=== PATIENT | female | born 1975 | race Caucasian/White ===

== ENCOUNTER 2023-01-16 08:52 | Outpatient (AMB) | payer BC, SELFPAY ==
--- NOTE | 2023-01-15 13:38 | ...WebTmpl.AM.PHNO ---
PHQ-9 Over the last 2 weeks, how often have you been bothered by any of the following problems? 1. Little interest or pleasure in doing things: not at all 2. Feeling down, depressed, or hopeless: not at all 3. Trouble falling or staying asleep, or sleeping too much: more than half the days 4. Feeling tired or having little energy: nearly every day 5. Poor appetite or overeating: not at all 6. Feeling bad about yourself - or that you are a failure or have let yourself or your family down: not at all 7. Trouble concentrating on things, such as reading the newspaper or watching television: not at all 8. Moving or speaking so slowly that other people could have noticed. Or the opposite - being so fidgety or restless that you have been moving around a lot more than usual: not at all 9. Thoughts that you would be better off or of hurting yourself in some way: not at all Total score: 5 Source: Developed by Drs. Givoany Orellana, Duke Brewer and colleagues, with an educational nakia from [employer]. WING-7 AMB Questionnaire WING-7 Date WING - 7 assessed: 01/15/23 Feeling nervous, anxious, or on edge: 0 = Not at all Not being able to stop or control worryin = Not at all Worrying too much about different things: 0 = Not at all Trouble relaxin = Not at all Being so restless that it is hard to sit still: 0 = Not at all Becoming easily annoyed or irritable: 0 = Not at all Feeling afraid as if something awful might happen: 0 = Not at all Total WING-7 score (0-4 normal; 5-9 mild; 10-14 moderate; 15-21 severe): 0 Source: Developed by Drs. Giovany Orellana, Duke Brewer and colleagues, with an educational nakia from [employer]. AUDIT C Alcohol Use Questionnaire (AUDIT-C) 1. How often do you have a drink containing alcohol?: 2-4 times a month 2. How many drinks containing alcohol do you have on a typical day when you are drinking?: 1 or 2 3. How often do you have six or more drinks on one occasion?: Never Total Score: 2
[2023-01-16 09:09] VITALS: BP 124/82; PULSE 90; RESP 12; TEMP 36.5; O2SAT 98; BMI 30.6
--- NOTE | 2023-01-16 09:09 | A.OFFPC_ITS ---
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 Patient states that she was already seeing a ENT doctor in [place] who was unable to resolve her cough. Patient states she needs refills on Spirnolactone, Doxycycline, Tizanidine, and Zolpidem as well as Hydroxychloroquine. Patient is curious on how medicinal thomjuana cards work and what are the steps to her obtaining one. Chicken Vaccinator Required: No Accompanied by: Self / Same As Patient Allergies ammonia Allergy (Severe, Verified 01/16/23 09:45) Anaphylaxis strawberry Allergy (Mild, Verified 01/16/23 09:45) Hives Medication List - Last Reconciled 01/16/23 by Fan Hanna CNP acetaminophen-codeine 325-15 mg 2 tabs PO DAILY cyanocobalamin (vitamin B-12) 1,000 mcg subcut Q4W doxycycline hyclate 20 mg PO BID duloxetine 60 mg PO DAILY hydroxychloroquine (Plaquenil) 400 mg PO DAILY primidone 400 mg PO BEDTIME spironolactone 50 mg PO BID sumatriptan succinate take 1 tab at onset of headache; if no relief, may repeat 1 tab after at least 2 hrs; max = 2 tabs/24 hrs PO tizanidine 2 mg PO TID zolpidem 10 mg PO BEDTIME Tobacco use date assessed: 01/16/23 Dental Screening Dental Screen Date: 01/16/23 Did you have a dental visit in the last 12 months?: No Did you have a dental problem in the last 6 months where you did not have access to dental care?: No Was dental information given to patient?: Yes HPI HPI Comments History of Present Illness Details 47-year-old female presents to establish care She relocated from [facility] to [facility] in 10/2022. She notes she was followed by rheumatology, neurology, neurololgy, and ENT. She notes she was never followed by a PCP. She was last evaluated by her Cannery Tender Engineer and had blood work done 4-5 months ago. She reports PMH significant for fibromyalgia, RA, benign central tremors, iron deficiency anemia, and pernicious anemia. She is on cyanocobalamin. She notes ferrous sulfate has not been effective for iron deficiency anemia; therefore, she will receive iron infusion when her H&H her significantly low. She reports intermittent nonproductive cough for the past 3 months especially when eating or talking. She notes she was followed by ENT in [place], however, her cough has been on resolved. She requests a referral to Dr. Hennessy, [facility]. She note she is on Doxycycline and spironolactone for cystic facial acne; was managed by dermatology; requests a new interceptor operator. She takes primidone for benign central tremors; was managed by neurology; requests a new neurologist. She is on acetaminophen-codeine duloxetine, hydroxychloroquine, and tizanidine for fribromyalgia; was managed by rheumatology; requests a new feed project engineer. She inquires about medical marijuana. She notes her former feed project engineer was going to transition her from acetaminophen-codeine to marijuana. No acute symptoms today. [facility] Medical History (Updated 01/16/23 @ 14:54 by Fan Hanna CNP) Benign essential tremor Fibromyalgia Rheumatoid arthritis Surgical History (Updated 01/15/23 @ 13:54 by Ana María Cox MA) H/O removal of cyst H/O: knee surgery History of adenoidectomy History of appendectomy History of surgery on left wrist History of surgical removal of ganglion cyst History of tonsillectomy History of uvulopalatopharyngoplasty Family History (Updated 01/15/23 @ 13:59 by Ana María Cox MA) Mother COPD (chronic obstructive pulmonary disease) Type 2 diabetes mellitus Congestive heart failure Rheumatoid arthritis Fibromyalgia Sjogrens syndrome Father Congenital heart defect Colon cancer Paternal Grandmother Breast cancer Bone cancer Social History Housing: House Patient Tobacco Use Status: Never used Tobacco e-Cigarette/Vaping Use: Never Used service: No Current occupational status: employed 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 1. Little interest or pleasure in doing things: not at all 2. Feeling down, depressed, or hopeless: not at all 3. Trouble falling or staying asleep, or sleeping too much: more than half the days 4. Feeling tired or having little energy: nearly every day 5. Poor appetite or overeating: not at all 6. Feeling bad about yourself - or that you are a failure or have let yourself or your family down: not at all 7. Trouble concentrating on things, such as reading the newspaper or watching television: not at all 8. Moving or speaking so slowly that other people could have noticed. Or the opposite - being so fidgety or restless that you have been moving around a lot more than usual: not at all 9. Thoughts that you would be better off or of hurting yourself in some way: not at all Total score: 5 Depression Screening Interpretation: Positive Source: Developed by Drs. Giovany Orellana, Cathryn Hunter, Duke Cervantes and colleagues, with an educational nakia from [employer]. AUDIT C Alcohol Use Questionnaire (AUDIT-C) 1. How often do you have a drink containing alcohol?: 2-4 times a month 2. How many drinks containing alcohol do you have on a typical day when you are drinking?: 1 or 2 3. How often do you have six or more drinks on one occasion?: Never Total Score: 2 WING-7 AMB Questionnaire WING-7 Date WING - 7 assessed: 01/15/23 Feeling nervous, anxious, or on edge: 0 = Not at all Not being able to stop or control worryin = Not at all Worrying too much about different things: 0 = Not at all Trouble relaxin = Not at all Being so restless that it is hard to sit still: 0 = Not at all Becoming easily annoyed or irritable: 0 = Not at all Feeling afraid as if something awful might happen: 0 = Not at all Total WING-7 score (0-4 normal; 5-9 mild; 10-14 moderate; 15-21 severe): 0 Source: Developed by Drs. Giovany Orellana, Cathryn Hunter, Duke Cervantes and colleagues, with an educational nakia from [employer]. Review of Systems Const Details: Const Denies chills, Denies fatigue, Denies fever(s), Denies headache(s) and Denies weakness ENT Denies dizziness and Denies headache(s) Card Denies chest pain, Denies lightheadedness, Denies dyspnea and Denies other (Palpitations) Resp Denies cough, Denies dyspnea, Denies wheezing and Denies other ( shortness of breath) GI Denies abdominal pain, Denies melena, Denies hematochezia, Denies change in bowel habits, Denies dyspepsia and Denies nausea Denies hematuria and Denies dysuria Musc Denies abnormal gait, Denies myalgias, Denies arthralgias, Denies numbness and Denies tingling Skin/Breast Reports cystic acne, Denies unusual bruising and Denies wounds Neuro Denies abnormal gait, Denies dizziness, Denies headache(s), Denies memory loss, Denies numbness, Denies Sensory deficit (Neuro), Denies tingling and Denies weakness Psych Denies anxiety, Denies depression, Denies memory loss Endo Denies cold intolerance, Denies fatigue, Denies heat intolerance, Denies polydipsia and Denies polyuria Aller/Immun Denies wheezing Physical exam (Primary Care) Vital Signs: Last Vital Signs Temp 97.7 F 01/16/23 09:09 Pulse 90 01/16/23 09:09 Resp 12 01/16/23 09:09 BP 124/82 01/16/23 09:09 Pulse Ox 98 01/16/23 09:09 Oxygen Delivery Method Room Air 01/16/23 09:09 BMI result Body Mass Index 30.6 Tobacco/Smoking Status: Tobacco use Status Tobacco use date assessed 01/16/23 01/16/23 09:23 Patient Tobacco Use Status Never used Tobacco 01/16/23 09:23 e-Cigarette/Vaping Use Never Used 01/16/23 09:23 PHQ-9: PHQ-9 Score PHQ-9: Total score 5 01/16/23 09:47 Depression Screening Interpretation: Positive Const Other: General: no acute distress and well developed Nutritional Appearance: well nourished Orientation/consciousness: patient oriented x3 HENMT Head: Yes normocephalic and Yes atraumatic Eyes General: appearance normal, both eyes and all related structures Pupils: Equal, round and reactive pupils present EOM: EOMs intact bilaterally Resp Effort & Inspection: normal respiratory effort Auscultation: clear to auscultation bilaterally Cardio Rate: regular rate Rhythm: regular rhythm Heart sounds: S1 normal heart sound present, S2 normal heart sound present, no gallops, no murmurs and no rubs GI Palpation (GI): No Abdominal aortic bruit present, Soft to palpation, nontender, No hepatosplenomegaly present and No Rebound tenderness present Auscultation: normal bowel sounds General: Yes no CVA tenderness Back/Spine/Pelvis Back: no CVA tenderness Cervical Spine: cervical ROM normal and No Cervical spine tenderness Thoracic/Lumbar Spine: thoraco-lumbar ROM normal, No pain with thoraco-lumbar ROM, No thoracic spinal tenderness and No lumbar spinal tenderness Extrem General: Yes normal to inspection, No edema and No calf tenderness Skin General: warm and dry. Normal skin color. Normal skin turgor Lesions: no lesions Rashes: papular rash noted to the face and scalp of both temporal region; consistent with acne Trauma: no lacerations or abrasions Wounds: no wounds Nails: normal Neuro General: patient oriented x3, gait normal and no focal neuro deficit Cranial nerves: Yes Equal, round and reactive pupils present Cognition (Neuro): normal cognition Gait exam (Neuro): Normal gait present Sensory Exam: No Sensory deficit (Neuro) Psych Appearance: grossly normal Affect: normal affect Attitude: cooperative Thought process: Normal thought process present Assessment and Plan Assessment & Plan (1) Fibromyalgia: Code(s): M79.7 - Fibromyalgia Plan: She is on acetaminophen-codeine, duloxetine, hydroxychloroquine, and tizanidine for fribromyalgia; was managed by rheumatology; requests a new feed project engineer. No acute symptoms today Continue with current treatment regimen Advised that medical marijuana currently offered for pain management at [facility]. She will discuss this with her new feed project engineer Rheumatology referral made Follow-up with new or worsening symptoms Verbalized understanding and agreed with treatment plan. (2) Rheumatoid arthritis: Code(s): M06.9 - Rheumatoid arthritis, unspecified Plan: As above (3) Benign essential tremor: Code(s): G25.0 - Essential tremor Plan: She takes primidone for benign central tremors; was managed by neurology; requests a new neurologist. No current symptoms Continue with current treatment regimen Neurologist referral made Follow-up with new or worsening symptoms Verbalized understanding and agreed with treatment plan. (4) Cystic acne: Code(s): L70.0 - Acne vulgaris Plan: She note she is on Doxycycline and spironolactone for cystic facial acne; was ma naged by dermatology; requests a new interceptor operator. Papular rash noted to the face and scalp of both temporal region; consistent with acne Continue with current treatment regimen Referred to dermatology Return with worsening or new signs and symptoms Verbalized understanding and agreed with treatment plan. (5) Chronic cough: Code(s): R05.3 - Chronic cough Plan: She reports intermittent nonproductive cough for the past 3 months especially when eating or talking. She notes she was followed by ENT in [place], however, her cough has been on resolved. She requests a referral to Dr. Hennessy, [facility]. Chest x-ray ordered Referred to Dr Hennessy Follow-up with worsening or new symptoms Verbalized understanding and agreed with treatment plan. (6) Iron deficiency anemia: Code(s): D50.9 - Iron deficiency anemia, unspecified Plan: She is on cyanocobalamin. She notes ferrous sulfate has not been effective for iron deficiency anemia; therefore, she will receive iron infusion when her H&H her significantly low. Will check labs Follow-up with symptoms or concerns Verbalized understanding and agreed with treatment plan. (7) Pernicious anemia: Code(s): D51.0 - Vitamin B12 deficiency anemia due to intrinsic factor deficiency Plan: As above (8) Laboratory tests ordered as part of a complete physical exam (CPE): Code(s): Z00.00 - Encounter for general adult medical examination without abnormal findings Plan: Fasting labs ordered as part of a complete physical exam. Advised to fast for at least 10 hours before getting labs drawn. May drink water Verbalized understanding and agreed with treatment plan. Orders: Orders Vitamin B12 and Folate Today Z00.00 - Encounter for general adult medical examination without abnormal findings Comprehensive [place]. Panel Fast Today Z00.00 - Encounter for general adult medical examination without abnormal findings Lipid Panel Today Z00.00 - Encounter for general adult medical examination without abnormal findings TSH reflex Free T4 Today Z00.00 - Encounter for general adult medical examination without abnormal findings Complete Blood Count Auto Diff Today Z00.00 - Encounter for general adult medical examination without abnormal findings UA CC w/rflx Micro + Cult Today Z00.00 - Encounter for general adult medical examination without abnormal findings XR chest 2V Today R05.3 - Chronic cough Referrals Dermatology Referral L70.0 - Acne vulgaris Ear/Nose/Throat Referral R05.3 - Chronic cough Neurology Referral G25.0 - Essential tremor Rheumatology Referral M79.7 - Fibromyalgia Medications: New zolpidem 10 mg PO BEDTIME 30 days 30 tabs 0RF doxycycline hyclate 20 mg PO BID 30 days 60 tabs 3RF hydroxychloroquine (Plaquenil) 400 mg (2 x 200 mg) PO DAILY 30 days 60 tabs 3RF spironolactone 50 mg PO BID 30 days 60 tabs 1RF tizanidine 2 mg PO TID 90 tabs 1RF Coding Level of Care Code New Pt Level 4 (26033) Diagnoses Fibromyalgia M79.7 Rheumatoid arthritis M06.9 Benign essential tremor G25.0 Cystic acne L70.0 Chronic cough R05.3 Iron deficiency anemia D50.9 Pernicious anemia D51.0 Laboratory tests ordered as part of a complete physical exam (CPE) Z00.00
== END 2023-01-16 10:19 | disposition home or self-care (01) ==
PROVIDERS: PCP Nurse Practitioner Family; Visit Provider Nurse Practitioner Family
DX: M79.7 Fibromyalgia (principal); M06.9 Rheumatoid arthritis, unspecified; G25.0 Essential tremor; L70.0 Acne vulgaris; R05.3 Chronic cough; D50.9 Iron deficiency anemia, unspecified; D51.0 Vitamin B12 deficiency anemia due to intrinsic factor deficiency; Z00.00 Encounter for general adult medical examination without abnormal findings
CPT/HCPCS: 99204

== ENCOUNTER 2023-02-13 08:29 | Outpatient (AMB) | payer BC, SELFPAY ==
--- NOTE | 2023-02-13 08:47 | MHC.PC.OV ---
Vital Signs 02/13/23 08:52 Height 5 ft 3 in Weight 171 lb 6 oz BMI 30.4 BP 118/76 Blood Pressure Location Lt brachial Position Sitting Respiration 15 Pulse 81 Pulse Source Pulse Oximeter Temp 99.6 F Temp Source Skin Pulse Oximetry (%) 97 Oxygen Delivery Method Room Air Intake Visit Reasons: 1 mos labs review, CPE Intake Note: Patient is here today for her physical and reports she has not had recent labs prior to todays appointment. Patient reports she feels as though shes in the middle of a head cold. Patient reports symptoms starts 4 days ago with congestion, cough and low grade fever (100.2). Patient reports facial pain; teeth and nasal passage x2 days. Patient reports she has tried theraflu day and night time medication with mild symptom relief. Night Manager Required: No Accompanied by: Self / Same As Patient Allergies ammonia Allergy (Severe, Verified 02/13/23 10:08) Anaphylaxis strawberry Allergy (Mild, Verified 02/13/23 10:08) Hives Medication List - Last Reviewed 02/13/23 by Nellie Schwartz acetaminophen-codeine 325-15 mg 2 tabs PO DAILY azithromycin (Zithromax Z-Darvin) For 250 mg dose pack: take 500 mg today (day 1), then 250 mg for 4 days (days 2-5) PO cyanocobalamin (vitamin B-12) 1,000 mcg subcut Q4W dextromethorphan HBr 20 mg (15 mL) PO TID PRN 5 days doxycycline hyclate 20 mg PO BID 30 days duloxetine 60 mg PO DAILY fluticasone propionate 50 mcg/actuation (Flonase Allergy Relief) 1 spray intranasal Q12H hydroxychloroquine (Plaquenil) 400 mg (2 x 200 mg) PO DAILY 30 days primidone 400 mg PO BEDTIME spironolactone 50 mg PO BID 30 days sumatriptan succinate take 1 tab at onset of headache; if no relief, may repeat 1 tab after at least 2 hrs; max = 2 tabs/24 hrs PO tizanidine 2 mg PO TID zolpidem 10 mg PO BEDTIME 30 days Tobacco use date assessed: 01/16/23 HPI HPI Comments History of Present Illness Details 47-year-old female presents for a complete physical exam and review of recent lab results. She has past medical history significant for fibromyalgia, RA, benign central tremors, iron deficiency anemia, and pernicious anemia She established care on 01/17/2020. Routine labs were ordered, however, she has not had blood work and urinalysis done. Chest x-ray was also ordered for reported intermittent productive cough that has been ongoing for the past 3 months. She has not had chest x-ray done. She was referred to Neurology, ENT, Rheumatology, and Dermatology. She reports headache, nasal congestion, productive cough with green phlegm, mild sore throat, and exhaustion for the past 5 days. She notes associated low grade fever which started this morning, generalized body aches, chills, maxillary and upper molars pain. She states her symptoms are improving. She has been taking theraflu with minimal cough and congestion relief. She notes she was with individuals who tested positive for covid. She notes she had one negative covid test. COUNT INCLUDES THE [facility] Medical History (Updated 02/13/23 @ 11:10 by Fan Hanna CNP) Benign essential tremor Fibromyalgia Rheumatoid arthritis Surgical History (Updated 01/15/23 @ 13:54 by Ana María Cox MA) History of surgery on left wrist History of uvulopalatopharyngoplasty History of surgical removal of ganglion cyst History of tonsillectomy H/O: knee surgery H/O removal of cyst History of appendectomy History of adenoidectomy Family History (Updated 01/15/23 @ 13:59 by Ana María Cox MA) Mother COPD (chronic obstructive pulmonary disease) Type 2 diabetes mellitus Congestive heart failure Rheumatoid arthritis Fibromyalgia Sjogrens syndrome Father Congenital heart defect Colon cancer Paternal Grandmother Breast cancer Bone cancer Social History Housing: House Patient Tobacco Use Status: Never used Tobacco e-Cigarette/Vaping Use: Never Used service: No Current occupational status: employed 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 Giovany Orellana, Cathryn Huntre, Duke Cervantes and colleagues, with an educational nakia from [employer]. Review of Systems Const Details: Const Denies chills, Reports fatigue, Reports fever(s), Reports headache(s) and Denies weakness ENT Reports as per HPI Card Denies chest pain, Denies lightheadedness, Denies dyspnea and Denies other (Palpitations) Resp Reports cough, Denies dyspnea, Denies wheezing and Denies other ( shortness of breath) GI Denies abdominal pain, Denies melena, Denies hematochezia, Denies change in bowel habits, Denies dyspepsia and Denies nausea Denies hematuria and Denies dysuria Musc Reports generalized body aches, Denies abnormal gait, Denies numbness and Denies tingling Skin/Breast Denies rash, Denies unusual bruising and Denies wounds Neuro Denies abnormal gait, Denies dizziness, Denies headache(s), Denies memory loss, Denies numbness, Denies Sensory deficit (Neuro), Denies tingling and Denies weakness Psych Denies anxiety, Denies depression, Denies memory loss Endo Denies cold intolerance, Reports fatigue, Denies heat intolerance, Denies polydipsia and Denies polyuria Aller/Immun Denies wheezing Physical exam (Primary Care) Vital Signs: Last Vital Signs Temp 99.6 F 02/13/23 08:52 Pulse 81 02/13/23 08:52 Resp 15 02/13/23 08:52 BP 118/76 02/13/23 08:52 Pulse Ox 97 02/13/23 08:52 Oxygen Delivery Method Room Air 02/13/23 08:52 BMI result Body Mass Index 30.4 Tobacco/Smoking Status: Tobacco use Status Tobacco use date assessed 01/16/23 02/13/23 08:57 Patient Tobacco Use Status Never used Tobacco 02/13/23 08:57 e-Cigarette/Vaping Use Never Used 02/13/23 08:57 Const Other: General: no acute distress and well developed Nutritional Appearance: well nourished Orientation/consciousness: patient oriented x3 HENMT Head is normocephalic Bilateral ear canal and TM are normal Nasal turbinates and oropharynx with moderate erythema, no edema, patches, or exudate Maxillary sinus tenderness to palpation No auricular or cervical lymphadenopathy Eyes General: appearance normal, both eyes and all related structures Pupils: Equal, round and reactive pupils present EOM: EOMs intact bilaterally Resp Effort & Inspection: normal respiratory effort Auscultation: clear to auscultation bilaterally Cardio Rate: regular rate Rhythm: regular rhythm Heart sounds: S1 normal heart sound present, S2 normal heart sound present, no gallops, no murmurs and no rubs GI Palpation (GI): No Abdominal aortic bruit present, Soft to palpation, nontender, No hepatosplenomegaly present and No Rebound tenderness present Auscultation: normal bowel sounds General: Yes no CVA tenderness Back/Spine/Pelvis Back: no CVA tenderness Cervical Spine: cervical ROM normal and No Cervical spine tenderness Thoracic/Lumbar Spine: thoraco-lumbar ROM normal, No pain with thoraco-lumbar ROM, No thoracic spinal tenderness and No lumbar spinal tenderness Extrem General: Yes normal to inspection, No edema and No calf tenderness Skin General: warm and dry. Normal skin color. Normal skin turgor Neuro General: patient oriented x3, gait normal and no focal neuro deficit Cranial nerves: Yes Equal, round and reactive pupils present Cognition (Neuro): normal cognition Gait exam (Neuro): Normal gait present Sensory Exam: No Sensory deficit (Neuro) Psych Appearance: grossly normal Affect: normal affect Attitude: cooperative Thought process: Normal thought process present Results AMB Rapid Strep AMB Rapid Strep Negative Last Edit by Nellie Schwartz on 02/13/23 09:56 Results Reviewed Results Reviewed: Laboratory Last Values Strep Scn [facility] Negative 02/13/23 09:17 Assessment and Plan Assessment & Plan (1) Sinus infection: Code(s): J32.9 - Chronic sinusitis, unspecified Qualifiers: Chronicity: acute Sinusitis location: maxillary Plan: She reports headache, nasal congestion, productive cough with green phlegm, mild sore throat, exhaustion, low-grade fever, and generalized body aches, maxillary and upper molar as pain for the past 5 days. Nasal turbinates and oropharynx with moderate erythema, no edema, patches, or exudate Maxillary sinus tenderness to palpation No lymphadenopathy Bacterial or viral sinus infection is likely Rapid strep test is negative for pharyngitis Z-Darvin, dextromethorphan, and Flonase ordered. Take as prescribed May take ibuprofen for pain, fever, or discomfort May gargle with salt water Encouraged to hold doxycycline until completion of Z-Darvin to prevent candidiasis Also encouraged to hold hydroxychloroquine until completion of Z-Darvin due to QT prolongation interaction Cannot rule out COVID-19/RSV/Flu infection Nasal swab acquired and will be sent to the lab Will defer physical exam due to acute symptoms. Advised to get chest x-ray, urinalysis, and routine fasting blood work done and rescheduled a complete physical exam Follow-up with worsening or new symptoms Verbalized understanding and agreed with treatment plan. Orders: Orders SARS-CoV2/FLU/RSV Today J06.9 - Acute upper respiratory infection, unspecified AMB Rapid Strep Screen Today Z13.9 - Encounter for screening, unspecified Medications: New azithromycin (Zithromax Z-Darvin) For 250 mg dose pack: take 500 mg today (day 1), then 250 mg for 4 days (days 2-5) PO 6 tabs 0RF dextromethorphan HBr 20 mg (15 mL) PO TID 5 days PRN 118 mL 1RF coug fluticasone propionate 50 mcg/actuation (Flonase Allergy Relief) administer into each nostril 1 spray intranasal Q12H 16 grams 1RF Coding Level of Care Code Est Pt Level 3 (89654) Diagnoses Sinus infection J32.9 Chronicity: acute Sinusitis location: maxillary
--- NOTE | 2023-02-13 08:51 | A.OFFPC_ITS ---
Vital Signs 02/13/23 08:52 Height 5 ft 3 in Weight 171 lb 6 oz BMI 30.4 BP 118/76 Blood Pressure Location Lt brachial Position Sitting Respiration 15 Pulse 81 Pulse Source Pulse Oximeter Temp 99.6 F Temp Source Skin Pulse Oximetry (%) 97 Oxygen Delivery Method Room Air Intake Visit Reasons: 1 mos labs review, CPE Intake Note: Patient reports she is here for her physical, she has not had labs done prior to the physical. Patient reports she has what seems like a head cold. Patient reports cough, congestion, low grade fever x4 days. Painful teeth and nasal passage. Patient reports trying theraflu day and night with mild symptom relief. 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 Accompanied by: Self / Same As Patient Allergies ammonia Allergy (Severe, Verified 02/13/23 10:08) Anaphylaxis strawberry Allergy (Mild, Verified 02/13/23 10:08) Hives Medication List - Last Reviewed 02/13/23 by Nellie Schwartz acetaminophen-codeine 325-15 mg 2 tabs PO DAILY azithromycin (Zithromax Z-Darvin) For 250 mg dose pack: take 500 mg today (day 1), then 250 mg for 4 days (days 2-5) PO cyanocobalamin (vitamin B-12) 1,000 mcg subcut Q4W dextromethorphan HBr 20 mg (15 mL) PO TID PRN 5 days doxycycline hyclate 20 mg PO BID 30 days duloxetine 60 mg PO DAILY fluticasone propionate 50 mcg/actuation (Flonase Allergy Relief) 1 spray intranasal Q12H hydroxychloroquine (Plaquenil) 400 mg (2 x 200 mg) PO DAILY 30 days primidone 400 mg PO BEDTIME spironolactone 50 mg PO BID 30 days sumatriptan succinate take 1 tab at onset of headache; if no relief, may repeat 1 tab after at least 2 hrs; max = 2 tabs/24 hrs PO tizanidine 2 mg PO TID zolpidem 10 mg PO BEDTIME 30 days Tobacco use date assessed: 01/16/23 [facility] Medical History (Updated 02/13/23 @ 11:10 by Fan Hanna CNP) Benign essential tremor Fibromyalgia Rheumatoid arthritis Surgical History (Updated 01/15/23 @ 13:54 by Ana María Cox MA) History of surgery on left wrist History of uvulopalatopharyngoplasty History of surgical removal of ganglion cyst History of tonsillectomy H/O: knee surgery H/O removal of cyst History of appendectomy History of adenoidectomy Family History (Updated 01/15/23 @ 13:59 by Ana María Cox MA) Mother COPD (chronic obstructive pulmonary disease) Type 2 diabetes mellitus Congestive heart failure Rheumatoid arthritis Fibromyalgia Sjogrens syndrome Father Congenital heart defect Colon cancer Paternal Grandmother Breast cancer Bone cancer Social History Housing: House Patient Tobacco Use Status: Never used Tobacco e-Cigarette/Vaping Use: Never Used service: No Current occupational status: employed 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 Giovany Orellana, Cathryn Huntre, Duke Cervantes and colleagues, with an educational nakia from [employer]. Physical exam (Primary Care) Vital Signs: Last Vital Signs Temp 99.6 F 02/13/23 08:52 Pulse 81 02/13/23 08:52 Resp 15 02/13/23 08:52 BP 118/76 02/13/23 08:52 Pulse Ox 97 02/13/23 08:52 Oxygen Delivery Method Room Air 02/13/23 08:52 BMI result Body Mass Index 30.4 Tobacco/Smoking Status: Tobacco use Status Tobacco use date assessed 01/16/23 02/13/23 08:57 Patient Tobacco Use Status Never used Tobacco 02/13/23 08:57 e-Cigarette/Vaping Use Never Used 02/13/23 08:57 Results AMB Rapid Strep AMB Rapid Strep Negative Last Edit by Nellie Schwartz on 02/13/23 09: 56 Results Reviewed Results Reviewed: Laboratory Last Values Strep Scn [facility] Negative 02/13/23 09:17 Assessment and Plan Assessment & Plan Orders: Orders SARS-CoV2/FLU/RSV Today J06.9 - Acute upper respiratory infection, unspecified AMB Rapid Strep Screen Today Z13.9 - Encounter for screening, unspecified Medications: New azithromycin (Zithromax Z-Darvin) For 250 mg dose pack: take 500 mg today (day 1), then 250 mg for 4 days (days 2-5) PO 6 tabs 0RF dextromethorphan HBr 20 mg (15 mL) PO TID 5 days PRN 118 mL 1RF coug fluticasone propionate 50 mcg/actuation (Flonase Allergy Relief) administer into each nostril 1 spray intranasal Q12H 16 grams 1RF Coding
[2023-02-13 08:52] VITALS: BP 118/76; PULSE 81; RESP 15; TEMP 37.6; O2SAT 97; BMI 30.4
== END 2023-02-13 09:43 | disposition home or self-care (01) ==
PROVIDERS: PCP Nurse Practitioner Family; Visit Provider Nurse Practitioner Family
DX: J32.9 Chronic sinusitis, unspecified (principal); J02.9 Acute pharyngitis, unspecified
CPT/HCPCS: 87880; 99213

== ENCOUNTER 2023-02-13 09:18 | Outpatient (REF) | payer BC, SELFPAY ==
--- NOTE | ~2023-02-13 | XR_ITS ---
EXAMINATION: XR CHEST CLINICAL INFORMATION: Chronic cough. COMPARISON: None available. TECHNIQUE: 2 views of the chest were obtained. FINDINGS: The lungs are clear. The cardiomediastinal silhouette is normal in size. There is no pleural effusion or pneumothorax. No acute osseous abnormality. XR/XR chest 2V IMPRESSION: No acute cardiopulmonary findings.
[2023-02-13 11:58] LABS: MANUAL DIFF FLAG NO
[2023-02-13 12:01] LABS: Appearance Urine Clear; Color Urine Yellow; Glucose Urine UA Negative (Negative); Leukocyte Esterase Urine Trace (Negative); Nitrite Urine Negative (Negative); Specific Gravity - Urine 1.015 (1.005-1.025); UMIC TRIGGER UACC YES; Urine Blood Negative (Negative); Urine Ketones Negative (Negative); Urine Protein Negative (Neg-Trace)
[2023-02-13 12:03] LABS: Basophils Percent Auto 0.6 % (0-2); Eosinophils Absolute Auto 0.2 X10*3/uL (0.0-0.4); Eosinophils Percent Auto 3.6 % (0-4); Hematocrit 36.8 % (37.0-47.0); Hemoglobin 12.1 g/dl (12.0-16.0); Imm Gran Abs Auto 0.02 X10*3/uL (0.00-0.03); Imm Gran Pct Auto 0.3 % (0.0-0.4); Lymphocytes Absolute Auto 1.5 X10*3/uL (1.2-4.9); Lymphocytes Percent Auto 22.2 % (20-40); Mean Corpuscular HGB Conc 32.9 g/dl (31.0-35.0); Mean Corpuscular Hemoglobin 30.4 pg (27.0-33.0); Mean Corpuscular Volume 92.5 fL (80.0-98.0); Mean Platelet Volume 10.6 fL (9.4-12.3); Monocytes Absolute Auto 0.6 X10*3/uL (0.1-1.2); Monocytes Percent Auto 8.4 % (2-11); Neutrophils Absolute Auto 4.4 x10*3/uL (2.0-8.3); Neutrophils Percent Auto 64.9 % (45-73); Platelet Count 253 X10*3/uL (160-400); Red Blood Count 3.98 X10*6/uL (4.20-5.50); Red Cell Distribution Width 12.8 % (11.0-16.0); White Blood Count 6.8 X10*3/uL (4.8-10.8)
[2023-02-13 12:06] LABS: Bacteria Urine None Seen (None Seen); Hyaline Casts Urine 0-2 /LPF (0-2); RBC Urine 0-2 /HPF (0-2); WBC Urine 0-5 /HPF (0-5)
[2023-02-13 13:11] LABS: Alanine Aminotransferase 24 U/L (0-31); Albumin Level 3.8 g/dL (3.5-5.0); Alkaline Phosphatase 164 U/L (39-117); Anion Gap 12 (12-20); Aspartate Amino Transferase 26 U/L (5-31); Bilirubin Total 0.4 mg/dL (0.0-1.0); Blood Urea Nitrogen 9 mg/dL (9-16); Calcium 8.9 mg/dL (8.4-10.2); Carbon Dioxide 26 mmol/L (22-29); Chloride 103 mmol/L (96-108); Cholesterol 181 mg/dL (<200); Estimated Glomerular Filt Rate > 60; Glucose Fasting 70 mg/dL (60-99); HDL Cholesterol 50 mg/dL (>40); LDL Cholesterol Calculated 111 mg/dL (<100); Potassium 3.7 mmol/L (3.3-5.1); Sodium 137 mmol/L (135-145); Triglycerides 104 mg/dL (<150)
[2023-02-13 13:31] LABS: TSH reflex Free T4 2.42 uIU/mL (0.32-4.0)
[2023-02-13 13:35] LABS: Folate 2.8 ng/mL (> or = 4.0); Vitamin B12 788 pg/mL (200-900)
[2023-02-13 14:26] LABS: Influenza A PCR NEGATIVE (Negative); Influenza B PCR NEGATIVE (Negative); Resp Syncy Virus RNA Qual PCR NEGATIVE (Negative); SARS COV2 PCR INHOUSE NEGATIVE (Negative)
== END 2023-02-13 09:19 | disposition home or self-care (01) ==
LOC: HO.XRAY 09:18
PROVIDERS: PCP Nurse Practitioner Family; Visit Provider Nurse Practitioner Family
DX: Z00.00 Encounter for general adult medical examination without abnormal findings (principal); R05.3 Chronic cough; J06.9 Acute upper respiratory infection, unspecified; Z20.822 Contact with and (suspected) exposure to COVID-19
CPT/HCPCS: 0241U; 36415; 71046; 80053; 80061; 81001; 81003; 82607; 82746; 84443; 85025

== ENCOUNTER 2023-02-19 11:52 | Outpatient (REF) | payer BC, SELFPAY ==
--- NOTE | ~2023-02-19 | XR_ITS ---
EXAMINATION: XR SINUSES CLINICAL INFORMATION: Sinusitis COMPARISON: None available. TECHNIQUE: 4 views of the sinuses FINDINGS: Large air-fluid level is noted in the right maxillary sinus compatible with history of sinusitis. The remainder of the visualized paranasal sinuses appear clear. Advanced multilevel degenerative disc disease in the partially imaged cervical spine. No displaced fracture appreciated within limitations. XR/XR sinus min 3V IMPRESSION: 1. Large air-fluid level is noted in the right maxillary sinus compatible with history of sinusitis. The remainder of the visualized paranasal sinuses appear clear. 2. Advanced multilevel degenerative disc disease in the partially imaged cervical spine.
== END 2023-02-19 11:53 | disposition home or self-care (01) ==
LOC: HO.XRAY 11:52
PROVIDERS: PCP Nurse Practitioner Family; Visit Provider Otolaryngology
DX: J32.9 Chronic sinusitis, unspecified (principal)
CPT/HCPCS: 70220

== ENCOUNTER 2023-03-20 08:26 | Outpatient (AMB) | payer BC, SELFPAY ==
[2023-03-20 08:31] VITALS: BP 124/80; PULSE 81; RESP 13; TEMP 36.5; O2SAT 99
--- NOTE | 2023-03-20 08:31 | A.OFFPC_ITS ---
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 Accompanied by: Self / Same As Patient Allergies ammonia Allergy (Severe, Verified 03/20/23 08:55) Anaphylaxis strawberry Allergy (Mild, Verified 03/20/23 08:55) Hives Medication List - Last Reconciled 03/20/23 by Fan Hanna CNP acetaminophen-codeine 325-15 mg 2 tabs PO DAILY azithromycin (Zithromax Z-Darvin) For 250 mg dose pack: take 500 mg today (day 1), then 250 mg for 4 days (days 2-5) PO cyanocobalamin (vitamin B-12) 1,000 mcg subcut Q4W dextromethorphan HBr 20 mg (15 mL) PO TID PRN 5 days doxycycline hyclate 20 mg PO BID 30 days duloxetine 60 mg PO DAILY fluticasone propionate 50 mcg/actuation (Flonase Allergy Relief) 1 spray intranasal Q12H 90 days folic acid 0.4 mg PO DAILY 30 days hydroxychloroquine (Plaquenil) 400 mg (2 x 200 mg) PO DAILY 30 days primidone 400 mg PO BEDTIME spironolactone 50 mg PO BID 30 days sumatriptan succinate take 1 tab at onset of headache; if no relief, may repeat 1 tab after at least 2 hrs; max = 2 tabs/24 hrs PO tizanidine 2 mg PO TID tretinoin 0.025% 1 appl topical BEDTIME zolpidem 10 mg PO BEDTIME 30 days Tobacco use date assessed: 01/16/23 Dental Screening Dental Screen Date: 03/20/23 Did you have a dental visit in the last 12 months?: No Did you have a dental problem in the last 6 months where you did not have access to dental care?: No Was dental information given to patient?: Yes HPI HPI Comments History of Present Illness Details 47-year-old female presents for a comple te physical exam. She established care in December. She has PMH significant for fibromyalgia, RA, benign central tremors, iron deficiency anemia, and pernicious anemia. She was referred to dermatology for acne, Neurology for benign central tremors, rheumatology for fibromyalgia, and ENT for chronic cough. She had blood work done last month. Her folate level was low, 2.8, LDL was slightly above normal, 111, alkaline phosphate was elevated, 164 She notes that she is currently being followed by dermatology and ENT. She has an appointment with rheumatology next month and neurology in May 2023. She states that her former neurologist in [place] is still writing scripts for her primidone and sumatriptan. She offers no complaints and denies acute symptoms. She notes that her last mammogram was 5 years ago: normal She states that her last pap smear test was 3 years ago: normal Her last colonoscopy was within the past 10 years: normal She notes she received the shingles vaccines last week. [facility] Medical History Benign essential tremor Fibromyalgia Rheumatoid arthritis Surgical History History of surgery on left wrist History of uvulopalatopharyngoplasty History of surgical removal of ganglion cyst History of tonsillectomy H/O: knee surgery H/O removal of cyst History of appendectomy History of adenoidectomy Family History Mother COPD (chronic obstructive pulmonary disease) Type 2 diabetes mellitus Congestive heart failure Rheumatoid arthritis Fibromyalgia Sjogrens syndrome Father Congenital heart defect Colon cancer Paternal Grandmother Breast cancer Bone cancer Social History Housing: House Patient Tobacco Use Status: Never used Tobacco e-Cigarette/Vaping Use: Never Used service: No Current occupational status: employed 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 1. Little interest or pleasure in doing things: not at all 2. Feeling down, depressed, or hopeless: not at all 3. Trouble falling or staying asleep, or sleeping too much: more than half the days 4. Feeling tired or having little energy: more than half the days 5. Poor appetite or overeating: not at all 6. Feeling bad about yourself - or that you are a failure or have let yourself or your family down: not at all 7. Trouble concentrating on things, such as reading the newspaper or watching television: not at all 8. Moving or speaking so slowly that other people could have noticed. Or the opposite - being so fidgety or restless that you have been moving around a lot more than usual: not at all 9. Thoughts that you would be better off or of hurting yourself in some way: not at all Total score: 4 Depression Screening Interpretation: Negative Depression Screening Done: Yes Source: Developed by Drs. Giovany Orellana, Cathryn Hunter, Duke Cervantes and colleagues, with an educational nakia from [employer]. WING-7 AMB Questionnaire WING-7 Date WING - 7 assessed: 03/20/23 Feeling nervous, anxious, or on edge: 0 = Not at all Not being able to stop or control worryin = Not at all Worrying too much about different things: 0 = Not at all Trouble relaxin = Not at all Being so restless that it is hard to sit still: 0 = Not at all Becoming easily annoyed or irritable: 0 = Not at all Feeling afraid as if something awful might happen: 0 = Not at all Total WING-7 score (0-4 normal; 5-9 mild; 10-14 moderate; 15-21 severe): 0 Source: Developed by Drs. Giovany Orellana, Cathryn Hunter, Duke Cervantes and colleagues, with an educational nakia from [employer]. Review of Systems Const Details: Denies chills, Denies fatigue, Denies fever(s), Denies headache(s) and Denies weakness HEENT Denies change in vision, Denies dizziness, Denies headache(s), Denies hearing loss, Denies nasal congestion, Denies sinus pain, Denies sinus pressure and Denies sore throat Card Denies chest pain, Denies lightheadedness, Denies dyspnea and Denies other (palpitations) Resp Denies cough, Denies dyspnea and Denies wheezing GI Denies abdominal pain, Denies melena, Denies hematochezia, Denies change in bowel habits, Denies dyspepsia and Denies nausea Denies hematuria and Denies dysuria Musc Denies abnormal gait, Denies myalgias, Denies arthralgias, Denies numbness and Denies tingling Skin/Breast Denies rash, Denies unusual bruising and Denies wounds Neuro Denies abnormal gait, Denies dizziness, Denies headache(s), Denies memory loss, Denies numbness, Denies Sensory deficit (Neuro), Denies tingling and Denies weakness Psych Denies anxiety, Denies depression and Denies memory loss Endo Denies cold intolerance, Denies fatigue, Denies heat intolerance, Denies polydipsia and Denies polyuria Anthony/Lymph Denies easy bleeding and Denies easy bruising Aller/Immun Denies wheezing Physical exam (Primary Care) Vital Signs: Last Vital Signs Temp 97.7 F 03/20/23 08:31 Pulse 81 03/20/23 08:31 Resp 13 03/20/23 08:31 BP 124/80 03/20/23 08:31 Pulse Ox 99 03/20/23 08:31 Oxygen Delivery Method Room Air 03/20/23 08:31 BMI result Body Mass Index 30.0 Tobacco/Smoking Status: Tobacco use Status Tobacco use date assessed 01/16/23 03/20/23 08:37 Patient Tobacco Use Status Never used Tobacco 03/20/23 08:37 e-Cigarette/Vaping Use Never Used 03/20/23 08:37 Depression Screening Interpretation: Negative Const Other: General: no acute distress, well developed, alert and awake Nutritional Appearance: well nourished Orientation/consciousness: patient oriented x3 HENMT Head: Yes normocephalic and Yes atraumatic Ears: hearing grossly normal bilaterally and TM's normal bilaterally General nose exam: Normal external nose present and Normal nares present Mouth: Normal oral and palatal mucosa present and moist mucous membranes Teeth and gingiva: dentition normal Throat: Yes oropharynx normal Eyes Pupils: Equal, round and reactive pupils present and Pupil accommodation reflex normal EOM: EOMs intact bilaterally Neck Neck: Yes normal visual inspection, Yes no lymphadenopathy and Yes trachea midli ne Thyroid: Thyroid normal Carotids: no bruits Lymphatic: no lymphadenopathy noted Chest Chest palpation & inspection: normal inspection of the chest Resp Effort & Inspection: normal respiratory effort Auscultation: clear to auscultation bilaterally Cardio Rate: regular rate Rhythm: regular rhythm Heart sounds: S1 normal heart sound present, S2 normal heart sound present, no gallops, no murmurs and no rubs Bruits: no abdominal aortic bruits and no carotid bruits GI Palpation (GI): No Abdominal aortic bruit present, Soft to palpation, nontender, No hepatosplenomegaly present and No Rebound tenderness present Auscultation: normal bowel sounds General: Yes no CVA tenderness Back/Spine/Pelvis Back: no CVA tenderness Cervical Spine: cervical ROM normal and No Cervical spine tenderness Thoracic/Lumbar Spine: thoraco-lumbar ROM normal, No pain with thoraco-lumbar ROM, No thoracic spinal tenderness and No lumbar spinal tenderness Skin General: warm and dry. Normal skin color. Normal skin turgor Lesions: no lesions Rashes: no rashes Trauma: no lacerations or abrasions Wounds: no wounds Nails: normal Neuro General: patient oriented x3, gait normal and CN's II-XI intact bilaterally Cranial nerves: Yes Equal, round and reactive pupils present Cognition (Neuro): normal cognition Gait exam (Neuro): Normal gait present Motor exam (neuro): 5/5 motor strength present throughout Sensory Exam: No Sensory deficit (Neuro) Deep tendon reflexes (DTR's): Right patellar reflex intensity grade: 2+ and Left patellar reflex intensity grade: 2+ Extrem General: Yes normal to inspection, No edema and No calf tenderness Psych Appearance: grossly normal Affect: normal affect Attitude: cooperative Thought process: Normal thought process present Assessment and Plan Assessment & Plan (1) Normal physical examination, routine: Code(s): Z00.00 - Encounter for general adult medical examination without abnormal findings Plan: No significant physical restrictions or limitations noted Follow-up with Neurology, Dermatology, ENT, and Rheumatology as planned Advised to follow-up in 6 months for health maintenance Return sooner with symptoms or concerns Verbalized understanding and agreed with treatment plan. (2) Folate deficiency: Code(s): E53.8 - Deficiency of other specified B group vitamins Plan: Recent lab results reviewed with the patient. Folate level was low, 2.8. She has been taking folic acid for the past 1 month. Advised to continue to take as prescribed Will repeat folate level and make changes to her care plan as needed Verbalized understanding and agreed with treatment plan. (3) Elevated alkaline phosphatase level: Code(s): R74.8 - Abnormal levels of other serum enzymes Plan: Recent alkaline phosphate level was elevated, 164 Will recheck alkaline phosphate level. Will also check PTH level Will make changes to her care plan if warranted Verbalized understanding and agreed with treatment plan. (4) Elevated LDL cholesterol level: Code(s): E78.00 - Pure hypercholesterolemia, unspecified Plan: Recent LDL level was slightly elevated 111 Advised to limit foods high in saturated fat and avoid foods high trans fat Routine exercise encouraged Will continue to monitor Verbalized understanding and agreed with treatment plan. (5) Breast cancer screening by mammogram: Code(s): Z12.31 - Encounter for screening mammogram for malignant neoplasm of breast Plan: She notes that her last mammogram was 5 years ago: normal Mammogram ordered (6) Pap smear for cervical cancer screening: Code(s): Z12.4 - Encounter for screening for malignant neoplasm of cervix Plan: She states that her last pap smear test was 3 years ago: normal [place] [facility] [place] Orders: Orders PTHI Today R74.8 - Abnormal levels of other serum enzymes Comprehensive Met. Panel Today R74.8 - Abnormal levels of other serum enzymes Folate Today E53.8 - Deficiency of other specified B group vitamins MM screening mammo BI Today Z12.31 - Encounter for screening mammogram for malignant neoplasm of breast Comprehensive [employer] Panel Fast 6 Months E53.8 - Deficiency of other specified B group vitamins, R74.8 - Abnormal levels of other serum enzymes Complete Blood Count Auto Diff 6 Months D51.0 - Vitamin B12 deficiency anemia due to intrinsic factor deficiency, E53.8 - Deficiency of other specified B group vitamins, J32.9 - Chronic sinusitis, unspecified, R74.8 - Abnormal levels of other serum enzymes Referrals [employer] Referral Z12.4 - Encounter for screening for malignant neoplasm of cervix Coding Level of Care Code Est Pt Prev Care 40-64y([id number]) Diagnoses Normal physical examination, routine Z00.00 Folate deficiency E53.8 Elevated alkaline phosphatase level R74.8 Elevated LDL cholesterol level E78.00 Breast cancer screening by mammogram Z05.26 Pap smear for cervical cancer screening Z12.4
== END 2023-03-20 09:24 | disposition home or self-care (01) ==
PROVIDERS: PCP Nurse Practitioner Family; Visit Provider Nurse Practitioner Family
DX: Z00.00 Encounter for general adult medical examination without abnormal findings (principal); E53.8 Deficiency of other specified B group vitamins; R74.8 Abnormal levels of other serum enzymes; E78.00 Pure hypercholesterolemia, unspecified; Z12.31 Encounter for screening mammogram for malignant neoplasm of breast; Z12.4 Encounter for screening for malignant neoplasm of cervix
CPT/HCPCS: 99396

== ENCOUNTER 2023-03-20 09:27 | Outpatient (REF) | payer BC, SELFPAY ==
[2023-03-20 12:31] LABS: Alanine Aminotransferase 14 U/L (0-31); Albumin Level 4.2 g/dL (3.5-5.0); Alkaline Phosphatase 129 U/L (39-117); Anion Gap 13 (12-20); Aspartate Amino Transferase 18 U/L (5-31); Bilirubin Total 0.2 mg/dL (0.0-1.0); Blood Urea Nitrogen 12 mg/dL (9-16); Calcium 9.2 mg/dL (8.4-10.2); Carbon Dioxide 29 mmol/L (22-29); Chloride 99 mmol/L (96-108); Estimated Glomerular Filt Rate > 60; Glucose Random 84 mg/dL (60-115); Potassium 4.4 mmol/L (3.3-5.1); Sodium 137 mmol/L (135-145); Total Protein 7.3 g/dL (6.5-8.0)
[2023-03-20 12:55] LABS: Folate 16.5 ng/mL (> or = 4.0)
[2023-03-21 14:39] LABS: Calcium (PTHI) 9.1 mg/dL (8.6-10.2); PTHI 182 pg/mL (16-77)
== END 2023-03-20 09:28 | disposition home or self-care (01) ==
LOC: HO.WFDLDS 09:27
PROVIDERS: Visit Provider Nurse Practitioner Family
DX: E53.8 Deficiency of other specified B group vitamins (principal); R74.8 Abnormal levels of other serum enzymes
CPT/HCPCS: 36415; 80053; 82746; 83970

== ENCOUNTER 2023-03-25 14:02 | Outpatient (REF) | payer BC, SELFPAY ==
--- NOTE | ~2023-03-25 | CT_ITS ---
EXAMINATION: CT SINUS WITHOUT CONTRAST CLINICAL INFORMATION: 47-year-old with nasal cavity polyp. COMPARISON: None available. TECHNIQUE: Volumetric CT imaging of the paranasal sinuses was performed with multiplanar reformatted reconstructions. This CT examination was performed using dose optimization techniques as appropriate, variously including the following: *Automated exposure control *Adjustment of mA and/or kV according to patient size (this includes techniques or standardized protocols for targeted exams where dose is matched to indication/reason for exam; i.e. extremities or head) *Use of iterative reconstruction technique DLP: 83 mGy-cm FINDINGS: Nasal Cavity: [id number] anterosuperior nasal septal deviation to the right noted. The olfactory recesses are clear. No nasal cavity masses. Nasopharyngeal soft tissues appear relatively symmetric and normal in attenuation. Maxillary Sinuses: Well-pneumatized and clear with bilaterally patent OMCs and intact bony michaels. Ethmoid Sinuses: Well-pneumatized. Partially opacified posterior right ethmoid air cell noted likely reflecting some inspissated secretions. Otherwise the ethmoid complex is unopacified, with intact bony michaels. Frontal Sinuses: Well-pneumatized. 1.0 cm probable retention cyst in the left frontal sinus with otherwise unopacified left frontal sinus and patent sinonasal drainage. Right frontal sinus is clear with patent right frontonasal drainage. Sphenoid Sinus: Well-pneumatized and clear with bilaterally patent sphenoid ostia and sphenoethmoidal recesses. Carotid canals are covered by bone. Additional Findings: Limited assessment of the included intracranial structures. Small patchy hypodensity in the deep white matter of the left frontal lobe adjacent to the frontal horn of the left lateral ventricle is nonspecific. Visualized orbital soft tissue structures appear symmetric and unremarkable. Visualized calvarium is intact. The mastoids and middle ear cavities are unopacified. The visualized extracranial soft tissue structures are unremarkable. There is TMJ arthropathy bilaterally. CT/CT sinus wo IV con IMPRESSION: 1. Nasal septal deviation to the right. 2. Probable retention cyst in the left frontal sinus and some inspissated secretions in a posterior right ethmoid air cell. Otherwise, no significant sinonasal inflammatory disease or soft tissue mass. 3. Bilateral TMJ arthropathy. 4. Small patchy hypodensity in the deep white matter of the left frontal lobe adjacent to the frontal horn of the left lateral ventricle is nonspecific. If clinically warranted, MRI of the brain without and with contrast may be of additional value.
== END 2023-03-25 14:03 | disposition home or self-care (01) ==
LOC: HO.CT 14:02
PROVIDERS: PCP Nurse Practitioner Family; Visit Provider Otolaryngology
DX: J33.0 Polyp of nasal cavity (principal); J01.91 Acute recurrent sinusitis, unspecified
CPT/HCPCS: 70486

== ENCOUNTER → 2023-04-25 09:45 | Outpatient (BNV) | payer BC, SELFPAY | PROVIDERS: PCP Nurse Practitioner Family; Visit Provider Radiology Diagnostic Radiology | DX: Z12.31 Encounter for screening mammogram for malignant neoplasm of breast (principal) | CPT/HCPCS: 77063; 77067 ==

== ENCOUNTER 2023-04-25 09:46 | Outpatient (REF) | payer BC, SELFPAY ==
--- NOTE | ~2023-04-25 | MM_ITS ---
EXAMINATION: MM SCREENING DIGITAL BREAST TOMOSYNTHESIS, BILATERAL CLINICAL INFORMATION: Screening. Asymptomatic. COMPARISON: Mammography: This is a baseline study. TECHNIQUE: Digital breast tomosynthesis is performed in both the craniocaudal and mediolateral oblique views along with computer-aided detection (CAD). Synthesized 2D images are generated from the tomosynthesis. FINDINGS: The breasts are almost entirely fatty (ACR BI-RADS breast composition Category a). There are no significant masses, abnormal calcifications, or other abnormalities. MM/MM tomosynthesis screening BI IMPRESSION: No mammographic evidence of malignancy. ASSESSMENT: BI-RADS BI-RADS 1 - Negative RECOMMENDATION: Routine annual mammography screening. 1 year F/U This examination should not preclude the clinical evaluation of a suspicious palpable abnormality. This patient's information was entered into a reminder system with a target due date for their next mammogram.
== END 2023-04-25 09:47 | disposition home or self-care (01) ==
LOC: HO.MAMMO 09:46
PROVIDERS: PCP Nurse Practitioner Family; Visit Provider Nurse Practitioner Family
DX: Z12.31 Encounter for screening mammogram for malignant neoplasm of breast (principal)
CPT/HCPCS: 77063; 77067

== ENCOUNTER 2023-04-25 13:03 | Outpatient (AMB) | payer BC, SELFPAY ==
[2023-04-25 13:04] VITALS: BP 142/90; PULSE 79; TEMP 36.9; O2SAT 99; BMI 30.7
--- NOTE | 2023-04-25 13:04 | A.OFFVIS_ITS ---
Intake Vital Signs 04/25/23 13:04 Height 5 ft 3 in Weight 173 lb 1.006 oz BMI 30.7 BP 142/90 H Blood Pressure Location Rt brachial Position Sitting Pulse 79 Pulse Source Pulse Oximeter Temp 98.5 F Temp Source Skin Pulse Oximetry (%) 99 Oxygen Delivery Method Room Air Intake Visit Reasons: FM Intake Note: New pt presents today for FM and RA consult. States diagnosed for RA at the age of 10. Referred by PCP C/o karolyn knee, karolyn hips, karolyn shoulder, karolyn elbow pain, and feet pain. - RA c/o neck pain and between shoulder pain, cetralized rib cage pain- Fibromyalgia Pain started approx back in 1983, age of 8. Has tried Plaquenil, Duloxetine, Tylenol#3, Tizanidine, Enbrel, Medical Marijuana Used to see a naturopathic doctor in [facility]. Dr. Jamir Lugo Chief Ophthalmic Technician Required: No Accompanied by: Self / Same As Patient Allergies ammonia Allergy (Severe, Verified 04/25/23 13:10) Anaphylaxis strawberry Allergy (Mild, Verified 04/25/23 13:10) Hives Medication List - Last Reconciled 04/25/23 by Fan Rivero MD acetaminophen-codeine 325-15 mg 2 tabs PO DAILY cyanocobalamin (vitamin B-12) 1,000 mcg subcut Q4W dextromethorphan HBr 20 mg (15 mL) PO TID PRN 5 days duloxetine 60 mg PO DAILY folic acid 0.4 mg PO DAILY 30 days hydroxychloroquine (Plaquenil) 400 mg (2 x 200 mg) PO DAILY 30 days primidone 400 mg PO BEDTIME spironolactone 50 mg PO BID 30 days sumatriptan succinate take 1 tab at onset of headache; if no relief, may repeat 1 tab after at least 2 hrs; max = 2 tabs/24 hrs PO tizanidine 2 mg PO TID tretinoin 0.025% 1 appl topical BEDTIME zolpidem 10 mg PO BEDTIME 30 days HPI HPI Comments History of Present Illness Details This is a 47-year-old female with rheumatoid arthritis and fibromyalgia who presents as a new patient. She recently relocated from [facility]. She states that she started having joint pains at age 8, initially it was thought to be growing pains. Six years after however she was eventually diagnosed as rheumatoid arthritis. She states that her case would be juvenile arthritis but she was labeled as rheumatoid arthritis as she was diagnosed around age 15. She states that she had been on hydroxychloroquine for many years. She does not recall ever being on methotrexate. She believes that she took sulfasalazine briefly. She was in the clinical trial for Enbrel more than 20 years ago and had been on Enbrel since then, she states that the Enbrel had been effective for her over the years. She has run out of her Enbrel over the last 6 months as she was transferring to [place]. She mentions that she was on steroids for years. At least 5 years. She states that she broke her left wrist after a fall a few years ago. She has plates and screws in the left wrist. She was being followed by Dr. Jamir Lugo for 30+ years She also states that she has had fibromyalgia for many years. She has been on duloxetine for years. She also takes acetaminophen with codeine, 6 tabs daily. She states that there was a suggestion to try to switch her over to medical marijuana by her previous naturopathic doctor but she transferred to [place]. She denies any history of DVT/PE. Patient never attempted . She states that her mother has rheumatoid arthritis, Sjogren's and fibromyalgia. REPLACED BY [facility] Medical History Benign essential tremor Fibromyalgia Rheumatoid arthritis Surgical History History of surgery on left wrist History of uvulopalatopharyngoplasty History of surgical removal of ganglion cyst History of tonsillectomy H/O: knee surgery H/O removal of cyst History of appendectomy History of adenoidectomy Family History Mother COPD (chronic obstructive pulmonary disease) Type 2 diabetes mellitus Congestive heart failure Rheumatoid arthritis Fibromyalgia Sjogrens syndrome Father Congenital heart defect Colon cancer Paternal Grandmother Breast cancer Bone cancer Maternal Aunt Rheumatoid arthritis Social History Household Members: Significant Other Housing: House Alcohol intake: current Alcohol intake frequency: holidays/special occasions only Patient Tobacco Use Status: Never used Tobacco e-Cigarette/Vaping Use: Never Used service: No Current occupational status: employed 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 Cognitive needs: No Hearing needs: No Vision needs: No Female Reproductive History Menstrual Total pregnancies: 0 Review of Systems Const Reports fatigue, Reports headache(s) and Reports weakness ENT Reports headache(s) Resp Reports cough Musc Reports arthralgias and Reports stiffness Skin/Breast Reports unusual bruising Neuro Reports headache(s) and Reports weakness Psych Reports abnormal sleep pattern Endo Reports fatigue Physical Exam Vital Signs: Last Vital Signs Temp 98.5 F 04/25/23 13:04 Pulse 79 04/25/23 13:04 BP 142/90 H 04/25/23 13:04 Pulse Ox 99 04/25/23 13:04 Oxygen Delivery Method Room Air 04/25/23 13:04 BMI result Body Mass Index 30.7 Const General: cooperative, healthy appearing and comfortable Nutritional Appearance: overweight Orientation/consciousness: patient oriented x3 Limitations: no limitations HEENT Head: Yes normocephalic and Yes atraumatic Mouth: moist mucous membranes Resp Effort & Inspection: normal respiratory effort and able to speak in complete sentences Auscultation: clear to auscultation bilaterally Cardio Rate: regular rate Rhythm: regular rhythm GI Inspection: No distended Palpation (GI): Soft to palpation and nontender Skin General skin exam: no rashes or lesions noted Neuro General: patient oriented x3 Extrem Other: Mild right wrist tenderness and pain with flexion No active synovitis otherwise Few fibromyalgia tender points Normal nailfold capillaroscopy Assessment & Plan Assessment & Plan (1) Rheumatoid arthritis: Code(s): M06.9 - Rheumatoid arthritis, unspecified Qualifiers: Rheumatoid arthritis location: multiple sites Rheumatoid factor presence: unspecified presence Qualified Code(s): M06.9 - Rheumatoid arthritis, unspecified Plan: This is a 47-year-old female with rheumatoid arthritis, (symptoms started at age 8, diagnosed at age 14, likely SHER) who presents as a new patient. She recently relocated to [place] from [facility]. Records are unavailable to me at this point. Will request records. Patient has been on hydroxychloroquine 200 mg Twice daily for many years. She also has been on Enbrel 50 mg weekly for more than 20 years, this regimen has been effective for her. She has run out of her Enbrel 6 months ago and has developed worsening joint pain and stiffness. Will start prior authorization for Enbrel. 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 Long history of exposure to steroids Will check a DEXA scan (3) Fibromyalgia: Code(s): M79.7 - Fibromyalgia Plan: Discussed management of fibromyalgia with patient. Is a noninflammatory, non- autoimmune central afferent processing disorder leading to a diffuse pain syndrome. I suggested that patient seek evaluation by a psychotherapist/and or psychiatrist. Try to follow sleep hygiene practices. Discuss CBT for sleep with psychotherapist. Consider referral for a sleep study by her PCP. Patient would benefit from increased physical activity, either through formal physical therapy or by joining a gym. Advised patient that she should start activity slowly and increase as tolerated. Consider low-impact exercises such as walking, swimming, aqua therapy stretching, yoga. She can continue with duloxetine at this point. I will refill her acetaminophen with codeine. Plan I spent 65 minutes reviewing patient's chart, evaluating patient, ordering diagnostic workup, counseling patient and documenting in the chart Orders: Orders Complete Blood Count Auto Diff Today M06.9 - Rheumatoid arthritis, unspecified Erythrocyte Sedimentation Rate Today M06.9 - Rheumatoid arthritis, unspecified Protein Electrophoresis, Serum Today M06.9 - Rheumatoid arthritis, unspecified MARCUS Reflex Titer and Pattern Today M06.9 - Rheumatoid arthritis, unspecified XR DEXA axial skeleton Today Z79.52 - intermediate designer (current) use of systemic steroids Comprehensive Met. Panel Today M06.9 - Rheumatoid arthritis, unspecified C Reactive Protein Today M06.9 - Rheumatoid arthritis, unspecified Hepatitis A,B,C Profile Today Z11.59 - Encounter for screening for other viral diseases Immunofixation Pnl, Serum Today M06.9 - Rheumatoid arthritis, unspecified T Spot TB Today Z11.7 - Encounter for testing for latent tuberculosis infection Rheumatoid Factor Today M06.9 - Rheumatoid arthritis, unspecified Cyclic Citrullinated Peptide Today M06.9 - Rheumatoid arthritis, unspecified Medications: New acetaminophen-codeine 300-15 mg 2 tabs PO BID PRN 60 tabs 2RF pain Coding Level of Care Code New Pt Level 5 (97166) Diagnoses Rheumatoid arthritis involving multiple sites, unspecified whether rheumatoid factor present M06.9 Rheumatoid arthritis location: multiple sites Rheumatoid factor presence: unspecified presence intermediate designer systemic 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
== END 2023-04-25 13:58 | disposition home or self-care (01) ==
PROVIDERS: PCP Nurse Practitioner Family; Visit Provider Student in an Organized Health Care Education/Training Program
DX: M06.9 Rheumatoid arthritis, unspecified (principal); M79.7 Fibromyalgia; Z79.52 Long term (current) use of systemic steroids
CPT/HCPCS: 99205

== ENCOUNTER 2023-05-03 08:18 | Outpatient (REF) | payer BC, SELFPAY ==
--- NOTE | ~2023-05-03 | MM_ITS ---
EXAMINATION: BONE DENSITOMETRY CLINICAL INDICATION: Long-term, current, use of systemic steroid. COMPARISON: This is the patient's baseline examination. TECHNIQUE: Using a Attention Point DXA System (software version: 13.1) manufactured by [employer], dual-energy x-ray absorptiometry was performed of the lumbar spine and left hip. The images are of good technical quality. Summary results are attached. FINDINGS: LEFT FEMUR, NECK: BMD 0.629 g/cm2, Z-score -2.4, T-score -2.9, osteoporosis. LEFT FEMUR, TOTAL: BMD 0.707 g/cm2, Z-score -2.2, T-score -2.4, osteopenia. AP SPINE L1-L4: BMD 1.187 g/cm2, Z-score 0.0, T-score 0.1, normal. IDENTIFIED RISK FACTORS: Anticonvulsant, glucocorticoids, history of fracture (adult), rheumatoid arthritis. HISTORY OF FRACTURE: Wrist. MEDICATIONS: None listed. MM/XR DEXA axial skeleton IMPRESSION: 1. DIAGNOSIS: Severe osteoporosis based on the lowest T-score value of -2.9 in the femoral neck and fracture history applying World Health Organization criteria. 2. 10-YEAR FRACTURE RISK PREDICTION, FRAX: According to the guidelines, FRAX calculation should only be performed on patients in the osteopenia bone density category. Therefore, FRAX was not performed on this patient. 3. Treatment Recommendations: NOF guidelines recommend consideration for treatment in postmenopausal women and men age 50 and older presenting with the following: -A hip or vertebral (clinical or morphometric) fracture. -T-score less than or equal to -2.5 at the femoral neck or spine after appropriate evaluation to exclude secondary causes. -Low bone mass at the hip or spine and a 10-year fracture probability by FRAX of greater than or equal to 3% for hip fracture or greater than or equal to 20% for major osteoporotic fracture based on the [place] adapted WHO algorithm. 4. Other Recommendations: All treatment decisions require clinical judgment and consideration of individual patient factors, including patient preferences, comorbidities, previous drug use, risk factors not captured in the FRAX model (e.g. frailty, falls, vitamin D deficiency, increased bone turnover, interval significant decline in bone density) and possible under or overestimation of fracture risk by FRAX. Additional medical evaluation for secondary cause of low bone mineral density may be appropriate. FUTURE SCAN RECOMMENDATION: People with diagnosed cases of osteoporosis or at high risk for fracture should have regular bone mineral density tests. For patients eligible for Medicare, routine testing is allowed once every 2 years. The testing frequency can be increased to one year for patients who have rapidly progressing disease, those who are receiving or discontinuing medical therapy to restore bone mass, or have additional risk factors.
[2023-05-03 09:05] LABS: MANUAL DIFF FLAG NO
[2023-05-03 10:03] LABS: Basophils Absolute Auto 0.1 X10*3/uL (0.0-0.2); Basophils Percent Auto 1.1 % (0-2); Eosinophils Absolute Auto 0.2 X10*3/uL (0.0-0.4); Eosinophils Percent Auto 3.2 % (0-4); Hematocrit 38.3 % (37.0-47.0); Hemoglobin 12.6 g/dl (12.0-16.0); Imm Gran Abs Auto 0.01 X10*3/uL (0.00-0.03); Imm Gran Pct Auto 0.2 % (0.0-0.4); Lymphocytes Absolute Auto 1.7 X10*3/uL (1.2-4.9); Lymphocytes Percent Auto 27.4 % (20-40); Mean Corpuscular HGB Conc 32.9 g/dl (31.0-35.0); Mean Corpuscular Hemoglobin 29.8 pg (27.0-33.0); Mean Corpuscular Volume 90.5 fL (80.0-98.0); Mean Platelet Volume 9.7 fL (9.4-12.3); Monocytes Absolute Auto 0.4 X10*3/uL (0.1-1.2); Monocytes Percent Auto 6.5 % (2-11); Neutrophils Absolute Auto 3.9 x10*3/uL (2.0-8.3); Neutrophils Percent Auto 61.6 % (45-73); Platelet Count 300 X10*3/uL (160-400); Red Blood Count 4.23 X10*6/uL (4.20-5.50); Red Cell Distribution Width 12.6 % (11.0-16.0); White Blood Count 6.3 X10*3/uL (4.8-10.8)
[2023-05-03 10:40] LABS: Erythrocyte Sedimentation Rate 16 MM/HR (0-20)
[2023-05-03 10:48] LABS: Rheumatoid Factor < 13.0 IU/mL (<15.0)
[2023-05-03 10:50] LABS: Alanine Aminotransferase 13 U/L (0-31); Alkaline Phosphatase 127 U/L (39-117); Anion Gap 11 (12-20); Aspartate Amino Transferase 17 U/L (5-31); Bilirubin Total 0.3 mg/dL (0.0-1.0); Blood Urea Nitrogen 13 mg/dL (9-16); C Reactive Protein 0.29 mg/dL (< or = 0.50); Calcium 8.9 mg/dL (8.4-10.2); Carbon Dioxide 26 mmol/L (22-29); Chloride 104 mmol/L (96-108); Estimated Glomerular Filt Rate > 60; Glucose Random 81 mg/dL (60-115); Potassium 3.9 mmol/L (3.3-5.1); Sodium 137 mmol/L (135-145); Total Protein 7.1 g/dL (6.5-8.0)
[2023-05-03 11:04] LABS: HBS Num1 1.01 mIU/mL (0-7.99); HBc Num1 0.11 S/CO (0.00-0.79); HBsAGNum1 0.27 S/CO (0.00-0.99); Hepatitis A Antibody IgM 0.18 Index (0-0.79); Hepatitis B Core Antibody Nonreactive (Nonreactive); Hepatitis B Surface Antigen Negative (Negative); ~Hepatitis A Antibody IgM Nonreactive (Nonreactive); ~Hepatitis B Surface Antibody NONREACTIVE (Nonreactive); ~Hepatitis C Antibody Nonreactive (Nonreactive)
[2023-05-06 13:03] LABS: Cyclic Citrullinated Peptide <16 UNITS
[2023-05-06 16:49] LABS: TS Negative Control Passed; TS Panel A 0; TS Panel B 0; TS Positive Control Passed; TSpotTB Negative (Negative)
[2023-05-06 20:44] LABS: Prot Elec - Albumin 3.9 g/dL (3.8-4.8); Prot Elec - Alpha1 0.3 g/dL (0.2-0.3); Prot Elec - Alpha2 0.8 g/dL (0.5-0.9); Prot Elec - Beta 1 0.4 g/dL (0.4-0.6); Prot Elec - Beta 2 0.4 g/dL (0.2-0.5); Prot Elec - Total Protein 6.8 g/dL (6.1-8.1)
[2023-05-07 08:04] LABS: Anti Nuclear Antibody Screen NEGATIVE (NEGATIVE)
[2023-05-07 09:44] LABS: IgA 242 mg/dL (47-310); IgG 1206 mg/dL (600-1640); IgM 139 mg/dL (50-300)
== END 2023-05-03 08:19 | disposition home or self-care (01) ==
LOC: HO.MAMMO 08:18
PROVIDERS: PCP Nurse Practitioner Family; Visit Provider Student in an Organized Health Care Education/Training Program
DX: Z13.820 Encounter for screening for osteoporosis (principal); Z11.7 Encounter for testing for latent tuberculosis infection; Z11.59 Encounter for screening for other viral diseases; Z72.89 Other problems related to lifestyle; M06.9 Rheumatoid arthritis, unspecified; Z79.52 Long term (current) use of systemic steroids
CPT/HCPCS: 36415; 77080; 80053; 82784; 84165; 85025; 85652; 86038; 86140; 86200; 86334; 86431; 86481; 86704; 86706; 86709; 86803; 87340

== ENCOUNTER 2023-07-30 10:45 | Outpatient (AMB) | payer BC, SELFPAY ==
--- NOTE | 2023-07-30 10:47 | MHC.OFFVIS ---
Intake Vital Signs 07/30/23 10:50 Height 5 ft 3 in Weight 173 lb 1.006 oz BMI 30.7 BP 134/82 Blood Pressure Location Rt brachial Position Sitting Pulse 85 Pulse Source Pulse Oximeter Temp 97.5 F Temp Source Skin Pulse Oximetry (%) 99 Oxygen Delivery Method Room Air Intake Visit Reasons: RA Intake Note: Patient last seen 04/25/23 presents today for follow up and test results. Would like to discuss tylenol rx; has not been able to fill it. 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 Accompanied by: Self / Same As Patient Allergies ammonia Allergy (Severe, Verified 07/30/23 10:52) Anaphylaxis strawberry Allergy (Mild, Verified 07/30/23 10:52) Hives Medication List - Last Reconciled 07/30/23 by Fan Rivero MD acetaminophen-codeine 300-15 mg 2 tabs PO BID PRN acetaminophen-codeine 325-15 mg 2 tabs PO DAILY cyanocobalamin (vitamin B-12) 1,000 mcg subcut Q4W dextromethorphan HBr 20 mg (15 mL) PO TID PRN 5 days duloxetine 60 mg PO DAILY 90 days Enbrel SureClick (etanercept) 50 mg subcut QWEEK NS folic acid 0.4 mg PO DAILY 30 days hydroxychloroquine (Plaquenil) 400 mg (2 x 200 mg) PO DAILY 30 days primidone 400 mg PO BEDTIME spironolactone 50 mg PO BID 30 days sumatriptan succinate take 1 tab at onset of headache; if no relief, may repeat 1 tab after at least 2 hrs; max = 2 tabs/24 hrs PO tizanidine 2 mg PO TID tretinoin 0.025% 1 appl topical BEDTIME zolpidem 10 mg PO BEDTIME 30 days HPI HPI Comments History of Present Illness Details 47-year-old female with seronegative RA and fibromyalgia returns for follow-up. She is on Enbrel consistently. She states that she has not been able to fill her Tylenol with codeine due to shortage. She has been doing edibles about 4 times a week as needed for her generalized pain. She states that she was having bilateral knee pain swelling, ankle pain and swelling when she was in a conference in [place] a couple of months ago. Her endocrinology appointment was rescheduled. She states that she has not been seen by an aml analyst in a few years. She states that she knows retina specialist and she will make an appointment soon. She has been having neck pain and she had a neck MRI done in 2021 which showed cervical stenosis and surgery was suggested Initial history: This is a 47-year-old female with rheumatoid arthritis and fibromyalgia who presents as a new patient. She recently relocated from [facility]. She states that she started having joint pains at age 8, initially it was thought to be growing pains. Six years after however she was eventually diagnosed as rheumatoid arthritis. She states that her case would be juvenile arthritis but she was labeled as rheumatoid arthritis as she was diagnosed around age 15. She states that she had been on hydroxychloroquine for many years. She does not recall ever being on methotrexate. She believes that she took sulfasalazine briefly. She was in the clinical trial for Enbrel more than 20 years ago and had been on Enbrel since then, she states that the Enbrel had been effective for her over the years. She has run out of her Enbrel over the last 6 months as she was transferring to [place]. She mentions that she was on steroids for years. At least 5 years. She states that she broke her left wrist after a fall a few years ago. She has plates and screws in the left wrist. She was being followed by Dr. Jamir Lugo for 30+ years She also states that she has had fibromyalgia for many years. She has been on duloxetine for years. She also takes acetaminophen with codeine, 6 tabs daily. She states that there was a suggestion to try to switch her over to medical marijuana by her previous inkjet operator but she transferred to [place]. She denies any history of DVT/PE. Patient never attempted . She states that her mother has rheumatoid arthritis, Sjogren's and fibromyalgia. [facility] Medical History Degenerative cervical disc Benign essential tremor Fibromyalgia Rheumatoid arthritis Surgical History History of surgery on left wrist History of uvulopalatopharyngoplasty History of surgical removal of ganglion cyst History of tonsillectomy H/O: knee surgery H/O removal of cyst History of appendectomy History of adenoidectomy Family History Mother COPD (chronic obstructive pulmonary disease) Type 2 diabetes mellitus Congestive heart failure Rheumatoid arthritis Fibromyalgia Sjogrens syndrome Father Congenital heart defect Colon cancer Paternal Grandmother Breast cancer Bone cancer Maternal Aunt Rheumatoid arthritis Social History Household Members: Significant Other Housing: House Alcohol intake: current Alcohol intake frequency: holidays/special occasions only Patient Tobacco Use Status: Never used Tobacco e-Cigarette/Vaping Use: Never Used service: No Current occupational status: employed 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 Cognitive needs: No Hearing needs: No Vision needs: No Review of Systems ENT Reports neck pain Musc Reports arthralgias, Reports joint swelling, Reports neck pain and Reports stiffness Physical Exam Vital Signs: Last Vital Signs Temp 97.5 F 07/30/23 10:50 Pulse 85 07/30/23 10:50 BP 134/82 07/30/23 10:50 Pulse Ox 99 07/30/23 10:50 Oxygen Delivery Method Room Air 07/30/23 10:50 BMI result Body Mass Index 30.7 Const General: cooperative, healthy appearing and comfortable Nutritional Appearance: overweight Orientation/consciousness: patient oriented x3 Limitations: no limitations HEENT Head: Yes normocephalic and Yes atraumatic Mouth: moist mucous membranes Resp Effort & Inspection: normal respiratory effort and able to speak in complete sentences Auscultation: clear to auscultation bilaterally Cardio Rate: regular rate Rhythm: regular rhythm GI Inspection: No distended Palpation (GI): Soft to palpation and nontender Skin General skin exam: no rashes or lesions noted Neuro General: patient oriented x3 Extrem Other: Mild right wrist tenderness and pain with flexion No active synovitis otherwise Few fibromyalgia tender points Bilateral knee crepitus, no pain with full flexion and extension Normal nailfold capillaroscopy Assessment & Plan Assessment & Plan (1) Rheumatoid arthritis: Code(s): M06.9 - Rheumatoid arthritis, unspecified Qualifiers: Rheumatoid arthritis location: multiple sites Rheumatoid factor presence: unspecified presence Qualified Code(s): M06.9 - Rheumatoid arthritis, unspecified Plan: This is a 47-year-old female with rheumatoid arthritis, (symptoms started at age 8, diagnosed at age 14, likely SHER) who presents as a new patient. She recently relocated to [place] from [facility]. Records are unavailable to me at this point. Patient has been on hydroxychloroquine 200 mg Twice daily for more than 20 years many years. She also has been on Enbrel 50 mg weekly for more than 20 years, this regimen has been effective for her. Continue with hydroxychloroquine 200 mg Twice daily and Enbrel 50 mg weekly. 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 Long history of exposure to steroids DEXA scan shows osteoporosis. Patient was referred to consumer loan officer but appointment was rescheduled (3) Fibromyalgia: Code(s): M79.7 - Fibromyalgia Plan: Continue with duloxetine (4) Degenerative cervical disc: Code(s): M50.30 - Other cervical disc degeneration, unspecified cervical region Plan: Cervical stenosis on neck MRI 04/2022. Advised patient to request neurosurgery referral from her PCP Plan I spent 25 minutes reviewing patient's chart, evaluating patient, ordering diagnostic workup, counseling patient and documenting in the chart Orders: Orders Complete Blood Count Auto Diff 6 Months M06.9 - Rheumatoid arthritis, unspecified Comprehensive Met. Panel 6 Months M06.9 - Rheumatoid arthritis, unspecified Erythrocyte Sedimentation Rate 6 Months M06.9 - Rheumatoid arthritis, unspecified C Reactive Protein 6 Months M06.9 - Rheumatoid arthritis, unspecified Coding Level of Care Code Est Pt Level 4 (47502) Diagnoses Rheumatoid arthritis involving multiple sites, unspecified whether rheumatoid factor present M06.9 Rheumatoid arthritis location: multiple sites Rheumatoid factor presence: unspecified presence alf systemic 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 Degenerative cervical disc M50.30
[2023-07-30 10:50] VITALS: BP 134/82; PULSE 85; TEMP 36.4; O2SAT 99; BMI 30.7
== END 2023-07-30 11:17 | disposition home or self-care (01) ==
PROVIDERS: PCP Nurse Practitioner Family; Visit Provider Student in an Organized Health Care Education/Training Program
DX: M06.9 Rheumatoid arthritis, unspecified (principal); Z79.52 Long term (current) use of systemic steroids; M79.7 Fibromyalgia; M50.30 Other cervical disc degeneration, unspecified cervical region
CPT/HCPCS: 99214

== ENCOUNTER → 2023-07-30 10:45 | Outpatient (BNVA) | payer SELFPAY | PROVIDERS: PCP Nurse Practitioner Family; Visit Provider Student in an Organized Health Care Education/Training Program ==

== ENCOUNTER 2023-07-31 14:30 | Outpatient (AMB) | payer BC, SELFPAY ==
--- NOTE | 2023-07-31 14:34 | MHC.OFFVIS ---
Intake Vital Signs 07/31/23 14:35 Height 5 ft 3 in Weight 170 lb BMI 30.1 BP 148/90 H Blood Pressure Location Rt brachial Position Sitting Respiration 17 Pulse 80 Pulse Source Pulse Oximeter Pulse Oximetry (%) 100 Oxygen Delivery Method Room Air Intake Visit Reasons: ENP- Essential Tremors- CONF Intake Note: Pt presents to the office for new pt evaluation for tremors. She reports this has been going on for 25 years. SHe has recently relocated from [place]. 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 Allergies ammonia Allergy (Severe, Verified 07/31/23 14:35) Anaphylaxis strawberry Allergy (Mild, Verified 07/31/23 14:35) Hives Medication List - Last Reconciled 07/31/23 by Dea Sewell MD acetaminophen-codeine 300-15 mg 2 tabs PO BID PRN acetaminophen-codeine 325-15 mg 2 tabs PO DAILY cyanocobalamin (vitamin B-12) 1,000 mcg subcut Q4W dextromethorphan HBr 20 mg (15 mL) PO TID PRN 5 days duloxetine 60 mg PO DAILY 90 days Enbrel SureClick (etanercept) 50 mg subcut QWEEK NS folic acid 0.4 mg PO DAILY 30 days hydroxychloroquine (Plaquenil) 400 mg (2 x 200 mg) PO DAILY 30 days primidone 200 mg PO BID spironolactone 50 mg PO BID 30 days sumatriptan succinate take 1 tab at onset of headache; if no relief, may repeat 1 tab after at least 2 hrs; max = 2 tabs/24 hrs PO tizanidine 2 mg PO TID tretinoin 0.025% 1 appl topical BEDTIME zolpidem 10 mg PO BEDTIME 30 days HPI HPI Comments History of Present Illness Details 47y/o right handed female with a complex medical issues - Rheumatoid arthritis , fibromyalgia comes for further management of her essential tremors. she started noticing tremors in her 20s and was diagnosed with essential tremors.Her father had essential tremors. Her tremors were mostly in her left UE mostly with posture and action . she is on primidone and helps to decrease the tremors Handwriting is good especially if she uses a fountain pen Eating - using utensils - good Drinking fluids - good Mild difficulty in fine motor coordination She was always prone to falls but about 2-3 years ago she noticed increase in falls, balance issues and gait issues. she has stress incontinence. SHe was living [facility] and was seen by aneurologist who evaluated with MRI C spine and brain . I do not have the rbain report but her C spine was c/w Spinal stenosis with moderate to severe cord compression at C3-4 C4-5 with cord edema myelomalacia , multilevel severe foraminals tenosis. she was seen by Neurosurgery but due to ehr move back to [place] she did not have surgery. she also reports chronic cough for over 2 years. she snores and has frequent arousals. [facility] Medical History (Updated 07/31/23 @ 15:06 by eDa Sewell MD) Essential and other specified forms of tremor Spinal cord compression Spinal stenosis in cervical region Hypersomnia Snoring Degenerative cervical disc Benign essential tremor Fibromyalgia Rheumatoid arthritis Surgical History History of surgery on left wrist History of uvulopalatopharyngoplasty History of surgical removal of ganglion cyst History of tonsillectomy H/O: knee surgery H/O removal of cyst History of appendectomy History of adenoidectomy Family History Mother COPD (chronic obstructive pulmonary disease) Type 2 diabetes mellitus Congestive heart failure Rheumatoid arthritis Fibromyalgia Sjogrens syndrome Father Congenital heart defect Colon cancer Paternal Grandmother Breast cancer Bone cancer Maternal Aunt Rheumatoid arthritis Social History Household Members: Significant Other Housing: House Alcohol intake: current Alcohol intake frequency: holidays/special occasions only Patient Tobacco Use Status: Never used Tobacco e-Cigarette/Vaping Use: Never Used service: No Current occupational status: employed 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 Cognitive needs: No Hearing needs: No Vision needs: No Physical Exam Vital Signs: Last Vital Signs Pulse 80 07/31/23 14:35 Resp 17 07/31/23 14:35 BP 148/90 H 07/31/23 14:35 Pulse Ox 100 07/31/23 14:35 Oxygen Delivery Method Room Air 07/31/23 14:35 BMI result Body Mass Index 30.1 Const General: cooperative and comfortable Nutritional Appearance: average body habitus Orientation/consciousness: patient oriented x3 Eyes Pupils: Equal, round and reactive pupils present Neuro Other: Malalmpatti grade 4 retrognathia Mild postural tremors Left UE General: patient oriented x3, tone normal, moves all extremities and no focal motor deficits Cranial nerves: Yes Equal, round and reactive pupils present, Yes Bilaterally intact EOM present, Yes Nystagmus not present, Yes Normal facial strength present and Yes Midline tongue present Cognition (Neuro): normal cognition Gait exam (Neuro): Normal gait present Motor exam (neuro): 5/5 motor strength present throughout and Normal motor muscle tone present throughout Deep tendon reflexes (DTR's): Right triceps reflex intensity grade: 3+, Left triceps reflex intensity grade: 3+, Rt Biceps (C5, C6): 3+, Left biceps reflex intensity grade: 3+, Right brachioradialis reflex intensity grade: 3+, Left brachioradialis reflex intensity grade: 3+, Right patellar reflex intensity grade: 4+, Left patellar reflex intensity grade: 4+, Right ankle reflex intensity grade: 4+ and Left ankle reflex intensity grade: 4+ Coordination: rbduvc-lu-lwzt test normal Assessment & Plan Assessment & Plan (1) Essential and other specified forms of tremor: Code(s): G25.0 - Essential tremor; G25.2 - Other specified forms of tremor (2) Spinal cord compression: Code(s): G95.20 - Unspecified cord compression (3) Spinal stenosis in cervical region: Code(s): M48.02 - Spinal stenosis, cervical region (4) Hypersomnia: Code(s): G47.10 - Hypersomnia, unspecified (5) Snoring: Code(s): R06.83 - Snoring Plan Her tremors are well controlled I suggested she continue Primidone 200mg bid MRI c spine to reevaluate her spinal cord compression. Home sleep test to r/o sleep apnea. Orders: Orders MR cervical spine wo con Today G95.20 - Unspecified cord compression, M48.02 - Spinal stenosis, cervical region RT home sleep study Today G47.10 - Hypersomnia, unspecified, R06.83 - Snoring Coding Level of Care Code New Pt Level 4 (60169) Diagnoses Essential and other specified forms of tremor G25.0; G25.2 Spinal cord compression G95.20 Spinal stenosis in cervical region M48.02 Hypersomnia G47.10 Snoring R06.83
[2023-07-31 14:35] VITALS: BP 148/90; PULSE 80; RESP 17; O2SAT 100; BMI 30.1
== END 2023-07-31 15:14 | disposition home or self-care (01) ==
PROVIDERS: PCP Nurse Practitioner Family; Visit Provider Psychiatry & Neurology Neurology
DX: G25.0 Essential tremor (principal); G25.2 Other specified forms of tremor; G95.20 Unspecified cord compression; M48.02 Spinal stenosis, cervical region; G47.10 Hypersomnia, unspecified; R06.83 Snoring
CPT/HCPCS: 99204

== ENCOUNTER → 2023-07-31 14:30 | Outpatient (BNVA) | payer BC, SELFPAY | PROVIDERS: PCP Nurse Practitioner Family; Visit Provider Psychiatry & Neurology Neurology ==

== ENCOUNTER 2023-08-22 18:48 | Outpatient (REF) | payer BC, SELFPAY ==
--- NOTE | ~2023-08-22 | MR_ITS ---
EXAMINATION: MR CERVICAL SPINE WITHOUT CONTRAST CLINICAL INFORMATION: 47-year-old with spinal stenosis, cervical region. Self-reported neck pain and bilateral numbness in the arms and hands. Follow up spinal stenosis. COMPARISON: 05/14/2022 outside MRI. TECHNIQUE: MRI of the cervical spine was obtained using routine sequences without contrast. FINDINGS: ALIGNMENT: Cervical thoracic levocurvature centered at C7-T1 on current study. Lordotic reversal centered at C3-C4 stable in appearance. 3 mm of anterolisthesis at C7-T1 stable in appearance. Trace retrolisthesis at C4-C5 unchanged in appearance. CrANIOCERVICAL JUNCTION/C1-C2 ARTICULATIONS: Intact and aligned. VISUALIZED INTRACRANIAL STRUCTURES: Within normal limits. VERTEBRAL BODIES: Stable vertebral body heights. No interval compression fractures. DISC SPACES AND ENDPLATES: Advanced multilevel DDD and spondylosis largely between C3-C4 and C7-T1 inclusive stable in appearance from previous exam. BONE MARROW: Multilevel predominately type II degenerative endplate marrow signal changes between C3-C4 and C6-C7 inclusive stable in appearance. No focally suspicious marrow-replacing process or bone marrow edema. C2-C3: Small central disc protrusion with minimal indentation of the ventral thecal sac without cord impingement or canal stenosis stable in appearance. Mild facet arthropathy on the left. No neural foraminal stenosis. C3-C4: Broad-based central extruded disc herniation with slight caudal and cephalad migration superimposed on broad-based disc osteophyte complex with effacement of the ventral dural sac with chronic ventral cord deformity/impingement with eguarsjx-pv-tpagxr central spinal canal stenosis largely unchanged. Uncovertebral spurring and facet joint arthropathy is noted with severe right-sided and vofv-jb-ileqjubl left-sided neural foraminal stenosis stable in appearance. C4-C5: Broad-based disc osteophyte complex with effacement of the ventral dural sac and chronic ventral cord deformity with spinal cord volume loss with edmalbpa-lj-quccij spinal canal stenosis largely unchanged. Uncovertebral spurring and facet joint arthropathy bilaterally with severe bilateral neural foraminal stenosis, similar to prior study. C5-C6: Broad-based central to left paramedian extruded disc herniation which may be partially calcified is noted with effacement of the ventral dural sac asymmetric to the left and gryehxwm-fy-lorbxt chronic ventral cord deformity/cord volume loss and severe spinal canal stenosis asymmetric to the left stable in appearance. Bilateral uncovertebral spurring is noted with facet joint arthropathy with moderate bilateral neural foraminal stenosis stable in appearance. C6-C7: Broad-based central disc osteophyte complex with effacement of the ventral dural sac and wmtb-dy-phquceon chronic ventral cord deformity/cord volume loss similar to prior exam with moderate central spinal canal stenosis stable in appearance. Bilateral uncovertebral spurring is noted with zhjirezh-ru-tbzzfa left-sided and mild right-sided neural foraminal stenosis stable in appearance. C7-T1: Unroofing of the posterior disc margin similar to prior exam with broad-based right paramedian disc herniation with flattening of the ventral dural sac asymmetric to the right similar to the prior exam without cord impingement. Mild canal stenosis is stable. Ligamentum flavum thickening and severe right-sided and tyjjwipz-je-xvlkfr left-sided facet joint arthropathy is stable, with misehdkc-ug-szmhle bilateral neural foraminal stenosis unchanged. T1-T2: Normal annular contour. Marked left-sided facet joint arthropathy noted with mild left-sided neural foraminal stenosis. T2-T3: Central to left paramedian disc protrusion with flattening of the ventral dural sac asymmetric to the left without cord impingement. Mild canal stenosis asymmetric to the left is noted with moderate bilateral facet joint arthropathy and apsi-jh-hhwynoqq bilateral neural foraminal stenosis. SPINAL CORD: Small foci of T2 hyperintensity are seen in the right side of the spinal cord at C3-C4 with more vaguely defined T2 hyperintensity on the STIR images consistent with spondylitic myelomalacia and a possible tiny syrinx. Probable myelomalacia changes in the spinal cord at C4-C5 as noted on the previous exam as well. EXTRACRANIAL SOFT TISSUES: The visualized extracranial head/neck soft tissues are unremarkable within the limitations of the study. Signal voids are seen within the visualized major neck vessels. MR/MR cervical spine wo con IMPRESSION: 1. Lordotic reversal centered at C3-C4 with mild anterolisthesis at C7-T1 stable in appearance. Trace retrolisthesis at C4-C5 stable in appearance. 2. Extensive multilevel DDD and spondylosis with multilevel disc osteophyte complexes and disc herniations as described above largely unchanged from previous exam with multilevel euedfchb-ga-vdsgsp spinal canal stenosis and chronic ventral cord impingement/deformity with probable spondylitic myelomalacia at C3-C4 and C4-C5 unchanged and a possible new tiny syrinx at C3-C4. 3. Multilevel bilateral DJD with multilevel bilateral bony neural foraminal stenosis as detailed by level above largely unchanged in appearance.
== END 2023-08-22 18:49 | disposition home or self-care (01) ==
LOC: HO.MRI 18:48
PROVIDERS: PCP Nurse Practitioner Family; Visit Provider Psychiatry & Neurology Neurology
DX: M48.02 Spinal stenosis, cervical region (principal); G95.20 Unspecified cord compression
CPT/HCPCS: 72141

== ENCOUNTER → 2023-09-10 11:02 | Outpatient (REF) | payer BC, SELFPAY | LOC: HO.SL 11:02 | PROVIDERS: PCP Nurse Practitioner Family; Visit Provider Psychiatry & Neurology Neurology | DX: G47.10 Hypersomnia, unspecified (principal); R06.83 Snoring | CPT/HCPCS: 95806 ==

== ENCOUNTER → 2023-09-10 11:12 | Outpatient (BNV) | payer BC, SELFPAY | PROVIDERS: PCP Nurse Practitioner Family; Visit Provider Psychiatry & Neurology Neurology | DX: R06.83 Snoring (principal) | CPT/HCPCS: 95806 ==

== ENCOUNTER 2023-10-11 11:49 | Outpatient (AMB) | payer BC, SELFPAY ==
--- NOTE | 2023-10-11 11:53 | MHC.PC.OV ---
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 Accompanied by: Self / Same As Patient Allergies ammonia Allergy (Severe, Verified 10/11/23 12:12) Anaphylaxis strawberry Allergy (Mild, Verified 10/11/23 12:12) Hives Medication List - Last Reviewed 10/11/23 by GLENDA Long acetaminophen-codeine 300-30 mg 1 tab PO BID NS alendronate 70 mg PO QWEEK cyanocobalamin (vitamin B-12) 1,000 mcg subcut Q4W dextromethorphan HBr 20 mg (15 mL) PO TID PRN 5 days duloxetine 60 mg PO DAILY 90 days Enbrel SureClick (etanercept) 50 mg subcut QWEEK NS folic acid 0.4 mg PO DAILY 30 days hydroxychloroquine (Plaquenil) 400 mg (2 x 200 mg) PO DAILY 30 days primidone 200 mg PO BID spironolactone 50 mg PO BID 30 days sumatriptan succinate take 1 tab at onset of headache; if no relief, may repeat 1 tab after at least 2 hrs; max = 2 tabs/24 hrs PO tizanidine 2 mg PO TID tretinoin 0.025% 1 appl topical BEDTIME zolpidem 10 mg PO BEDTIME 30 days Tobacco use date assessed: 10/11/23 Dental Screening Dental Screen Date: 10/11/23 Did you have a dental visit in the last 12 months?: Yes Did you have a dental problem in the last 6 months where you did not have access to dental care?: No Was dental information given to patient?: Patient has dentist HPI HPI Comments History of Present Illness Details 47-year-old female presents for health maintenance follow-up She has PMH significant for fibromyalgia, RA, benign central tremors, iron deficiency anemia, pernicious anemia, and recently osteoporosis ( on Alendronate 70mg once weekly) She admits to taking her medications as prescribed without adverse reactions She is followed by Dermatology, [facility] ([facility] ENT (Dr. Hennessy), and [facility] She presents with a cough that is mostly nonproductive with occasional clear sputum. She has had the cough for about 3 years; worse when eating or talking. She is followed by ENT and gastroenterology; has an upper GI pending. She was followed by pulmonology before she moved to [facility]. They are still trying to determine the cause of her cough. She would like pulmonology consult for her cough No acute symptoms at this time [facility] Medical History Essential and other specified forms of tremor Spinal cord compression Spinal stenosis in cervical region Hypersomnia Snoring Degenerative cervical disc Benign essential tremor Fibromyalgia Rheumatoid arthritis Surgical History History of surgery on left wrist History of uvulopalatopharyngoplasty History of surgical removal of ganglion cyst History of tonsillectomy H/O: knee surgery H/O removal of cyst History of appendectomy History of adenoidectomy Family History Mother COPD (chronic obstructive pulmonary disease) Type 2 diabetes mellitus Congestive heart failure Rheumatoid arthritis Fibromyalgia Sjogrens syndrome Father Congenital heart defect Colon cancer Paternal Grandmother Breast cancer Bone cancer Maternal Aunt Rheumatoid arthritis Social History Household Members: Significant Other Housing: House Alcohol intake: current Alcohol intake frequency: holidays/special occasions only Patient Tobacco Use Status: Never used Tobacco e-Cigarette/Vaping Use: Never Used service: No Current occupational status: employed 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 Giovany Orellana, Cathryn Hunter, Duke Cervantes and colleagues, with an educational nakia from [employer]. Review of Systems Const Details: Const Denies chills, Denies fatigue, Denies fever(s), Denies headache(s) and Denies weakness ENT Denies dizziness and Denies headache(s) Card Denies chest pain, Denies lightheadedness, Denies dyspnea and Denies other (Palpitations) Resp Reports cough, Denies dyspnea, Denies wheezing and Denies other ( shortness of breath) GI Denies abdominal pain, Denies melena, Denies hematochezia, Denies change in bowel habits, Denies dyspepsia and Denies nausea Denies hematuria and Denies dysuria Musc Denies abnormal gait, Denies myalgias, Denies arthralgias, Denies numbness and Denies tingling Skin/Breast Denies rash, Denies unusual bruising and Denies wounds Neuro Denies abnormal gait, Denies dizziness, Denies headache(s), Denies memory loss, Denies numbness, Denies Sensory deficit (Neuro), Denies tingling and Denies weakness Psych Denies anxiety, Denies depression, Denies memory loss Endo Denies cold intolerance, Denies fatigue, Denies heat intolerance, Denies polydipsia and Denies polyuria Aller/Immun Denies wheezing Physical exam (Primary Care) Vital Signs: Last Vital Signs Temp 97.7 F 10/11/23 11:57 Pulse 78 10/11/23 11:57 Resp 13 10/11/23 11:57 BP 127/70 10/11/23 11:57 Pulse Ox 98 10/11/23 11:57 Oxygen Delivery Method Room Air 10/11/23 11:57 BMI result Body Mass Index 31.6 Tobacco/Smoking Status: Tobacco use Status Tobacco use date assessed 10/11/23 10/11/23 12:05 Patient Tobacco Use Status Never used Tobacco 10/11/23 11:54 e-Cigarette/Vaping Use Never Used 10/11/23 11:54 Const Other: General: no acute distress and well developed Nutritional Appearance: well nourished Orientation/consciousness: patient oriented x3 HENMT Head: Yes normocephalic and Yes atraumatic Eyes General: appearance normal, both eyes and all related structures Pupils: Equal, round and reactive pupils present EOM: EOMs intact bilaterally Resp Effort & Inspection: normal respiratory effort Auscultation: clear to auscultation bilaterally Cardio Rate: regular rate Rhythm: regular rhythm Heart sounds: S1 normal heart sound present, S2 normal heart sound present, no gallops, no murmurs and no rubs GI Palpation (GI): No Abdominal aortic bruit present, Soft to palpation, nontender, No hepatosplenomegaly present and No Rebound tenderness present Auscultation: normal bowel sounds General: Yes no CVA tenderness Back/Spine/Pelvis Back: no CVA tenderness Cervical Spine: cervical ROM normal and No Cervical spine tenderness Thoracic/Lumbar Spine: thoraco-lumbar ROM normal, No pain with thoraco-lumbar ROM, No thoracic spinal tenderness and No lumbar spinal tenderness Extrem General: Yes normal to inspection, No edema and No calf tenderness Skin General: warm and dry. Normal skin color. Normal skin turgor Neuro General: patient oriented x3, gait normal and no focal neuro deficit Cranial nerves: Yes Equal, round and reactive pupils present Cognition (Neuro): normal cognition Gait exam (Neuro): Normal gait present Sensory Exam: No Sensory deficit (Neuro) Psych Appearance: grossly normal Affect: normal affect Attitude: cooperative Thought process: Normal thought process present Assessment and Plan Assessment & Plan (1) Chronic cough: Code(s): R05.3 - Chronic cough Plan: Presents with persistent nonproductive cough. She has persistent cough for the past 3 years. She is followed by ENT and Gastroenterology She was followed by pulmonology. Etiology of her cough has not been determined Referred to [facility] Continue with current treatment regimen follow-up with ENT and Gastroenterology as planned Advised to do fasting blood work before her next visit Follow-up in 6 months for an extended physical exam or return sooner with worsening or new symptoms Verbalized understanding and agreed with treatment plan (2) Osteoporosis: Code(s): M81.0 - Age-related osteoporosis without current pathological fracture Plan: Continue to take alendronate as prescribed Continue follow-up with endocrinology Verbalized understanding and agreed with the plan (3) Laboratory tests ordered as part of a complete physical exam (CPE): Code(s): Z00.00 - Encounter for general adult medical examination without abnormal findings Plan: Fasting labs ordered in preparation of a complete physical exam. Advised to fast for at least 10 hours before getting labs drawn. May drink water Verbalized understanding and agreed with treatment plan. Orders: Orders Complete Blood Count Auto Diff 6 Months Z00.00 - Encounter for general adult medical examination without abnormal findings TSH reflex Free T4 6 Months Z00.00 - Encounter for general adult medical examination without abnormal findings UA CC w/rflx Micro + Cult 6 Months Z00.00 - Encounter for general adult medical examination without abnormal findings Vitamin B12 and Folate 6 Months Z00.00 - Encounter for general adult medical examination without abnormal findings Comprehensive [place]. Panel Fast 6 Months Z00.00 - Encounter for general adult medical examination without abnormal findings Lipid Panel 6 Months Z00.00 - Encounter for general adult medical examination without abnormal findings Referrals Pulmonology Referral R05.3 - Chronic cough Coding Level of Care Code Est Pt Level 4 (54486) Complex EM visit Add On G2211 Diagnoses Chronic cough R05.3 Osteoporosis M81.0 Laboratory tests ordered as part of a complete physical exam (CPE) Z00.00
[2023-10-11 11:57] VITALS: BP 127/70; PULSE 78; RESP 13; TEMP 36.5; O2SAT 98; BMI 31.6
== END 2023-10-11 12:37 | disposition home or self-care (01) ==
PROVIDERS: PCP Nurse Practitioner Family; Visit Provider Nurse Practitioner Family
DX: R05.3 Chronic cough (principal); M81.0 Age-related osteoporosis without current pathological fracture; Z00.00 Encounter for general adult medical examination without abnormal findings
CPT/HCPCS: 99214; G2211

== ENCOUNTER 2023-10-22 10:05 | Outpatient (AMB) | payer BC, SELFPAY ==
--- NOTE | 2023-10-22 10:07 | MHC.OFFVIS ---
Vital Signs 10/22/23 10:09 Height 5 ft 3 in Weight 173 lb 1.006 oz BMI 30.7 BP 127/82 Blood Pressure Location Rt brachial Position Sitting Pulse 90 Pulse Source Doppler Pulse Oximetry (%) 97 Oxygen Delivery Method Room Air Intake Visit Reasons: chronic cough Allergies ammonia Allergy (Severe, Verified 10/22/23 10:12) Anaphylaxis strawberry Allergy (Mild, Verified 10/22/23 10:12) Hives HPI HPI chronic cough: Details: 47-year-old lady, nonsmoker, with underlying rheumatoid on Plaquenil/Enbrel referred for evaluation of chronic nonproductive cough ongoing for many years. Patient is also being worked up by ENT and GI for courses of her cough, so far with negative workup. She does complain of significant postnasal drip. Patient does have underlying environmental allergies. She has a cat as a pet. She has employed with no exposure to industrial dusts. Patient does have family history of COPD in her mother. Patient was trying on inhaled corticosteroid, nasal steroid, ppi, some cough suppressants, systemic glucocorticoids, and empiric antibiotics so far with no significant symptomatic benefit. [facility] Medical History Essential and other specified forms of tremor Spinal cord compression Spinal stenosis in cervical region Hypersomnia Snoring Degenerative cervical disc Benign essential tremor Fibromyalgia Rheumatoid arthritis Surgical History History of surgery on left wrist History of uvulopalatopharyngoplasty History of surgical removal of ganglion cyst History of tonsillectomy H/O: knee surgery H/O removal of cyst History of appendectomy History of adenoidectomy Family History Mother COPD (chronic obstructive pulmonary disease) Type 2 diabetes mellitus Congestive heart failure Rheumatoid arthritis Fibromyalgia Sjogrens syndrome Father Congenital heart defect Colon cancer Paternal Grandmother Breast cancer Bone cancer Maternal Aunt Rheumatoid arthritis Social History Household Members: Significant Other Housing: House Alcohol intake: current Alcohol intake frequency: holidays/special occasions only Patient Tobacco Use Status: Never used Tobacco e-Cigarette/Vaping Use: Never Used service: No Current occupational status: employed 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 needs: No Hearing needs: No Vision needs: No Review of Systems Const Denies daytime sleepiness, Denies excessive sweating, Denies fatigue, Denies fever(s), Denies lethargy, Denies malaise, Denies night sweats, Denies snoring and Denies weight loss Eyes Denies blurry vision and Denies itchy eyes ENT Denies nasal congestion, Reports post nasal drip, Denies sinus pain, Denies sinus pressure and Denies other ( Thrush) Card Denies chest pain, Denies pedal edema, Denies dyspnea, Denies orthopnea and Denies paroxysmal nocturnal dyspnea Resp Reports cough, Denies hemoptysis, Denies excessive phlegm production, Denies dyspnea, Denies snoring and Denies wheezing GI Denies abdominal pain and Denies heartburn Musc Denies myalgias, Denies arthralgias and Denies joint swelling Skin/Breast Denies rash Neuro Denies memory loss and Denies seizure-like activity Psych Denies abnormal sleep pattern, Denies anxiety and Denies memory loss Endo Denies excessive sweating, Denies fatigue and Denies heat intolerance Anthony/Lymph Denies easy bruising Aller/Immun Denies itchy eyes, Denies seasonal rhinorrhea and Denies wheezing Physical Exam Vital Signs: Last Vital Signs Pulse 90 10/22/23 10:09 BP 127/82 10/22/23 10:09 Pulse Ox 97 10/22/23 10:09 Oxygen Delivery Method Room Air 10/22/23 10:09 BMI result Body Mass Index 30.7 Const General: no acute distress and alert Nutritional Appearance: not obese Orientation/consciousness: Other orientation findings ( oriented) HEENT Head: Yes atraumatic Eyes General: appearance normal, both eyes and all related structures Sclerae: sclerae normal EOM: EOMs intact bilaterally Neck Neck: Yes supple Lymphatic: no lymphadenopathy noted Resp Effort & Inspection: normal respiratory effort and no use of accessory muscles Auscultation: clear to auscultation bilaterally Cardio Rate: regular rate Rhythm: regular rhythm Heart sounds: no gallops, no murmurs and no rubs Skin General skin exam: other ( warm) Extrem General: No clubbing, No cyanosis and No edema Assessment & Plan Assessment & Plan (1) ILD (interstitial lung disease): Code(s): J84.9 - Interstitial pulmonary disease, unspecified Category: Medical Plan: Possible underlying RA related ILD. Will obtain CT chest and full PFT. (2) Cough: Code(s): R05.9 - Cough, unspecified Category: Medical Plan: Unclear etiology, may have allergic/immunologic components. Will start on empiric cough suppressant. (3) Environmental allergies: Code(s): Z91.09 - Other allergy status, other than to drugs and biological substances Category: Medical Plan: Will obtain IgE level, CBC with differential, and RAST panel for further evaluation. Orders: Orders CT chest wo IV con Today J84.9 - Interstitial pulmonary disease, unspecified Complete Blood Count Auto Diff Today Z91.09 - Other allergy status, other than to drugs and biological substances Resp Allergy Profile Region I Today Z91.09 - Other allergy status, other than to drugs and biological substances PFT pulmonary function test Today J84.9 - Interstitial pulmonary disease, unspecified Medications: New benzonatate 200 mg PO TID PRN 60 caps 3RF cough J84.9 - Interstitial pulmonary disease, unspecified ipratropium bromide administer into each nostril 2 sprays intranasal TID 15 mL 3RF J84.9 - Interstitial pulmonary disease, unspecified Coding Level of Care Code New Pt Level 4 (86824) Diagnoses ILD (interstitial lung disease) J84.9 Cough R05.9 Environmental allergies Z91.09
[2023-10-22 10:09] VITALS: BP 127/82; PULSE 90; O2SAT 97; BMI 30.7
== END 2023-10-22 10:43 | disposition home or self-care (01) ==
PROVIDERS: PCP Nurse Practitioner Family; Visit Provider Internal Medicine Pulmonary Disease
DX: J84.9 Interstitial pulmonary disease, unspecified (principal); R05.9 Cough, unspecified; Z91.09 Other allergy status, other than to drugs and biological substances
CPT/HCPCS: 99204

== ENCOUNTER 2023-10-22 10:05 | Outpatient (REF) | payer BC, SELFPAY ==
[2023-10-22 11:03] LABS: MANUAL DIFF FLAG NO
[2023-10-22 11:57] LABS: Basophils Absolute Auto 0.1 X10*3/uL (0.0-0.2); Basophils Percent Auto 1.2 % (0-2); Eosinophils Absolute Auto 0.2 X10*3/uL (0.0-0.4); Eosinophils Percent Auto 2.9 % (0-4); Hematocrit 39.3 % (37.0-47.0); Hemoglobin 13.2 g/dl (12.0-16.0); Imm Gran Abs Auto 0.01 X10*3/uL (0.00-0.03); Imm Gran Pct Auto 0.2 % (0.0-0.4); Lymphocytes Absolute Auto 1.6 X10*3/uL (1.2-4.9); Lymphocytes Percent Auto 27.4 % (20-40); Mean Corpuscular HGB Conc 33.6 g/dl (31.0-35.0); Mean Corpuscular Hemoglobin 31.4 pg (27.0-33.0); Mean Corpuscular Volume 93.3 fL (80.0-98.0); Mean Platelet Volume 10.7 fL (9.4-12.3); Monocytes Absolute Auto 0.5 X10*3/uL (0.1-1.2); Monocytes Percent Auto 9.1 % (2-11); Neutrophils Absolute Auto 3.5 x10*3/uL (2.0-8.3); Neutrophils Percent Auto 59.2 % (45-73); Platelet Count 245 X10*3/uL (160-400); Red Blood Count 4.21 X10*6/uL (4.20-5.50); White Blood Count 5.8 X10*3/uL (4.8-10.8)
[2023-10-23 23:52] LABS: Class Alternaria alternata 0; Class Aspergillus fumigatus 0; Class Bermuda Grass 0; Class Birch 0; Class Cat Dander 0; Class Cladosporium herbarum 0; Class Cockroach 0; Class Common Ragweed 0; Class Cottonwood 0; Class Derm. pterony 0; Class Dermatophagoides farinae 0; Class Dog Dander 0; Class Elm 0; Class Maple Box Elder 0; Class Mountain Cedar 0; Class Mouse Urine Protein 0; Class Mugwort 0; Class Oak 0; Class Penicillium crysogenum 0; Class Rough Pigweed 0; Class Sheep Sorrel 0; Class Sycamore 0; Class Timothy Grass 0; Class Walnut Tree 0; Class White Ash 0; Class White Mulberry 0; D001 IgE D pteronyssinus <0.10 kU/L; D002 - IgE D farinae <0.10 kU/L; E001 - IgE Cat Dander <0.10 kU/L; E005 - IgE Dog Dander <0.10 kU/L; E072-IgE Mouse Urine <0.10 kU/L; G002 IgE Bermuda Grass <0.10 kU/L; G006 - IgE Timothy Grass <0.10 kU/L; I006-IgE Cockroach, German <0.10 kU/L; Immunoglobulin E 14 kU/L (<OR=114); M001 IgE Penicillium chrysogen <0.10 kU/L; M002 - IgE Cladosporium herbar <0.10 kU/L; M003 - IgE Aspergillus fumigat <0.10 kU/L; M006 - IgE Alternaria alternat <0.10 kU/L; T001 IgE Maple/Box Elder <0.10 kU/L; T003 IgE Common Silver Birch <0.10 kU/L; T006 - IgE Cedar, Mountain <0.10 kU/L; T007 - IgE Oak, White <0.10 kU/L; T008 IgE Elm, American <0.10 kU/L; T010 - IgE Walnut <0.10 kU/L; T011 - IgE Maple Leaf Sycamore <0.10 kU/L; T014 - IgE Cottonwood <0.10 kU/L; T015 - IgE Ash, White <0.10 kU/L; T070 - IgE White Mulberry <0.10 kU/L; W001 - IgE Ragweed, Short <0.10 kU/L; W006 - IgE Mugwort <0.10 kU/L; W014 IgE Pigweed, Common <0.10 kU/L; W018 IgE Sheep Sorrel <0.10 kU/L
== END 2023-10-22 10:06 | disposition home or self-care (01) ==
LOC: HO.LAB 10:05
PROVIDERS: PCP Nurse Practitioner Family; Visit Provider Internal Medicine Pulmonary Disease
DX: Z91.09 Other allergy status, other than to drugs and biological substances (principal); G25.0 Essential tremor; G25.2 Other specified forms of tremor; G95.20 Unspecified cord compression; M48.02 Spinal stenosis, cervical region; G47.10 Hypersomnia, unspecified; R06.83 Snoring; J84.9 Interstitial pulmonary disease, unspecified; R05.9 Cough, unspecified
CPT/HCPCS: 36415; 82785; 85025; 86003

== ENCOUNTER 2023-10-22 15:01 | Outpatient (AMB) | payer BC, SELFPAY ==
--- NOTE | 2023-10-22 15:04 | A.OFFVIS_ITS ---
Vital Signs 10/22/23 15:13 Height 5 ft 3 in Weight 172 lb 4 oz BMI 30.5 BP 132/100 H Blood Pressure Location Lt brachial Position Sitting Pulse 83 Pulse Source Pulse Oximeter Pulse Oximetry (%) 98 Oxygen Delivery Method Room Air Intake Visit Reasons: 2 month F/U - Confirmed Intake Note: Patient presents for 2 months f/u. Allergies ammonia Allergy (Severe, Verified 10/22/23 15:09) Anaphylaxis strawberry Allergy (Mild, Verified 10/22/23 15:09) Hives Medication List - Last Reconciled 10/22/23 by Dea Sewell MD acetaminophen-codeine 300-30 mg 1 tab PO BID NS alendronate 70 mg PO QWEEK benzonatate 200 mg PO TID PRN cyanocobalamin (vitamin B-12) 1,000 mcg subcut Q4W dextromethorphan HBr 20 mg (15 mL) PO TID PRN 5 days duloxetine 60 mg PO DAILY 90 days Enbrel SureClick (etanercept) 50 mg subcut QWEEK NS folic acid 0.4 mg PO DAILY 30 days hydroxychloroquine (Plaquenil) 400 mg (2 x 200 mg) PO DAILY 30 days ipratropium bromide 2 sprays intranasal TID primidone 200 mg PO BID spironolactone 50 mg PO BID 30 days sumatriptan succinate take 1 tab at onset of headache; if no relief, may repeat 1 tab after at least 2 hrs; max = 2 tabs/24 hrs PO tizanidine 2 mg PO TID tretinoin 0.025% 1 appl topical BEDTIME zolpidem 10 mg PO BEDTIME 30 days HPI Comments Details: 47y/o right handed female with a complex medical issues - Rheumatoid arthritis , fibromyalgia comes for follow up.HST was inconclusive MRI shows spinal stenosis - with ventral cord impingement Tremors are stable.she is seeing rheumatology, ENT, Pulmonary, GI and has a Neurosurgeon in [place] and endocrine. History-She started noticing tremors in her 20s and was diagnosed with essential tremors.Her father had essential tremors. Her tremors were mostly in her left UE mostly with posture and action . she is on primidone and helps to decrease the tremors Handwriting is good especially if she uses a fountain pen Eating - using utensils - good Drinking fluids - good Mild difficulty in fine motor coordination She was always prone to falls but about 2-3 years ago she noticed increase in falls, balance issues and gait issues. she has stress incontinence. SHe was living [facility] and was seen by aneurologist who evaluated with MRI C spine and brain . I do not have the rbain report but her C spine was c/w Spinal stenosis with moderate to severe cord compression at C3-4 C4-5 with cord edema myelomalacia , multilevel severe foraminals tenosis. she was seen by Neurosurgery but due to her move back to [place] she did not have surgery. she also reports chronic cough for over 2 years. she snores and has frequent arousals. [facility] Medical History Essential and other specified forms of tremor Spinal cord compression Spinal stenosis in cervical region Hypersomnia Snoring Degenerative cervical disc Benign essential tremor Fibromyalgia Rheumatoid arthritis Surgical History History of surgery on left wrist History of uvulopalatopharyngoplasty History of surgical removal of ganglion cyst History of tonsillectomy H/O: knee surgery H/O removal of cyst History of appendectomy History of adenoidectomy Family History Mother COPD (chronic obstructive pulmonary disease) Type 2 diabetes mellitus Congestive heart failure Rheumatoid arthritis Fibromyalgia Sjogrens syndrome Father Congenital heart defect Colon cancer Paternal Grandmother Breast cancer Bone cancer Maternal Aunt Rheumatoid arthritis Social History Household Members: Significant Other Housing: House Alcohol intake: current Alcohol intake frequency: holidays/special occasions only Patient Tobacco Use Status: Never used Tobacco e-Cigarette/Vaping Use: Never Used service: No Current occupational status: employed 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 needs: No Hearing needs: No Vision needs: No Physical Exam Vital Signs: Last Vital Signs Pulse 83 10/22/23 15:13 BP 132/100 H 10/22/23 15:13 Pulse Ox 98 10/22/23 15:13 Oxygen Delivery Method Room Air 10/22/23 15:13 BMI result Body Mass Index 30.5 Const General: cooperative and comfortable Nutritional Appearance: average body habitus Orientation/consciousness: patient oriented x3 Eyes Pupils: Equal, round and reactive pupils present Neuro Other: Malalmpatti grade 4 retrognathia Mild postural tremors Left UE Mild wide based gait General: patient oriented x3, tone normal, moves all extremities and no focal motor deficits Cranial nerves: Yes Equal, round and reactive pupils present, Yes Bilaterally intact EOM present, Yes Nystagmus not present, Yes Normal facial strength present and Yes Midline tongue present Cognition (Neuro): normal cognition Gait exam (Neuro): Normal gait present Motor exam (neuro): 5/5 motor strength present throughout and Normal motor muscle tone present throughout Deep tendon reflexes (DTR's): Right triceps reflex intensity grade: 3+, Left triceps reflex intensity grade: 3+, Rt Biceps (C5, C6): 3+, Left biceps reflex intensity grade: 3+, Right brachioradialis reflex intensity grade: 3+, Left brachioradialis reflex intensity grade: 3+, Right patellar reflex intensity grade: 4+, Left patellar reflex intensity grade: 4+, Right ankle reflex intensi ty grade: 4+ and Left ankle reflex intensity grade: 4+ Coordination: [id number] test normal Assessment & Plan Assessment & Plan (1) Essential and other specified forms of tremor: Code(s): G25.0 - Essential tremor; G25.2 - Other specified forms of tremor Category: Medical (2) Spinal cord compression: Code(s): G95.20 - Unspecified cord compression Category: Medical (3) Spinal stenosis in cervical region: Code(s): M48.02 - Spinal stenosis, cervical region Category: Medical (4) Hypersomnia: Code(s): G47.10 - Hypersomnia, unspecified Category: Medical (5) Snoring: Code(s): R06.83 - Snoring Category: Medical Plan Her tremors are well controlled I suggested she continue Primidone 200mg bid In lab sleep study for further eval Neurosurgery at [place] Orders: Orders RT PSG in-lab sleep study Today G47.10 - Hypersomnia, unspecified, R06.83 - Snoring Coding Level of Care Code Est Pt Level 4 (09864) Diagnoses Essential and other specified forms of tremor G25.0; G25.2 Spinal cord compression G95.20 Spinal stenosis in cervical region M48.02 Hypersomnia G47.10 Snoring R06.83
[2023-10-22 15:13] VITALS: BP 132/100; PULSE 83; O2SAT 98; BMI 30.5
== END 2023-10-22 15:35 | disposition home or self-care (01) ==
PROVIDERS: PCP Nurse Practitioner Family; Visit Provider Psychiatry & Neurology Neurology
DX: G25.0 Essential tremor (principal); G25.2 Other specified forms of tremor; G95.20 Unspecified cord compression; M48.02 Spinal stenosis, cervical region; G47.10 Hypersomnia, unspecified; R06.83 Snoring
CPT/HCPCS: 99214

== ENCOUNTER → 2023-11-17 20:30 | Outpatient (BNV) | payer BC, SELFPAY | PROVIDERS: PCP Nurse Practitioner Family; Visit Provider Psychiatry & Neurology Neurology | DX: G47.10 Hypersomnia, unspecified (principal); R06.83 Snoring | CPT/HCPCS: 95810 ==

== ENCOUNTER → 2023-11-17 20:30 | Outpatient (REF) | payer BC, SELFPAY | LOC: HO.SL 20:30 | PROVIDERS: PCP Nurse Practitioner Family; Visit Provider Psychiatry & Neurology Neurology | DX: G47.10 Hypersomnia, unspecified (principal); R06.83 Snoring | CPT/HCPCS: 95810 ==

== ENCOUNTER 2023-11-27 07:29 | Outpatient (REF) | payer BC, SELFPAY ==
--- NOTE | ~2023-11-27 | CT_ITS ---
EXAMINATION: CT CHEST WITHOUT CONTRAST CLINICAL INFORMATION: Interstitial lung disease. COMPARISON: Chest radiographs dated 02/13/2023. TECHNIQUE: Multidetector volumetric CT imaging of the chest was done. Axial MIP volume rendering provided. Sagittal and coronal reformatted images were obtained. This CT examination was performed using dose optimization techniques as appropriate, variously including the following: *Automated exposure control *Adjustment of mA and/or kV according to patient size (this includes techniques or standardized protocols for targeted exams where dose is matched to indication/reason for exam; i.e. extremities or head) *Use of iterative reconstruction technique DLP: 166 mGy-cm FINDINGS: BAIL ATTACHER: The lungs are symmetrically well-expanded and grossly clear. LUNGS: Within the posterior segment of the right upper lobe (6:95), a benign, calcified granuloma is seen. There are a few further scattered 1-2 mm calcified and noncalcified right base nodules, best appreciated on the MIP sequence. At the posterior left apex (6:31 and 32), there are 2 subpleural, noncalcified 3 mm nodules. At the lateral left apex (6:37), there is a 3 mm noncalcified subpleural nodule. Within the apicoposterior segment of the left upper lobe (6:43), a small benign, calcified granuloma is seen. Centrally within the left lower lobe (6:94), a 3 mm noncalcified nodule is seen. A few further scattered 1-2 mm noncalcified nodules are seen within the left lower lobe. There is no mass, infiltrate or groundglass opacity. No generalized increase is seen in peripheral interlobular septal markings. No bleb or bullous formation is seen. There is no generalized small airway thickening. No bronchiectasis is seen. The central airways appear patent. MEDIASTINUM: The thyroid is unremarkable. There is no thoracic aortic aneurysm. There are no atherosclerotic calcifications of the great vessel origins or thoracic aorta. No mediastinal or hilar lymphadenopathy is seen. CORONARY ARTERY CALCIFICATION: None visualized on this study. PLEURA: There is no pleural effusion. No pleural mass or thickening. AXILLA: No lymphadenopathy. UPPER ABDOMEN: Unremarkable. OSSEOUS STRUCTURES: There is multi-level mild thoracic spondylosis. No acute or aggressive osseous finding is noted. CT/CT chest wo IV con IMPRESSION: 1. There are multiple tiny bilateral calcified and noncalcified pulmonary nodules, likely related to chronic granulomatous disease. The largest noncalcified nodules, within the left lung, measure 3 mm. According to the UPDATED 2017 Fleischner Society recommendations, the advised follow-up imaging for solid nodules < 6 mm is: LOW RISK PATIENT: No routine follow-up. HIGH RISK PATIENT: Optional CT at 12 months. 2. No mass, infiltrate or groundglass opacity is seen. 3. There is no thoracic lymphadenopathy or pleural effusion. 4. There is multi-level mild thoracic spondylosis. No acute or aggressive osseous finding is seen. Fleischner guidelines were followed.
== END 2023-11-27 07:30 | disposition home or self-care (01) ==
LOC: HO.CT 07:29
PROVIDERS: PCP Nurse Practitioner Family; Visit Provider Internal Medicine Pulmonary Disease
DX: J84.9 Interstitial pulmonary disease, unspecified (principal)
CPT/HCPCS: 71250

== ENCOUNTER 2023-12-04 13:30 | Outpatient (AMB) | payer BC, SELFPAY ==
[2023-12-04 13:33] VITALS: BP 132/86; PULSE 81; O2SAT 97; BMI 31.2
--- NOTE | 2023-12-04 13:33 | A.OFFVIS_ITS ---
Vital Signs 12/04/23 13:33 Height 5 ft 3 in Weight 176 lb BMI 31.2 BP 132/86 Blood Pressure Location Rt brachial Position Sitting Pulse 81 Pulse Source Doppler Pulse Oximetry (%) 97 Oxygen Delivery Method Room Air Intake Visit Reasons: Cough Allergies ammonia Allergy (Severe, Verified 10/22/23 15:09) Anaphylaxis strawberry Allergy (Mild, Verified 10/22/23 15:09) Hives HPI HPI Cough: Details: 48-year-old lady, nonsmoker, with underlying rheumatoid on Plaquenil/Enbrel referred for evaluation of chronic nonproductive cough ongoing for many years. Patient is also being worked up by ENT and GI for courses of her cough, so far with negative workup. She does complain of significant postnasal drip. Patient does have underlying environmental allergies. She has a cat as a pet. She has employed with no exposure to industrial dusts. Patient does have family history of COPD in her mother. Patient was trying on inhaled corticosteroid, nasal steroid, ppi, some cough suppressants, systemic glucocorticoids, and empiric antibiotics so far with no significant symptomatic benefit. After the last office visit patient had essentially unrevealing workup with CT chest demonstrating evidence of remote healed granulomatous infection, negative immunologic workup, and pending PFT's. Patient is still undergoing gastroenterological workup. [facility] Medical History (Updated 12/04/23 @ 14:43 by Dipak Molina MD) ILD (interstitial lung disease) Essential and other specified forms of tremor Spinal cord compression Spinal stenosis in cervical region Hypersomnia Snoring Degenerative cervical disc Benign essential tremor Fibromyalgia Rheumatoid arthritis Surgical History History of surgery on left wrist History of uvulopalatopharyngoplasty History of surgical removal of ganglion cyst History of tonsillectomy H/O: knee surgery H/O removal of cyst History of appendectomy History of adenoidectomy Family History Mother COPD (chronic obstructive pulmonary disease) Type 2 diabetes mellitus Congestive heart failure Rheumatoid arthritis Fibromyalgia Sjogrens syndrome Father Congenital heart defect Colon cancer Paternal Grandmother Breast cancer Bone cancer Maternal Aunt Rheumatoid arthritis Social History Household Members: Significant Other Housing: House Alcohol intake: current Alcohol intake frequency: holidays/special occasions only Patient Tobacco Use Status: Never used Tobacco e-Cigarette/Vaping Use: Never Used service: No Current occupational status: employed 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 Cognitive needs: No Hearing needs: No Vision needs: No Review of Systems Const Denies daytime sleepiness, Denies excessive sweating, Denies fatigue, Denies fever(s), Denies lethargy, Denies malaise, Denies night sweats, Denies snoring and Denies weight loss Eyes Denies blurry vision and Denies itchy eyes ENT Denies nasal congestion, Denies post nasal drip, Denies sinus pain, Denies sinus pressure and Denies other ( Thrush) Card Denies chest pain, Denies pedal edema, Denies dyspnea, Denies orthopnea and Denies paroxysmal nocturnal dyspnea Resp Denies cough, Denies hemoptysis, Denies excessive phlegm production, Denies dyspnea, Denies snoring and Denies wheezing GI Denies abdominal pain and Denies heartburn Musc Denies myalgias, Denies arthralgias and Denies joint swelling Skin/Breast Denies rash Neuro Denies memory loss and Denies seizure-like activity Psych Denies abnormal sleep pattern, Denies anxiety and Denies memory loss Endo Denies excessive sweating, Denies fatigue and Denies heat intolerance Anthony/Lymph Denies easy bruising Aller/Immun Denies itchy eyes, Denies seasonal rhinorrhea and Denies wheezing Physical Exam Vital Signs: Last Vital Signs Pulse 81 12/04/23 13:33 BP 132/86 12/04/23 13:33 Pulse Ox 97 12/04/23 13:33 Oxygen Delivery Method Room Air 12/04/23 13:33 BMI result Body Mass Index 31.2 Const General: no acute distress and alert Nutritional Appearance: not obese Orientation/consciousness: Other orientation findings ( oriented) HEENT Head: Yes atraumatic Eyes General: appearance normal, both eyes and all related structures Sclerae: sclerae normal EOM: EOMs intact bilaterally Neck Neck: Yes supple Lymphatic: no lymphadenopathy noted Resp Effort & Inspection: normal respiratory effort and no use of accessory muscles Auscultation: clear to auscultation bilaterally Cardio Rate: regular rate Rhythm: regular rhythm Heart sounds: no gallops, no murmurs and no rubs Skin General skin exam: other ( warm) Extrem General: No clubbing, No cyanosis and No edema Assessment & Plan Assessment & Plan (1) Cough: Code(s): R05.9 - Cough, unspecified Category: Medical Plan: Overall negative pulmonary workup with likely etiology being silent reflux. Patient continues to undergo gastroenterological workup. Discussed Carafate trial, however patient wants to wait until she has her EGD. (2) Abnormal CT scan of lung: Code(s): R91.8 - Other nonspecific abnormal finding of lung field Category: Medical Plan: Results of CT scan reviewed, underlying calcified bilateral small pulmonary nodules, likely old healed infection. At this time no further imaging follow-up is required. Coding Level of Care Code Est Pt Level 4 (86430) Diagnoses Cough R05.[address] scan of lung R91.8
== END 2023-12-04 13:56 | disposition home or self-care (01) ==
PROVIDERS: PCP Nurse Practitioner Family; Visit Provider Internal Medicine Pulmonary Disease
DX: R05.9 Cough, unspecified (principal); R91.8 Other nonspecific abnormal finding of lung field
CPT/HCPCS: 99214

== ENCOUNTER → 2023-12-04 13:30 | Outpatient (BNVA) | payer BC, SELFPAY | PROVIDERS: PCP Nurse Practitioner Family; Visit Provider Internal Medicine Pulmonary Disease ==

== ENCOUNTER 2024-03-31 14:29 | Outpatient (AMB) | payer BC, SELFPAY ==
--- NOTE | 2024-03-31 14:43 | A.OFFVIS_ITS ---
Vital Signs 03/31/24 14:48 Height 5 ft 3 in Weight 173 lb 8.061 oz BMI 30.7 BP 112/72 Blood Pressure Location Lt brachial Position Sitting Pulse 82 Pulse Source Pulse Oximeter Pulse Oximetry (%) 99 Oxygen Delivery Method Room Air Intake Visit Reasons: RA/CM Intake Note: Patient presents for RA. Allergies ammonia Allergy (Severe, Verified 03/31/24 14:45) Anaphylaxis strawberry Allergy (Mild, Verified 03/31/24 14:45) Hives Medication List - Last Reconciled 03/31/24 by Fan Rivero MD acetaminophen-codeine 300-30 mg 1 tab PO BID PRN alendronate 70 mg PO QWEEK benzonatate 200 mg PO TID PRN cyanocobalamin (vitamin B-12) 1,000 mcg subcut Q4W dextromethorphan HBr 20 mg (15 mL) PO TID PRN 5 days duloxetine 60 mg PO DAILY 90 days Enbrel SureClick (etanercept) 50 mg subcut QWEEK NS folic acid 0.4 mg PO DAILY 30 days hydroxychloroquine (Plaquenil) 400 mg (2 x 200 mg) PO DAILY 30 days ipratropium bromide 2 sprays intranasal TID methocarbamol 500 mg PO TID primidone 200 mg (4 x 50 mg) PO BID spironolactone 50 mg PO BID 30 days sumatriptan succinate take 1 tab at onset of headache; if no relief, may repeat 1 tab after at least 2 hrs; max = 2 tabs/24 hrs PO tizanidine 2 mg PO TID tretinoin 0.025% 1 appl topical BEDTIME zolpidem 10 mg PO BEDTIME 30 days HPI Comments Details: 48-year-old female with seronegative RA and fibromyalgia returns for follow-up. She is on Enbrel 50 mg once weekly and hydroxychloroquine 200 mg Twice daily consistently. She states that she recently had neck fusion. This was last month. She was fused from C3-T1. States that she is recovering reasonably well. She was evaluated by endocrinology in [place] and started on alendronate. Initial history: This is a 47-year-old female with rheumatoid arthritis and fibromyalgia who presents as a new patient. She recently relocated from [facility]. She states that she started having joint pains at age 8, initially it was thought to be growing pains. Six years after however she was eventually diagnosed as rheumatoid arthritis. She states that her case would be juvenile arthritis but she was labeled as rheumatoid arthritis as she was diagnosed around age 15. She states that she had been on hydroxychloroquine for many years. She does not recall ever being on methotrexate. She believes that she took sulfasalazine briefly. She was in the clinical trial for Enbrel more than 20 years ago and had been on Enbrel since then, she states that the Enbrel had been effective for her over the years. She has run out of her Enbrel over the last 6 months as she was transferring to [place]. She mentions that she was on steroids for years. At least 5 years. She states that she broke her left wrist after a fall a few years ago. She has plates and screws in the left wrist. She was being followed by Dr. Jamir Lugo for 30+ years She also states that she has had fibromyalgia for many years. She has been on duloxetine for years. She also takes acetaminophen with codeine, 6 tabs daily. 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 She denies any history of DVT/PE. Patient never attempted . She states that her mother has rheumatoid arthritis, Sjogren's and fibromyalgia. [facility] Medical History (Updated 03/31/24 @ 15:22 by Fan Rivero MD) ILD (interstitial lung disease) Essential and other specified forms of tremor Spinal cord compression Spinal stenosis in cervical region Hypersomnia Snoring Degenerative cervical disc Benign essential tremor Fibromyalgia Rheumatoid arthritis Surgical History (Updated 03/31/24 @ 15:22 by Fan Rivero MD) H/O spinal fusion History of surgery on left wrist History of uvulopalatopharyngoplasty History of surgical removal of ganglion cyst History of tonsillectomy H/O: knee surgery H/O removal of cyst History of appendectomy History of adenoidectomy Family History Mother COPD (chronic obstructive pulmonary disease) Type 2 diabetes mellitus Congestive heart failure Rheumatoid arthritis Fibromyalgia Sjogrens syndrome Father Congenital heart defect Colon cancer Paternal Grandmother Breast cancer Bone cancer Maternal Aunt Rheumatoid arthritis Social History Household Members: Significant Other Housing: House Alcohol intake: current Alcohol intake frequency: holidays/special occasions only Patient Tobacco Use Status: Never used Tobacco e-Cigarette/Vaping Use: Never Used service: No Current occupational status: employed 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 Cognitive needs: No Hearing needs: No Vision needs: No Female Reproductive History Menstrual Total pregnancies: 0 Review of Systems Musc Reports arthralgias and Reports stiffness Physical Exam Vital Signs: Last Vital Signs Pulse 82 03/31/24 14:48 BP 112/72 03/31/24 14:48 Pulse Ox 99 03/31/24 14:48 Oxygen Delivery Method Room Air 03/31/24 14:48 BMI result Body Mass Index 30.7 Const General: cooperative, healthy appearing and comfortable Nutritional Appearance: overweight Orientation/consciousness: patient oriented x3 Limitations: no limitations HEENT Head: Yes normocephalic and Yes atraumatic Mouth: moist mucous membranes Resp Effort & Inspection: normal respiratory effort and able to speak in complete sentences Cardio Rate: regular rate Rhythm: regular rhythm GI Inspection: No distended Palpation (GI): Soft to palpation and nontender Skin General skin exam: no rashes or lesions noted Neuro General: patient oriented x3 Extrem Other: No active synovitis Few fibromyalgia tender points Bilateral knee crepitus, no pain with full flexion and extension Normal nailfold capillaroscopy Assessment & Plan Assessment & Plan (1) Rheumatoid arthritis: Code(s): M06.9 - Rheumatoid arthritis, unspecified Category: Medical Qualifiers: Rheumatoid arthritis location: multiple sites Rheumatoid factor presence: unspecified presence Qualified Code(s): M06.9 - Rheumatoid arthritis, unspecified Plan: This is a 48-year-old female with rheumatoid arthritis, (symptoms started at age 8, diagnosed at age 14, likely SHER) who presents for follow-up. Doing well with no active synovitis on hydroxychloroquine 400 mg daily and Enbrel 50 mg weekly. She has been on these meds for years. Patient had so many different doctors appointments recently and neck surgery and was unable to schedule an appointment with inspector and clipper for Plaquenil screening. 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 Long history of exposure to steroids. Not currently on steroids DEXA scan shows osteoporosis. Patient was evaluated by endocrinology and started on alendronate (3) Fibromyalgia: Code(s): M79.7 - Fibromyalgia Category: Medical Plan: Continue with duloxetine (4) Degenerative cervical disc: Code(s): M50.30 - Other cervical disc degeneration, unspecified cervical region Category: Medical Plan: S/p fusion 02/2024 from C3 to T1 (5) Long-term use of hydroxychloroquine: Code(s): Z79.899 - Other senior living (current) drug therapy Category: Medical Plan: Discussed risk of retinopathy associated with hydroxychloroquine. Advised patient to make an appointment with inspector and clipper Plan I spent 25 minutes reviewing patient's chart, evaluating patient, ordering diagnostic workup, counseling patient and documenting in the chart Orders: Orders C Reactive Protein 6 Months M06.9 - Rheumatoid arthritis, unspecified Erythrocyte Sedimentation Rate 6 Months M06.9 - Rheumatoid arthritis, unspecified T Spot TB 6 Months Z11.7 - Encounter for testing for latent tuberculosis infection Hepatitis A,B,C Profile 6 Months Z11.59 - Encounter for screening for other viral diseases Complete Blood Count Auto Diff 6 Months M06.9 - Rheumatoid arthritis, unspecified Comprehensive Met. 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
[2024-03-31 14:48] VITALS: BP 112/72; PULSE 82; O2SAT 99; BMI 30.7
== END 2024-03-31 15:17 | disposition home or self-care (01) ==
LOC: HO.RHE 14:29
PROVIDERS: PCP Nurse Practitioner Family; Visit Provider Student in an Organized Health Care Education/Training Program
DX: M06.9 Rheumatoid arthritis, unspecified (principal); Z79.52 Long term (current) use of systemic steroids; M79.7 Fibromyalgia; M50.30 Other cervical disc degeneration, unspecified cervical region; Z79.899 Other long term (current) drug therapy
CPT/HCPCS: 99214

== ENCOUNTER → 2024-03-31 14:29 | Outpatient (BNVA) | payer BC, SELFPAY | PROVIDERS: PCP Nurse Practitioner Family; Visit Provider Student in an Organized Health Care Education/Training Program ==

== ENCOUNTER 2024-04-29 11:24 | Outpatient (AMB) | payer BC, SELFPAY ==
--- NOTE | 2024-04-29 11:25 | MHC.OFFVIS ---
Vital Signs 04/29/24 11:26 Height 5 ft 3 in Intake Visit Reasons: Follow up Intake Note: Patient presents for follow up Allergies ammonia Allergy (Severe, Verified 04/29/24 11:28) Anaphylaxis strawberry Allergy (Mild, Verified 04/29/24 11:28) Hives HPI Comments Details: 48y/o right handed female with a complex medical issues - Rheumatoid arthritis , fibromyalgia comes for follow up.HST was inconclusive . PSG was normal. Tremors are stable MRI shows spinal stenosis - with ventral cord impingement. she had surgery 2 months ago ( Mar 02 2024) C3-T1 fusion .gait has improved since then Tremors are stable.she is seeing rheumatology, ENT, Pulmonary, GI and has a Neurosurgeon in [place] and endocrine. History-She started noticing tremors in her 20s and was diagnosed with essential tremors.Her father had essential tremors. Her tremors were mostly in her left UE mostly with posture and action . she is on primidone and helps to decrease the tremors Handwriting is good especially if she uses a fountain pen Eating - using utensils - good Drinking fluids - good Mild difficulty in fine motor coordination She was always prone to falls but about 2-3 years ago she noticed increase in falls, balance issues and gait issues. she has stress incontinence. SHe was living [facility] and was seen by a neurologist who evaluated with MRI C spine and brain . 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 she was seen by Neurosurgery but due to her move back to [place] she did not have surgery. she also reports chronic cough for over 2 years. she snores and has frequent arousals. [facility] Medical History (Updated 04/29/24 @ 11:44 by Dea Sewell MD) Essential and other specified forms of tremor Spinal cord compression Spinal stenosis in cervical region Hypersomnia Snoring Degenerative cervical disc Benign essential tremor Fibromyalgia Rheumatoid arthritis Surgical History H/O spinal fusion History of surgery on left wrist History of uvulopalatopharyngoplasty History of surgical removal of ganglion cyst History of tonsillectomy H/O: knee surgery H/O removal of cyst History of appendectomy History of adenoidectomy Family History Mother COPD (chronic obstructive pulmonary disease) Type 2 diabetes mellitus Congestive heart failure Rheumatoid arthritis Fibromyalgia Sjogrens syndrome Father Congenital heart defect Colon cancer Paternal Grandmother Breast cancer Bone cancer Maternal Aunt Rheumatoid arthritis Social History Household Members: Significant Other Housing: House Alcohol intake: current Alcohol intake frequency: holidays/special occasions only Patient Tobacco Use Status: Never used Tobacco e-Cigarette/Vaping Use: Never Used service: No Current occupational status: employed 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 Cognitive needs: No Hearing needs: No Vision needs: No Physical Exam Const General: cooperative and comfortable Nutritional Appearance: average body habitus Orientation/consciousness: patient oriented x3 Eyes Pupils: Equal, round and reactive pupils present Neuro Other: Malalmpatti grade 4 retrognathia Mild postural tremors Left UE gait stable General: patient oriented x3, tone normal, moves all extremities and no focal motor deficits Cranial nerves: Yes Equal, round and reactive pupils present, Yes Bilaterally intact EOM present, Yes Nystagmus not present, Yes Normal facial strength present and Yes Midline tongue present Cognition (Neuro): normal cognition Gait exam (Neuro): Normal gait present Motor exam (neuro): 5/5 motor strength present throughout and Normal motor muscle tone present throughout Coordination: [id number] test normal Assessment & Plan Assessment & Plan (1) Essential and other specified forms of tremor: Code(s): G25.0 - Essential tremor; G25.2 - Other specified forms of tremor Category: Medical (2) Spinal cord compression: Code(s): G95.20 - Unspecified cord compression Category: Medical (3) Spinal stenosis in cervical region: Code(s): M48.02 - Spinal stenosis, cervical region Category: Medical Plan Her tremors are well controlled I suggested she continue Primidone 200mg bid In lab sleep study was normal Neurosurgery at [place]- had surgery in Feb 2024- Fusion C3-T1 Coding Level of Care Code Est Pt Level 4 (55242) Complex EM visit Add On G2211 Diagnoses Essential and other specified forms of tremor G25.0; G25.2 Spinal cord compression G95.20 Spinal stenosis in cervical region M48.02
--- OUTSIDE RECORDS SUMMARY | 2024-05-05 18:07 | XMS_ITS | Continuity of Care Document ---
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 Name Role Phone No Information Unavailable Unavailable Allergies, Adverse Reactions, Alerts Substance Reaction Status Criticality No Known Allergies Active No Inform ation Medications Medication Instructions Dosage Effective Dates (start - stop) Status Comments Ambien 10 mg tablet Take one tablet at bedtime - Active acetaminophen 300 mg-codeine 30 mg tablet take 1 tablet by oral route every 12 hours as needed 1 tablet - Active tizanidine 2 mg tablet TAKE 3 TABLETS BY MOUTH EVERY DAY - Active DULOXETINE HCL DR 60 MG CAP TAKE 1 CAPSULE BY MOUTH EVERY DAY - Active Plaquenil 200 mg tablet take 2 tablet by ORAL route every day 400 MG - Active morphine ER 30 mg tablet,extended release take 1 tablet by oral route every 24 hours 30 MG - Active Narcan 4 mg/actuation nasal spray spray 0.1 milliliter by intranasal route in 1 nostril september repeat dose every 2-3 minutes as needed alternating nostrils with each dose 4 MG - Active FOLIC ACID 1 MG TABLET TAKE 1 TABLET BY MOUTH EVERY DAY - Active NEXIUM DR 40 MG CAPSULE TAKE 1 CAPSULE (40MG) BY ORAL ROUTE EVERY DAY 40 MG - Active Enbrel SureClick 50 mg/mL (0.98 mL) subcutaneous pen injector One injection subcutaneous every week - Active Imitrex 100 mg Tab take 1 tablet (100MG ) by ORAL route once with fluids as early as possible after the onset of a migraine attack;may repeat after 2 hours if headache returns, not to exceed 200mgin 24hrs 100 MG - Active primidone 250 mg tablet take 4 tablet by oral route morning and 4 tablet by oral route night - Active Procedures Procedure Date Offic/outpt E&m Estab [facility] [place] [facility] [place] 2 Collection Of Venous Blood By Venipunctu re L, Comp Metabolic Panel L, C-reactive Protein L, Sed Rate, Erythrocyte L, CBC Auto Diff L, Handling Of Lab Specimens LC, Drug Screen, Single Drug Class Metho d Offic/outpt E&m Estab [facility] [place] [facility] [place] 2 Virtual Offic/outpt E&m [facility]-va 2 D Collection Of Venous Blood By Venipunctu re L, Comp Metabolic Panel L, C-reactive Protein L, Sed Rate, Erythrocyte L, CBC Auto Diff L, Handling Of Lab Specimens LC, Drug Screen, Single Drug Class Metho d Offic/outpt E&m [facility]-va 2 Immuniz Admin; 1/combo Vacc/to Flucelvax Quad IIV4 Vac 0.5mL Collection Of Venous Blood By Venipunctu re L, Comp Metabolic Panel L, C-reactive Protein LC, Iron LC, Iron Binding Capacity LC, Ferritin L, Sed Rate, Erythrocyte L, CBC Auto Diff L, Handling Of Lab Specimens Depo-Medrol 80 Mg Arthrocentesis/aspir/inj; Inte 22 Offic/outpt E&m Estab Mod-hi 2 22 RA Functional Status Assessed 2 Thumb Support Thumb O Prene Offic/outpt E&m Estab Mod-hi 2 22 RA Functional Status Assessed 2 Collection Of Venous Blood By Venipunctu re LC, Comp Metabolic Panel LC, C-reactive Prot L, Sed Rate, Erythrocyte L, CBC Auto Diff L, Handling Of Lab Specimens LC, Drug Screen, Single Drug Class Metho d Offic/outpt E&m Estab Low-mod 1 Immuniz Admin; 1/combo Vacc/to 21 Flucelvax Quad IIV4 Vac 0.5mL 1 Offic/outpt E&m Estab Mod-hi 2 21 Collection Of Venous Blood By Venipunctu re L, Handling Of Lab Specimens LC, Drug Screen, Single Drug Class Metho d Offic/outpt E&m Estab Mod-hi 2 21 Offic/outpt E&m Estab Mod-hi 2 21 RA Functional Status Assessed 1 Collection Of Venous Blood By Venipunctu re L, Comp Metabolic Panel L, C-reactive Protein L, Sed Rate, Erythrocyte L, CBC Auto Diff L, Handling Of Lab Specimens LC, Drug Screen, Single Drug Class Metho d Virtual Offic/outpt E&m Estab Mod-hi 2 D Virtual Offic/outpt E&m Estab Mod-hi 2 S Virtual Offic/outpt E&m Estab Mod-hi 2 J Collection Of Venous Blood By Venipunctu re L, Comp Metabolic Panel L, C-reactive Protein L, Sed Rate, Erythrocyte L, CBC Auto Diff L, Handling Of Lab Specimens LC, Drug Screen, Single Drug Class Metho d Offic/outpt E&m Estab Mod-hi 2 20 RA Functional Status Assessed 0 Immuniz Admin; 1/combo Vacc/to 19 Flucelvax Quad IIV4 Vac 0.5mL 9 Offic/outpt E&m Estab Mod-hi 2 19 RA Functional Status Assessed 9 Collection Of Venous Blood By Venipunctu re L, Comp Metabolic Panel L, C-reactive Protein L, Sed Rate, Erythrocyte L, CBC Auto Diff Offic/outpt E&m Estab Mod-hi 2 19 RA Functional Status Assessed 9 Collection Of Venous Blood By Venipunctu re L, C-reactive Protein LC, Iron LC, Iron Binding Capacity LC, Ferritin L, Sed Rate, Erythrocyte L, Handling Of Lab Specimens Offic/outpt E&m Estab Mod-hi 2 19 RA Functional Status Assessed 9 L, General Health Panel Collection Of Venous Blood By Venipunctu re L, Comp Metabolic Panel L, C-reactive Protein L, Sed Rate, Erythrocyte L, CBC Auto Diff Offic/outpt E&m Estab Mod-hi 2 18 RA Functional Status Assessed 8 Collection Of Venous Blood By Venipunctu re L, Comp Metabolic Panel L, C-reactive Protein L, Sed Rate, Erythrocyte L, CBC Auto Diff Offic/outpt E&m Estab Mod-hi 2 18 Xray Hand And Wrist Mini 3 Views 2017 Xray Foot; Complt Mini 3 Views 18 Collection Of Venous Blood By Venipunctu re L, Comp Metabolic Panel L, C-reactive Protein L, Sed Rate, Erythrocyte L, CBC Auto Diff Offic/outpt E&m Estab Mod-hi 2 17 Collection Of Venous Blood By Venipunctu re L, Comp Metabolic Panel L, C-reactive Protein L, Sed Rate, Erythrocyte L, CBC Auto Diff Offic/outpt E&m Estab Mod-hi 2 17 Admin Flu Virus Vac-no Phys Sr 16 Collection Of Venous Blood By Venipunctu re L, Comp Metabolic Panel L, C-reactive Protein L, Sed Rate, Erythrocyte L, CBC Auto Diff Offic/outpt E&m Estab Mod-hi 2 16 Afuria Syringes 0.5 Ml Collection Of Venous Blood By Venipunctu re L, Comp Metabolic Panel L, C-reactive Protein L, Sed Rate, Erythrocyte L, CBC Auto Diff Offic/outpt E&m Estab Mod-hi 2 16 Offic/outpt E&m Estab Mod-va 2 16 Collection Of Venous Blood By Venipunctu re L, Comp Metabolic Panel L, C-reactive Protein LC, Iron LC, Iron Binding Capacity L Sed Rate, Erythrocyte L, CBC Auto Diff L, Handling Of Lab Specimens Offic/outpt E&m Estab Mod-hi 2 15 Immuniz Admin; 1/combo Vacc/to 15 Flu Vir Vacc-split 3 Yr & > Im (Fluvirin ) Offic/outpt E&m Estab [facility] [place] 2 15 Collection Of Venous Blood By Venipunctu re L, Comp Metabolic Panel L, C-reactive Protein L, Sed Rate, Erythrocyte; Automated L, CBC Auto Diff Offic/outpt E&m Estab Mod-va 2 15 Collection Of Venous Blood By Venipunctu re L, Comp Metabolic Panel L, C-reactive Protein L, Sed Rate, Erythrocyte; Automated L, CBC Auto Diff Offic/outpt E&m [facility]-va 2 15 Xray Foot; Complt Mini 3 Views 14 Xray Hand And Wrist Mini 3 Views 2013 Collection Of Venous Blood By Venipunctu re L, Comp Metabolic Panel L, C-reactive Protein L, Sed Rate, Erythrocyte; Automated L, CBC Auto Diff Offic/outpt E&m [facility]-va 2 14 Collection Of Venous Blood By Venipunctu re L, Comp Metabolic Panel L, C-reactive Protein L, Sed Rate, Erythrocyte; Automated L, CBC Auto Diff Offic/outpt E&m [facility]-va 2 14 Xray Elbow; Ap & Lat Views Collection Of Venous Blood By Venipunctu re L, Comp Metabolic Panel L, C-reactive Protein L, Iron Total L, Iron TIBC LC, Ferritin L, Sed Rate, Erythrocyte; Automated L, TSH L, CBC Auto Diff L, Handling Of Lab Specimens Offic/outpt E&m Estab Mod-va 2 14 Collection Of Venous Blood By Venipunctu re L, Comp Metabolic Panel L, C-reactive Protein L, Sed Rate L, CBC Auto Diff Flu Vir Vacc-split 3 Yr & > Im (Flulaval ) Immuniz Admin; 1/combo Vacc/to 13 Offic/outpt E&m Estab Mod-hi 2 13 Xray Hand And Wrist Mini 3 Views 2012 Collection Of Venous Blood By Venipunctu re L, Comp Metabolic Panel L, C-reactive Protein L, Sed Rate L, CBC Auto Diff Xray Foot; Complt Mini 3 Views 13 Xray Foot; Complt Mini 3 Views 13 Offic/outpt E&m Estab Mod-hi 2 13 Xray Hand And Wrist Mini 3 Views 2012 Xray Knee; Three Views Routine Venipunct/finger/heel 3 L, Comp Metabolic Panel L, C-reactive Protein L, Sed Rate L, CBC Auto Diff Offic/outpt E&m [facility] Mod-hi 2 13 Depo-Medrol 40 Mg Inj Mepivacaine Hcl, Per 10 Ml 13 Arthrocentesis/aspir/inj; Ele 13 Routine Venipunct/finger/heel 3 L, Comp Metabolic Panel L, C-reactive Protein L, Sed Rate L, CBC Auto Diff Offic/outpt E&m Estab Mod-hi 2 13 Routine Venipunct/finger/heel 2 L, Comp Metabolic Panel L, C-reactive Protein L, Sed Rate L, CBC Auto Diff Offic/outpt E&m Estab Mod-hi 2 12 Flu Vir Vacc-split 3 Yr & > Im (Flulaval ) Immuniz Admin; 1/combo Vacc/to 12 Xray Foot; Complt Mini 3 Views 12 Xray Hand And Wrist Mini 3 Views 2011 Arthrocentesis/aspir/inj; Ele 12 Depo-Medrol 40 Mg Inj Mepivacaine Hcl, Per 10 Ml 12 Routine Venipunct/finger/heel 2 L, Comp Metabolic Panel L, C-reactive Protein L, Iron Total L, Iron TIBC LC, Ferritin L, Sed Rate L, Thyroxine; Free L, TSH L, CBC Auto Diff Offic/outpt E&m Estab Mod-hi 2 12 Offic/outpt E&m Estab Mod-hi 2 12 Routine Venipunct/finger/heel 2 L, Comp Metabolic Panel L, C-reactive Protein L, Sed Rate L, CBC Auto Diff Offic/outpt E&m Estab Mod-hi 2 11 Routine Venipunct/finger/heel 1 L, Comp Metabolic Panel L, C-reactive Protein L, Sed Rate L, CBC Auto Diff Flu Vir Vacc-split 3 Yr & > Im (Flulaval ) Immuniz Admin; 1/combo Vacc/to 11 Routine Venipunct/finger/heel 1 L, Comp Metabolic Panel L, C-reactive Protein L, Sed Rate L, CBC Auto Diff Offic/outpt E&m Estab Mod-hi 2 11 Xray Ribs Unilat; 2 Views Xray Elbow; Complt Mini 3 Views 011 Offic/outpt E&m Estab Mod-va 2 11 Xray Hand And Wrist Mini 3 Views 2010 Xray Hand And Wrist Mini 3 Views 2010 Xray Elbow; Ap & Lat Views Xray Elbow; Ap & Lat Views Xray Foot; Complt Mini 3 Views 11 Xray Foot; Complt Mini 3 Views 11 Routine Venipunct/finger/heel 1 L, Comp Metabolic Panel L, C-reactive Protein L, Sed Rate L, CBC Auto Diff Offic/outpt E&m Estab Mod-va 2 11 Offic/outpt E&m Estab Mod-va 2 11 Routine Venipunct/finger/heel 1 L, Comp Metabolic Panel L, C-reactive Protein L, Sed Rate L, CBC Auto Diff Offic/outpt E&m Estab Mod-va 2 11 Offic/outpt E&m Estab Mod-va 2 11 Routine Venipunct/finger/heel 0 L, Comp Metabolic Panel L, C-reactive Protein L, Iron Total L, Iron TIBC LC, Ferritin L, Sed Rate L, CBC Auto Diff L, Handling Of Lab Specimens Offic/outpt E&m Estab Mod-va 2 10 Flu Vir Vacc-split 3 Yr & > Im 10 Immuniz Admin; 1/combo Vacc/to 10 Offic/outpt E&m Estab Mod-va 2 10 Inj; 1/mx Trig Point 1/two Mus 10 Medication, Depo-Medrol 40 Mg 0 Offic/outpt E&m Estab Low-mod 0 Man Ther Tech-1/> Regions-ea 10 Applic Modal 1/> Areas; Elec S 10 Applic Modal 1/> Areas; Hot/cl 10 Man Ther Tech-1/> Regions-ea 1 10 Applic Modal 1/> Areas; Elec S 10 Applic Modal 1/> Areas; Hot/cl 10 Man Ther Tech-1/> Regions-ea 1 10 Applic Modal 1/> Areas; Hot/cl 10 Man Ther Tech-1/> Regions-ea 1 10 Phys Therap Eval Applic Modal 1/> Areas; Hot/cl 10 Therap 1/> Areas/15 Min; Exerc 10 Offic/outpt E&m Estab Mod-hi 2 10 Routine Venipunct/finger/heel 0 L, Comp Metabolic Panel L, C-reactive Protein L, Sed Rate L, CBC Auto Diff Routine Venipunct/finger/heel 0 L, C-reactive Protein L, Sed Rate L, CBC Auto Diff L, Handling Of Lab Specimens Routine Venipunct/finger/heel 0 L, Comp Metabolic Panel L, C-reactive Protein L, Sed Rate L, CBC Auto Diff Offic/outpt E&m Estab Mod-hi 2 10 L, Handling Of Lab Specimens Offic/outpt E&m Estab Mod-hi 2 09 Xray Foot; Complt Mini 3 Views 09 Offic/outpt E&m Estab Mod-hi 2 09 Xray Hand And Wrist Mini 3 Views 2008 Offic/outpt E&m Estab Low-mod 9 Offic/outpt E&m Estab Mod-hi 2 09 Offic/outpt E&m Estab Mod-hi 2 09 Offic/outpt E&m Estab Mod-va 2 08 Offic/outpt E&m Estab Mod-va 2 08 Flu Vir Vacc-split 3 Yr & > Im 08 Offic/outpt E&m Estab Mod-hi 2 08 Therapeutic Injection Sub Q Or IM Flu Vir Vacc-split 3 Yr & > Im 08 Ultra Sound Diagnostic L, Comp Metabolic Panel L, C-reactive Protein L, CBC Auto Diff L, Sed Rate Routine Venipunct/finger/heel 8 Offic/outpt E&m Estab Low-mod 7 Offic/outpt E&m Estab Mod-va 2 07 L, Hepatic Panel Routine Venipunct/finger/heel 7 Offic/outpt E&m Estab Mod-va 2 07 Rad Exam Chest 2 Views Front & 07 L, Comp Metabolic Panel L, CBC Auto Diff L, Sed Rate Routine Venipunct/finger/heel 7 Offic/outpt E&m Estab Mod-hi 2 07 L, Comp Metabolic Panel L, C-reactive Protein L, CBC Auto Diff L, Sed Rate Routine Venipunct/finger/heel 7 Offic/outpt E&m Estab Mod-hi 2 06 Therapeutic Injection Sub Q Or IM Flu Vir Vacc-split 3 Yr & > Im 06 L, Comp Metabolic Panel L, C-reactive Protein L, CBC Auto Diff L, Sed Rate Routine Venipunct/finger/heel 6 Offic/outpt E&m Estab Mod-hi 2 06 Offic/outpt E&m Estab Mod-hi 2 06 Arthrocentesis/aspir/inj; Inte 06 Medication, Kenalog 10 Mg Offic/outpt E&m Estab Mod-hi 2 06 L, Comp Metabolic Panel L, C-reactive Protein L, CBC Auto Diff L, Sed Rate Routine Venipunct/finger/heel 6 Offic/outpt E&m Estab Mod-va 2 06 Arthrocentesis/aspir/inj; Inte 06 Medication, Depo-Medrol 40 Mg 6 Rad Exam Elbow; Ap & Lat Views 06 L, Comp Metabolic Panel L, C-reactive Protein L, CBC Auto Diff L, Sed Rate Routine Venipunct/finger/heel 6 Offic/outpt E&m Estab Mod-va 2 06 Rad Exam Hip; Complt Mini 2 Vi 06 L, Comp Metabolic Panel L, Sed Rate Routine Venipunct/finger/heel 6 L, C-reactive Protein L, CBC Auto Diff Offic/outpt E&m Estab Mod-va 2 05 Arthrocentesis/aspir/inj; Ele 05 Arthrocentesis/aspir/inj; Ele 05 Medication, Depo-Medrol 80 Mg 5 L, Comp Metabolic Panel L, C-reactive Protein L, CBC Auto Diff L, Sed Rate Routine Venipunct/finger/heel 5 Advance Directives Directive Yes / No Effective Date File Name No Information Encounters Encounter Description Practice Location Reason(s) For Visit Diagnoses Date Provider Providers Copied on Encounter [facility], [address] [place], , [place] tel:[phone] No Information 4 No Information [facility] , [address] [place] [address], [place], , [place] tel:[phone] Shree [place] No Information [address] [facility] [facility] [address], Srhee [place], [id number], [place]. tel:[phone] [facility] , [address] [place] [address], [place], , [place] tel:[phone] Shree Vernon No Information 3 Rafael Enciso. [address] [place] [address], [place], , [place]. tel:[phone] [facility] , [address] [place] [address], , [place] tel:[phone] Shree Vernon No Information [address] [facility] [facility] [address], Shree [place], [id number], [place]. tel:[phone] [facility] , [address] [place] [address], , [place] tel:[phone] Shree [place] No Information [address] [facility] [facility] [address], Shree [place], [id number], [place]. tel:[phone] Offic/outpt E&m Estab Mod-hi 2 [facility] , [address] [place] [address], [id number], [place] tel:[phone] Shree Vernon Other chronic painLong term (current) use of opiate analgesicHype rmobility syndromeSpina l stenosis of cervical regionRA w/o rheumatoid factor of multiple sitesOther snf (current) drug therapy [address] [facility] [address], Shree [place], [id number], [place]. tel:[phone] Referring Provider: Jamir Lugo, [address] [facility] [facility] 600[place], [address] . tel:[phone] [facility] , [address] [place] [address], [place], [id number], [place] tel:[phone] Shree [place] No Information [address] [facility] [facility] [address], Shree [place], [id number], [place]. tel:[phone] [facility] , [address] [place] [address], [place], [id number], [place] tel:[phone] Shree [place] No Information [address] [facility] [facility] [address], Shree [place], [id number], [place]. tel:[phone] Offic/outpt E&m Estab Mod-hi 2 [facility] , [address] [place] [address], [place], [id number], [place] tel:[phone] Shree Vernon RA w/o rheumatoid factor of multiple sitesSpinal stenosis of cervical regionHypermo bility syndromeLong term (current) use of opiate analgesicOthe r chronic pain 3 [address] [facility] [address], [id number], [place]. tel:[phone] Referring Provider: Jamir Lugo, [address] [facility] [address], [address] . tel:[phone] Virtual Offic/outpt E&m Estab Mod-hi 2 [facility] , [address] [place] [address], [place], [id number], [place] tel:[phone] [place] Other chronic painOther snf (current) drug therapy 2 [address]. [address], [place], [id number], [place]. tel:[phone] Referring Provider: Jamir Lugo, [address], [place], [address] . tel:[phone] Offic/outpt E&m Estab Mod-hi 2 [facility] , [address] [place] [address], [place], [id number], [place] tel:[phone] Shree Vernon RA w/o rheumatoid factor of multiple sitesFibromya lgiaOther chronic painLong term (current) use of opiate analgesicHype rtensionOther snf (current) drug therapy [address] [facility] [address], Shree [place], [id number], [place]. tel:[phone] Referring Provider: Jamir Lugo, [address] [facility] [address], [place], [address] . tel:[phone] Offic/outpt E&m Estab Mod-hi 2 [facility] , [address] [place] [address], [place], [id number], [place] tel:[phone] Shree Vernon RA w/o rheumatoid factor of multiple sitesOpioid use, unspecified, uncomplicated Other predatory animal exterminator (current) drug therapyFibrom yalgiaOther chronic painRadial styloid tenosynovitis [de Quervain]Anem ia [address] [place] [facility] 600Sh[place], [id number], [place]. tel:[phone] Referring Provider: Jamir Lugo, [address] [facility] [address], [place], [address] . tel:[phone] Offic/outpt E&m Estab Mod-hi 2 [facility] , [address] [place] [address], [place], , [place] tel:[phone] Shree Vernon RA w/o rheumatoid factor of multiple sitesLong term (current) use of opiate analgesicOthe r snf (current) drug therapyFibrom yalgiaOther chronic pain [address] [facility] [address], Shree [place], [id number], [place]. tel:[phone] Referring Provider: Jamir Lugo, [address] [facility] [address], [place], [address] . tel:[phone] Offic/outpt E&m Estab Low-mod [facility] , [address] [place] [address], [place], [id number], [place] tel:[phone] [place] FibromyalgiaO ther chronic pain Dec-2 - 1 [address]. [address], [place], [id number], [place]. tel:[phone] Referring Provider: Jamir Lugo, [address] [place] [address] 600, [place], [address] . tel:[phone] Offic/outpt E&m Estab Mod-hi 2 [facility] , [address] [place] [address], [place], [id number], [place] tel:[phone] Shree Vernon RA w/o rheumatoid factor of multiple sitesLong term (current) use of opiate analgesicOthe r chronic painFibromyal giaOther predatory animal exterminator (current) drug therapy Apr- 1 [address] [facility] [address], Shree [place], [id number], [place]. tel:[phone] Referring Provider: Jamir Lugo, [address] [place] [address] 600, [place], [address] . tel:[phone] Offic/outpt E&m Estab Mod-hi 2 [facility] , [address] [place] [address] 310, [place], [id number], [place] tel:[phone] Shree Vernon FibromyalgiaR A w/o rheumatoid factor of multiple sitesOther chronic painLong term (current) use of opiate analgesicOpio id use, unspecified, uncomplicated Sep-0 1 [address] [place] [facility] [address], Shree [place], [id number], [place]. tel:[phone] Referring Provider: Jamir Lugo, [address] [place] [address] Ave [address], [address] . tel:[phone] Offic/outpt E&m Estab Mod-hi 2 [facility] , [facility] 310, [place], [id number], [place] tel:[phone] Shree Vernon RA w/o rheumatoid factor of multiple sitesFibromya lgiaLong term (current) use of opiate analgesicOthe r chronic painOther predatory animal exterminator (current) drug therapyCough Jul- 1 [place] [facility] [address], [place], [id number], [place]. tel:[phone] Referring Provider: Jamir Lugo, [address], [address] . tel:[phone] Virtual Offic/outpt E&m Estab Mod-hi 2 [facility] , [facility] 310[place], [id number], [place] tel:[phone] Shree [place] Telehealth (chief complaint)Rhe umatoid arthritis (chief complaint) FibromyalgiaR A w/o rheumatoid factor of multiple sitesOpioid use, unspecified, uncomplicated Other chronic painOther predatory animal exterminator (current) drug therapy 0 [address] [place] [facility] [address], [id number], [place]. tel:[phone] Referring Provider: Jamir Lugo, [address], [address] . tel:[phone] Virtual Offic/outpt E&m Estab Mod-hi 2 [facility] , [address] [place] [address], [id number], [place] tel:[phone] Shree Vernon Telehealth (chief complaint) RA w/o rheumatoid factor of multiple sitesOther chronic painLong term (current) use of opiate analgesicFibr omyalgia Sep-0 0 [address] [place] [facility] [address], [id number], [place]. tel:[phone] Referring Provider: Jamir Lugo, [address], [place], [address] . tel:[phone] Virtual Offic/outpt E&m Estab Mod-hi 2 [facility] , [address] [place] [address], [place], [id number], [place] tel:[phone] Shree Vernon Telehealth (chief complaint)Rhe umatoid arthritis (chief complaint) FibromyalgiaO ther chronic painRA w/o rheumatoid factor of multiple sitesOpioid use, unspecified, uncomplicated Abdoul-0 0 [place] [facility] [address], [id number], [place]. tel:[phone] Referring Provider: Jamir Lugo, [address], [place], [address] . tel:[phone] Offic/outpt E&m Estab Mod-hi 2 [facility] , [address] [place] [address], [id number], [place] tel:[phone] Shree Vernon Rheumatoid arthritis (chief complaint) RA w/o rheumatoid factor of multiple sitesFibromya lgiaOther chronic painOther predatory animal exterminator (current) drug therapyLong term (current) use of opiate analgesic Jul-0 0 [place] [facility] [address], [id number], [place]. tel:[phone] Referring Provider: Jamir Lugo, [address], [address] . tel:[phone] Offic/outpt E&m Estab Mod-hi 2 [facility] , [address] [place] [address], [id number], [place] tel:[phone] Shree Vernon Fibromyalgia (chief complaint) RA w/o rheumatoid factor of multiple sitesFibromya lgiaOther chronic pain Dec-0 2201 9 [address] [place] [facility] [address], [id number], [place]. tel:[phone] Referring Provider: Jamir Lugo, [address], [place], [address] . tel:[phone] Offic/outpt E&m Estab Mod-hi 2 [facility] , [address] [place] [address], [place], [id number], [place] tel:[phone] [place] Fibromyalgia (chief complaint) RA w/o rheumatoid factor of multiple sitesOther chronic painFibromyal giaInsomniaOt her snf (current) drug therapy Jan- 9 [address] [facility] 600, Shree [place], [id number], [place]. tel:[phone] Referring Provider: Jamir Lugo, [address] [facility] 600, [place], [address] . tel:[phone] Offic/outpt E&m Estab Mod-hi 2 [facility] , [address] [place] [address] 310, [place], [id number], [place] tel:[phone] Shree [place] Fibromyalgia (chief complaint) FibromyalgiaO ther chronic painRA w/o rheumatoid factor of multiple sitesOther snf (current) drug therapyFatigu e 9 [address] [facility] 600, [place]ree [place], [id number], [place]. tel:[phone] Referring Provider: Jamir Lugo, [address] [facility] 600, [place], [address] . tel:[phone] Offic/outpt E&m Estab Mod-hi 2 [facility] , [address] [place] [address] 310, MD [place], [id number], [place] tel:[phone] Shree [place] Fibromyalgia (chief complaint) RA w/o rheumatoid factor of multiple sitesFibromya lgiaOther chronic painOther snf (current) drug therapyInsomn ia 8 [address]. [address] [facility] 600, Shree [place], [id number], [place]. tel:[phone] Referring Provider: Jamir Lugo, [address] [facility] 600[place], [address] . tel:[phone] [facility] , [address] [place] [address], [place], [id number], [place] tel:[phone] Shree [place] No Information September- 8 [address] [facility] 600Shree [place], , [place]. tel:[phone] Offic/outpt E&m Estab Mod-hi 2 [facility] , [address] [place] [address], [place], [id number], [place] tel:[phone] Shree [place] Fibromyalgia (chief complaint) RA w/o rheumatoid factor of multiple sitesOther chronic painMyofascia l pain syndromeFibro myalgiaOther snf (current) drug therapy Aug-0 8 [address] [facility] 600[place], , [place]. tel:[phone] Referring Provider: Jamir Lugo, [address] [facility] 600[place], [address] . tel:[phone] Offic/outpt E&m Estab Mod-hi 2 [facility] , [address] [place], [place] [address]rBet [place], , [place] tel:[phone] Shree [place] Back pain (chief complaint) Body mass index (BMI) 29.0-29.9, adultRA w/o rheumatoid factor of multiple sitesFibromya lgiaOther chronic painOther predatory animal exterminator (current) drug therapyBack painMyofascia l pain syndrome 7 [address]. [address] [facility] 600[place]ree [place], [id number], [place]. tel:[phone] Referring Provider: Jamir Luog, [address] [facility] 600, [place], [address] . tel:[phone] Offic/outpt E&m Estab Mod-hi 2 [facility] , [address] [place] [address], [place] Bret, , [place] tel:[phone] Shree [place] Rheumatoid arthritis (chief complaint) Body mass index (BMI) 27.0-27.9, adultRA w/o rheumatoid factor of multiple sitesOther snf (current) drug therapyOther chronic painFibromyal ivanna 7 [address] [place] [facility] Shree Pickering [place], [id number], [place]. tel:[phone] Referring Provider: Jamir Lugo, [address] [facility] [place], [address] . tel:[phone] Offic/outpt E&m Estab Mod-hi 2 [facility] , [address] [place] [address] Bret Peters MD, , [place] tel:[phone] Shree [place] Back pain (chief complaint) RA w/o rheumatoid factor of multiple sitesOther snf (current) drug therapyFibrom yalgiaOther chronic painDorsalgia 6 [place]. [address] [facility] Shree Pickering [place], [id number], [place]. tel:[phone] Referring Provider: Jamir Lugo, [address] [place], [place] [address] [facility] [place], [address] . tel:[phone] Offic/outpt E&m Estab Mod-hi 2 [facility] [address] [place] Peters MD, , [place] tel:[phone] Shree [place] Rheumatoid arthritis (chief complaint) RA w/o rheumatoid factor of multiple sitesFibromya lgiaOther chronic painOther snf (current) drug therapy 6 [place]. [address] [facility] Shree Pickering [place], [id number], [place]. tel:[phone] Referring Provider: Jamir Lugo, [address] [facility] [place], [address] . tel:[phone] Offic/outpt E&m Estab Mod-hi 2 [facility] , [address] [place] [address] Bret Peters MD, [id number], [place] tel:[phone] Shree [place] Rheumatoid arthritis (chief complaint) RA w/o rheumatoid factor of multiple sitesFibromya lgiaOther chronic pain 6 [place] [facility] 600Shree [place], [id number], [place]. tel:[phone] Referring Provider: Jamir Lugo, [address] [facility] [place], [address] . tel:[phone] Offic/outpt E&m Estab Mod-hi 2 [facility] , [address] [place] [address] Bret Peters MD, [id number], [place] tel:[phone] Shree [place] Rheumatoid arthritis (chief complaint) RA w/o rheumatoid factor of multiple sitesFibromya lgiaOther chronic painOther snf (current) drug therapyIron deficiency 5 [place]. [address] [facility] 600Shree [place], [id number], [place]. tel:[phone] Referring Provider: Jamir Lugo, [address] [facility] 600[place], [address] . tel:[phone] [facility] , [address] [place] [address] Bret Peters [place], [id number], [place] tel:[phone] Shree [place] No Information 5 [place]. [address] [facility] 600Shree [place], [id number], [place]. tel:[phone] Offic/outpt E&m Estab Mod-hi 2 [facility] , [address] [place] [address] Bret Peters MD, [id number], [place] tel:[phone] Shree [place] Rheumatoid arthritis (chief complaint) Fibromyalia Syn Myalgia MyositRheumat oid ArthritisInso mniaChronic Pain 5 [place] [facility] 600[place]ree [place], [id number], [place]. tel:[phone] Referring Provider: Jamir Lugo, [address], [place], [address] . tel:[phone] Offic/outpt E&m Estab Mod-hi 2 [facility] , [address] [place] [address], MD Bret, [id number], [place] tel:[phone] Shree [place] Fibromyalgia (chief complaint) Fibromyalia Syn Myalgia MyositRheumat oid ArthritisTher apeutic Drug Monitoring 5 [place], Shree [place], [id number], [place]. tel:[phone] Referring Provider: Jamir Lugo, [address], [place], [address] . tel:[phone] Offic/outpt E&m Estab Mod-hi 2 [facility] , [address] [place] [address], MD Bret, [id number], [place] tel:[phone] Shree [place] Rheumatoid arthritis (chief complaint) Rheumatoid ArthritisTher apeutic Drug MonitoringFib romyalia Syn Myalgia MyositChronic Pain 5 [address] [place], Shree [place], [id number], [place]. tel:[phone] Referring Provider: Jamir Lugo, [address], [place], [address] . tel:[phone] Offic/outpt E&m Estab Mod-hi 2 [facility] , [address] [place] [address], MD Bret, [id number], [place] tel:[phone] Shree [place] Rheumatoid arthritis (chief complaint) Fibromyalia Syn Myalgia MyositRheumat oid ArthritisChro montse PainTherapeut ic Drug Monitoring 4 [place], Shree [place] MD, [id number], [place]. tel:[phone] Referring Provider: Jamir Lugo, [address], [place], [address] . tel:[phone] [facility] , [address] [place] [address], [place] Bret, [id number], [place] tel:[phone] Ministerio Austin No Information 4 [place]. [address] [facility] [place], Shree Vernon [place], [id number], [place]. tel:[phone] Referring Provider: Jamir Lugo, [address] [place], [place] [address] [facility] 600, [place], [address] . tel:[phone] Offic/outpt E&m Estab Mod-hi 2 [facility] , [address] [place] [address], MD Bret, , [place] tel:[phone] Shree [place] Rheumatoid arthritis (chief complaint)Fib romyalgia (chief complaint) Rheumatoid ArthritisMyal ivanna Fibromyalgia MyositisChron ic Pain 4 [address] [facility] 600, Shree Vernon [place], [id number], [place]. tel:[phone] Referring Provider: Jamir Lugo, [address] [place] [address] [place], [address] . tel:[phone] Offic/outpt E&m Estab Mod-hi 2 [facility] , [address] [place] [address], [place] Bret, [id number], [place] tel:[phone] Shree Vernon musculoskelet al pain (chief complaint) Rheumatoid ArthritisMyal ivanna Fibromyalgia MyositisJoint Pain-up/armTh erapeutic Drug MonitoringFat igue / MalaiseChroni c Pain 4 [place] [facility] 600Shree [place], [id number], [place]. tel:[phone] Referring Provider: Jamir Lugo, [address] [place], [place] [address]e [facility] 600, [place], [address] . tel:[phone] Offic/outpt E&m Estab Mod-hi 2 [facility] , [address] [place] [address], MD Bret, , [place] tel:[phone] [place] Rheumatoid arthritis (chief complaint) Fatigue / MalaiseInflue nza VaccineRheuma toid ArthritisTher apeutic Drug MonitoringChr onic Pain 3 [place]. [address] [facility] 600, Shree [place] MD, [id number], [place]. tel:[phone] Referring Provider: Jamir Lugo, [address] [facility] 600, [place], [address] . tel:[phone] Offic/outpt E&m Estab Mod-hi 2 [facility] , [address] [place] [address], MD Bret, , [place] tel:[phone] Shree Vernon rheumatoid arthritis (chief complaint) Therapeutic Drug MonitoringChr onic PainMyalgia Fibromyalgia MyositisRheum atoid Arthritis 3 [place] [facility] 600, Shree [place] MD, [id number], [place]. tel:[phone] Referring Provider: Jamir Lugo, [address] [facility] 600, [place], [address] . tel:[phone] Offic/outpt E&m Estab Mod-hi 2 [facility] , [address] [place] [address], MD Bret, , [place] tel:[phone] Shree [place] Rheumatoid arthritis (chief complaint)Fib romyalgia (chief complaint)mus culoskeletal pain (chief complaint) Bursitis, Rotator CuffRheumatoi d ArthritisTher apeutic Drug MonitoringJoi nt Pain-l/legChr onic Pain 3 [place] [facility] 600, Shree [place] MD, [id number], [place]. tel:[phone] Referring Provider: Jamir Lugo, [address] [facility] 600, [place], [address] . tel:[phone] Offic/outpt E&m Estab Mod-hi 2 [facility] , [address] [place] [address], MD Bret, [id number], [place] tel:[phone] Shree [place] Fibromyalgia (chief complaint)Rhe umatoid arthritis (chief complaint)mus culoskeletal pain (chief complaint) Bursitis, Rotator CuffRheumatoi d ArthritisMyal ivanna Fibromyalgia MyositisSleep ApneaTherapeu tic Drug Monitoring 3 [place] [facility] 600, Shree [place], [id number], [place]. tel:[phone] Referring Provider: Jamir Lugo, [address], [place], [address] . tel:[phone] Offic/outpt E&m Estab Mod-hi 2 [facility] , [address] [place] [address], MD Bret, , [place] tel:[phone] Shree [place] Rheumatoid arthritis (chief complaint)Fib romyalgia (chief complaint) Myalgia Fibromyalgia MyositisRheum atoid ArthritisTher apeutic Drug MonitoringInf luenza Vaccine 2 [place] [facility] 600, Shree [place] MD, [id number], [place]. tel:[phone] Referring Provider: Jamir Lugo, [address], [place], [address] . tel:[phone] Offic/outpt E&m Estab Mod-hi 2 [facility] , [address] [place] [address]Bret [place], [id number], [place] tel:[phone] CHARLIE Rheumatoid arthritis (chief complaint) Rheumatoid ArthritisTher apeutic Drug MonitoringBur sitis, Rotator CuffFatigue / Malaise 2 [place], Shree [place] MD, [id number], [place]. tel:[phone] Referring Provider: Jamir Lugo, [address], [place], [address] . tel:[phone] Offic/outpt E&m Estab Mod-hi 2 [facility] , [address] [place] [address], MD Bret, , [place] tel:[phone] Shree Vernon Rheumatoid arthritis (chief complaint)Fib romyalgia (chief complaint) Rheumatoid ArthritisTher apeutic Drug MonitoringChr onic PainHypertens ion, BenignHyperte nsion, Benign Mar- 2 [place] [facility] 600, Shree Vernon MD, [id number], [place]. tel:[phone] Referring Provider: Jamir Lugo, [address] [facility] 600, [place], [address] . tel:[phone] Offic/outpt E&m Estab Mod-hi 2 [facility] , [address] [place] [address], MD Bret, , [place] tel:[phone] [place] Rheumatoid Arthritis (chief complaint) Fibrositis/Rh eumatism NosInfluenza Vaccine 1 [place] [facility] 600, Shree Vernon MD, [id number], [place]. tel:[phone] Referring Provider: Jamir Lugo, [address] [facility] 600, [place], [address] . tel:[phone] Offic/outpt E&m Estab Mod-hi 2 [facility] , [address] [place] [address], MD Bret, , [place] tel:[phone] [place] Rheumatoid Arthritis (chief complaint) No Information 1 [place] [facility] 600Shree [place], [id number], [place]. tel:[phone] Referring Provider: Jamir Lugo, [address] [facility] 600[place], [address] . tel:[phone] Offic/outpt E&m Estab Mod-hi 2 [facility] , [address] [place] [address], MD Bret, [id number], [place] tel:[phone] [place] Rheumatoid Arthritis (chief complaint) No Information 1 [place] [facility] 600, Shree Vernon MD, [id number], [place]. tel:[phone] Referring Provider: Jamir Lugo, [address], [place], [address] . tel:[phone] Offic/outpt E&m Estab Mod-hi 2 [facility] , [address] [place] [address]Bret [place], [id number], [place] tel:[phone] [place] Rheumatoid Arthritis (chief complaint) No Information 1 [address] [place] [facility] 600, Shree Vernon MD, [id number], [place]. tel:[phone] Referring Provider: Jamir Lugo, [address] [place] [address] Ave [facility] 600, [place], [address] . tel:[phone] Offic/outpt E&m Estab Mod-hi 2 [facility] , [address] [place] [address], [place] Bret, [id number], [place] tel:[phone] [place] Rheumatoid Arthritis (chief complaint) No Information 1 [place] [facility] 600Shree MD, [id number], [place]. tel:[phone] Referring Provider: Jamir Lugo, [address], [place], [address] . tel:[phone] Offic/outpt E&m Estab Mod-hi 2 [facility] , [address] [place] [address], MD Bret, [id number], [place] tel:[phone] [place] Rheumatoid Arthritis (chief complaint) Ulcer, GastricBenign Hypertension 1 [place] [facility] 600Shree [place], [id number], [place]. tel:[phone] Referring Provider: Jamir Lugo, [address], [place], [address] . tel:[phone] Offic/outpt E&m Estab Mod-hi 2 [facility] , [address] [place] [address], MD Bret, [id number], [place] [phone] [place] Rheumatoid Arthritis (chief complaint) No Information 1 [address] [place] [facility] 600, Shree Vernon MD, [id number], [place]. [phone] Referring Provider: Jamir Lugo, [address] [facility] 600, [place], [address] . tel:[phone] Offic/outpt E&m Estab Mod-hi 2 [facility] , [address] [place] [address], MD Bret, [id number], [place] tel:[phone] CHARLIE Rheumatoid Arthritis (chief complaint) No Information 0 [place] [facility] 600, Shree Vernon MD, [id number], [place]. tel:[phone] Referring Provider: Jamir Lugo, [address] [facility] 600, [place], [address] . tel:[phone] Offic/outpt E&m Estab Mod-hi 2 [facility] , [address] [place] [address] 310Bret [place], [id number], [place] tel:[phone] CHARLIE Rheumatoid Arthritis (chief complaint) No Information 0 [address] [place] [facility] 600Shree [place], [id number], [place]. tel:[phone] Referring Provider: Jamir Lugo, [address] [facility] 600, [place], [address] . tel:[phone] Offic/outpt E&m Estab Low-mod [facility] , [address] [place] [address] 310Bret MD, [id number], [place] tel:[phone] CHARLIE Rheumatoid Arthritis (chief complaint) No Information 0 [address] [facility] 600Shree MD, [id number], [place]. tel:[phone] Referring Provider: Jamir Lugo, [address] [place], [place] [address]e [facility] 600, [place], [address] . tel:[phone] [facility] , [address] [place] [address], MD Bret, , [place] tel: [phone] PT [place] Back Pain (chief complaint) No Information 0 No Information Referring Provider: Jamir Lugo, [address] [place], [place] [address] [facility] 600, [place], [address] . tel:[phone] [facility] , [address] [place] [address], MD Bret, , [place] tel: [phone] PT DC Back Pain (chief complaint) No Information 0 No Information Referring Provider: Jamir Lugo, [address] [place] [address] 600, [place], [address] . tel:[phone] [facility] , [address] [place] [address], MD Bret, , [place] tel: [phone] PT DC Back Pain (chief complaint) No Information 0 No Information Referring Provider: Jamir Lugo, [address] [place] [address] 600, [place], [address] . tel:[phone] [facility] , [address] [place] [address] 310, MD Bret, , [place] tel: [phone] PT DC Back Pain (chief complaint) No Information 0 No Information Referring Provider: Jamir Lugo, [address] [place] [address] 600, [place], [address] . tel:[phone] Offic/outpt E&m Estab Mod-hi 2 [facility] , [address] [place] [address], MD Bret, , [place] tel: [phone] [place] Rheumatoid Arthritis (chief complaint) No Information 0 [address]. [address] [place] [address] 600, Shree Vernon MD, [id number], [place]. tel:[phone] Referring Provider: Jamir Lugo, [address] [facility] 600, [place], [address] . tel:[phone] [facility] , [address] [place] [address], MD Bret, [id number], [place] tel:[phone] [place] No Information 0 [place]. [address] [facility] 600, Shree Vernon MD, [id number], [place]. tel:[phone] Referring Provider: Jamir Lugo, [address] [facility] 600, [place], [address] . tel:[phone] Offic/outpt E&m Estab Mod-hi 2 [facility] , [address] [place] [address], MD Bret, [id number], [place] tel:[phone] [place] Rheumatoid Arthritis (chief complaint) No Information 0 [address] [facility] 600, Shree Vernon MD, [id number], [place]. tel:[phone] Referring Provider: Jamir Lugo, [address] [facility] [place], [place], [address] . tel:[phone] Offic/outpt E&m Estab [facility] [place]-hi 2 [facility] , [address] [place] [address], MD Bret, [id number], [place] tel:[phone] [place] Rheumatoid Arthritis (chief complaint) No Information 9 [address] [facility] 600, Shree Vernon MD, [id number], [place]. tel:[phone] Referring Provider: Jamir Lugo, [address] [facility] [place], [address] . tel:[phone] Offic/outpt E&m Estab Mod-hi 2 [facility] , [address] [place] [address], MD Bret, [id number], [place] tel:[phone] [place] Rheumatoid Arthritis (chief complaint) No Information [address], Shree Vernon MD, [id number], [place]. tel:[phone] Referring Provider: Jamir Lugo, [address] [facility] 600, [place], [address] . tel:[phone] Offic/outpt E&m Estab Low-mod [facility] , [address] [place] [address], MD Bret, [id number], tel:[phone] [place] Rheumatoid Arthritis (chief complaint) No Information [address] [facility] 600, Shree Vernon MD, [id number], [place]. tel:[phone] Referring Provider: Jamir Lugo, [address] [place] [address] Ave [facility] 600, [place], [address] . tel:[phone] Offic/outpt E&m Estab Mod-hi 2 [facility] , [address] [place] [address], MD Bret, [id number], [place] tel:[phone] [place] Rheumatoid Arthritis (chief complaint) No Information 9 [address] [facility] 600, Shree Vernon MD, [id number], [place]. tel:[phone] Referring Provider: Jamir Lugo, [address], [place], [address] . tel:[phone] Offic/outpt E&m Estab Mod-hi 2 [facility] , [address] [place] [address], MD Bret, [id number], [place] tel:[phone] [place] Rheumatoid Arthritis (chief complaint) No Information 9 [address] [facility] 600Shree MD, [id number], [place]. tel:[phone] Referring Provider: Jamir Lugo, [address], [place], [address] . tel:[phone] Offic/outpt E&m Estab Mod-hi 2 [facility] , [address] [place] [address] Bret Peters MD, [id number], [place] tel:[phone] CHARLIE Rheumatoid Arthritis (chief complaint) No Information [address] [facility] 600, Shree Vernon [place], [id number], [place]. tel:[phone] Referring Provider: Jamir Lugo, [address] [place] [address] 600, [place], [address] . tel:[phone] Offic/outpt E&m Estab Mod-hi 2 [facility] , [address] [place] [address] 310, [place] Bret, [id number], [place] tel:[phone] CHARLIE Rheumatoid Arthritis (chief complaint) Rheumatoid ArthritisIron Defic Anemia NosIron Defic Anemia NosIron Defic Anemia Nos [address] [facility] 600, Shree Vernon [place], [id number], [place]. tel:[phone] Referring Provider: Jamir Lugo, [address] [place], [place] [address]e [facility] 600, [place], [address] . tel:[phone] [facility] , [address] [place] [address] Fran, [place] Bret, [id number], [place] tel:[phone] CHARLIE Rheumatoid Arthritis (chief complaint)Kwesi k Pain (chief complaint) Rheumatoid ArthritisFibr omyalgia Syn Myalgia MyositChronic PainLong Term High Risk Meds [address] [facility] 600hSree [place], [id number], [place]. tel:[phone] Referring Provider: Jamir Lugo, [address] [facility] 600, [place], [address] . tel:[phone] Offic/outpt E&m Estab Mod-hi 2 [facility] , [address] [place] [address] 310, MD Bret, [id number], [place] tel:[phone] CHARLIE Rheumatoid Arthritis (chief complaint)Fib romyalgia Syndrome (chief complaint) Rheumatoid ArthritisChro montse Pain [address] [facility] 600, Shree Vernon [place], [id number], [place]. tel:[phone] Referring Provider: Jamir Lugo, [address] [place], [place] [address] [facility] 600, [place], [address] . tel:[phone] Offic/outpt E&m Estab Low-mod [facility] , [address] [place] [address], [place] Bret, [id number], [place] tel:[phone] [place] Rheumatoid Arthritis (chief complaint)Fib romyalgia Syndrome (chief complaint) Rheumatoid ArthritisFibr omyalia Syn Myalgia MyositJoint Hypermobility SyndromeChron ic PainLong Term High Risk Meds [address] [place] [address] 600, Shree Vernon [place], [id number], [place]. tel:[phone] Referring Provider: Jamir Lugo, [address] [place] [address], [place], [address] . tel:[phone] Offic/outpt E&m Estab Mod-hi 2 [facility] , [address] [place] [address], [place] Bret, [id number], [place] tel:[phone] [place] No Information 0 [address] [place] [address], Shree Vernon [place], [id number], [place]. tel:[phone] Referring Provider: Jamir Lugo, [address] [place] [address] 600, [place], [address] . tel:[phone] [facility] , [address] [place], [place] [address]Bret [place], [id number], [place] tel:[phone] [place] No Information [address] [place] [address] 600Shree [place], [id number], [place]. tel:[phone] Referring Provider: Jamir Lugo, [address] [place] [address] 600, [place], [address] . tel:[phone] Offic/outpt E&m Estab Mod-hi 2 [facility] [address] [place] [address], [place] Bret, [id number], [place] tel:[phone] [place] No Information [address] [facility] 600, Shree Vernon [place], [id number], [place]. tel:[phone] Referring Provider: Jamir Luog, [address] [place] [address] Ave [address], [place], [address] . tel:[phone] Offic/outpt E&m Estab Mod-hi 2 [facility] , [address] [place] [address] 310, MD Bret, [id number], [place] tel:[phone] [place] No Information [address] [facility] 600, Shree Vernon [place], [id number], [place]. tel:[phone] Referring Provider: Jamir Lugo, [address] [place] [address] Ave [facility] 600, [place], [address] . tel:[phone] Offic/outpt E&m Estab Mod-hi 2 [facility] , [address] [place] [address] 310, MD Bret, [id number], [place] tel:[phone] [place] No Information [address] [facility] 600, Shree Vernon [place], [id number], [place]. tel:[phone] Referring Provider: Jamir Lugo, [address] [place] [address] Ave [address], [place], [address] . tel:[phone] Offic/outpt E&m Estab Mod-hi 2 [facility] , [address] [place] [address] 310, MD Bret, [id number], [place] tel:[phone] [place] No Information [address], Shree Vernon [place], [id number], [place]. tel:[phone] Referring Provider: Jamir Lugo, [address], Shree Vernon MD, . tel:[phone] Offic/outpt E&m Estab Mod-hi 2 [facility] , [address] [place], [place] [address]Bret [place], [id number], [place] tel:[phone] [place] No Information [address] [facility] 600, Shree Vernon [place], [id number], [place]. tel:[phone] Referring Provider: Jamir Lugo, [address] [place], [place] [address] [facility] 600, [place], [address] . tel:[phone] Offic/outpt E&m Estab Mod-hi 2 [facility] , [address] [place] [address], [place] Bret, [id number], [place] tel:[phone] [place] No Information [address] [facility] 600, Shree Vernon [place], [id number], [place]. tel:[phone] Referring Provider: Jamir Lugo, [address] [facility] 600, [place], [address] . tel:[phone] Offic/outpt E&m Estab Mod-hi 2 [facility] , [address] [place] [address] Bret Peters [place], [id number], [place] tel:[phone] [place] No Information 6 No Information Offic/outpt E&m Estab Mod-hi 2 [facility] , [address] [place] [address] Bret Peters MD, [id number], [place] tel:[phone] [place] No Information 6 No Information Offic/outpt E&m Estab Mod-hi 2 [facility] , [address] [place] [address] Bret Peters MD, , [place] tel:[phone] [place] No Information 5 No Information Family History Family Member Type Diagnosis Age At Onset Mother Problem (finding) RA/ FM/ OA Immunizations Vaccine Date Status Comments FLUCELVAX QUAD 2021 - 2022 administered S ource: New Immunization Record FLUCELVAX QUAD administered Tiny rce: New Immunization Record FLUCELVAX QUAD administered Tiny rce: New Immunization Record Influenza, injectable, trivalent, split virus, preservative free, 3 years and older Afluria [id number] administered Source: New Immu nization Record Influenza, split virus, injectable, 3 years and older Fluvirin [id number] administered Source: New Immuniza tion Record Flu, adult administered Source: New Imm unization Record Flu Vir Vacc-split 3 Yr & > Im (Flulaval) administered Source: New Immuniza tion Record flu (split) (3 yrs or older) administered Source: New Immunization Record flu (split) (3 yrs or older) administered Source: New Immunization Record flu (split) (3 yrs or older) administered Source: New Immunization Record Payers Payer name Insurance type Covered green party ID Authoriza tion(s) [employer] BL [id number] [employer] BL [id number] [employer] BL [id number] [employer] BL [id number] [employer] Man[employer] Open Access CI [id number] [employer] NCA PPO And POS BL [id number] Social History Type Description Quantity Date Captured Comments Sex Female Smoking Status No Information Sexual Orientation Straight or heterosexual Gender Identity Female Chief Complaint And Reason For Visit No Information Reason For Referral Reason For Referral No Information Plan Of Treatment Date Type Action Status Goal Hand X-ray. Due on due Goal Foot X-ray. Due on due Goal Hand X-ray. Due on due Goal Foot X-ray. Due on due Goal Hand X-ray. Due on due Goal Foot X-ray. Due on due Goal Foot X-ray. Due on due Goal Hand X-ray. Due on due Goal Hand X-ray. Due on due Goal Foot X-ray. Due on due Goal Foot X-ray. Due on due Goal Hand X-ray. Due on due Goal Foot X-ray. Due on due Goal Hand X-ray. Due on due Goal Hand X-ray. Due on due Goal Foot X-ray. Due on due Goal Foot X-ray. Due on due Goal Hand X-ray. Due on due Goal Dietary manageme nt education, guidance, and counseling completed Goal Foot X-ray. Due on due Goal Hand X-ray. Due on due Goal Dietary manageme nt education, guidance, and counseling completed Goal Hand X-ray. Due on due Goal Foot X-ray. Due on due Goal Foot X-ray. Due on due Goal Hand X-ray. Due on due Goal Hand X-ray. Due on due Goal Foot X-ray. Due on due Goal Foot X-ray. Due on due Goal Hand X-ray. Due on due Goal Hand X-ray. Due on due Goal Foot X-ray. Due on 15 due Goal Foot X-ray. Due on due Goal Hand X-ray. Due on 13 due Referral Ordered: Marco A Pond MD -Otolaryngology (related to Cough) ordered Referral [place]: [place] [address] [facility] [address] [place], [address] [phone] Ordered: Referrals: Otolaryngology. Marco A Pond MD. Evaluate and treat ordered Referral Ordered: Xray Elbow; Ap & Lat Views Left ordered Referral Ordered: Xray Knee; Three Views Left ordered Referral Referred To: Samm Cardona MD [address] [facility] [address] [place], [place], [id number] Ordered: Referral: Samm Cardona MD. ordered Referral Ordered: Xray Foot; Complt Mini 3 Views Bilateral ordered Referral Ordered: Xray Hand And Wrist Mini 3 Views Bilateral ordered Patient Education Rheumatoid Arthritis: A fter Your Visit completed Patient Education Rheumatoid Arthritis: A fter Your Visit completed Patient Education Fibromyalgia: After You r Visit completed Patient Education Rheumatoid Arthritis: A fter Your Visit completed Patient Education Fibromyalgia: After You r Visit completed History Of Present Illness Encounter Date Complaint History Of Prese nt Illness Telehealth Physician Locati on: Shree VernonPatient Location: [address] [place] [address]Gdqs of Visit: Virtual VisitOther participants: NoneInterpreter: NoneThis visit was conducted using two-way audio/video non-public facing remote communication product. Rheumatoid arthritis Onset was g radual. Severity level is moderate. Location of the pain is bilateral wrist, bilateral hand, bilateral knee and bilateral forefoot. The patient describes the discomfort as achy and dull. It occurs rarely. The problem is stable. Symptom is aggravated by cold or rainy weather. Relieving factors include Rx medications. Pertinent negatives include activity limitation, eye symptoms, fatigue, joint swelling, morning stiffness, paresthesia, rash, SICCA symptoms, weakness and weight loss. Fibromyalgia Onset: gradual. Duration: varies. Severity level is moderate. It occurs rarely and is stable. Location: upper back/knees. There was no radiation. The pain is aching and dull. Context: there was no injury. The pain is aggravated by weather. overdoing it. The pain is relieved by pain/RX meds. Pertinent negatives include decreased mobility, difficulty initiating sleep, joint instability, joint tenderness, nocturnal awakening, nocturnal pain, numbness, popping, spasms, swelling, tingling in the arms, tingling in the legs and weakness. Telehealth Physician Locati on: Shree VernonPatient Location: [address] [place], [place] [address]Jiax of Visit: Virtual VisitOther participants: NoneInterpreter: NoneThis visit was conducted using two-way audio/video non-public facing remote communication product. Polyarthropathy Rheumatoid arthritis Onset was g radual. Severity level is moderate. Location of the pain is bilateral wrist, bilateral hand and bilateral forefoot. The patient describes the discomfort as achy and dull. It occurs rarely. The problem is stable. Symptom is aggravated by cold or rainy weather. Relieving factors include Rx medications. Pertinent negatives include activity limitation, anorexia, eye symptoms, fatigue, headache, joint swelling, morning stiffness, paresthesia, rash, SICCA symptoms, weakness and weight loss. [place] Physician Locati on: Shree VernonPatient Location: [address] [place], [place] [address]Vttg of Visit: Virtual VisitOther participants: NoneInterpreter: NoneThis visit was conducted using two-way audio/video non-public facing remote communication product. Rheumatoid arthritis Onset was g radual. Severity level is moderate. Location of the pain is bilateral wrist, bilateral hand and bilateral forefoot. The patient describes the discomfort as achy and dull. It occurs rarely. The problem is stable. Symptom is aggravated by cold or rainy weather. Relieving factors include Rx medications. She is experiencing fatigue. Pertinent negatives include abdominal pain, activity limitation, eye symptoms, joint swelling, morning stiffness, paresthesia, rash, SICCA symptoms, weakness and weight loss. Fibromyalgia Onset: gradual. Duration: varies. Severity level is moderate. It occurs rarely. Location: upper back/knees. There was no radiation. The pain is aching and dull. Context: there was no injury. The pain is aggravated by ADLs. There are no relieving factors. Associated symptoms include joint tenderness and spasms. Pertinent negatives include decreased mobility, difficulty initiating sleep, joint instability, nocturnal awakening, nocturnal pain, numbness, popping, swelling, tingling in the arms, tingling in the legs and weakness. Fibromyalgia Onset: gradual. Duration: varies. Severity level is moderate. It occurs intermittently and is fluctuating. Location: upper back/knees. There was no radiation. The pain is aching and dull. Context: there was no injury. The pain is aggravated by weather. The pain is relieved by pain/RX meds. Associated symptoms include joint tenderness and spasms. Pertinent negatives include decreased mobility, difficulty initiating sleep, joint instability, nocturnal awakening, nocturnal pain, numbness, popping, swelling, tingling in the arms, tingling in the legs and weakness. Fibromyalgia Onset: gradual. Duration: varies. Severity level is moderate. It occurs intermittently and is fluctuating. Location: upper back/knees. There was no radiation. The pain is aching and dull. Context: there was no injury. The pain is aggravated by over use. The pain is relieved by pain/RX meds. Associated symptoms include joint tenderness and spasms. Pertinent negatives include decreased mobility, difficulty initiating sleep, joint instability, nocturnal awakening, nocturnal pain, numbness, popping, swelling, tingling in the arms, tingling in the legs and weakness. Fibromyalgia Onset: gradual. Duration: varies. Severity level is moderate-severe. It occurs intermittently and is worsening. Location: upper back/knees. There was no radiation. The pain is aching and dull. Context: there was no injury. The pain is aggravated by ADLs. Weather. There are no relieving factors. Associated symptoms include difficulty initiating sleep, joint tenderness and spasms. Pertinent negatives include decreased mobility, joint instability, nocturnal awakening, nocturnal pain, swelling, tingling in the arms and tingling in the legs. Fibromyalgia Onset: gradual. Duration: varies. Severity level is moderate. It occurs rarely and is stable. Location: upper back/knees. There was no radiation. The pain is aching and dull. Context: there was no injury. The pain is aggravated by over doing it. The pain is relieved by pain/RX meds. Associated symptoms include joint tenderness and spasms. Pertinent negatives include decreased mobility, difficulty initiating sleep, joint instability, nocturnal awakening, nocturnal pain, numbness, popping, swelling, tingling in the arms, tingling in the legs and weakness. Back pain Onset: gradual w ithout injury. Severity level is moderate. Duration: varies. The problem is improving. It occurs persistently. Location of pain is upper back. There is no radiation of pain. The patient describes the pain as an ache and dull. Symptoms are aggravated by daily activities and sitting. Symptoms are relieved by stretching. Rheumatoid arthritis Onset was ling valdez. Severity level is moderate. Location of the pain is bilateral shoulder, bilateral elbow, bilateral wrist, bilateral hand, bilateral knee, bilateral forefoot and when present. The patient describes the discomfort as achy and dull. It occurs rarely. The problem is stable. Symptom is aggravated by cold or rainy weather. Relieving factors include Rx medications. She is experiencing fatigue. Pertinent negatives include abdominal pain, activity limitation, eye symptoms, joint swelling, morning stiffness, paresthesia, rash, SICCA symptoms, weakness and weight loss. Back pain Onset: gradual w ithout injury. Severity level is moderate. Duration: varies. The problem is worsening. It occurs occasionally. Location of pain is upper back and middle back. There is no radiation of pain. The patient describes the pain as an ache, dull and localized. Symptoms are aggravated by daily activities and weather. The patient denies relieving factors. Rheumatoid arthritis Onset was ling valdez. Severity level is moderate. Location of the pain is bilateral shoulder, bilateral elbow, bilateral wrist, bilateral hand, bilateral knee, bilateral forefoot and when present. The patient describes the discomfort as achy and dull. It occurs rarely. The problem is stable. Symptom is aggravated by cold or rainy weather. Relieving factors include Rx medications. She is experiencing anorexia and fatigue. Pertinent negatives include abdominal pain, activity limitation, eye symptoms, joint swelling, morning stiffness, paresthesia, rash, SICCA symptoms, weakness and weight loss. Rheumatoid arthritis Onset was ling valdez. Severity level is moderate. Location of the pain is bilateral shoulder, bilateral elbow, bilateral wrist, bilateral hand, bilateral knee, bilateral forefoot and when present. The patient describes the discomfort as achy and dull. It occurs rarely. The problem is stable. Symptom is aggravated by cold or rainy weather. Relieving factors include Rx medications. She is experiencing fatigue. Pertinent negatives include abdominal pain, activity limitation, anorexia, eye symptoms, joint swelling, morning stiffness, paresthesia, rash, SICCA symptoms, weakness and weight loss. Rheumatoid arthritis Onset was ling valdez. Severity level is moderate. Location of the pain is bilateral shoulder, bilateral elbow, bilateral wrist, bilateral hand, bilateral knee, bilateral forefoot and when present. The patient describes the discomfort as achy, pain with use and dull. It occurs rarely. The problem is stable. Symptom is aggravated by gripping. Relieving factors include Rx medications. Pertinent negatives include activity limitation, anorexia, eye symptoms, fatigue, joint swelling, limping, morning stiffness, rash, SICCA symptoms, weakness and weight loss. Rheumatoid arthritis Onset was ling valdez. Severity level is moderate. Location of the pain is bilateral shoulder, bilateral elbow, bilateral wrist, bilateral hand, bilateral knee, bilateral forefoot and when present. The patient describes the discomfort as achy, pain with use and dull. It occurs rarely. The problem is stable. Symptom is aggravated by cold or rainy weather. Relieving factors include Rx medications. She is experiencing fatigue. Pertinent negatives include abdominal pain, joint swelling, morning stiffness, paresthesia, rash, SICCA symptoms, weakness and weight loss. Fibromyalgia Onset: gradual. Duration: varies. Severity level is moderate. It occurs rarely and is stable. Location: upper back/knees. There was no radiation. The pain is aching and dull. The pain is aggravated by over doing it. The pain is relieved by exercise and pain/RX meds. Associated symptoms include joint tenderness. Pertinent negatives include decreased mobility, difficulty initiating sleep, joint instability, nocturnal awakening, nocturnal pain, numbness, popping, spasms, swelling, tingling in the arms and weakness. Rheumatoid arthritis Onset was ling valdez. Severity level is moderate. Location of the pain is bilateral shoulder, bilateral elbow, bilateral wrist, bilateral hand, bilateral knee, bilateral forefoot and when present. The patient describes the discomfort as achy and dull. It occurs rarely. The problem is stable. Symptom is aggravated by cold or rainy weather. Relieving factors include Rx medications. Pertinent negatives include activity limitation, anorexia, eye symptoms, fatigue, joint swelling, morning stiffness, paresthesia, rash, SICCA symptoms, weakness and weight loss. Rheumatoid arthritis Onset was g radual. Severity level is moderate. Location of the pain is bilateral shoulder, bilateral elbow, bilateral wrist, bilateral hand, bilateral knee, bilateral forefoot and when present. The patient describes the discomfort as achy, pain with use and dull. It occurs intermittently. The problem is stable. Symptom is aggravated by cold or rainy weather. Relieving factors include Rx medications. She is experiencing fatigue. Pertinent negatives include activity limitation, eye symptoms, joint swelling, morning stiffness, paresthesia, rash, SICCA symptoms, weakness and weight loss. Rheumatoid arthritis Fibromyalgia Onset: gradual. Duration: varies. Severity level is moderate. It occurs intermittently and is fluctuating. Location: upper back/knees. There was no radiation. The pain is aching and dull. Context: there was no injury. The pain is aggravated by weather. The pain is relieved by brace/splint, pain/RX meds and sleep. Associated symptoms include joint tenderness and spasms. Pertinent negatives include decreased mobility, difficulty initiating sleep, joint instability, nocturnal awakening, nocturnal pain, swelling, tingling in the arms, tingling in the legs and weakness. musculoskeletal pain Onset: grad ual. Duration: varies. Severity level is moderate. It occurs constantly and is improving. Location: left elbow. There was no radiation. The pain is aching and dull. Context: there was an injury. The pain is aggravated by lifting and movement. The pain is relieved by rest. Associated symptoms include joint tenderness and weakness. Pertinent negatives include decreased mobility, difficulty initiating sleep, joint instability, nocturnal awakening, nocturnal pain, numbness, popping, swelling, tingling in the arms and tingling in the legs. Rheumatoid arthritis Onset was g radual. Severity level is moderate. Location of the pain is bilateral shoulder, bilateral elbow, bilateral wrist, bilateral hand, bilateral knee, bilateral forefoot and when present. The patient describes the discomfort as achy, pain with use, dull and when present. It occurs rarely. The problem is stable. Symptom is aggravated by gripping, standing, walking and when present. Relieving factors include Rx medications. She is experiencing fatigue. Pertinent negatives include abdominal pain, joint swelling, morning stiffness, paresthesia, rash, SICCA symptoms, weakness and weight loss. rheumatoid arthritis Onset was ling valdez. Severity level is moderate. Location of the pain is bilateral shoulder, bilateral elbow, bilateral wrist, bilateral hand, bilateral knee, bilateral forefoot and when present. The patient describes the discomfort as achy, pain with use, dull and when present. It occurs rarely. The problem is stable. Symptom is aggravated by gripping, standing, walking and cold or rainy weather. Relieving factors include Rx medications. She is experiencing fatigue. Pertinent negatives include abdominal pain, activity limitation, anorexia, headache, joint swelling, limping, morning stiffness, paresthesia, rash, SICCA symptoms, weakness and weight loss. musculoskeletal pain Rheumatoid arthritis musculoskeletal pain Onset: 3 We eks Ago. Duration: varies. Severity level is moderate. It occurs intermittently and is stable. Location: left knee (patella). There was no radiation. The pain is aching and dull. Context: there was an injury. The pain is aggravated by bending and climbing (and descending) stairs. The pain is relieved by rest. Associated symptoms include bruising, joint tenderness and swelling. Pertinent negatives include crepitus, decreased mobility, difficulty initiating sleep, joint instability, limping, nocturnal awakening, nocturnal pain, popping, tingling in the arms, tingling in the legs and weakness. Additional information: swelling has resolved. Fibromyalgia Rheumatoid arthritis Fibromyalgia musculoskeletal pain Onset: grad ual. Duration: varies. Severity level is moderate. It occurs intermittently and is worsening. Location: right shoulder (rotator cuff). There was no radiation. The pain is aching and dull. Context: there was no injury. The pain is aggravated by lifting. The pain is relieved by injection. Associated symptoms include decreased mobility, joint tenderness, nocturnal pain and weakness. Pertinent negatives include difficulty initiating sleep, joint instability, spasms, swelling and tingling in the arms. musculoskeletal pain Rheumatoid arthritis Fibromyalgia Onset: gradual. Duration: varies. Severity level is moderate. It occurs intermittently and is worsening. Location: upper back/knees. There was no radiation. The pain is aching and dull. Context: there was no injury. The pain is aggravated by ADLs. The pain is relieved by pain/RX meds. Associated symptoms include joint tenderness and spasms. Pertinent negatives include bruising, crepitus, decreased mobility, difficulty initiating sleep, joint instability, limping, locking, nocturnal awakening, nocturnal pain, numbness, popping, swelling, tingling in the arms, tingling in the legs and weakness. Rheumatoid arthritis Onset was g radual. Severity level is moderate. Location of the pain is bilateral shoulder, bilateral elbow, bilateral wrist, bilateral hand, bilateral knee, bilateral forefoot and when present. The patient describes the discomfort as achy, dull and stiff. It occurs intermittently. The problem is stable. Denies aggravating factors. Relieving factors include Rx medications. She is experiencing fatigue. Pertinent negatives include abdominal pain, activity limitation, anorexia, eye symptoms, headache, joint swelling, limping, morning stiffness, paresthesia, rash, SICCA symptoms, weakness and weight loss. Rheumatoid arthritis Onset was g radual. Severity level is moderate. Location of the pain is bilateral shoulder, bilateral elbow, bilateral wrist, bilateral hand, bilateral knee and bilateral forefoot. The patient describes the discomfort as dull. It occurs intermittently. The problem is stable. Symptom is aggravated by gripping. Relieving factors include Rx medications. She is experiencing fatigue. Pertinent negatives include abdominal pain, activity limitation, anorexia, eye symptoms, headache, joint swelling, limping, morning stiffness, paresthesia, rash, SICCA symptoms, weakness and weight loss. Fibromyalgia Functional Status Date Functional Assessmen t No Information Instructions Date Instruction Additional Infor mation Dietary management e ducation, guidance, and counseling Related to Body mass index (BMI) 29.0-29.9, adult Dietary management e ducation, guidance, and counseling Related to Body mass index (BMI) 27.0-27.9, adult Assessments Type Assessment Date No Information Patient Care Teams Name Effective Dates (start - stop) Status Members No Information
--- OUTSIDE RECORDS SUMMARY | 2024-05-05 18:07 | XMS_ITS | Continuity of Care Document ---
Author Organization [facility] Address [address], [address] [place] [address] Phone Care Team Providers Care Web Production Manager Name Role Phone Unavailable Unavailable Unavailable Allergies, Adverse Reactions, Alerts Substance Reaction Status Criticality No Known Allergies Active No Inform ation Medications Medication Instructions Dosage Effective Dates (start - stop) Status Comments Alyacen (28) 1 mg-35 mcg tablet take 1 tablet by oral route for 21 consecutive days, followed by 7 days off - Active no more refill until annual exam ENBREL (unknown strength) inject 1 milliliter (50MG) by subcutaneous route every week Not Available - Active PRIMIDONE (unknown strength) take 5 tablet (250MG) by oral route 3 times every day Not Available - Active Lyrica 75 mg Cap take 1 capsule (75MG) by oral route 2 times every day 75 MG - Active Zanaflex 6 mg Cap take 1 capsule (6MG) by oral route 3 times every day 6 MG - Active Ambien 10 mg Tab take 1 tablet (10MG) by oral route every day at bedtime 10 MG - Active Nexium 40 mg Cap take 1 capsule (40MG) by oral route every day 40 MG - Active Plaquenil 200 mg Tab take 1 tablet (200MG) by oral route every day 200 MG - Active Cymbalta 60 mg Cap take 1 capsule (60MG) by oral route every day 60 MG - Active Procedures Procedure Date PREV VISIT, EST, AGE 40-64 PREV VISIT, EST, AGE 18-39 Advance Directives Directive Yes / No Effective Date File Name No Information Encounters Encounter Description Practice Location Reason(s) For Visit Diagnoses Date Provider [facility], [address], [id number] , [place] tel: [phone] [facility] CLOSED Office No Information 6 No Information [facility], [address] , [address], [id number] , [place] tel: [phone] [facility] CLOSED Office No Information 6 No Information PREV VISIT, EST, AGE 40-64 [facility], [address] , [address], [place], [id number] , [place] tel: [phone] [facility] CLOSED Office *INOCULATOR Exam (chief complaint) ROUTINE INOCULATOR EXAMINATION 5 No Information PREV VISIT, EST, AGE 18-39 [facility], [address] [place], [id number] , [place] tel: [phone] [facility] CLOSED Office annual exam (chief complaint) SPECIAL SCREEN EXAM HPVMyalgia and myositis, unspecifiedGynecological Examination 4 No Information [facility], [address] , [address], [place], [id number] , [place] tel: [phone] [facility] CLOSED Office annual visit (chief complaint) Rheumatoid Arthritis 2 No Information [facility], [address] , [address], [place], [id number] , [place] tel: [phone] [facility] CLOSED Office venereal warts (chief complaint) Viral warts, unspecified 1 No Information [facility], [address] , [address] [place], [id number] , [place] tel: [phone] [facility] CLOSED Office annual visit (chief complaint) Gynecological ExaminationViral warts, unspecifiedAbsence of menstruation 1 No Information [facility], [address] , [address], [place], [id number] , [place] [phone] [facility] CLOSED Office Routine gynecological examination 0 No Information Family History Family Member Type Diagnosis Age At Onset Father Problem (finding) cancer of colon Payers Payer name Insurance type Covered libertarian ID Authoriza tichuck(s) [facility] [id number] Social History Type Description Quantity Date Captured Comments Sex Female Smoking Status No Information Chief Complaint And Reason For Visit No Information History Of Present Illness Encounter Date Complaint History Of Prese nt Illness *INOCULATOR Exam The patient does not use tobacco. 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 annual exam Last LMP was . Additional information: amenorrhea on Alyacen 135has RA and fibromyalgiasame partner x 4 yrs; definitely no plans to have children Instructions Date Instruction Additional Infor jeanneion see plan Related to ROUTI NE INOCULATOR EXAMINATION see plan details Related to Gyne cological Examination Assessments Type Assessment Date No Information
--- OUTSIDE RECORDS SUMMARY | 2024-05-05 18:07 | XMS_ITS | Continuity of Care Document ---
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 Name Role Phone Cyndi Chavira CNP Care Team Information Receive r [phone] Problems Active Problems Provider Date Essential tremor DEANNA Esquivel Onset: 06/24 Fibromyalgia DEANNA Esquivel Onset: 2023 Rheumatoid arthritis DEANNA Esquivel Onset: 0 06/24/2023 Osteoporosis DEANNA Esquivel Onset: 2023 Social History Type Date Description Comments Sex Unknown Tobacco Use Start: Unknown Never Smoked Cigarettes ETOH Use Occasionally consumes alcoho l Allergies and adverse reactions Active Allergies Criticality Reaction Severity Comments Date Ammonia Unable to assess criticality 08/26/2023 Strawberries Unable to assess criticality 08/26/2023 Medications Active Medications SIG Qnty Indications Order ing Provider Date Alendronate Ksyhjs19ko Tablets take 1 tablet by mouth weekly 30 minutes before the first food, beverage or medicine of the day with plain water for osteoporosis 30tabs Yamila Rodriguez M.D. 08/30/2023 Zolpidem Kycxapmh68zu Tablets Take 1 Tablet By Mouth AT Bedtime Cyndi Chavira CNP Doxycycline Wyvnjwe93jt Tablets Take 1 Tablet By Mouth Twice A Day Unknown Sumatriptan [id number] Tablets Please See Attached For Detailed Directions Unknown Tizanidine HCL2mg Tablets Take 1 Tablet By Mouth 3 Times A Day Cyndi Chavira CNP Duloxetine [id number] Caps DR Part Take 1 Capsule By Mouth Every Day For 90 Days Cyndi Chavira CNP Teltseeeojrnuc50pu Tablets Take 1 Tablet By Mouth Twice A Day Unknown Hydroxychloroquine Zosrqlv794nn Tablets Take 2 Tablets By Mouth Every Day Cyndi Chavira CNP Acetaminophen/Codeine [id number] Tablets Take 2 Tablets By Mouth Twice A Day as Needed For Pain Unknown Vital Signs Date Vital Result Comment 04/14/2024 3:23pm BP Systolic 118 mmHg BP Diastolic 86 mmHg Heart Rate 96 /min Height 63 inches 5'3 Weight 169.12 lb BMI (Body Mass Index) 30.0 kg/m2 Results Test Acquired Date Facility Test Result H/L Range N [place]te Laboratory test finding 04/14/2024 [facility] Vitamin D, 25-Hydroxy 49.7 ng/mL 30.0-100.0 1 PTH, Intact 35 pg/mL 15-65 Calcium 10.0 mg/dL 8.7-10.2 Albumin 4.6 g/dL 3.9-4.9 Comp. Metabolic Panel (14) 08/28/2023 [facility] Glucose 80 mg/dL 70-99 BUN 13 mg/dL 6-24 Creatinine 0.94 mg/dL 0.57-1.00 eGFR 74 mL/min/1.73 >59 BUN/Creatinine Ratio 14 9-23 Sodium 137 mmol/L 134-144 Potassium 4.6 mmol/L 3.5-5.2 Chloride 98 mmol/L 96-106 Carbon Dioxide, Total 24 mmol/L 20-29 Calcium 9.1 mg/dL 8.7-10.2 Protein, Total 6.7 g/dL 6.0-8.5 Albumin 4.2 g/dL 3.9-4.9 Globulin, Total 2.5 g/dL 1.5-4.5 A/G Ratio 1.7 1.2-2.2 Bilirubin, Total 0.2 mg/dL 0.0-1 .2 Alkaline Phosphatase 113 IU/L 44-121 Ast (Sgot) 14 IU/L 0-40 Alt (SGPT) 10 IU/L 0-32 Laboratory test finding 08/28/2023 [facility] Vitamin D, 25-Hydroxy 28.8 ng/mL Low 30.0-100.0 2 Phosphorus 3.0 mg/dL 3.0-4.3 PTH, Intact 114 pg/mL High 15-65 Calcium, 24HR Urine 08/28/2023 [facility] Calcium, Urine 2.7 mg/dL Not Estab. Calcium, Urine 24hr 46 mg/24hr 0-320 Creatinine, 24-Hour Urine 08/28/2023 [facility] Creatinine, Urine 57.6 mg/dL Not Estab. Creatinine, Ur 24hr 979 mg/24hr 800-1800 1 Vitamin D deficiency has been defined by the [place] of [employer] and an Endocrine Society practice guideline as a level of serum 25-OH vitamin D less than 20 ng/mL (1,2). The Endocrine Society went on to further define vitamin D insufficiency as a level between 21 and 29 ng/mL (2). 1. IOM ([place] of [employer]). 2010. Dietary reference intakes for calcium and D. [place]: The National Academies Press. 2. Esteban Rodrigez, Cirilo SAEED, et al. Evaluation, treatment, and prevention of vitamin D deficiency: an Endocrine Society clinical practice guideline. JCEM. 2010; 96(7):1911-30. 2 Vitamin D deficiency has been defined by the [place] of [employer] and an Endocrine Society practice guideline as a level of serum 25-OH vitamin D less than 20 ng/mL (1,2). The Endocrine Society went on to further define vitamin D insufficiency as a level between 21 and 29 ng/mL (2). 1. IOM ([place] of [employer]). 2010. Dietary reference intakes for calcium and D. [place]: The National Academies Press. 2. Esteban Rodrigez, Cirilo SAEED, et al. Evaluation, treatment, and prevention of vitamin D deficiency: an Endocrine Society clinical practice guideline. JCEM. 2010; 96(7):1911-30. 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
--- OUTSIDE RECORDS SUMMARY | 2024-05-05 18:08 | XMS_ITS | Continuity of Care Document ---
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 Therapist Name Role Phone Unavailable Unavailable Unavailable Allergies, Adverse Reactions, Alerts Substance Reaction Status Criticality NSAIDS (Non-Steroidal Anti-Inflammatory Drug) Active No Information Medications Medication Instructions Dosage Effective Dates (start - stop) Status Comments SPIRONOLACTONE (unknown strength) take 1 tablet by oral route every day Not Available - Active PLAQUENIL (unknown strength) take 1 tablet by oral route every day Not Available - Active CYMBALTA (unknown strength) take 1 capsule by oral route every day Not Available - Active AMBIEN (unknown strength) take 1 tablet by oral route every day at bedtime Not Available - Active TIZANIDINE HCL (unknown strength) take 1 capsule by oral route every 6 - 8 hours as needed not to exceed 3 doses in 24 hours Not Available - Active MORPHINE SULFATE ER (unknown strength) take 1 capsule by oral route every day Not Available - Active TYLENOL-CODEINE NO.3 (unknown strength) take 1 - 2 tablet by oral route every 4 - 6 hours as needed Not Available - No Longer Active Procedures Procedure Date POST-OP/NC FITNESS FOR DUTY OR W/C FORM X-RAY WRIST - 2 VIEWS POST-OP/NC FITNESS FOR DUTY OR W/C FORM X-RAY WRIST - 2 VIEWS POST-OP/NC X-RAY WRIST - 2 VIEWS NO SHOW CHARGE POST-OP/NC X-RAY WRIST - 2 VIEWS POST-OP/NC X-RAY WRIST - 2 VIEWS TREAT FX RADIAL 3+ FRAG TREAT FX RADIAL 3+ FRAG - 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 NEW PATIENT OFFICE VISIT- LEVEL 4 X-RAY WRIST - 3 VIEWS WRIST PRO 8 INCH Advance Directives Directive Yes / No Effective Date File Name No Information Encounters Encounter Description Practice Location Reason(s) For Visit Diagnoses Date Provider Providers Copied on Encounter [facility], [address], [place], [place], [id number], [place] tel:[phone] [facility] Post-Op (chief complaint) XRAY ORDERAftercar e following surgery of the musculoskelet al system, NEC 9 No Information [facility], [address], [place], [place], [id number], [place] tel:[phone] [facility] Post-Op (chief complaint) XRAY ORDERClosed torus fracture of distal end of left radius, sequelaAfterc are following surgery of the musculoskelet al system, NEC 9 No Information [facility], [address], [place], [place], [address], [place] tel:[phone] [facility] Post-Op (chief complaint) XRAY ORDERClosed torus fracture of distal end of left radius, sequelaAfterc are following surgery of the musculoskelet al system, NEC 9 No Information [facility], [address], [place], [place], [id number], [place] tel:[phone] [facility] No Information 9 No Information [facility], [address], [place], [place], [id number], [place] tel:[phone] [facility] Post-Op (chief complaint) Closed torus fracture of distal end of left radius, sequelaAfterc are following surgery of the musculoskelet al system, NECXRAY ORDER 9 No Information [facility], [address], [place], [place], [address], [place] tel:[phone] [facility] Post-Op (chief complaint) Closed torus fracture of distal end of left radius, sequelaAfterc are following surgery of the musculoskelet al system, NECXRAY ORDER Feb-0 9 No Information [facility], [address], [place], [place], [id number], [place] tel:[phone] [facility] No Information Jan- 9 EVARISTO FELIZ. [address], [address], [place], [place], [id number], [place]. tel:[phone] Referring Provider: TRAY LOERA, [address], [place], [address] . tel:[phone] [facility], [address], [place], [place], [address], [place] tel:[phone] [facility] No Information Jan- 9 No Information Referring Provider: TRAY LOERA, [address], [place], [address] . tel:[phone] NEW PATIENT OFFICE VISIT- LEVEL 4 [facility], [address], [place], [place], [id number], [place] tel:[phone] [facility] Fracture (chief complaint) DME (chief complaint) XRAY ORDERClosed Colles' fracture of left radius, initial encounterOthe r closed intra-articul ar fracture of distal end of left radius, initial encounterClos ed displaced fracture of styloid process of left radius, initial encounter Jan- 9 EVARISTO FELIZ. [address], [address], [place], [place], [address], [place]. tel:[phone] Referring Provider: TRAY LOERA [address], [place], [address] . tel:[phone] Family History Family Member Type Diagnosis Age At Onset Mother Problem (finding) migraine 16 Mother Problem (finding) hypercholester olemia in first degree relative 52 Father Problem (finding) Father Problem (finding) hypertension 41 Mother Problem (finding) Arthritis 38 Mother Problem (finding) asthma 18 Mother Problem (finding) Obesity 50 Mother Problem (finding) osteoporosis 62 Mother Problem (finding) depression 50 Mother Problem (finding) Thyroid disorder 42 Mother Problem (finding) hypertension 60 Mother Problem (finding) Alive and well Father Problem (finding) coronary arter iosclerosis (Cause Of ) 53 Father Problem (finding) hypercholester olemia in first degree relative 41 Mother Problem (finding) Diabetes 68 Father Problem (finding) Diabetes 52 Father Problem (finding) Hearing deficiency 12 Father Problem (finding) cancer of colon (Cause Of ) Payers Payer name Insurance type Covered alliance party ID Hitesh hubbard(s) [facility] [employer] [id number] Social History Type Description Quantity Date Captured Comments Alcohol Use Details Caffeine Use Details Unknown Tobacco Use Status Current non-smoker Smoking Status Never smoker Sex Female Vital Signs Date / Time: Height Weight BMI Pulse Rate Blood Pressure Temperature Respiratory Rate Body Surface Area Head Circumference Head Circ. Percentile Wt./Hang. Percentile BMI percentile Pulse Ox Inhaled Ox 9:29 AM 63.00 in 79.379 kg (175.00 lbs) 31.0 0 kg/m eter (2) Chief Complaint And Reason For Visit From encounter dated '04/28/2019 09:15'. Post-Op (chief complaint). Description: The status of the patient has improved. The patient reportsno pain. The patient is not using pain medication. The patient reports no complications with the wound. There are no indwelling devices. Pertinent negatives include chest pain, constipation, cough, diarrhea, dyspnea, fever, nausea and vomiting. Additional information: 10 weeks s/p left distal radius ORIF, DOS: 02/16/19. She has discontinued the brace and has just finished PT. She has been workingher normal job at this point. Reason For Referral Reason For Referral No Information History Of Present Illness Encounter Date Complaint History Of Prese nt Illness Post-Op The status of th e patient has improved. The patient reports no pain. The patient is not using pain medication. The patient reports no complications with the wound. There are no indwelling devices. Pertinent negatives include chest pain, constipation, cough, diarrhea, dyspnea, fever, nausea and vomiting. Additional information: 10 weeks s/p left distal radius ORIF, DOS: 02/16/19. She has discontinued the brace and has just finished PT. She has been working her normal job at this point. Post-Op The status of e patient has improved. The patient reports pain. The frequency of pain is occasional. The patient is not using pain medication. The patient reports no complications with the wound. Pertinent negatives include chest pain, constipation, cough, diarrhea, dyspnea, fever, nausea and vomiting. Additional information: 6 weeks s/p left distal radius ORIF, DOS: 02/16/19. Patient is continuing hand therapy working on her ROM. She has some pain with usage. Post-Op The status of e patient has improved. The patient reports incisional pain. The patient is not using pain medication. The patient reports no complications with the wound. Associated symptoms include swelling. Pertinent negatives include abdominal pain, anorexia, calf tenderness, chest pain, chills, constipation, cough, diarrhea, dysphagia, dyspnea, fever, hematoma, hoarseness, limping, nausea, pleuritic pain, referred pain, urinary difficulty, vomiting and weight loss. Additional information: 4.5 weeks s/p left distal radius ORIF, DOS: 02/16/19. She is doing very well, continues PT 2x/wk. Improving pain and swelling. Compliant with lifting restrictions and tolerating the cock-up brace. 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 The patient reports pain. The pain scale is 7/10. The patient is using medication as needed and having good response. The patient reports no complications with the wound. Pertinent negatives include abdominal pain, calf tenderness, chest pain, cough and vomiting. Additional information: Patient is 2 weeks s/p left distal radius ORIF, DOS: 02/16/19. She went back to work yesterday and her pain has increased. Post-Op The status of e patient has improved. The patient reports pain. The frequency of pain is occasional. The patient is using medication. The patient reports no complications with the wound. There are no indwelling devices. Pertinent negatives include chest pain, constipation, cough, diarrhea, dyspnea, fever, nausea and vomiting. Additional information: She is 1 week s/p left distal radius ORIF, DOS: 02/16/19. She is doing very well and reports no post-op complications. Fracture Patient fracture d left distal radius and MCP of 3rd and 4th fingers on 02/11/2019. The treatment date is 02/12/2019. Context: injury. Trauma occurred due to fall while in the street on 02/11/2019. It has been 1 Day since the trauma occurred. Patient was treated by splinting and sling. She is also experiencing bruising, difficulty initiating sleep, numbness and swelling. Pertinent negatives include crepitus, decreased mobility, limping, locking (joint), nocturnal awakening, popping, spasms, tenderness, tingling in the arms, tingling in the legs and weakness. Diagnostic results significant to today's problem: Plain film. Comments: numbness in 3rd finger. DME Patient dispense d S LT wrist cock-up brace Functional Status Date Functional Assessmen t No Information Instructions Date Instruction Additional Infor mation No Information Assessments Type Assessment Date assessment XRAY ORDER assessment Aftercare following surgery of t he musculoskeletal system, NEC Mental Status Date Cognitive Assessment Orientation - [place] ed to time, place, person, situation. Patient Care Teams Name Effective Dates (start - stop) Status Members No Information
== END 2024-04-29 11:52 | disposition home or self-care (01) ==
PROVIDERS: PCP Nurse Practitioner Family; Visit Provider Psychiatry & Neurology Neurology
DX: G25.0 Essential tremor (principal); G25.2 Other specified forms of tremor; G95.20 Unspecified cord compression; M48.02 Spinal stenosis, cervical region
CPT/HCPCS: 99214

== ENCOUNTER → 2024-04-29 11:24 | Outpatient (BNVA) | payer BC, SELFPAY | PROVIDERS: PCP Nurse Practitioner Family; Visit Provider Psychiatry & Neurology Neurology | DX: G47.10 Hypersomnia, unspecified (principal); R06.83 Snoring; G25.0 Essential tremor; G25.2 Other specified forms of tremor; G95.20 Unspecified cord compression; M48.02 Spinal stenosis, cervical region ==

== ENCOUNTER 2024-07-22 08:24 | Outpatient (AMB) | payer BC, SELFPAY ==
--- NOTE | 2024-07-22 08:37 | MHC.PC.OV ---
Vital Signs 07/22/24 08:47 Height 5 ft 3 in Weight 179 lb BMI 31.7 BP 139/83 Blood Pressure Location Rt brachial Position Sitting Respiration 16 Pulse 74 Pulse Source Pulse Oximeter Temp 97.9 F Temp Source Oral Pulse Oximetry (%) 95 Oxygen Delivery Method Room Air Intake Visit Reasons: CPE Intake Note: patient here for CPE Maintenance Supervisor Required: No Is last menstrual period known: Yes Last menstrual period: 12/11/23 Post menopausal: No Patient : No Allergies ammonia Allergy (Severe, Verified 07/22/24 08:44) Anaphylaxis strawberry Allergy (Mild, Verified 07/22/24 08:44) Hives Tobacco use date assessed: 07/22/24 Dental Screening Dental Screen Date: 07/22/24 Did you have a dental visit in the last 12 months?: Yes Did you have a dental problem in the last 6 months where you did not have access to dental care?: No Was dental information given to patient?: Patient has dentist HPI HPI Comments History of Present Illness Details 48-year-old female presents for an extended physical exam. She admits to taking her medications as prescribed without adverse reactions. Acute issue(s) - Chronic, intermittent nonproductive cough Past Medical History - Fibromyalgia, RA, benign central tremors, iron deficiency anemia, pernicious anemia, osteoporosis, chronic nonproductive cough x 6 years, cystic acne, cervical spine stenosis with fusion, insomnia Social History - Nonsmoker. Does not vape. Drinks 1-2 drinks of wine/beer 2-3 times monthly. Denies recreational drug use - Has been making healthy dietary choices. Active but does not exercise; intends to start exercising soon. Generally sleep well Health maintenance - Last eye exam was a few years ago. Routine eye exam recommended. She will call an behavioral health counselor to schedule an eye exam - Last dental visit was 2 months ago. She gets dental care twice a year - Last tetanus vaccine was more than 10 years ago; received Tdap vaccine today - She had one of two shingles vaccines. Encouraged to get her second shingles vaccine. She may get the vaccine from the local pharmacy - She notes that she is up-to-date on the pneumonia vaccines - Has not been vaccinated for the flu this season; declines vaccination - Last pap smear test 4 years ago: normal. Referred to [facility] flag decor[facility] - Last mammogram was in 04/25/2023. Mammogram ordered - Last colonoscopy was 25 years ago. She has a colonoscopy scheduled with [facility] in 07/29/2024 - Last dexa scan was in 05/03/2023 Specialists [facility], [facility] Gastroenterology, Endocrinology ([facility] [place]), ENT (Dr. Hennessy), and [facility] Rhe[facility]ology, Neurology, and Pulmonology [facility] Medical History (Updated 07/22/24 @ 09:16 by Fan Hanna CNP) Essential and other specified forms of tremor Spinal cord compression Spinal stenosis in cervical region Hypersomnia Snoring Degenerative cervical disc Benign essential tremor Fibromyalgia Rheumatoid arthritis Surgical History H/O spinal fusion History of surgery on left wrist History of uvulopalatopharyngoplasty History of surgical removal of ganglion cyst History of tonsillectomy H/O: knee surgery H/O removal of cyst History of appendectomy History of adenoidectomy Family History Mother COPD (chronic obstructive pulmonary disease) Type 2 diabetes mellitus Congestive heart failure Rheumatoid arthritis Fibromyalgia Sjogrens syndrome Father Congenital heart defect Colon cancer Paternal Grandmother Breast cancer Bone cancer Maternal Aunt Rheumatoid arthritis Social History Household Members: Significant Other Housing: House Alcohol intake: current Alcohol intake frequency: holidays/special occasions only Patient Tobacco Use Status: Never used Tobacco e-Cigarette/Vaping Use: Never Used service: No Current occupational status: employed 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 1. Little interest or pleasure in doing things: not at all 2. Feeling down, depressed, or hopeless: not at all 3. Trouble falling or staying asleep, or sleeping too much: several days 4. Feeling tired or having little energy: several days 5. Poor appetite or overeating: not at all 6. Feeling bad about yourself - or that you are a failure or have let yourself or your family down: not at all 7. Trouble concentrating on things, such as reading the newspaper or watching television: not at all 8. Moving or speaking so slowly that other people could have noticed. Or the opposite - being so fidgety or restless that you have been moving around a lot more than usual: not at all 9. Thoughts that you would be better off or of hurting yourself in some way: not at all Total score: 2 Depression Screening Interpretation: Negative Depression Screening Done: Yes Source: Developed by Drs. Giovany Orellana, Cathryn Hunter, Duke Cervantes and colleagues, with an educational nakia from [employer]. Thrive Questionnaire Date Thrive assessed: 07/22/24 I am a: Patient What is your living situation today?: I have a steady place to live Within the past 12 months, did the food you bought not last and you didn't have the money to get more?: Never true Within the past 12 months, did you worry whether your food would run out before you got money to buy more?: Never true Do you have trouble paying for medicines?: No Do you have trouble getting transportation to medical appointments?: No Do you have trouble paying your heating and electricity bill?: No Do you have trouble taking care of your child, family member or friend?: No Do you have trouble with day-to-day activities such as bathing, preparing meals, shopping, managing finances, etc.?: No Are you currently unemployed and looking for a job?: No Are you interested in more education?: No THRIVE Score: 0 AUDIT C Alcohol Use Questionnaire (AUDIT-C) 1. How often do you have a drink containing alcohol?: 2-4 times a month 2. How many drinks containing alcohol do you have on a typical day when you are drinking?: 1 or 2 3. How often do you have six or more drinks on one occasion?: Never Total Score: 2 Score Reviewed/Action Taken: Yes WING-7 AMB Questionnaire WING-7 Date WING - 7 assessed: 07/22/24 Feeling nervous, anxious, or on edge: 0 = Not at all Not being able to stop or control worryin = Not at all Worrying too much about different things: 0 = Not at all Trouble relaxin = Not at all Being so restless that it is hard to sit still: 0 = Not at all Becoming easily annoyed or irritable: 0 = Not at all Feeling afraid as if something awful might happen: 0 = Not at all Total WING-7 score (0-4 normal; 5-9 mild; 10-14 moderate; 15-21 severe): 0 Source: Developed by Drs. Giovany Orellana, Cathryn Hunter, Duke Cervantes and colleagues, with an educational nakia from [employer]. WING-7 Assessment Billing WING-7 Assessment Tool: WING-7 Assessment 45549 Review of Systems Const Details: Denies chills, Denies fatigue, Denies fever(s), Denies headache(s) and Denies weakness HEENT Denies change in vision, Denies dizziness, Denies headache(s), Denies hearing loss, Denies nasal congestion, Denies sinus pain, Denies sinus pressure and Denies sore throat Card Denies chest pain, Denies lightheadedness, Denies dyspnea and Denies other (palpitations) Resp Reports cough, Denies dyspnea and Denies wheezing GI Denies abdominal pain, Denies melena, Denies hematochezia, Denies change in bowel habits, Denies dyspepsia and Denies nausea Denies hematuria and Denies dysuria Musc Denies abnormal gait, Denies myalgias, Denies arthralgias, Denies numbness and Denies tingling Skin/Breast Denies rash, Denies unusual bruising and Denies wounds Neuro Denies abnormal gait, Denies dizziness, Denies headache(s), Denies memory loss, Denies numbness, Denies Sensory deficit (Neuro), Denies tingling and Denies weakness Psych Denies anxiety, Denies depression and Denies memory loss Endo Denies cold intolerance, Denies fatigue, Denies heat intolerance, Denies polydipsia and Denies polyuria Anthony/Lymph Denies easy bleeding and Denies easy bruising Aller/Immun Denies wheezing Physical exam (Primary Care) Vital Signs: Last Vital Signs Temp 97.9 F 07/22/24 08:47 Pulse 74 07/22/24 08:47 Resp 16 07/22/24 08:47 BP 139/83 07/22/24 08:47 Pulse Ox 95 07/22/24 08:47 Oxygen Delivery Method Room Air 07/22/24 08:47 BMI result Body Mass Index 31.7 Tobacco/Smoking Status: Tobacco use Status Tobacco use date assessed 07/22/24 07/22/24 08:51 Patient Tobacco Use Status Never used Tobacco 07/22/24 08:39 e-Cigarette/Vaping Use Never Used 07/22/24 08:39 PHQ-9: PHQ-9 Score PHQ-9: Total score 2 07/22/24 08:51 Depression Screening Interpretation: Negative Thrive Assessment: Date of Thrive Assessment Date Thrive assessed 07/22/24 07/22/24 08:51 Const Other: General: no acute distress, well developed, alert and awake Nutritional Appearance: well nourished Orientation/consciousness: patient oriented x3 HENMT Head: Yes normocephalic and Yes atraumatic Ears: hearing grossly normal bilaterally and TM's normal bilaterally General nose exam: Normal external nose present and Normal nares present Mouth: Normal oral and palatal mucosa present and moist mucous membranes Teeth and gingiva: dentition normal Throat: Yes oropharynx normal Eyes Pupils: Equal, round and reactive pupils present and Pupil accommodation reflex normal EOM: EOMs intact bilaterally Neck Neck: Yes normal visual inspection, Yes no lymphadenopathy and Yes trachea midline Thyroid: Thyroid normal Carotids: no bruits Lymphatic: no lymphadenopathy noted Chest Chest palpation & inspection: normal inspection of the chest Resp Effort & Inspection: normal respiratory effort Auscultation: clear to auscultation bilaterally Cardio Rate: regular rate Rhythm: regular rhythm Heart sounds: S1 normal heart sound present, S2 normal heart sound present, no gallops, no murmurs and no rubs Bruits: no abdominal aortic bruits and no carotid bruits GI Palpation (GI): No Abdominal aortic bruit present, Soft to palpation, nontender, No hepatosplenomegaly present and No Rebound tenderness present Auscultation: normal bowel sounds General: Yes no CVA tenderness Back/Spine/Pelvis Back: no CVA tenderness Cervical Spine: cervical ROM normal and No Cervical spine tenderness Thoracic/Lumbar Spine: thoraco-lumbar ROM normal, No pain with thoraco-lumbar ROM, No thoracic spinal tenderness and No lumbar spinal tenderness Skin General: warm and dry. Normal skin color. Normal skin turgor Lesions: no lesions Rashes: no rashes Trauma: no lacerations or abrasions Wounds: no wounds Nails: normal Neuro General: patient oriented x3, gait normal and CN's II-XI intact bilaterally Cranial nerves: Yes Equal, round and reactive pupils present Cognition (Neuro): normal cognition Gait exam (Neuro): Normal gait present Motor exam (neuro): 5/5 motor strength present throughout Sensory Exam: No Sensory deficit (Neuro) Deep tendon reflexes (DTR's): Right patellar reflex intensity grade: 2+ and Left patellar reflex intensity grade: 2+ Extrem General: Yes normal to inspection, No edema and No calf tenderness Psych Appearance: grossly normal Affect: normal affect Attitude: cooperative Thought process: Normal thought process present Coding Level of Care Code Est Pt Prev Care 40-64y(08092) Diagnoses Normal physical examination, routine Z00.00 Obesity (BMI 30.0-34.9) E66.811 Breast cancer screening by mammogram Z12.31 Pap smear for cervical cancer screening Z12.4 Chronic cough R05.3 Laboratory tests ordered as part of a complete physical exam (CPE) Z00.00 Additional Codes WING-7 Assessment Billing - WING-7 Assessment Tool: WING-7 Assessment 35938 ([id number]) Assessment & Plan Assessment & Plan (1) Normal physical examination, routine: Code(s): Z00.00 - Encounter for general adult medical examination without abnormal findings Category: Medical Plan: No significant functional limitations noted. Advised to get lab work done and follow-up for a telehealth visit in 2-3 weeks for labs review. Return sooner with symptoms or concerns. Verbalized understanding and agreed with treatment plan. (2) Obesity (BMI 30.0-34.9): Code(s): E66.811 - Obesity, class 1 Category: Medical Plan: She currently weighs 179 lb, BMI is 31.7. Declines referral to a spreading machine operator and notes that she will continue to make healthy dietary choices and will start to exercise. Healthy diet and routine exercise encouraged. Follow-up as needed. Verbalized understanding and agreed with treatment plan. (3) Breast cancer screening by mammogram: Code(s): Z12.31 - Encounter for screening mammogram for malignant neoplasm of breast Category: Medical Plan: Last mammogram was in 04/25/2023. Mammogram ordered. (4) Pap smear for cervical cancer screening: Code(s): Z12.4 - Encounter for screening for malignant neoplasm of cervix Category: Medical Plan: Last pap smear test 4 years ago: normal. Referred to [facility] decor[facility]. (5) Chronic cough: Code(s): R05.3 - Chronic cough Category: Medical Plan: Followed by pulmonology, ENT, and Gastroenterology. (6) Laboratory tests ordered as part of a complete physical exam (CPE): Code(s): Z00.00 - Encounter for general adult medical examination without abnormal findings Category: Medical Plan: Fasting labs ordered as part of a complete physical exam. Advised to fast for at least 10 hours before getting labs drawn. May drink water Verbalized understanding and agreed with treatment plan. Orders: Orders Lipid Panel Today Z00.00 - Encounter for general adult medical examination without abnormal findings TSH reflex Free T4 Today Z00.00 - Encounter for general adult medical examination without abnormal findings UA CC w/rflx Micro + Cult Today Z00.00 - Encounter for general adult medical examination without abnormal findings Complete Blood Count Auto Diff Today Z00.00 - Encounter for general adult medical examination without abnormal findings Comprehensive Bath. Panel Fast Today Z00.00 - Encounter for general adult medical examination without abnormal findings Microalbumin, Random (w Creat) Today Z00.00 - Encounter for general adult medical examination without abnormal findings Vitamin D 25-OH Total Today Z00.00 - Encounter for general adult medical examination without abnormal findings Vitamin B12 and Folate 3 Months Z00.00 - Encounter for general adult medical examination without abnormal findings
[2024-07-22 08:47] VITALS: BP 139/83; PULSE 74; RESP 16; TEMP 36.6; O2SAT 95; BMI 31.7
--- OUTSIDE RECORDS SUMMARY | 2024-07-22 08:55 | XMS_ITS | Continuity of Care Document ---
Author Organization [facility] [address] [place] [address] Phone [phone] Care Team Providers Care Home Economist Consumer Service Name Role Phone Cyndi Chavira CNP Care Team Information Receive r [phone] Problems Active Problems Provider Date Essential tremor [...] Qnty Indications Order ing Provider Date Alendronate Braboj74tz Tablets take 1 tablet by mouth weekly 30 minutes before the first food, beverage or medicine of the day with plain water for osteoporosis 30tabs Yamila Rodriguez M.D. 08/30/2023 Zolpidem [id number] Tablets Take 1 Tablet By Mouth AT Bedtime Cyndi Chavira CNP Doxycycline Mdklvxh49vv Tablets Take 1 Tablet By Mouth Twice A Day Unknown Sumatriptan [id number] Tablets Please See Attached For Detailed Directions Unknown Tizanidine HCL2mg Tablets Take 1 Tablet By Mouth 3 Times A Day Cyndi Chavira CNP Duloxetine [id number] Caps DR Part Take 1 Capsule By Mouth Every Day For 90 Days Cyndi Chavira CNP [id number] Tablets Take 1 Tablet By Mouth Twice A Day Unknown Hydroxychloroquine [id number] Tablets Take 2 Tablets By Mouth Every Day Cyndi Chavira CNP Acetaminophen/Codeine [id number] Tablets Take 2 Tablets By Mouth Twice [...] D deficiency has been defined by the [place] [employer] and an Endocrine Society practice guideline as a level of serum 25-OH vitamin D less than 20 ng/mL (1,2). The Endocrine Society went on to further define vitamin D insufficiency as a level between 21 and 29 ng/mL (2). 1. IOM ([place] [employer]). 2010. Dietary reference intakes for calcium and D. [place]: The National Academies Press. 2. Esteban Rodrigez, Cirilo SAEED, et al. Evaluation, treatment, and prevention of vitamin D deficiency: an Endocrine Society clinical practice guideline. JCEM. 2010; 96(7):1911-30. 2 Vitamin D deficiency has been defined by the [place] [employer] and an Endocrine Society practice guideline as a level of serum 25-OH vitamin D less than 20 ng/mL (1,2). The Endocrine Society went on to further define vitamin D insufficiency as a level between 21 and 29 ng/mL (2). 1. IOM ([place] of [employer]). 2010. Dietary reference intakes for [...] Date Location Provider Dx Diagnosis Office Visit 04/14/2024 2:45p Main Office DEANNA Esquivel E21.3 Hyperparathyr oidism, unspecified M81.0 Age-related osteopor osis w/o current pathological fracture Assessments Date Code Description Provider 04/14/2024 E21.3 Hyperparathyroidism, unspeci fied DEANNA Esquivel 04/14/2024 M81.0 Osteoporosis NOS DEANNA Jeff Plan of Treatment Future Appointment(s):* 11/09/2024 10:15 am - DEANNA Esquivel at Main Office 04/14/2024 - DEANNA Esquivel* E21.3 Hyperparathyroidism, unspecified * M81.0 Osteoporosis NOS Functional Status Description No Information Available Mental Status Description No Information Available Referrals Description No Information Available
== END 2024-07-22 09:14 | disposition home or self-care (01) ==
LOC: HO.HMCFM 08:24
PROVIDERS: PCP Nurse Practitioner Family; Visit Provider Nurse Practitioner Family
DX: Z00.00 Encounter for general adult medical examination without abnormal findings (principal); E66.811 Obesity, class 1; Z12.31 Encounter for screening mammogram for malignant neoplasm of breast; Z68.31 Body mass index [BMI] 31.0-31.9, adult; R05.3 Chronic cough

== ENCOUNTER → 2024-07-22 08:24 | Outpatient (BNVA) | payer BC, SELFPAY | PROVIDERS: PCP Nurse Practitioner Family; Visit Provider Nurse Practitioner Family | DX: Z00.00 Encounter for general adult medical examination without abnormal findings (principal); E66.811 Obesity, class 1; Z68.31 Body mass index [BMI] 31.0-31.9, adult; R05.3 Chronic cough | CPT/HCPCS: 96127 ==

== ENCOUNTER 2024-08-10 11:18 | Outpatient (REF) | payer BC, SELFPAY ==
[2024-08-10 13:13] LABS: MANUAL DIFF FLAG NO
[2024-08-10 13:19] LABS: Basophils Absolute Auto 0.1 X10*3/uL (0.0-0.2); Basophils Percent Auto 0.8 % (0-2); Eosinophils Absolute Auto 0.1 X10*3/uL (0.0-0.4); Eosinophils Percent Auto 2.4 % (0-4); Hematocrit 36.7 % (37.0-47.0); Hemoglobin 11.5 g/dl (12.0-16.0); Imm Gran Abs Auto 0.02 X10*3/uL (0.00-0.03); Imm Gran Pct Auto 0.3 % (0.0-0.4); Lymphocytes Absolute Auto 1.7 X10*3/uL (1.2-4.9); Lymphocytes Percent Auto 28.9 % (20-40); Mean Corpuscular HGB Conc 31.3 g/dl (31.0-35.0); Mean Corpuscular Hemoglobin 27.9 pg (27.0-33.0); Mean Corpuscular Volume 89.1 fL (80.0-98.0); Mean Platelet Volume 10.3 fL (9.4-12.3); Monocytes Absolute Auto 0.4 X10*3/uL (0.1-1.2); Neutrophils Absolute Auto 3.6 x10*3/uL (2.0-8.3); Neutrophils Percent Auto 60.6 % (45-73); Platelet Count 288 X10*3/uL (160-400); Red Blood Count 4.12 X10*6/uL (4.20-5.50); Red Cell Distribution Width 14.8 % (11.0-16.0); White Blood Count 5.9 X10*3/uL (4.8-10.8)
[2024-08-10 13:47] LABS: Appearance Urine Clear; Color Urine Yellow; Glucose Urine UA Negative (Negative); Leukocyte Esterase Urine Negative (Negative); Nitrite Urine Negative (Negative); PH 6.5 (5.0-9.0); Specific Gravity - Urine 1.015 (1.005-1.025); Urine Blood Negative (Negative); Urine Ketones Negative (Negative); Urine Protein Negative (Neg-Trace)
[2024-08-10 14:03] LABS: Alanine Aminotransferase 10 U/L (0-31); Albumin Level 3.9 g/dL (3.5-5.0); Alkaline Phosphatase 97 U/L (39-117); Anion Gap 11 (12-20); Aspartate Amino Transferase 19 U/L (5-31); Bilirubin Total 0.2 mg/dL (0.0-1.0); Blood Urea Nitrogen 15 mg/dL (9-16); Calcium 8.6 mg/dL (8.4-10.2); Carbon Dioxide 26 mmol/L (22-29); Chloride 103 mmol/L (96-108); Cholesterol 227 mg/dL (<200); Estimated Glomerular Filt Rate > 60; Glucose Fasting 74 mg/dL (60-99); HDL Cholesterol 59 mg/dL (>40); LDL Cholesterol Calculated 146 mg/dL (<100); Potassium 4.6 mmol/L (3.3-5.1); Sodium 135 mmol/L (135-145); Total Protein 7.2 g/dL (6.5-8.0); Triglycerides 111 mg/dL (<150)
[2024-08-10 14:05] LABS: TSH reflex Free T4 2.08 uIU/mL (0.32-4.0); Vitamin D 25-OH Total 50.4 ng/mL (>30)
[2024-08-10 14:27] LABS: Creatinine Urine 82.42 mg/dL; Microalbum/Creatinine Ratio Ur 7.2 ug/mg cr (<30)
== END 2024-08-10 11:19 | disposition home or self-care (01) ==
LOC: HO.HMGCLDS 11:18
PROVIDERS: PCP Nurse Practitioner Family; Visit Provider Nurse Practitioner Family
DX: Z00.00 Encounter for general adult medical examination without abnormal findings (principal)
CPT/HCPCS: 36415; 80053; 80061; 81003; 82043; 82306; 82570; 84443; 85025

== ENCOUNTER 2024-08-13 13:24 | Outpatient (AMB) | payer BC, SELFPAY ==
--- NOTE | 2024-08-13 13:19 | A.OFFPC_ITS ---
Intake Visit Reasons: Telehealth 2-3 wks labs review Intake Note: patient here for 2-3 wks telehealth follow up for lab review. Telephone Order Dispatcher Required: No Is last menstrual period known: No Post menopausal: No Patient : No Allergies ammonia Allergy (Severe, Verified 08/13/24 13:20) Anaphylaxis strawberry Allergy (Mild, Verified 08/13/24 13:20) Hives Tobacco use date assessed: 08/13/24 Dental Screening Dental Screen Date: 08/13/24 Did you have a dental visit in the last 12 months?: Yes Did you have a dental problem in the last 6 months where you did not have access to dental care?: No Was dental information given to patient?: Patient has dentist HPI HPI Comments History of Present Illness Details 48-year-old [facility] results. She admits to taking her medications as prescribed with the adverse reactions. She offers no complaints and denies acute symptoms at this time. [facility] Medical History (Updated 08/13/24 @ 14:49 by Fan Hanna CNP) Essential and other specified forms of tremor Spinal cord compression Spinal stenosis in cervical region Hypersomnia Snoring Degenerative cervical disc Benign essential tremor Fibromyalgia Rheumatoid arthritis Surgical History H/O spinal fusion History of surgery on left wrist History of uvulopalatopharyngoplasty History of surgical removal of ganglion cyst History of tonsillectomy H/O: knee surgery H/O removal of cyst History of appendectomy History of adenoidectomy Family History Mother COPD (chronic obstructive pulmonary disease) Type 2 diabetes mellitus Congestive heart failure Rheumatoid arthritis Fibromyalgia Sjogrens syndrome Father Congenital heart defect Colon cancer Paternal Grandmother Breast cancer Bone cancer Maternal Aunt Rheumatoid arthritis Social History Household Members: Significant Other Housing: House Alcohol intake: current Alcohol intake frequency: holidays/special occasions only Patient Tobacco Use Status: Never used Tobacco e-Cigarette/Vaping Use: Never Used Patient : No service: No Current occupational status: employed 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 Cognitive needs: No Hearing needs: No Vision needs: No Questionnaire Thrive Questionnaire Date Thrive assessed: 04/07/24 I am a: Patient What is your living situation today?: I choose not to answer this question Within the past 12 months, did the food you bought not last and you didn't have the money to get more?: I choose not to answer this question Within the past 12 months, did you worry whether your food would run out before you got money to buy more?: I choose not to answer this question Do you have trouble paying for medicines?: I choose not to answer this question Do you have trouble getting transportation to medical appointments?: I choose not to answer this question Do you have trouble paying your heating and electricity bill?: I choose not to answer this question Do you have trouble taking care of your child, family member or friend?: I choose not to answer this question Are you currently unemployed and looking for a job?: I choose not to answer this question Are you interested in more education?: I choose not to answer this question Please select the resources that you would like help with: None Currently or been in a relationship where the following occur: I choose not to answer THRIVE Score: 0 AUDIT C Alcohol Use Questionnaire (AUDIT-C) 2. How many drinks containing alcohol do you have on a typical day when you are drinking?: 1 or 2 3. How often do you have six or more drinks on one occasion?: Never Total Score: 0 WING-7 AMB Questionnaire WING-7 Date WING - 7 assessed: 07/22/24 Source: Developed by Drs. Giovany Orellana, Cathryn Hunter, Duke Cervantes and colleagues, with an educational nakia from [employer]. Review of Systems Const Details: Denies chills, Denies fatigue, Denies fever(s), Denies headache(s) and Denies weakness Cardiac Denies chest pain, Denies claudication, Denies leg edema, Denies lightheadedness, Denies palpitations, Denies dyspnea, Denies dyspnea on exertion, Denies orthopnea and Denies other (Loss of consciousness) Resp Denies cough, Denies excessive phlegm production, Denies dyspnea, Denies dyspnea on exertion, Denies snoring and Denies wheezing Physical exam (Primary Care) Tobacco/Smoking Status: Tobacco use Status Tobacco use date assessed 03/20/25 03/20/25 13:23 Patient Tobacco Use Status Never used Tobacco 08/13/24 13:23 e-Cigarette/Vaping Use Never Used 08/13/24 13:23 Thrive Assessment: Date of Thrive Assessment Date Thrive assessed 04/07/24 08/13/24 13:23 Currently or been in a relationship where the following occur: I choose not to answer Const Other: Patient is alert and oriented x3. Telehealth Telehealth Telehealth Platform: Telephone Location of provider rendering services: practice address Location of patient: address on file Patient Identification confirmed using: Name, : Yes Telehealth method: voice only Patient verbally consented to treatment: Yes Patient verbally consented to billing insurance company: Yes Patient informed of any privacy concerns related to visit: Yes Coding Level of Care Code Tele New Pt Level 3 (28201) Diagnoses Hypercholesterolemia E78.00 Normocytic anemia D64.9 Time Spent (min) 15 Assessment & Plan Assessment & Plan (1) Hypercholesterolemia: Code(s): E78.00 - Pure hypercholesterolemia, unspecified Category: Medical Plan: Recent total cholesterol and LDL levels are slightly elevated, 227 and 146 respectively. Advised to limit foods high in saturated fat and avoid foods high in trans fat. Routine exercise encouraged. Advised to fast for 10-12 hours, may drink water only, and perform lipid panel blood work 2-3 days before next visit. Follow-up for telehealth visit in 2 months. Verbalized understanding and agreed with treatment plan. (2) Normocytic anemia: Code(s): D64.9 - Anemia, unspecified Category: Medical Plan: Recent RBC and H&H levels are slightly low, 4.12 and 11.5/36.7 respectively. MCV is normal. She has history of iron-deficiency anemia and pernicious anemia. She is on folic acid 0.4 mg daily which I encouraged to continue. Will check iron profile, ferritin, vitamin B12, and folate levels. Will review results and make changes as needed. Verbalized understanding and agreed with treatment plan. Orders: Orders Ferritin Today D64.9 - Anemia, unspecified Vitamin B12 and Folate Today D64.9 - Anemia, unspecified IRON PROFILE Today D64.9 - Anemia, unspecified Lipid Panel 2 Months E78.00 - Pure hypercholesterolemia, unspecified
== END 2024-08-13 15:17 | disposition home or self-care (01) ==
LOC: HO.HMCFM 13:24
PROVIDERS: PCP Nurse Practitioner Family; Visit Provider Nurse Practitioner Family
DX: E78.00 Pure hypercholesterolemia, unspecified (principal); D64.9 Anemia, unspecified

== ENCOUNTER 2024-09-02 14:42 | Outpatient (REF) | payer BC, SELFPAY ==
--- NOTE | ~2024-09-02 | MM_ITS ---
EXAMINATION: MM SCREENING DIGITAL BREAST TOMOSYNTHESIS, BILATERAL CLINICAL INFORMATION: Screening. Asymptomatic. COMPARISON: Mammography: Comparison is made with available priors TECHNIQUE: Digital breast mammography with tomosynthesis is performed in both the craniocaudal and mediolateral oblique views along with computer-aided detection (CAD). FINDINGS: There are scattered areas of fibroglandular density (ACR BI-RADS breast composition Category b). Left: There are no significant masses, abnormal calcifications, or other abnormalities. Right: Asymmetry lateral breast anterior depth on CC view. No suspicious calcifications or other abnormal findings. MM/MM tomosynthesis screening BI IMPRESSION: Additional imaging is recommended ASSESSMENT: BI-RADS BI-RADS 0 - Incomplete: Needs additional Imaging. RECOMMENDATION: 1. Additional views of the right breast. 2. Targeted ultrasound if warranted after review of the additional views. 3. Radiology department staff will contact the patient for additional imaging. Additional Imaging required This examination should not preclude the clinical evaluation of a suspicious palpable abnormality. This patient's information was entered into a reminder system with a target due date for their next mammogram. Electronically signed by: Kenzie Ortiz DO 09/08/2024 04:31 PM EDT
[2024-09-02 16:36] LABS: Iron 47 mcg/dL (30-160); Percent Iron Saturation 15 % (15-50); Total Iron Binding Capacity 305 mcg/dL (228-428); Unsaturated Iron Binding 258 ug/dL
[2024-09-02 16:51] LABS: Ferritin 14 ng/mL (10-250)
--- OUTSIDE RECORDS SUMMARY | 2024-09-02 16:55 | XMS_ITS | Continuity of Care Document ---
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 08/30/2023 Zolpidem Fkxlxlim08en Tablets Take 1 Tablet By Mouth AT Bedtime Cyndi Chavira CNP Doxycycline Roeulrb58sp Tablets Take 1 Tablet By Mouth Twice A Day Unknown Sumatriptan Myngyvwnx173sf Tablets Please See Attached For Detailed Directions Unknown Tizanidine HCL2mg Tablets Take 1 Tablet By Mouth 3 Times A Day Cyndi Chavira CNP Duloxetine TPD52vy Caps DR Part Take 1 Capsule By Mouth Every Day For 90 Days Cyndi Chavira CNP Dqeftityuqxkhq69em Tablets Take 1 Tablet By Mouth Twice A Day Unknown Hydroxychloroquine Qwqgthk401qt Tablets Take 2 Tablets By Mouth Every Day Cyndi Chavira CNP Acetaminophen/Codeine Perelgldz718-43vg Tablets Take 2 Tablets By Mouth Twice A Day as Needed For Pain Unknown Vital Signs Date Vital Result Comment 04/14/2024 3:23pm BP Systolic 118 mmHg BP Diastolic 86 mmHg Heart Rate 96 /min Height 63 inches 5'3 Weight 169.12 lb BMI (Body Mass Index) 30.0 kg/m2 Results Test Acquired Date Facility Test Result H/L Range N ote Vitamin D, 25-Hydroxy 04/14/2024 [facility] Vitamin D, 25-Hydroxy 49.7 ng/mL 30.0-100.0 1 PTH, Intact 04/14/2024 [facility] PTH, Intact 35 pg/mL 15-65 Calcium 04/14/2024 [facility] Calcium 10.0 mg/dL 8.7-10.2 Albumin 04/14/2024 [facility] Albumin 4.6 g/dL 3.9-4.9 Comp. Metabolic Panel [...] IU/L 0-40 Alt (SGPT) 10 IU/L 0-32 Vitamin D, 25-Hydroxy 08/28/2023 [facility] Vitamin D, 25-Hydroxy 28.8 ng/mL Low 30.0-100.0 2 Phosphorus 08/28/2023 [facility] Phosphorus 3.0 mg/dL 3.0-4.3 PTH, Intact 08/28/2023 [facility] PTH, Intact 114 pg/mL High 15-65 Calcium, 24HR Urine 08/28/2023 [facility] Calcium, Urine 2.7 mg/dL Not Estab. Calcium, Urine 24hr 46 mg/24hr 0-320 Creatinine, 24-Hour Urine 08/28/2023 [facility] Creatinine, Urine 57.6 mg/dL Not Estab. Creatinine, Ur 24hr 979 mg/24hr 800-1800 1 Vitamin D deficiency has been defined by the [place] of [employer] and an Endocrine Society practice guideline as a level of serum 25-OH vitamin D less than 20 ng/mL (1,2). The Endocrine Society went on to further define vitamin D insufficiency as a level between 21 and 29 ng/mL (2). 1. IOM ([place] of [employer]). 2010. Dietary reference intakes for calcium and D. [place]: The National Academies Press. 2. Esteban Rodrigez, Cirilo SAEED, et al. Evaluation, treatment, and prevention of vitamin D deficiency: an Endocrine Society clinical practice guideline. JCEM. 2010; 96(7):1911-30. 2 Vitamin D deficiency has been defined by the [place] of [employer] and an Endocrine Society practice guideline as a level of serum 25-OH vitamin D less than 20 ng/mL (1,2). The Endocrine Society went on to further define vitamin D insufficiency as a level between 21 and 29 ng/mL (2). 1. IOM ([place] of [employer]). 2010. Dietary reference intakes for [...]
--- OUTSIDE RECORDS SUMMARY | 2024-09-02 16:55 | XMS_ITS | Continuity of Care Document ---
Author Organization [facility] Address [address], [address] [place] [address] Phone Care Team Providers Care Women Nurse Name Role Phone Unavailable Unavailable Unavailable Allergies, Adverse Reactions, Alerts Substance Reaction Status Criticality No Known Allergies Active No Inform ation Medications Medication Instructions Dosage Effective Dates (start - stop) Status Comments Alyacen (28) 1 mg-35 mcg tablet take 1 tablet by oral route for 21 consecutive days, followed by 7 days off - Active no more refill until annual exam Cymbalta 60 mg Cap take 1 capsule (60MG) by oral route every day 60 MG - Active Plaquenil 200 mg Tab take 1 tablet (200MG) by oral route every day 200 MG - Active Nexium 40 mg Cap take 1 capsule (40MG) by oral route every day 40 MG - Active Ambien 10 mg Tab take 1 tablet (10MG) by oral route every day at bedtime 10 MG - Active Zanaflex 6 mg Cap take 1 capsule (6MG) by oral route 3 times every day 6 MG - Active Lyrica 75 mg Cap take 1 capsule (75MG) by oral route 2 times every day 75 MG - Active PRIMIDONE (unknown strength) take 5 tablet (250MG) by oral route 3 times every day Not Available - Active ENBREL (unknown strength) inject 1 milliliter (50MG) by subcutaneous route every week Not Available - Active Procedures Procedure Date PREV VISIT, EST, AGE 40-64 PREV VISIT, EST, AGE 18-39 Advance Directives Directive Yes / No Effective Date File Name No Information Encounters Encounter Description Practice Location Reason(s) For Visit Diagnoses Date Provider [facility] [place] [facility], [address], [id number] , [place] tel: [phone] CLOSED [address] [facility] No Information [address] [facility], [address] , [address] [place], [id number] , [place] tel: [phone] CLOSED [address] [facility] No Information 6 No Information PREV VISIT, EST, AGE 40-62 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, [address], [place], [id number] , [place] tel: [phone] CLOSED [address] [facility] annual exam (chief complaint) SPECIAL SCREEN EXAM HPVMyalgia and myositis, unspecifiedGynecological Examination [address] [facility], [address] , [address], [place], [id number] , [place] tel: [phone] CLOSED [address] [facility] annual visit (chief complaint) Rheumatoid Arthritis [address] [facility], [address] [place], [id number] , [place] tel: [phone] CLOSED [address] [facility] venereal warts (chief complaint) Viral warts, unspecified [address] [facility], [address] [place], [id number] , [place] tel: [phone] CLOSED [address] [facility] annual visit (chief complaint) Gynecological ExaminationViral warts, unspecifiedAbsence of menstruation [address] [facility], [address] , [address], [place], [id number] , [place] tel:[phone] CLOSED [address] [facility] Routine gynecological examination 0 No Information Family History Family Member Type Diagnosis Age At Onset Father Problem (finding) cancer of colon Payers Payer name Insurance type Covered green party ID Authoriza tion(s) [id number] Social History Type Description Quantity Date Captured Comments Sex Female Smoking Status No Information Chief Complaint And Reason For Visit No Information History Of Present Illness Encounter Date Complaint History Of Prese nt Illness *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 Additional information: no obstetrics and gynecology professor changes, has never had a mammogramno periods on the Plll. annual exam Last LMP was . Additional information: amenorrhea on Alyacen 135has RA and fibromyalgiasame partner x 4 yrs; definitely no plans to have children Instructions Date Instruction Additional Infor denisa see plan Related to [facility] [place] CERAMIC ENGINEERING PROFESSOR EXAMINATION see plan details Related to Gyne cological Examination Assessments Type Assessment Date No Information
--- OUTSIDE RECORDS SUMMARY | 2024-09-02 16:55 | XMS_ITS | Continuity of Care Document ---
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 Name Role Phone No Information Unavailable Unavailable [...] Active Procedures Procedure Date Offic/outpt E&m Estab [facility]-mo 2 Collection Of Venous Blood By Venipunctu re L, Comp Metabolic Panel L, C-reactive Protein L, Sed Rate, Erythrocyte L, CBC Auto Diff L, Handling Of Lab Specimens LC, Drug Screen, Single Drug Class Metho d Offic/outpt E&m Estab [facility]-mo 2 Virtual Offic/outpt E&m [facility]-mo 2 D Collection Of Venous Blood By Venipunctu re L, Comp Metabolic Panel L, C-reactive Protein L, Sed Rate, Erythrocyte L, CBC Auto Diff L, Handling Of Lab Specimens LC, Drug Screen, Single Drug Class Metho d Offic/outpt E&m [facility]-mo 2 Immuniz Admin; 1/combo Vacc/to Flucelvax Quad [...] Estab Mod-hi 2 16 Offic/outpt E&m Estab Mod-mo 2 16 Collection Of Venous Blood By Venipunctu re L, Comp Metabolic Panel L, C-reactive Protein LC, Iron LC, Iron Binding Capacity L Sed Rate, Erythrocyte L, CBC Auto Diff L, Handling Of Lab Specimens Offic/outpt E&m Estab Mod-hi 2 15 Immuniz Admin; 1/combo Vacc/to 15 Flu Vir Vacc-split 3 Yr & > Im (Fluvirin ) Offic/outpt E&m Estab [facility]-mo 2 15 Collection Of Venous Blood By Venipunctu re L, Comp Metabolic Panel L, C-reactive Protein L, Sed Rate, Erythrocyte; Automated L, CBC Auto Diff Offic/outpt E&m Estab Mod-mo 2 15 Collection Of Venous Blood By Venipunctu re L, Comp Metabolic Panel L, C-reactive Protein L, Sed Rate, Erythrocyte; Automated L, CBC Auto Diff Offic/outpt E&m [facility]-mo 2 15 Xray Foot; Complt Mini 3 Views 14 Xray Hand And Wrist Mini 3 Views 2013 Collection Of Venous Blood By Venipunctu re L, Comp Metabolic Panel L, C-reactive Protein L, Sed Rate, Erythrocyte; Automated L, CBC Auto Diff Offic/outpt E&m [facility]-mo 2 14 Collection Of Venous Blood By Venipunctu re L, Comp Metabolic Panel L, C-reactive Protein L, Sed Rate, Erythrocyte; Automated L, CBC Auto Diff Offic/outpt E&m [facility]-mo 2 14 Xray Elbow; Ap & Lat Views Collection Of Venous Blood By Venipunctu re L, Comp Metabolic Panel L, C-reactive Protein L, Iron Total L, Iron TIBC LC, Ferritin L, Sed Rate, Erythrocyte; Automated L, TSH L, CBC Auto Diff L, Handling Of Lab Specimens Offic/outpt E&m Estab Mod-mo 2 14 Collection Of Venous Blood By [...] Rate L, CBC Auto Diff Offic/outpt E&m [facility] Mod-hi 2 13 Depo-Medrol 40 Mg [...] Mini 3 Views 011 Offic/outpt E&m Estab Mod-mo 2 11 Xray Hand And Wrist Mini [...] L, CBC Auto Diff Offic/outpt E&m Estab Mod-mo 2 11 Offic/outpt E&m Estab Mod-mo 2 11 Routine Venipunct/finger/heel 1 L, Comp Metabolic Panel L, C-reactive Protein L, Sed Rate L, CBC Auto Diff Offic/outpt E&m Estab Mod-mo 2 11 Offic/outpt E&m Estab Mod-mo 2 11 Routine Venipunct/finger/heel 0 L, Comp Metabolic Panel L, C-reactive Protein L, Iron Total L, Iron TIBC LC, Ferritin L, Sed Rate L, CBC Auto Diff L, Handling Of Lab Specimens Offic/outpt E&m Estab Mod-mo 2 10 Flu Vir Vacc-split 3 Yr & > Im 10 Immuniz Admin; 1/combo Vacc/to 10 Offic/outpt E&m Estab Mod-mo 2 10 Inj; 1/mx Trig Point 1/two [...] Estab Mod-hi 2 09 Offic/outpt E&m Estab Mod-mo 2 08 Offic/outpt E&m Estab Mod-mo 2 08 Flu Vir Vacc-split 3 Yr & > Im 08 Offic/outpt E&m Estab Mod-hi 2 08 Therapeutic Injection Sub Q Or IM Flu Vir Vacc-split 3 Yr & > Im 08 Ultra Sound Diagnostic L, Comp Metabolic Panel L, C-reactive Protein L, CBC Auto Diff L, Sed Rate Routine Venipunct/finger/heel 8 Offic/outpt E&m Estab Low-mod 7 Offic/outpt E&m Estab Mod-mo 2 07 L, Hepatic Panel Routine Venipunct/finger/heel 7 Offic/outpt E&m Estab Mod-mo 2 07 Rad Exam Chest 2 Views [...] Rate Routine Venipunct/finger/heel 6 Offic/outpt E&m Estab Mod-mo 2 06 Arthrocentesis/aspir/inj; Inte 06 Medication, Depo-Medrol 40 Mg 6 Rad Exam Elbow; Ap & Lat Views 06 L, Comp Metabolic Panel L, C-reactive Protein L, CBC Auto Diff L, Sed Rate Routine Venipunct/finger/heel 6 Offic/outpt E&m Estab Mod-mo 2 06 Rad Exam Hip; Complt Mini 2 Vi 06 L, Comp Metabolic Panel L, Sed Rate Routine Venipunct/finger/heel 6 L, C-reactive Protein L, CBC Auto Diff Offic/outpt E&m Estab Mod-mo 2 05 Arthrocentesis/aspir/inj; Ele 05 Arthrocentesis/aspir/inj; Ele [...] [address], [place], , [place] tel:[phone] No Information 4 No Information [facility] , [address] [place] [address], [place], , [place] tel:[phone] Shree Vernon No Information 3 [place]. [address] [facility] 600, Shree Vernon [place], [id number], [place]. tel:[phone] [facility] , [address] [place] [address], [place], , [place] tel:[phone] Shree Vernon No Information 3 Rafael Enciso. [address] [place] [address] 310, [place], , [place]. tel:[phone] [facility] , [address] [place] [address] 310Bret [place], , [place] tel:[phone] Shree Vernon No Information 3 [place]. [address] [facility] 600, Shree Vernon MD, [id number], [place]. tel:[phone] [facility] , [address] [place] [address] 310Bret [place], , [place] tel:[phone] Shree Vernon No Information 3 [place]. [address] [facility] 600, Shree Vernon MD, [id number], [place]. tel:[phone] Offic/outpt E&m Estab Mod-hi 2 [facility] , [address] [place] [address] 310Bret [place], [id number], [place] tel:[phone] Shree Vernon Other chronic painLong term (current) use of opiate analgesicHype rmobility syndromeSpina l stenosis of cervical regionRA w/o rheumatoid factor of multiple sitesOther group home (current) drug therapy 3 [place]. [address] [facility] 600, Shree Vernon MD, [id number], [place]. tel:[phone] Referring Provider: Jamir Lugo, [address] [facility] 600[place], [address] . tel:[phone] [facility] , [address] [place] [address], [place], [id number], [place] tel:[phone] Shree Vernon No Information 3 [place]. [address] [facility] 600, Shree Vernon MD, [id number], [place]. tel:[phone] [facility] , [address] [place] [address], [place], [id number], [place] tel:[phone] Shree Vernon No Information 3 [place]. [address] [facility] 600, Shree Vernon MD, [id number], [place]. tel:[phone] Offic/outpt E&m Estab Mod-hi 2 [facility] , [address] [place] [address], [place], [id number], [place] tel:[phone] Shree Vernon RA w/o rheumatoid factor of multiple sitesSpinal stenosis of cervical regionHypermo bility syndromeLong term (current) use of opiate analgesicOthe r chronic pain 3 [place]. [address] [facility] 600Shree [place], [id number], [place]. tel:[phone] Referring Provider: Jamir Lugo, [address] [facility] 600[place], [address] . tel:[phone] Virtual Offic/outpt E&m Estab Mod-hi 2 [facility] , [address] [place] [address], MD [place], [id number], [place] tel:[phone] Cannon Other chronic painOther filler leaf cutter long (current) drug therapy 2 Jagdish [place]. [address], [place], [id number], [place]. tel:[phone] Referring Provider: Jamir Lugo, [address], [place], [address] . tel:[phone] Offic/outpt E&m Estab Mod-hi 2 [facility] , [address] [place] [address], [place], [id number], [place] tel:[phone] Shree Vernon RA w/o rheumatoid factor of multiple sitesFibromya lgiaOther chronic painLong term (current) use of opiate analgesicHype rtensionOther filler leaf cutter long (current) drug therapy 2 [place]. [address] [facility] 600, Shree Vernon MD, [id number], [place]. tel:[phone] Referring Provider: Jamir Lugo, [address] [facility] [address], [place], [address] . tel:[phone] Offic/outpt E&m Estab Mod-hi 2 [facility] , [address] [place] [address] 310, [place], [id number], [place] tel:[phone] Shree Vernon RA w/o rheumatoid factor of multiple sitesOpioid use, unspecified, uncomplicated Other group home (current) drug therapyFibrom yalgiaOther chronic painRadial styloid tenosynovitis [de Quervain]Anem ia 2 [place]. [address] [facility] 600Shree [place], [id number], [place]. tel:[phone] Referring Provider: Jamir Lugo, [address] [facility] 600, [place], [address] . tel:[phone] Offic/outpt E&m Estab Mod-hi 2 [facility] , [address] [place] [address] 310, [place], , [place] tel:[phone] Shree Vernon RA w/o rheumatoid factor of multiple sitesLong term (current) use of opiate analgesicOthe r filler leaf cutter long (current) drug therapyFibrom yalgiaOther chronic pain 2 [place]. [address] [facility] 600, Shree Vernon MD, [id number], [place]. tel:[phone] Referring Provider: Jamir Lugo, [address] [facility] 600, [place], [address] . tel:[phone] Offic/outpt E&m Estab Low-mod [facility] , [address] [place] [address], [place], [id number], [place] tel:[phone] [place] FibromyalgiaO ther chronic pain Dec-2 - 1 Jagdish Piedra. [address], [place], [id number], [place]. tel:[phone] Referring Provider: Jamir Lugo, [address] [place] [address] 600, [place], [address] . tel:[phone] Offic/outpt E&m Estab Mod-hi 2 [facility] , [address] [place] [address], [place], [id number], [place] tel:[phone] Shree Vernon RA w/o rheumatoid factor of multiple sitesLong term (current) use of opiate analgesicOthe r chronic painFibromyal giaOther group home (current) drug therapy Apr- 1 [place]. [address] [facility] 600, Shree Vernon MD, [id number], [place]. tel:[phone] Referring Provider: Jamir Lugo, [address] [place] [address] 600, [place], [address] . tel:[phone] Offic/outpt E&m Estab Mod-hi 2 [facility] , [address] [place] [address] 310, [place], [id number], [place] tel:[phone] Shree eVrnon FibromyalgiaR A w/o rheumatoid factor of multiple sitesOther chronic painLong term (current) use of opiate analgesicOpio id use, unspecified, uncomplicated Sep-0 1 [place]. [address] [facility] 600, Shree Vernon MD, [id number], [place]. tel:[phone] Referring Provider: Jamir Lugo, [address] [place] [address] Ave [address], [address] . tel:[phone] Offic/outpt E&m Estab Mod-hi 2 [facility] , [facility] 310, MD [place], [id number], [place] tel:[phone] Shree Vernon RA w/o rheumatoid factor of multiple sitesFibromya lgiaLong term (current) use of opiate analgesicOthe r chronic painOther group home (current) drug therapyCough Jul- 1 [place]. [address] [facility] 600, Shree Vernon MD, [id number], [place]. tel:[phone] Referring Provider: Jamir Lugo, [address], [address] . tel:[phone] Virtual Offic/outpt E&m Estab Mod-hi 2 [facility] , [facility] 310Bret [place], [id number], [place] tel:[phone] Shree Vernon Telehealth (chief complaint)Rhe umatoid arthritis (chief complaint) FibromyalgiaR A w/o rheumatoid factor of multiple sitesOpioid use, unspecified, uncomplicated Other chronic painOther group home (current) drug therapy 0 [place]. [address] [facility] 600Shree [place], [id number], [place]. tel:[phone] Referring Provider: Jamir Lugo, [address], [address] . tel:[phone] Virtual Offic/outpt E&m Estab Mod-hi 2 [facility] , [address] [place] [address] 310Bret MD, [id number], [place] tel:[phone] Shree Vernon Telehealth (chief complaint) RA w/o rheumatoid factor of multiple sitesOther chronic painLong term (current) use of opiate analgesicFibr omyalgia Sep-0 0 [place]. [address] [facility] 600Shree MD, [id number], [place]. tel:[phone] Referring Provider: Jamir Lugo, [address], [place], [address] . tel:[phone] Virtual Offic/outpt E&m Estab Mod-hi 2 [facility] , [address] [place] [address] 310, [place], [id number], [place] tel:[phone] Shree Vernon Telehealth (chief complaint)Rhe umatoid arthritis (chief complaint) FibromyalgiaO ther chronic painRA w/o rheumatoid factor of multiple sitesOpioid use, unspecified, uncomplicated Abdoul-0 0 [place]. [address] [facility] 600Shree MD, [id number], [place]. tel:[phone] Referring Provider: Jamir Lugo, [address], [place], [address] . tel:[phone] Offic/outpt E&m Estab Mod-hi 2 [facility] , [address] [place] [address] 310Bret [place], [id number], [place] tel:[phone] Shree Vernon Rheumatoid arthritis (chief complaint) RA w/o rheumatoid factor of multiple sitesFibromya lgiaOther chronic painOther filler leaf cutter long (current) drug therapyLong term (current) use of opiate analgesic Jul-0 0 [place]. [address] [facility] [address]Sh[place], [id number], [place]. tel:[phone] Referring Provider: Jamir Lugo, [address], [address] . tel:[phone] Offic/outpt E&m Estab Mod-hi 2 [facility] , [address] [place] [address] 310Bret [place], [id number], [place] tel:[phone] Shree Vernon Fibromyalgia (chief complaint) RA w/o rheumatoid factor of multiple sitesFibromya lgiaOther chronic pain Dec-0 2201 9 [place]. [address] [facility] [address], [id number], [place]. tel:[phone] Referring Provider: Jamir Lugo, [address], [place], [address] . tel:[phone] Offic/outpt E&m Estab Mod-hi 2 [facility] , [address] [place] [address] 310, MD [place], [id number], [place] tel:[phone] [place] Fibromyalgia (chief complaint) RA w/o rheumatoid factor of multiple sitesOther chronic painFibromyal giaInsomniaOt her filler leaf cutter long (current) drug therapy Jan- 9 [place]. [address] [facility] 600, Shree Vernon MD, [id number], [place]. tel:[phone] Referring Provider: Jamir Lugo, [address] [facility] 600, [place], [address] . tel:[phone] Offic/outpt E&m Estab Mod-hi 2 [facility] , [address] [place] [address] 310, MD [place], [id number], [place] tel:[phone] Shree Vernon Fibromyalgia (chief complaint) FibromyalgiaO ther chronic painRA w/o rheumatoid factor of multiple sitesOther group home (current) drug therapyFatigu e 9 [place]. [address] [facility] 600, Shree Vernon MD, [id number], [place]. tel:[phone] Referring Provider: Jamir Lugo, [address] [facility] 600, [place], [address] . tel:[phone] Offic/outpt E&m Estab Mod-hi 2 [facility] , [address] [place] [address] 310, MD [place], [id number], [place] tel:[phone] Shree Vernon Fibromyalgia (chief complaint) RA w/o rheumatoid factor of multiple sitesFibromya lgiaOther chronic painOther filler leaf cutter long (current) drug therapyInsomn ia 8 [place]. [address] [facility] 600, Shree Vernon MD, [id number], [place]. tel:[phone] Referring Provider: Jamir Lugo, [address] [facility] 600[place], [address] . tel:[phone] [facility] , [address] [place] [address], [place], [id number], [place] tel:[phone] Shree Vernon No Information September- 8 [place]. [address] [facility] 600Shree MD, , [place]. tel:[phone] Offic/outpt E&m Estab Mod-hi 2 [facility] , [address] [place] [address], MD [place], [id number], [place] tel:[phone] Shree Vernon Fibromyalgia (chief complaint) RA w/o rheumatoid factor of multiple sitesOther chronic painMyofascia l pain syndromeFibro myalgiaOther group home (current) drug therapy Aug-0 8 [place]. [address] [facility] 600Shree MD, , [place]. tel:[phone] Referring Provider: Jamir Lugo, [address] [facility] 600[place], [address] . tel:[phone] Offic/outpt E&m Estab Mod-hi 2 [facility] , [address] [place], [place] [address]Bret [place], , [place] tel:[phone] Shree Vernon Back pain (chief complaint) Body mass index (BMI) 29.0-29.9, adultRA w/o rheumatoid factor of multiple sitesFibromya lgiaOther chronic painOther filler leaf cutter long (current) drug therapyBack painMyofascia l pain syndrome 7 [place]. [address] [facility] 600Shree MD, [id number], [place]. tel:[phone] Referring Provider: Jamir Lugo, [address] [facility] 600, [place], [address] . tel:[phone] Offic/outpt E&m Estab Mod-hi 2 [facility] , [address] [place] [address], [place], , [place] tel:[phone] Shree Vernon Rheumatoid arthritis (chief complaint) Body mass index (BMI) 27.0-27.9, adultRA w/o rheumatoid factor of multiple sitesOther filler leaf cutter long (current) drug therapyOther chronic painFibromyal ivanna 7 [place]. [address] [facility] Shree Pickering MD, [id number], [place]. tel:[phone] Referring Provider: Jamir Lugo, [address] [facility] [place], [address] . tel:[phone] Offic/outpt E&m Estab Mod-hi 2 [facility] , [address] [place] [address] Bret Peters [place], , [place] tel:[phone] Shree Vernon Back pain (chief complaint) RA w/o rheumatoid factor of multiple sitesOther group home (current) drug therapyFibrom yalgiaOther chronic painDorsalgia 6 [place]. [address] [facility] Shree Pickering MD, [id number], [place]. tel:[phone] Referring Provider: Jamir Lugo, [address] [place], [place] [address]luis [facility] [place], [address] . tel:[phone] Offic/outpt E&m Estab Mod-hi 2 [facility] [address] Bret Peters MD, , [place] tel:[phone] Shree Vernon Rheumatoid arthritis (chief complaint) RA w/o rheumatoid factor of multiple sitesFibromya lgiaOther chronic painOther filler leaf cutter long (current) drug therapy 6 [place]. [address] [facility] Shree Pickering MD, [id number], [place]. tel:[phone] Referring Provider: Jamir Lugo, [address] [facility] [place], [address] . tel:[phone] Offic/outpt E&m Estab Mod-hi 2 [facility] , [address] [place] [address] Bret Peters [place], [id number], [place] tel:[phone] Shree Vernon Rheumatoid arthritis (chief complaint) RA w/o rheumatoid factor of multiple sitesFibromya lgiaOther chronic pain 6 [place]. [address] [facility] 600Shree MD, [id number], [place]. tel:[phone] Referring Provider: Jamir Lugo, [address] [facility] [place], [address] . tel:[phone] Offic/outpt E&m Estab Mod-hi 2 [facility] , [address] [place] [address] Bret Peters MD, [id number], [place] tel:[phone] Shree Vernon Rheumatoid arthritis (chief complaint) RA w/o rheumatoid factor of multiple sitesFibromya lgiaOther chronic painOther filler leaf cutter long (current) drug therapyIron deficiency 5 [place]. [address] [facility] 600Shree MD, [id number], [place]. tel:[phone] Referring Provider: Jamir Lugo, [address] [facility] 600[place], [address] . tel:[phone] [facility] , [address] [place] [address] Bret Peters MD, [id number], [place] tel:[phone] Shree Vernon No Information 5 [place]. [address] [facility] 600Shree MD, [id number], [place]. tel:[phone] Offic/outpt E&m Estab Mod-hi 2 [facility] , [address] [place] [address] Bret Peters MD, [id number], [place] tel:[phone] Shree Vernon Rheumatoid arthritis (chief complaint) Fibromyalia Syn Myalgia MyositRheumat oid ArthritisInso mniaChronic Pain 5 [place]. [address] [facility] 600Shree MD, [id number], [place]. tel:[phone] Referring Provider: Jamir Lugo, [address], [place], [address] . tel:[phone] Offic/outpt E&m Estab Mod-hi 2 [facility] , [address] [place] [address] 310, MD [place], [id number], [place] tel:[phone] Shree Vernon Fibromyalgia (chief complaint) Fibromyalia Syn Myalgia MyositRheumat oid ArthritisTher apeutic Drug Monitoring 5 [place]. [address], Shree Vernon MD, [id number], [place]. tel:[phone] Referring Provider: Jamir Lugo, [address], [place], [address] . tel:[phone] Offic/outpt E&m Estab Mod-hi 2 [facility] , [address] [place] [address] 310, MD [place], [id number], [place] tel:[phone] Shree Vernon Rheumatoid arthritis (chief complaint) Rheumatoid ArthritisTher apeutic Drug MonitoringFib romyalia Syn Myalgia MyositChronic Pain 5 [place]. [address], Shree Vernon MD, [id number], [place]. tel:[phone] Referring Provider: Jamir Lugo, [address], [place], [address] . tel:[phone] Offic/outpt E&m Estab Mod-hi 2 [facility] , [address] [place] [address] 310, MD [place], [id number], [place] tel:[phone] Shree Vernon Rheumatoid arthritis (chief complaint) Fibromyalia Syn Myalgia MyositRheumat oid ArthritisChro montse PainTherapeut ic Drug Monitoring 4 [place]. [address], Shree Vernon MD, [id number], [place]. tel:[phone] Referring Provider: Jamir Lugo, [address], [place], [address] . tel:[phone] [facility] , [address] [place] [address], MD [place], [id number], [place] tel:[phone] [address] No Information 4 [place]. [address] [facility] [place], Shree Vernon MD, [id number], [place]. tel:[phone] Referring Provider: Jamir Lugo, [address] [place], [place] [address]e [facility] 600, [place], [address] . tel:[phone] Offic/outpt E&m Estab Mod-hi 2 [facility] , [address] [place] [address], MD [place], , [place] tel:[phone] Shree Vernon Rheumatoid arthritis (chief complaint)Fib romyalgia (chief complaint) Rheumatoid ArthritisMyal ivanna Fibromyalgia MyositisChron ic Pain [address] [facility] 600, Shree Vernon [place], [id number], [place]. tel:[phone] Referring Provider: Jamir Lugo, [address] [place] [address] [place], [address] . tel:[phone] Offic/outpt E&m Estab Mod-hi 2 [facility] , [address] [place] [address], MD Bret, [id number], [place] tel:[phone] Shree Vernon musculoskelet al pain (chief complaint) Rheumatoid ArthritisMyal ivanna Fibromyalgia MyositisJoint Pain-up/armTh erapeutic Drug MonitoringFat igue / MalaiseChroni c Pain [address] [facility] 600Shree [place], [id number], [place]. tel:[phone] Referring Provider: Jamir Lugo, [address] [place], [place] [address]e [facility] 600, [place], [address] . tel:[phone] Offic/outpt E&m Estab Mod-hi 2 [facility] , [address] [place] [address] 310, MD Bret, , [place] tel:[phone] [place] Rheumatoid arthritis (chief complaint) Fatigue / MalaiseInflue nza VaccineRheuma toid ArthritisTher apeutic Drug MonitoringChr onic Pain [address] [facility] 600, Shree Vernon [place], [id number], [place]. tel:[phone] Referring Provider: Jamir Lugo, [address] [facility] 600, [place], [address] . tel:[phone] Offic/outpt E&m Estab Mod-hi 2 [facility] , [address] [place] [address] 310, MD Bret, , [place] tel:[phone] Shree Vernon rheumatoid arthritis (chief complaint) Therapeutic Drug MonitoringChr onic PainMyalgia Fibromyalgia MyositisRheum atoid Arthritis [address] [facility] 600, Shree Vernon [place], [id number], [place]. tel:[phone] Referring Provider: Jamir Lugo, [address] [facility] 600, [place], [address] . tel:[phone] Offic/outpt E&m Estab Mod-hi 2 [facility] , [address] [place] [address] 310, MD Bret, , [place] tel:[phone] Shree Vernon Rheumatoid arthritis (chief complaint)Fib romyalgia (chief complaint)mus culoskeletal pain (chief complaint) Bursitis, Rotator CuffRheumatoi d ArthritisTher apeutic Drug MonitoringJoi nt Pain-l/legChr onic Pain [address] [facility] 600, Shree Vernon [place], [id number], [place]. tel:[phone] Referring Provider: Jamir Lugo, [address] [facility] 600, [place], [address] . tel:[phone] Offic/outpt E&m Estab Mod-hi 2 [facility] , [address] [place] [address] 310, MD Bret, [id number], [place] tel:[phone] Shree Vernon Fibromyalgia (chief complaint)Rhe umatoid arthritis (chief complaint)mus culoskeletal pain (chief complaint) Bursitis, Rotator CuffRheumatoi d ArthritisMyal ivanna Fibromyalgia MyositisSleep ApneaTherapeu tic Drug Monitoring [address] [facility] 600, Shree Vernon [place], [id number], [place]. tel:[phone] Referring Provider: Jamir Lugo, [address], [place], [address] . tel:[phone] Offic/outpt E&m Estab Mod-hi 2 [facility] , [address] [place] [address] 310, MD Bret, , [place] tel:[phone] Shree Vernon Rheumatoid arthritis (chief complaint)Fib romyalgia (chief complaint) Myalgia Fibromyalgia MyositisRheum atoid ArthritisTher apeutic Drug MonitoringInf luenza Vaccine [address] [facility] 600, Shree Vernon MD, [id number], [place]. tel:[phone] Referring Provider: Jamir Lugo, [address], [place], [address] . tel:[phone] Offic/outpt E&m Estab Mod-hi 2 [facility] , [address] [place] [address] 310Bret [place], [id number], [place] tel:[phone] CHARLIE Rheumatoid arthritis (chief complaint) Rheumatoid ArthritisTher apeutic Drug MonitoringBur sitis, Rotator CuffFatigue / Malaise [address], Shree Vernon [place], [id number], [place]. tel:[phone] Referring Provider: Jamir Lugo, [address], [place], [address] . tel:[phone] Offic/outpt E&m Estab Mod-hi 2 [facility] , [address] [place] [address], MD Bret, , [place] tel:[phone] Shree Vernon Rheumatoid arthritis (chief complaint)Fib romyalgia (chief complaint) Rheumatoid ArthritisTher apeutic Drug MonitoringChr onic PainHypertens ion, BenignHyperte nsion, Benign Mar- 2 [address] [facility] 600, Shree Vernon MD, [id number], [place]. tel:[phone] Referring Provider: Jamir Lugo, [address] [facility] 600, [place], [address] . tel:[phone] Offic/outpt E&m Estab Mod-hi 2 [facility] , [address] [place] [address] 310, MD Bret, , [place] tel:[phone] [place] Rheumatoid Arthritis (chief complaint) Fibrositis/Rh eumatism NosInfluenza Vaccine 1 [address] [place] [facility] 600, Shree Vernon MD, [id number], [place]. tel:[phone] Referring Provider: Jamir Lugo, [address] [facility] 600, [place], [address] . tel:[phone] Offic/outpt E&m Estab Mod-hi 2 [facility] , [address] [place] [address] 310, MD Bret, , [place] tel:[phone] [place] Rheumatoid Arthritis (chief complaint) No Information 1 [address] [facility] 600Shree [place], [id number], [place]. tel:[phone] Referring Provider: Jamir Lugo, [address] [facility] 600[place], [address] . tel:[phone] Offic/outpt E&m Estab Mod-hi 2 [facility] , [address] [place] [address] 310, MD Bret, [id number], [place] tel:[phone] [place] Rheumatoid Arthritis (chief complaint) No Information [address] [facility] 600, Shree Vernon [place], [id number], [place]. tel:[phone] Referring Provider: Jamir Lugo, [address], [place], [address] . tel:[phone] Offic/outpt E&m Estab Mod-hi 2 [facility] , [address] [place] [address] 310Bret [place], [id number], [place] tel:[phone] [place] Rheumatoid Arthritis (chief complaint) No Information [address] [facility] 600, Shree Vernon MD, [id number], [place]. tel:[phone] Referring Provider: Jamir Lugo, [address] [place] [address] Ave [facility] 600, [place], [address] . tel:[phone] Offic/outpt E&m Estab Mod-hi 2 [facility] , [address] [place] [address], MD Bret, [id number], [place] tel:[phone] [place] Rheumatoid Arthritis (chief complaint) No Information 1 [address] [facility] 600Shree [place], [id number], [place]. tel:[phone] Referring Provider: Jamir Lugo, [address], [place], [address] . tel:[phone] Offic/outpt E&m Estab Mod-hi 2 [facility] , [address] [place] [address] 310, MD Bret, [id number], [place] tel:[phone] [place] Rheumatoid Arthritis (chief complaint) Ulcer, GastricBenign Hypertension 1 [address] 5[address] [facility] 600Shree [place], [id number], [place]. tel:[phone] Referring Provider: Jamir Lugo, [address], [place], [address] . tel:[phone] Offic/outpt E&m Estab Mod-hi 2 [facility] , [address] [place] [address] 310, MD Bret, [id number], [place] [phone] [place] Rheumatoid Arthritis (chief complaint) No Information [address] [facility] 600, Shree Vernon MD, [id number], [place]. [phone] Referring Provider: Jamir Lugo, [address] [facility] 600, [place], [address] . tel:[phone] Offic/outpt E&m Estab Mod-hi 2 [facility] , [address] [place] [address] 310, MD Bret, [id number], [place] tel:[phone] CHARLIE Rheumatoid Arthritis (chief complaint) No Information [address] [facility] 600, Shree Vernon MD, [id number], [place]. tel:[phone] Referring Provider: Jamir Lugo, [address] [facility] 600, [place], [address] . tel:[phone] Offic/outpt E&m Estab Mod-hi 2 [facility] , [address] [place] [address] 310Bret [place], [id number], [place] tel:[phone] CHARLIE Rheumatoid Arthritis (chief complaint) No Information [address] [facility] 600Shree MD, [id number], [place]. tel:[phone] Referring Provider: Jamir Lugo, [address] [facility] 600, [place], [address] . tel:[phone] Offic/outpt E&m Estab Low-mod [facility] , [address] [place] [address] 310Bret [place], [id number], [place] tel:[phone] CHARLIE Rheumatoid Arthritis (chief complaint) No Information [address] 5[address] [facility] 600Shree MD, [id number], [place]. tel:[phone] Referring Provider: Jamir Lugo, [address] [place], [place] [address] [facility] 600, [place], [address] . tel:[phone] [facility] , [address] [place] [address], MD Bret, , [place] tel: [phone] PT [place] Back Pain (chief complaint) No Information 0 No Information Referring Provider: Jamir Lugo, [address] [place], [place] [address]e [facility] 600, [place], [address] . tel:[phone] [facility] , [address] [place] [address], MD Bret, , [place] tel: [phone] PT [place] Back Pain (chief complaint) No Information 0 No Information Referring Provider: Jamir Lugo, [address] [place] [address] 600, [place], [address] . tel:[phone] [facility] , [address] [place] [address], MD Bret, , [place] tel: [phone] PT [place] Back Pain (chief complaint) No Information 0 No Information Referring Provider: Jamir Lugo, [address] [place] [address] 600, [place], [address] . [phone] [facility] , [address] [place] [address] 310, MD Bret, , [place] tel: [phone] PT [place] Back Pain (chief complaint) No Information 0 No Information Referring Provider: Jamir Lugo, [address] [place] [address] 600, [place], [address] . tel:[phone] Offic/outpt E&m Estab Mod-hi 2 [facility] , [address] [place] [address], MD Bret, , [place] tel: [phone] [place] Rheumatoid Arthritis (chief complaint) No Information 0 [address] [place] [address] 600, Shree Vernon MD, [id number], [place]. tel:[phone] Referring Provider: Jamir Lugo, [address] [facility] 600, [place], [address] . tel:[phone] [facility] , [address] [place] [address], MD Bret, [id number], [place] tel:[phone] [place] No Information 0 [address]. [address] [facility] 600, Shree Vernon MD, [id number], [place]. tel:[phone] Referring Provider: Jamir Lugo, [address] [facility] 600, [place], [address] . tel:[phone] Offic/outpt E&m Estab Mod-hi 2 [facility] , [address] [place] [address], MD Bret, [id number], [place] tel:[phone] [place] Rheumatoid Arthritis (chief complaint) No Information 0 [address] [facility] 600, Shree Vernon MD, [id number], [place]. tel:[phone] Referring Provider: Jamir Lugo, [address] [facility] [place], [place], [address] . tel:[phone] Offic/outpt E&m Estab [facility]-hi 2 [facility] , [address] [place] [address], MD Bret, [id number], [place] tel:[phone] [place] Rheumatoid Arthritis (chief complaint) No Information [address] [facility] 600, Shree Vernon MD, [id number], [place]. tel:[phone] Referring Provider: Jamir Lugo, [address] [facility] [place], [address] . tel:[phone] Offic/outpt E&m Estab Mod-hi 2 [facility] , [address] [place] [address], MD Bret, [id number], [place] tel:[phone] [place] Rheumatoid Arthritis (chief complaint) No Information [address], Shree Vernon MD, [id number], [place]. tel:[phone] Referring Provider: Jamir Lugo, [address] [facility] 600, [place], [address] . tel:[phone] Offic/outpt E&m Estab Low-mod [facility] , [address] [place] [address], MD Bret, [id number], tel:[phone] [place] Rheumatoid Arthritis (chief complaint) No Information [address] [facility] 600, Shree Vernon MD, [id number], [place]. tel:[phone] Referring Provider: Jamir Lugo, [address] [place] [address] Ave [facility] 600, [place], [address] . tel:[phone] Offic/outpt E&m Estab Mod-hi 2 [facility] , [address] [place] [address], MD Bret, [id number], [place] tel:[phone] [place] Rheumatoid Arthritis (chief complaint) No Information [address] [facility] 600, Shree Vernon MD, [id number], [place]. tel:[phone] Referring Provider: Jamir Lugo, [address], [place], [address] . tel:[phone] Offic/outpt E&m Estab Mod-hi 2 [facility] , [address] [place] [address], MD Bret, [id number], [place] tel:[phone] [place] Rheumatoid Arthritis (chief complaint) No Information [address] [facility] 600Shree MD, [id number], [place]. tel:[phone] Referring Provider: Jamir Lugo, [address], [place], [address] . tel:[phone] Offic/outpt E&m Estab Mod-hi 2 [facility] , [address] [place] [address] Bret Peters [place], [id number], [place] tel:[phone] CHARLIE Rheumatoid Arthritis (chief complaint) No Information [address] [facility] 600, Shree Vernon MD, [id number], [place]. tel:[phone] Referring Provider: Jamir Lugo, [address] [place] [address] 600, [place], [address] . tel:[phone] Offic/outpt E&m Estab Mod-hi 2 [facility] , [address] [place] [address] 310, MD Bret, [id number], [place] tel:[phone] CHARLIE Rheumatoid Arthritis (chief complaint) Rheumatoid ArthritisIron Defic Anemia NosIron Defic Anemia NosIron Defic Anemia Nos 8 [address] [facility] 600, Shree Vernon MD, [id number], [place]. tel:[phone] Referring Provider: Jamir Lugo, [address] [place], [place] [address] [facility] 600, [place], [address] . tel:[phone] [facility] , [address] [place] [address] Fran, MD Bret, [id number], [place] tel:[phone] CHARLIE Rheumatoid Arthritis (chief complaint)Kwesi k Pain (chief complaint) Rheumatoid ArthritisFibr omyalgia Syn Myalgia MyositChronic PainLong Term High Risk Meds [address] [facility] 600Shree MD, [id number], [place]. tel:[phone] Referring Provider: Jamir Lugo, [address] [facility] 600, [place], [address] . tel:[phone] Offic/outpt E&m Estab Mod-hi 2 [facility] , [address] [place] [address] 310, MD Bret, [id number], [place] tel:[phone] CHARLIE Rheumatoid Arthritis (chief complaint)Fib romyalgia Syndrome (chief complaint) Rheumatoid ArthritisChro montse Pain 8 [address]. [address] [facility] 600, Shree Vernon MD, [id number], [place]. tel:[phone] Referring Provider: Jamir Lugo, [address] [place], [place] [address]e [facility] 600, [place], [address] . tel:[phone] Offic/outpt E&m Estab Low-mod [facility] , [address] [place] [address], MD Bret, [id number], [place] tel:[phone] [place] Rheumatoid Arthritis (chief complaint)Fib romyalgia Syndrome (chief complaint) Rheumatoid ArthritisFibr omyalia Syn Myalgia MyositJoint Hypermobility SyndromeChron ic PainLong Term High Risk Meds [address] [place] [address] 600, Shree Vernon MD, [id number], [place]. tel:[phone] Referring Provider: Jamir Lugo, [address] [place] [address], [place], [address] . tel:[phone] Offic/outpt E&m Estab Mod-hi 2 [facility] , [address] [place] [address], MD Bret, [id number], [place] tel:[phone] [place] No Information 0 [address] [place] [address], Shree Vernon MD, [id number], [place]. tel:[phone] Referring Provider: Jamir Lugo, [address] [place] [address] 600, [place], [address] . tel:[phone] [facility] , [address] [place], [place] [address]Bret MD, [id number], [place] tel:[phone] [place] No Information [address]. [address] [place] [address] 600Shree MD, [id number], [place]. tel:[phone] Referring Provider: Jamir Lugo, [address] [place] [address] 600, [place], [address] . tel:[phone] Offic/outpt E&m Estab Mod-hi 2 [facility] [address] [place] [address], MD Bret, [id number], [place] tel:[phone] [place] No Information [address] [facility] 600, Shree Vernon MD, [id number], [place]. tel:[phone] Referring Provider: Jamir Lugo, [address] [place] [address] Ave [address], [place], [address] . tel:[phone] Offic/outpt E&m Estab Mod-hi 2 [facility] , [address] [place] [address] 310, MD Bret, [id number], [place] tel:[phone] [place] No Information [address] [facility] 600, Shree Vernon MD, [id number], [place]. tel:[phone] Referring Provider: Jamir Lugo, [address] [place] [address] Ave [facility] 600, [place], [address] . tel:[phone] Offic/outpt E&m Estab Mod-hi 2 [facility] , [address] [place] [address] 310, MD Bret, [id number], [place] tel:[phone] [place] No Information [address] [facility] 600, Shree Vernon MD, [id number], [place]. tel:[phone] Referring Provider: Jamir Lugo, [address] [place] [address] Ave [address], [place], [address] . tel:[phone] Offic/outpt E&m Estab Mod-hi 2 [facility] , [address] [place] [address] 310, MD Bret, [id number], [place] tel:[phone] [place] No Information [address], Shree Vernon MD, [id number], [place]. tel:[phone] Referring Provider: Jamir Lugo, [address], Shree Vernon MD, . tel:[phone] Offic/outpt E&m Estab Mod-hi 2 [facility] , [address] [place], [place] [address]Bret [place], [id number], [place] tel:[phone] [place] No Information 6 [address] [place]. [address] [facility] 600, Shree Vernon MD, [id number], [place]. tel:[phone] Referring Provider: Jamir Lugo, [address] [place], [place] [address] [facility] 600, [place], [address] . tel:[phone] Offic/outpt E&m Estab Mod-hi 2 [facility] , [address] [place] [address], MD Bret, [id number], [place] tel:[phone] [place] No Information 6 [address] [place] [facility] 600, Shree Vernon MD, [id number], [place]. tel:[phone] Referring Provider: Jamir Lugo, [address] [facility] 600, [place], [address] . tel:[phone] Offic/outpt E&m Estab Mod-hi 2 [facility] , [address] [place] [address] Bret Peters MD, [id number], [place] tel:[phone] [place] No Information 6 No Information Offic/outpt E&m Estab Mod-hi 2 [facility] , [address] [place] [address] Bret Peters MD, [id number], [place] tel:[phone] [place] No Information 6 No Information Offic/outpt E&m Estab Mod-hi 2 [facility] , [address] [place] [address] Bret Peters MD, , [place] tel:[phone] [place] No Information 5 No Information Family [...] preservative free, 3 years and older Afluria 0100-2000 administered Source: New Immu nization Record Influenza, split virus, injectable, 3 years and older Fluvirin 2699-8321 administered Source: New Immuniza tion Record Flu, [...] Record Payers Payer name Insurance type Covered libertarian ID Authoriza tion(s) [employer] BL [id number] [employer] BL [id number] [employer] BL [id number] [employer] BL [id number] [employer] Managed Choice Open Access CI [id number] [employer] N[employer] PPO And POS BL [id number] Social History Type Description Quantity Date Captured [...] Referral [place] [address] [facility] [address] [place], [address] [phone] Ordered: Referrals: Otolaryngology. Marco A Pond MD. Evaluate and treat ordered Referral Ordered: Xray Elbow; Ap & Lat Views Left ordered Referral Ordered: Xray Knee; Three Views Left ordered Referral Referred To: Samm Cardona MD [address] [facility] [address] [place], [place], [id number] Ordered: Referral: Samm Cardona MD. ordered Referral [...] Telehealth Physician Locati on: Shree VernonPatient Location: [address] [place] [address] of Visit: Virtual VisitOther participants: NoneInterpreter: NoneThis [...] Telehealth Physician Locati on: Shree VernonPatient Location: [address] [place], [place] [address] of Visit: Virtual VisitOther participants: NoneInterpreter: NoneThis [...] rash, SICCA symptoms, weakness and weight loss. [facility] Physician Locati on: Shree VernonPatient Location: [address] [place], [place] [address] of Visit: Virtual VisitOther participants: NoneInterpreter: NoneThis [...]
--- OUTSIDE RECORDS SUMMARY | 2024-09-02 16:55 | XMS_ITS | Continuity of Care Document ---
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 NEW PATIENT OFFICE VISIT- LEVEL 4 X-RAY WRIST - 3 VIEWS WRIST PRO 8 INCH Advance Directives Directive Yes / No Effective Date File Name No Information Encounters Encounter Description Practice Location Reason(s) For Visit Diagnoses Date Provider Providers Copied on Encounter [facility], [address], [place], [place], [address], [place] tel:[phone] [facility] Post-Op (chief complaint) XRAY ORDERAftercar e following surgery of the musculoskelet al system, NEC 9 No Information [facility], [address], [place], [place], [address], [place] tel:[phone] [facility] Post-Op (chief complaint) XRAY ORDERClosed torus fracture of distal end of left radius, sequelaAfterc are following surgery of the musculoskelet al system, NEC 9 No Information [facility], [address], [place], [place], [address], [place] tel:[phone] [facility] Post-Op (chief complaint) XRAY ORDERClosed torus fracture of distal end of left radius, sequelaAfterc are following surgery of the musculoskelet al system, NEC 9 No Information [facility], [address], [place], [place], [address], [place] tel:[phone] [facility] No Information 9 No Information [facility], [address], [place], [place], [address], [place] tel:[phone] [facility] Post-Op (chief complaint) Closed torus fracture of distal end of left radius, sequelaAfterc are following surgery of the musculoskelet al system, NECXRAY ORDER 9 No Information [facility], [address], [place], [place], [address], [place] tel:[phone] [facility] Post-Op (chief complaint) Closed torus fracture of distal end of left radius, sequelaAfterc are following surgery of the musculoskelet al system, NECXRAY ORDER Feb-0 9 No Information [facility], [address], [place], [place], [address], [place] tel:[phone] [facility] OP No Information Jan- 9 EVARISTO FELIZ. [address], [address], [place], [place], [address], [place]. tel:[phone] Referring Provider: TRAY LOERA, [address], [place], [address] . tel:[phone] [facility], [address], [place], [place], [address], [place] tel:[phone] [facility] OP No Information Jan- 9 No Information Referring Provider: TRAY LOERA, [address], [place], [address] . tel:[phone] NEW PATIENT OFFICE VISIT- LEVEL 4 [facility], [address], [place], [place], [address], [place] tel:[phone] [facility] Fracture (chief complaint) DME (chief complaint) XRAY ORDERClosed Colles' fracture of left radius, initial encounterOthe r closed intra-articul ar fracture of distal end of left radius, initial encounterClos ed displaced fracture of styloid process of left radius, initial encounter Jan- 9 EVARISTO FELIZ. [address], [address], [place], [place], [address], [place]. tel:[phone] Referring Provider: TRAY LOERA [address], [place], [address] . tel:[phone] Family History Family Member Type Diagnosis Age [...] ) Payers Payer name Insurance type Covered libertarian ID Hitesh hubbard(s) [facility] [id number] Social History Type Description Quantity Date Captured [...] and tolerating the cock-up brace. 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 Patient Care Teams Name Effective Dates (start - stop) Status Members No Information
[2024-09-02 17:04] LABS: Folate 14.7 ng/mL (> or = 4.0); Vitamin B12 598 pg/mL (200-900)
== END 2024-09-02 14:43 | disposition home or self-care (01) ==
LOC: HO.MAMMO 14:42
PROVIDERS: PCP Nurse Practitioner Family; Visit Provider Nurse Practitioner Family
DX: Z12.31 Encounter for screening mammogram for malignant neoplasm of breast (principal); D64.9 Anemia, unspecified
CPT/HCPCS: 36415; 77063; 77067; 82607; 82728; 82746; 83540

== ENCOUNTER → 2024-09-02 14:45 | Outpatient (BNV) | payer BC, SELFPAY | PROVIDERS: PCP Nurse Practitioner Family; Visit Provider Internal Medicine | DX: Z12.31 Encounter for screening mammogram for malignant neoplasm of breast (principal) | CPT/HCPCS: 77063; 77067 ==

== ENCOUNTER 2024-10-03 10:09 | Outpatient (REF) | payer BC, SELFPAY ==
--- OUTSIDE RECORDS SUMMARY | 2024-10-03 10:11 | XMS_ITS | Continuity of Care Document ---
Author Organization [facility] [address] [facility] [address] [place] [address] Phone [phone] Care Team Providers Care Speedboat Operator Name Role Phone Cyndi Chavira CNP Care Team Information Receive r [phone] Problems Active Problems Provider Date Essential tremor [...] Qnty Indications Order ing Provider Date Alendronate Torgfv67wa Tablets take 1 tablet by mouth weekly 30 minutes before the first food, beverage or medicine of the day with plain water for osteoporosis 30tabs Yamila Rodriguez M.D. 08/30/2023 Zolpidem Scviqmwj36jp Tablets Take 1 Tablet By Mouth AT Bedtime Cyndi Chavira CNP Doxycycline Nruskdm22hq Tablets Take 1 Tablet By Mouth Twice A Day Unknown Sumatriptan Edtptciiu420jz Tablets Please See Attached For Detailed Directions Unknown Tizanidine HCL2mg Tablets Take 1 Tablet By Mouth 3 Times A Day Cyndi Chavira CNP Duloxetine WYG53rd Caps DR Part Take 1 Capsule By Mouth Every Day For 90 Days Cyndi Chavira CNP Eezsjkfwthffsn13ac Tablets Take 1 Tablet By Mouth Twice A Day Unknown Hydroxychloroquine Kcjkdpx141ps Tablets Take 2 Tablets By Mouth Every Day Cyndi Chavira CNP Acetaminophen/Codeine Txahnqarw506-61pq Tablets Take 2 Tablets By Mouth Twice [...] D deficiency has been defined by the Mallie of Medicine and an Endocrine Society practice guideline as a level of serum 25-OH vitamin D less than 20 ng/mL (1,2). The Endocrine Society went on to further define vitamin D insufficiency as a level between 21 and 29 ng/mL (2). 1. IOM ([place]ie of Medicine). 2010. Dietary reference intakes for calcium and D. [place]: The National Academies Press. 2. Esteban Rodrigez, Cirilo SAEED, et al. Evaluation, treatment, and prevention of vitamin D deficiency: an Endocrine Society clinical practice guideline. JCEM. 2010; 96(7):1911-30. 2 Vitamin D deficiency has been defined by the Mallie of Medicine and an Endocrine Society practice guideline as a level of serum 25-OH vitamin D less than 20 ng/mL (1,2). The Endocrine Society went on to further define vitamin D insufficiency as a level between 21 and 29 ng/mL (2). 1. IOM ([place]ie of Medicine). 2010. Dietary reference intakes for [...]
--- OUTSIDE RECORDS SUMMARY | 2024-10-03 10:11 | XMS_ITS | Continuity of Care Document ---
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 Name Role Phone Unavailable Unavailable Unavailable Allergies, [...] Location Reason(s) For Visit Diagnoses Date Provider [facility] [place] Jerem[address], [address], [address] , [place] tel: [phone] CLOSED [address] [facility] No Information 6 No Information [facility], [address] , [address] [place], [address] , [place] tel: [phone] CLOSED [address] [facility] No Information 6 No Information PREV VISIT, EST, AGE 40-64 [facility], [address] , [address] [place], [address] , [place] tel: [phone] CLOSED [address] [facility] *FAMILY CONSULTANT Exam (chief complaint) ROUTINE FAMILY CONSULTANT EXAMINATION 5 No Information PREV VISIT, EST, AGE 18-39 [facility], [address] , [address], [place], [address] , [place] tel: [phone] CLOSED [address] [facility] annual exam (chief complaint) SPECIAL SCREEN EXAM HPVMyalgia and myositis, unspecifiedGynecological Examination 4 No Information [facility], [address] , [address], [place], [address] , [place] tel: [phone] CLOSED [address] [facility] annual visit (chief complaint) Rheumatoid Arthritis 2 No Information [facility], [address] , [address] [place], [address] , [place] tel: [phone] CLOSED [address] [facility] venereal warts (chief complaint) Viral warts, unspecified 1 No Information [facility], [address] [place], [address] , [place] tel: [phone] CLOSED [address] [facility] annual visit (chief complaint) Gynecological ExaminationViral warts, unspecifiedAbsence of menstruation 1 No Information [facility], [address] , [address], [place], [address] , [place] tel:[phone] CLOSED [address] [facility] Routine gynecological examination 0 No Information Family History Family Member Type Diagnosis Age At Onset Father Problem (finding) cancer of colon Payers Payer name Insurance type Covered libertarian ID Authoriza tion(s) [id number] Social History Type Description Quantity Date Captured Comments Sex Female Smoking Status No Information Chief Complaint And Reason For Visit No Information History Of Present Illness Encounter Date Complaint History Of Prese nt Illness *FAMILY CONSULTANT Exam The patient does not use tobacco. Additional information: no authorization rep changes, has never had a mammogramno periods on the Plll. annual exam Last LMP was . Additional information: amenorrhea on Alyacen 135has RA and fibromyalgiasame partner x 4 yrs; definitely no plans to have children Instructions Date Instruction Additional Infor denisa see plan Related to NIMAI [place] FAMILY CONSULTANT EXAMINATION see plan details Related to Gyne cological Examination Assessments Type Assessment Date No Information
--- OUTSIDE RECORDS SUMMARY | 2024-10-03 10:11 | XMS_ITS | Continuity of Care Document ---
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 Name Role Phone Unavailable Unavailable Unavailable Allergies, [...] FRAG TREAT FX RADIAL 3+ FRAG - E COMMERCE ARCHITECT NEW PATIENT OFFICE VISIT- LEVEL 4 X-RAY WRIST - 3 VIEWS WRIST PRO 8 INCH Advance Directives Directive Yes / No Effective Date File Name No Information Encounters Encounter Description Practice Location Reason(s) For Visit Diagnoses Date Provider Providers Copied on Encounter [facility], [address], [place], [place], [address], [place] tel:[phone] [facility] Post-Op (chief complaint) XRAY ORDERAftercar e following surgery of the musculoskelet al system, NEC 9 No Information [facility], [address], [place], [place], [address], [place] tel:[phone] [facility] Post-Op (chief complaint) XRAY ORDERClosed torus fracture of distal end of left radius, sequelaAfterc are following surgery of the musculoskelet al system, NEC 9 No Information [facility], [address], [place], [place], [address], [place] tel:[phone] [facility] Post-Op (chief complaint) XRAY ORDERClosed torus fracture of distal end of left radius, sequelaAfterc are following surgery of the musculoskelet al system, NEC 9 No Information [facility], [address], [place], [place], [address], [place] tel:[phone] [facility] No Information 9 No Information [facility], [address], [place], [place], [address], [place] tel:[phone] [facility] Post-Op (chief complaint) Closed torus fracture of distal end of left radius, sequelaAfterc are following surgery of the musculoskelet al system, NECXRAY ORDER 9 No Information [facility], [address], [place], [place], [address], [place] tel:[phone] [facility] Post-Op (chief complaint) Closed torus fracture of distal end of left radius, sequelaAfterc are following surgery of the musculoskelet al system, NECXRAY ORDER Feb-0 9 No Information [facility], [address], [place], [place], [address], [place] tel:[phone] [facility] OP No Information Jan- 9 EVARISTO FELIZ. [address], [address], [place], [place], [address], [place]. tel:[phone] Referring Provider: TRAY LOERA, [address], [place], [address] . tel:[phone] [facility], [address], [place], [place], [address], [place] tel:[phone] [facility] OP No Information Jan- 9 No Information Referring Provider: TRAY LOERA, [address], [place], [address] . tel:[phone] NEW PATIENT OFFICE VISIT- LEVEL 4 [facility], [address], [place], [place], [address], [place] tel:[phone] [facility] Fracture (chief complaint) DME (chief complaint) XRAY ORDERClosed Colles' fracture of left radius, initial encounterOthe r closed intra-articul ar fracture of distal end of left radius, initial encounterClos ed displaced fracture of styloid process of left radius, initial encounter Jan- 9 EVARISTO FELIZ. [address], [address], [place], [place], [address], [place]. tel:[phone] Referring Provider: TRAY LOERA [address], [place], [address] . tel:[phone] Family History Family Member Type Diagnosis Age [...] Insurance type Covered libertarian ID Hitesh hubbard(s) [facility] [id number] Social History Type Description Quantity Date Captured [...] and tolerating the cock-up brace. 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 Patient Care Teams Name Effective Dates (start - stop) Status Members No Information
--- OUTSIDE RECORDS SUMMARY | 2024-10-03 10:11 | XMS_ITS | Continuity of Care Document ---
Author Organization [facility] Address [address] [facility] [address] MD [place] Phone Care Team Providers Care Bull Fiddle Player Name Role Phone No Information Unavailable Unavailable Allergies, Adverse Reactions, Alerts Substance Reaction Status Criticality NO KNOWN ALLERGIES Active No Inform ation Medications Medication Instructions [...] Active Procedures Procedure Date Offic/outpt E&m Estab [facility] 2 Collection Of Venous Blood By Venipunctu re L, Comp Metabolic Panel L, C-reactive Protein L, Sed Rate, Erythrocyte L, CBC Auto Diff L, Handling Of Lab Specimens LC, Drug Screen, Single Drug Class Metho d Offic/outpt E&m Estab [facility] 2 Virtual Offic/outpt E&m [facility] 2 D Collection Of Venous Blood By Venipunctu re L, Comp Metabolic Panel L, C-reactive Protein L, Sed Rate, Erythrocyte L, CBC Auto Diff L, Handling Of Lab Specimens LC, Drug Screen, Single Drug Class Metho d Offic/outpt E&m [facility] 2 Immuniz Admin; 1/combo Vacc/to Flucelvax Quad [...] Estab Mod-hi 2 16 Offic/outpt E&m Estab Mod-wa 2 16 Collection Of Venous Blood By Venipunctu re L, Comp Metabolic Panel L, C-reactive Protein LC, Iron LC, Iron Binding Capacity L Sed Rate, Erythrocyte L, CBC Auto Diff L, Handling Of Lab Specimens Offic/outpt E&m Estab Mod-hi 2 15 Immuniz Admin; 1/combo Vacc/to 15 Flu Vir Vacc-split 3 Yr & > Im (Fluvirin ) Offic/outpt E&m Estab [facility]-wa 2 15 Collection Of Venous Blood By Venipunctu re L, Comp Metabolic Panel L, C-reactive Protein L, Sed Rate, Erythrocyte; Automated L, CBC Auto Diff Offic/outpt E&m Estab Mod-wa 2 15 Collection Of Venous Blood By Venipunctu re L, Comp Metabolic Panel L, C-reactive Protein L, Sed Rate, Erythrocyte; Automated L, CBC Auto Diff Offic/outpt E&m [facility] 2 15 Xray Foot; Complt Mini 3 Views 14 Xray Hand And Wrist Mini 3 Views 2013 Collection Of Venous Blood By Venipunctu re L, Comp Metabolic Panel L, C-reactive Protein L, Sed Rate, Erythrocyte; Automated L, CBC Auto Diff Offic/outpt E&m [facility] 2 14 Collection Of Venous Blood By Venipunctu re L, Comp Metabolic Panel L, C-reactive Protein L, Sed Rate, Erythrocyte; Automated L, CBC Auto Diff Offic/outpt E&m [facility] 2 14 Xray Elbow; Ap & Lat Views Collection Of Venous Blood By Venipunctu re L, Comp Metabolic Panel L, C-reactive Protein L, Iron Total L, Iron TIBC LC, Ferritin L, Sed Rate, Erythrocyte; Automated L, TSH L, CBC Auto Diff L, Handling Of Lab Specimens Offic/outpt E&m Estab Mod-wa 2 14 Collection Of Venous Blood By [...] Rate L, CBC Auto Diff Offic/outpt E&m [facility] Mod-hi 2 13 Depo-Medrol 40 Mg [...] Mini 3 Views 011 Offic/outpt E&m Estab Mod-wa 2 11 Xray Hand And Wrist Mini [...] L, CBC Auto Diff Offic/outpt E&m Estab Mod-wa 2 11 Offic/outpt E&m Estab Mod-wa 2 11 Routine Venipunct/finger/heel 1 L, Comp Metabolic Panel L, C-reactive Protein L, Sed Rate L, CBC Auto Diff Offic/outpt E&m Estab Mod-wa 2 11 Offic/outpt E&m Estab Mod-wa 2 11 Routine Venipunct/finger/heel 0 L, Comp Metabolic Panel L, C-reactive Protein L, Iron Total L, Iron TIBC LC, Ferritin L, Sed Rate L, CBC Auto Diff L, Handling Of Lab Specimens Offic/outpt E&m Estab Mod-wa 2 10 Flu Vir Vacc-split 3 Yr & > Im 10 Immuniz Admin; 1/combo Vacc/to 10 Offic/outpt E&m Estab Mod-wa 2 10 Inj; 1/mx Trig Point 1/two [...] Estab Mod-hi 2 09 Offic/outpt E&m Estab Mod-wa 2 08 Offic/outpt E&m Estab Mod-wa 2 08 Flu Vir Vacc-split 3 Yr & > Im 08 Offic/outpt E&m Estab Mod-hi 2 08 Therapeutic Injection Sub Q Or IM Flu Vir Vacc-split 3 Yr & > Im 08 Ultra Sound Diagnostic L, Comp Metabolic Panel L, C-reactive Protein L, CBC Auto Diff L, Sed Rate Routine Venipunct/finger/heel 8 Offic/outpt E&m Estab Low-mod 7 Offic/outpt E&m Estab Mod-wa 2 07 L, Hepatic Panel Routine Venipunct/finger/heel 7 Offic/outpt E&m Estab Mod-wa 2 07 Rad Exam Chest 2 Views [...] Rate Routine Venipunct/finger/heel 6 Offic/outpt E&m Estab Mod-wa 2 06 Arthrocentesis/aspir/inj; Inte 06 Medication, Depo-Medrol 40 Mg 6 Rad Exam Elbow; Ap & Lat Views 06 L, Comp Metabolic Panel L, C-reactive Protein L, CBC Auto Diff L, Sed Rate Routine Venipunct/finger/heel 6 Offic/outpt E&m Estab Mod-wa 2 06 Rad Exam Hip; Complt Mini 2 Vi 06 L, Comp Metabolic Panel L, Sed Rate Routine Venipunct/finger/heel 6 L, C-reactive Protein L, CBC Auto Diff Offic/outpt E&m Estab Mod-wa 2 05 Arthrocentesis/aspir/inj; Ele 05 Arthrocentesis/aspir/inj; Ele [...] [address], [place], , [place] tel:[phone] No Information 4 No Information [facility] , [address] [place] [address], [place], , [place] tel:[phone] Shree Vernon No Information 3 [address] [place]. [address] [facility] [address], Shree [place], [id number], [place]. tel:[phone] [facility] , [address] [place] [address], [place], , [place] tel:[phone] Shree Vernon No Information 3 Rafael Enciso. [address] [place] [address] 310, [place], [id number], [place]. tel:[phone] [facility] , [address] [place], [place] [address]Bret [place], , [place] tel:[phone] Shree Vernon No Information 3 [address] [place]. [address] [facility] [address], Shree [place], [id number], [place]. tel:[phone] [facility] , [address] [place] [address], [place], [id number], [place] tel:[phone] Shree Vernon No Information 3 [address] [place]. [address] [facility] [address], hSree Vernon [place], [id number], [place]. tel:[phone] Offic/outpt E&m Estab Mod-hi 2 [facility] , [address] [place], [place] [address]Bret [place], [id number], [place] tel:[phone] Shree Vernon Other chronic painLong term (current) use of opiate analgesicHype rmobility syndromeSpina l stenosis of cervical regionRA w/o rheumatoid factor of multiple sitesOther intermediate project manager (current) drug therapy 3 [place]. [address] [facility] 600, Shree [place], [id number], [place]. tel:[phone] Referring Provider: Jamir Lugo, [address] [facility] 600, [place], [address] . tel:[phone] [facility] , [address] [place] [address], [place], [id number], [place] tel: [phone] Shree Vernon No Information 3 [address]. [address], [facility] 600, Shree Vernon MD, [id number], [place]. tel:[phone] [facility] , [address] [place] [address], [place], [id number], [place] tel: [phone] Shree Vernon No Information 3 [place]. [address] [facility], [facility] 600, Shree Vernon MD, [id number], [place]. tel:[phone] Offic/outpt E&m Estab Mod-hi 2 [facility] , [address] [place] [address], [place], [id number], [place] tel: [phone] Shree Vernon RA w/o rheumatoid factor of multiple sitesSpinal stenosis of cervical regionHypermo bility syndromeLong term (current) use of opiate analgesicOthe r chronic pain 3 [address] [place]. [address], [facility] [address], Shree Vernon [place], [id number], [place]. tel:[phone] Referring Provider: Jamir Lugo, [address] [facility] [address], [place], [address] . tel:[phone] Virtual Offic/outpt E&m Estab Mod-hi 2 [facility] , [address] [place] [address], [place], [id number], [place] tel:[phone] [place] Other chronic painOther intermediate project manager (current) drug therapy 2 Jagdish Piedra. [address], [place], [id number], [place]. tel:[phone] Referring Provider: Jamir Lugo, [address] [facility] [address], [place], [address] . tel:[phone] Offic/outpt E&m Estab Mod-hi 2 [facility] , [address] [place] [address], [place], [id number], [place] tel:[phone] Shere Vernon RA w/o rheumatoid factor of multiple sitesFibromya lgiaOther chronic painLong term (current) use of opiate analgesicHype rtensionOther intermediate project manager (current) drug therapy 2 [place]. [address] [facility], [address], Shree Vernon [place], [id number], [place]. tel:[phone] Referring Provider: Jamir Lugo, [address] [facility] [address], [place], [address] . tel:[phone] Offic/outpt E&m Estab Mod-hi 2 [facility] , [address] [place] [address], [place], , [place] tel:[phone] Shree Vernon RA w/o rheumatoid factor of multiple sitesOpioid use, unspecified, uncomplicated Other intermediate project manager (current) drug therapyFibrom yalgiaOther chronic painRadial styloid tenosynovitis [de Quervain]Anem ia 2 [place]. [address] [facility], [address], Shree [place], [id number], [place]. tel:[phone] Referring Provider: Jamir Lugo, [address] [facility] [address], [place], [address] . tel:[phone] Offic/outpt E&m Estab Mod-hi 2 [facility] , [address] [place] [address], [place], , [place] tel:[phone] Shree Vernon RA w/o rheumatoid factor of multiple sitesLong term (current) use of opiate analgesicOthe r correction (current) drug therapyFibrom yalgiaOther chronic pain 2 [place]. [address], [address], Shree Vernon [place], [id number], [place]. tel:[phone] Referring Provider: Jamir Lugo, [address] [facility] [address], [place], [address] . tel:[phone] Offic/outpt E&m Estab Low-mod [facility] , [address] [place] [address], [place], [id number], [place] tel:[phone] [place] FibromyalgiaO ther chronic pain Apr- 1 Jagdish Piedra. [address], [place], [id number], [place]. tel:[phone] Referring Provider: Jamir Lugo, [address] [facility] [address], [place], [address] . tel:[phone] Offic/outpt E&m Estab Mod-hi 2 [facility] , [address] [place] [address], [place], [id number], [place] tel:[phone] Shree Vernon RA w/o rheumatoid factor of multiple sitesLong term (current) use of opiate analgesicOthe r chronic painFibromyal giaOther correction (current) drug therapy 1 [place]. [address], [address], Shree [place] MD, [id number], [place]. tel:[phone] Referring Provider: Jamir Lugo, [address] [facility] [address], [place], [address] . tel:[phone] Offic/outpt E&m Estab Mod-hi 2 [facility] , [address] [place] [address], [place], [id number], [place] tel:[phone] Shree Vernon FibromyalgiaR A w/o rheumatoid factor of multiple sitesOther chronic painLong term (current) use of opiate analgesicOpio id use, unspecified, uncomplicated Sep-0 1 [place]. [address], [facility] 600, Shree Vernon [place], [id number], [place]. tel:[phone] Referring Provider: Jamir Lugo, [address], [place], [address] . tel:[phone] Offic/outpt E&m Estab Mod-hi 2 [facility] , [address] [place] [address], [place], [id number], [place] tel:[phone] Shree Vernon RA w/o rheumatoid factor of multiple sitesFibromya lgiaLong term (current) use of opiate analgesicOthe r chronic painOther correction (current) drug therapyCough Jul-0 1 [place]. [address], [address], Shree [place], [id number], [place]. tel:[phone] Referring Provider: Jamir Lugo, [address], [place], [address] . tel:[phone] Virtual Offic/outpt E&m Estab Mod-hi 2 [facility] , [address] [place] [address]Bret [place], [id number], [place] tel:[phone] Shree Vernon Telehealth (chief complaint)Rhe umatoid arthritis (chief complaint) FibromyalgiaR A w/o rheumatoid factor of multiple sitesOpioid use, unspecified, uncomplicated Other chronic painOther correction (current) drug therapy 0 [place]. [address], [address], Shree [place], [id number], [place]. tel:[phone] Referring Provider: Jamir Lugo, [address], [place], [address] . tel:[phone] Virtual Offic/outpt E&m Estab Mod-hi 2 [facility] , [address] [place] [address]Bret [place], , [place] tel:[phone] Shree Vernon Telehealth (chief complaint) RA w/o rheumatoid factor of multiple sitesOther chronic painLong term (current) use of opiate analgesicFibr omyalgia Sep-0 0 [place]. [address], [address], Shree [place], [id number], [place]. tel:[phone] Referring Provider: Jamir Lugo, [address], [place], [address] . tel:[phone] Virtual Offic/outpt E&m Estab Mod-hi 2 [facility] , [address] [place] [address] Bret Peters [place], [id number], [place] tel:[phone] Shree Vernon Telehealth (chief complaint)Rhe umatoid arthritis (chief complaint) FibromyalgiaO ther chronic painRA w/o rheumatoid factor of multiple sitesOpioid use, unspecified, uncomplicated Abdoul-0 0 [place]. [address], [address], Shree [place], [id number], [place]. tel:[phone] Referring Provider: Jamir Lugo, [address], [place], [address] . tel:[phone] Offic/outpt E&m Estab Mod-hi 2 [facility] , [address] [place] [address] 310Bret [place], [id number], [place] tel:[phone] Shree Vernon Rheumatoid arthritis (chief complaint) RA w/o rheumatoid factor of multiple sitesFibromya lgiaOther chronic painOther intermediate project manager (current) drug therapyLong term (current) use of opiate analgesic Jul-0 0 [place]. [address], [address]Sh[address] [place], [id number], [place]. tel:[phone] Referring Provider: Jamir Lugo, [address], [place], [address] . tel:[phone] Offic/outpt E&m Estab Mod-hi 2 [facility] , [address] [place] [address] 310Bret [place], [id number], [place] tel:[phone] Shree Vernon Fibromyalgia (chief complaint) RA w/o rheumatoid factor of multiple sitesFibromya lgiaOther chronic pain Dec-0 2-201 9 [address] [place]. [address], [address], Shree [place] MD, [id number], [place]. tel:[phone] Referring Provider: Jamir Lugo, [address] [facility] 600, [place], [address] . tel:[phone] Offic/outpt E&m Estab Mod-hi 2 [facility] , [address] [place] [address], [place], [id number], [place] tel:[phone] Shree Vernon Fibromyalgia (chief complaint) RA w/o rheumatoid factor of multiple sitesOther chronic painFibromyal giaInsomniaOt her intermediate project manager (current) drug therapy Jan- 9 [place]. [address], [facility] 600, Shree Vernon MD, [id number], [place]. tel:[phone] Referring Provider: Jamir Lugo, [address], [place], [address] . tel:[phone] Offic/outpt E&m Estab Mod-hi 2 [facility] , [address] [place] [address], [place], [id number], [place] tel:[phone] Shree Vernon Fibromyalgia (chief complaint) FibromyalgiaO ther chronic painRA w/o rheumatoid factor of multiple sitesOther correction (current) drug therapyFatigu e 9 [place]. [address], [facility] 600, Shree Vernon MD, [id number], [place]. tel:[phone] Referring Provider: Jamir Lugo, [address], [place], [address] . tel:[phone] Offic/outpt E&m Estab Mod-hi 2 [facility] , [address] [place] [address], [place], [id number], [place] tel:[phone] Shree Vernon Fibromyalgia (chief complaint) RA w/o rheumatoid factor of multiple sitesFibromya lgiaOther chronic painOther correction (current) drug therapyInsomn ia 8 [address]. [address], [address], [place], , [place]. tel:[phone] Referring Provider: Jamir Lugo, [address] [facility] [address], [place], [address] . tel:[phone] [facility] , [address] [place] [address], [place], [id number], [place] tel:[phone] Shree Vernon No Information 8 [address] [place]. [address], [facility] [address], Shree [place], , [place]. tel:[phone] Offic/outpt E&m Estab Mod-hi 2 [facility] , [address] [place] [address], [place], , [place] tel:[phone] Shree Vernon Fibromyalgia (chief complaint) RA w/o rheumatoid factor of multiple sitesOther chronic painMyofascia l pain syndromeFibro myalgiaOther intermediate project manager (current) drug therapy 8 [place]. [address], [address], [place]ree [place], , [place]. tel:[phone] Referring Provider: Jamir Lugo, [address] [facility] [address], [place], [address] . tel:[phone] Offic/outpt E&m Estab Mod-hi 2 [facility] , [address] [place] [address], [place], , [place] tel:[phone] Shree Vernon Back pain (chief complaint) Body mass index (BMI) 29.0-29.9, adultRA w/o rheumatoid factor of multiple sitesFibromya lgiaOther chronic painOther correction (current) drug therapyBack painMyofascia l pain syndrome 7 [place]. [address], [address], [id number], [place]. tel:[phone] Referring Provider: Jamir Lugo, [address], [place], [address] . tel:[phone] Offic/outpt E&m Estab Mod-hi 2 [facility] , [address] [place] [address], [place], [id number], [place] tel:[phone] Shree Vernon Rheumatoid arthritis (chief complaint) Body mass index (BMI) 27.0-27.9, adultRA w/o rheumatoid factor of multiple sitesOther correction (current) drug therapyOther chronic painFibromyal ivanna 7 [place]. [address], [address], Shree [place], [id number], [place]. tel:[phone] Referring Provider: Jamir Lugo, [address], [place], [address] . tel:[phone] Offic/outpt E&m [facility] Mod-hi 2 [facility] , [address] [place] [address], [place], , [place] tel:[phone] Shree Vernon Back pain (chief complaint) RA w/o rheumatoid factor of multiple sitesOther correction (current) drug therapyFibrom yalgiaOther chronic painDorsalgia 6 [address] [place]. [address], [address], Shree Vernon MD, [id number], [place]. tel:[phone] Referring Provider: Jamir Lugo, [address], [place], [address] . tel:[phone] Offic/outpt E&m [facility] Mod-hi 2 [facility] , [address] [place] [address] 310Bret [place], [id number], [place] tel:[phone] Shree Vernon Rheumatoid arthritis (chief complaint) RA w/o rheumatoid factor of multiple sitesFibromya lgiaOther chronic painOther intermediate project manager (current) drug therapy 6 [place]. [address], [address], Shree [place], [id number], [place]. tel:[phone] Referring Provider: Jamir Lugo, [address], [place], [address] . tel:[phone] Offic/outpt E&m Estab Mod-hi 2 [facility] , [address] [place] [address], [place], [id number], [place] tel:[phone] Shree Vernon Rheumatoid arthritis (chief complaint) RA w/o rheumatoid factor of multiple sitesFibromya lgiaOther chronic pain 6 [address]. [address], [facility] [address], Shree Vernon MD, [id number], [place]. tel:[phone] Referring Provider: Jamir Lugo, [address] [facility] [address], [place], [address] . tel:[phone] Offic/outpt E&m Estab Mod-hi 2 [facility] , [address] [place] [address], [place], [id number], [place] tel:[phone] Shree Vernon Rheumatoid arthritis (chief complaint) RA w/o rheumatoid factor of multiple sitesFibromya lgiaOther chronic painOther correction (current) drug therapyIron deficiency 5 [place]. [address] [facility], [facility] [address], Shree Vernon [place], [id number], [place]. tel:[phone] Referring Provider: Jamir Lugo, [address] [facility] [address], [place], [address] . tel:[phone] [facility] , [address] [place] [address], [place], [id number], [place] tel:[phone] Shree Vernon No Information 5 [address]. [address] [facility], [facility] 600, Shree Vernon MD, [id number], [place]. tel:[phone] Offic/outpt E&m Estab Mod-hi 2 [facility] , [address] [place] [address], [place], [id number], [place] tel:[phone] Shree Vernon Rheumatoid arthritis (chief complaint) Fibromyalia Syn Myalgia MyositRheumat oid ArthritisInso mniaChronic Pain 5 [address]. [address], [address], Shree [place], [id number], [place]. tel:[phone] Referring Provider: Jamir Lugo, [address] [facility] [address], [place], [address] . tel:[phone] Offic/outpt E&m Estab Mod-hi 2 [facility] , [address] [place] [address], [place], [id number], [place] tel:[phone] Shree Vernon Fibromyalgia (chief complaint) Fibromyalia Syn Myalgia MyositRheumat oid ArthritisTher apeutic Drug Monitoring 5 [address]. [address], [address], Shree [place], [id number], [place]. tel:[phone] Referring Provider: Jamir Lugo, [address] [facility] [address], [place], [address] . tel:[phone] Offic/outpt E&m Estab Mod-hi 2 [facility] , [address] [place] [address], [place], [id number], [place] tel:[phone] Shree Vernon Rheumatoid arthritis (chief complaint) Rheumatoid ArthritisTher apeutic Drug MonitoringFib romyalia Syn Myalgia MyositChronic Pain 5 [address] [place]. [address], [address], Shree [place], [id number], [place]. tel:[phone] Referring Provider: Jamir Lugo, [address] [facility] [address], [place], [address] . tel:[phone] Offic/outpt E&m Estab Mod-hi 2 [facility] , [address] [place] [address], MD [place], [id number], [place] tel:[phone] Shree Vernon Rheumatoid arthritis (chief complaint) Fibromyalia Syn Myalgia MyositRheumat oid ArthritisChro montse PainTherapeut ic Drug Monitoring 4 [address]. [address], [address], Shree [place], [id number], [place]. tel:[phone] Referring Provider: Jamir Lugo, [address] [facility] [address], [place], [address] . tel:[phone] [facility] , [address] [place] [address], [place], [id number], [place] tel:[phone] Ministerio [place] No Information 4 [address]. [address], [facility] [address], Shree Vernon MD, [id number], [place]. tel:[phone] Referring Provider: Jamir Lugo, [address] [facility] [address], [place], [address] . tel:[phone] Offic/outpt E&m Estab Mod-hi 2 [facility] , [address] [place] [address], [place], [id number], [place] tel:[phone] Shree Vernon Rheumatoid arthritis (chief complaint)Fib romyalgia (chief complaint) Rheumatoid ArthritisMyal ivanna Fibromyalgia MyositisChron ic Pain 4 [address] [place]. [address], [facility] [address], Shree Vernon MD, [id number], [place]. tel:[phone] Referring Provider: Jamir Lugo, [address] [facility] [address], [place], [address] . tel:[phone] Offic/outpt E&m Estab Mod-hi 2 [facility] [facility] , [address] [place] [address], [place], [id number], [place] tel:[phone] Shree Vernon musculoskelet al pain (chief complaint) Rheumatoid ArthritisMyal ivanna Fibromyalgia MyositisJoint Pain-up/armTh erapeutic Drug MonitoringFat igue / MalaiseChroni c Pain [address], [address], Shree Vernon [place], [id number], [place]. tel:[phone] Referring Provider: Jamir Lugo, [address] [facility] [address], [place], [address] . tel:[phone] Offic/outpt E&m Estab Mod-hi 2 [facility] , [address] [place] [address], [place], , [place] tel:[phone] Shree Vernon Rheumatoid arthritis (chief complaint) Fatigue / MalaiseInflue nza VaccineRheuma toid ArthritisTher apeutic Drug MonitoringChr onic Pain [address]. [address], [address], Shree Vernon [place], [id number], [place]. tel:[phone] Referring Provider: Jamir Lugo, [address], [place], [address] . tel:[phone] Offic/outpt E&m Estab Mod-hi 2 [facility] , [address] [place] [address], [place], , [place] tel:[phone] Shree Vernon rheumatoid arthritis (chief complaint) Therapeutic Drug MonitoringChr onic PainMyalgia Fibromyalgia MyositisRheum atoid Arthritis [address], [address], Shree Vernon [place], [id number], [place]. tel:[phone] Referring Provider: Jamir Lugo, [address] [facility] [address], [place], [address] . tel:[phone] Offic/outpt E&m Estab Mod-hi 2 [facility] , [address] [place] [address], [place], , [place] tel:[phone] Shree Vernon Rheumatoid arthritis (chief complaint)Fib romyalgia (chief complaint)mus culoskeletal pain (chief complaint) Bursitis, Rotator CuffRheumatoi d ArthritisTher apeutic Drug MonitoringJoi nt Pain-l/legChr onic Pain [address], [address], Shree [place], [id number], [place]. tel:[phone] Referring Provider: Jamir Lugo, [address] [facility] [address], [place], [address] . tel:[phone] Offic/outpt E&m Estab Mod-hi 2 [facility] , [address] [place] [address], [place], [id number], [place] tel:[phone] Shree Vernon Fibromyalgia (chief complaint)Rhe umatoid arthritis (chief complaint)mus culoskeletal pain (chief complaint) Bursitis, Rotator CuffRheumatoi d ArthritisMyal ivanna Fibromyalgia MyositisSleep ApneaTherapeu tic Drug Monitoring [address]. [address] [facility], [facility] 600, Shree Vernon [place], [id number], [place]. tel:[phone] Referring Provider: Jamir Lugo, [address] [facility] [address], [place], [address] . tel:[phone] Offic/outpt E&m Estab Mod-hi 2 [facility] , [address] [place] [address]Bret [place], [id number], [place] tel:[phone] Shree Vernon Rheumatoid arthritis (chief complaint)Fib romyalgia (chief complaint) Myalgia Fibromyalgia MyositisRheum atoid ArthritisTher apeutic Drug MonitoringInf luenza Vaccine [address] [facility], [address], Shree [place], [id number], [place]. tel:[phone] Referring Provider: Jamir Lugo, [address] [facility] [address], [place], [address] . tel:[phone] Offic/outpt E&m Estab Mod-hi 2 [facility] , [address] [place] [address]Bret [place], [id number], [place] tel:[phone] CHARLIE Rheumatoid arthritis (chief complaint) Rheumatoid ArthritisTher apeutic Drug MonitoringBur sitis, Rotator CuffFatigue / Malaise [address] [facility], [address], Shree [place], [id number], [place]. tel:[phone] Referring Provider: Jamir Lugo, [address] [facility] [address], [place], [address] . tel:[phone] Offic/outpt E&m Estab Mod-hi 2 [facility] , [address] [place] [address], [place], [id number], [place] tel:[phone] Shree Vernon Rheumatoid arthritis (chief complaint)Fib romyalgia (chief complaint) Rheumatoid ArthritisTher apeutic Drug MonitoringChr onic PainHypertens ion, BenignHyperte nsion, Benign Mar-2 [address] [facility], [address], Shree [place], [id number], [place]. tel:[phone] Referring Provider: Jamir Lugo, [address] [facility] [address], [place], [address] . tel:[phone] Offic/outpt E&m Estab Mod-hi 2 [facility] , [address] [place] [address], [place], [id number], [place] tel:[phone] [place] Rheumatoid Arthritis (chief complaint) Fibrositis/Rh eumatism NosInfluenza Vaccine [address]. [address] [facility], [address], Shree [place], [id number], [place]. tel:[phone] Referring Provider: Jamir Lugo, [address] [facility] [address], [place], [address] . tel:[phone] Offic/outpt E&m Estab Mod-hi 2 [facility] , [address] [place] [address], [place], [id number], [place] tel:[phone] [place] Rheumatoid Arthritis (chief complaint) No Information [address] [facility], [address], Shree [place], [id number], [place]. tel:[phone] Referring Provider: Jamir Lugo, [address] [facility] [address], [place], [address] . tel:[phone] Offic/outpt E&m Estab Mod-hi 2 [facility] , [address] [place] [address], [place], [id number], [place] tel:[phone] CHARLIE Rheumatoid Arthritis (chief complaint) No Information [address] [facility], [address], Shree [place], [id number], [place]. tel:[phone] Referring Provider: Jamir Lugo, [address] [facility] 600, [place], [address] . tel:[phone] Offic/outpt E&m Estab Mod-hi 2 [facility] , [address] [place] [address], [place], [id number], [place] tel:[phone] CHARLIE Rheumatoid Arthritis (chief complaint) No Information [address], [facility] 600, Shree Vernon [place], [id number], [place]. tel:[phone] Referring Provider: Jamir Lugo, [address] [facility] [address], [place], [address] . tel:[phone] Offic/outpt E&m Estab Mod-hi 2 [facility] , [address] [place] [address], [place], [id number], [place] tel:[phone] CHARLIE Rheumatoid Arthritis (chief complaint) No Information [address], [facility] 600, Shree Vernon [place], [id number], [place]. tel:[phone] Referring Provider: Jamir Lugo, [address] [facility] [address], [place], [address] . tel:[phone] Offic/outpt E&m Estab Mod-hi 2 [facility] , [address] [place] [address] 310Bret [place], [id number], [place] tel:[phone] CHARLIE Rheumatoid Arthritis (chief complaint) Ulcer, GastricBenign Hypertension [address], [facility] 600, Shree Vernon [place], [id number], [place]. tel:[phone] Referring Provider: Jamir Lugo, [address], [place], [address] . tel:[phone] Offic/outpt E&m Estab Mod-hi 2 [facility] , [address] [place] [address], [place], [id number], [place] tel:[phone] [place] Rheumatoid Arthritis (chief complaint) No Information [address], [address], Shree [place] MD, [id number], [place]. tel:[phone] Referring Provider: Jamir Lugo, [address], [place], [address] . tel:[phone] Offic/outpt E&m Estab Mod-hi 2 [facility] , [address] [place] [address], [place], [id number], [place] tel:[phone] [place] Rheumatoid Arthritis (chief complaint) No Information [address], [address], Shree [place], [id number], [place]. tel:[phone] Referring Provider: Jamir Lugo, [address], [place], [address] . tel:[phone] Offic/outpt E&m Estab Mod-hi 2 [facility] , [address] [place] [address], [place], [id number], [place] tel:[phone] [place] Rheumatoid Arthritis (chief complaint) No Information [address], [address], Shree [place], [id number], [place]. tel:[phone] Referring Provider: Jamir Lugo, [address], [place], [address] . tel:[phone] Offic/outpt E&m Estab Low-mod [facility] , [address] [place] [address], [place], , [place] tel:[phone] [place] Rheumatoid Arthritis (chief complaint) No Information [address] [facility] 600, Shree [place], [id number], [place]. tel:[phone] Referring Provider: Jamir Lugo, [address] [place], [place] [address] [facility] 600, [place], [address] . tel:[phone] [facility] , [address] [place] [address], [place], , [place] tel:[phone] PT DC Back Pain (chief complaint) No Information 0 No Information Referring Provider: Jamir Lugo, [address] [place] [address], [place], [address] . tel:[phone] [facility], [address] [place] [address], [place], , [place] tel: [phone] PT DC Back Pain (chief complaint) No Information 0 No Information Referring Provider: Jamir Lugo, [address] [place] [address], [place], [address] . tel:[phone] [facility] , [address] [place] [address], [place], , [place] tel:[phone] PT DC Back Pain (chief complaint) No Information 0 No Information Referring Provider: Jamir Lugo, [address] [place] [address], [place], [address] . tel:[phone] [facility] , [address] [place] [address], [place], , [place] tel:[phone] PT [place] Back Pain (chief complaint) No Information 0 No Information Referring Provider: Jamir Lugo, [address] [place] [address], [place], [address] . tel:[phone] Offic/outpt E&m Estab Mod-hi 2 [facility] , [address] [place] [address], [place], [id number], [place] tel:[phone] [place] Rheumatoid Arthritis (chief complaint) No Information [address], [address], Shree [place], [id number], [place]. tel:[phone] Referring Provider: Jamir Lugo, [address] [facility] [address], [place], [address] . tel:[phone] [facility] , [address] [place] [address], [place], [id number], [place] tel:[phone] [place] No Information [address], [facility] 600, Shree Vernon MD, [id number], [place]. tel:[phone] Referring Provider: Jamir Lugo, [address] [place] [address] [address], [place], [address] . tel:[phone] Offic/outpt E&m Estab Mod-hi 2 [facility] , [address] [place] [address], [place], [id number], [place] tel:[phone] [place] Rheumatoid Arthritis (chief complaint) No Information [address], [address], Shree Vernon MD, [id number], [place]. tel:[phone] Referring Provider: Jamir Lugo, [address] [facility] [address], [place], [address] . tel:[phone] Offic/outpt E&m Estab Mod-hi 2 [facility] , [address] [place] [address], [place], [id number], [place] tel:[phone] [place] Rheumatoid Arthritis (chief complaint) No Information [address], [address], Shree Vernon MD, [id number], [place]. tel:[phone] Referring Provider: Jamir Lugo, [address] [facility] [address], [place], [address] . tel:[phone] Offic/outpt E&m Estab Mod-hi 2 [facility] , [address] [place] [address], [place], [id number], [place] tel:[phone] [place] Rheumatoid Arthritis (chief complaint) No Information [address], [address], Shree Vernon MD, [id number], [place]. tel:[phone] Referring Provider: Jamir Lugo, [address] [facility] [address], [place], [address] . tel:[phone] Offic/outpt E&m Estab Low-mod [facility] , [address] [place] [address], [place], [id number], [place] tel:[phone] CHARLIE Rheumatoid Arthritis (chief complaint) No Information [address], [address], Shree Vernon [place], [id number], [place]. tel:[phone] Referring Provider: Jamir Lugo, [address], [place], [address] . tel:[phone] Offic/outpt E&m Estab Mod-hi 2 [facility] , [address] [place] [address], [place], [id number], [place] tel:[phone] CHARLIE Rheumatoid Arthritis (chief complaint) No Information [address], [address], Shree Vernon [place], [id number], [place]. tel:[phone] Referring Provider: Jamir Lugo, [address] [facility] [address], [place], [address] . tel:[phone] Offic/outpt E&m Estab Mod-hi 2 [facility] , [address] [place] [address]Bret [place], [id number], [place] tel:[phone] CHARLIE Rheumatoid Arthritis (chief complaint) No Information [address], [address], Shree Vernon MD, [id number], [place]. tel:[phone] Referring Provider: Jamir Lugo, [address] [facility] [address], [place], [address] . tel:[phone] Offic/outpt E&m Estab Mod-hi 2 [facility] , [address] [place] [address], [place], [id number], [place] tel:[phone] CHARLIE Rheumatoid Arthritis (chief complaint) No Information [address] [facility], [facility] 600, Shree Vernon MD, [id number], [place]. tel:[phone] Referring Provider: Jamir Lugo, [address] [place] [address], [place], [address] . tel:[phone] Offic/outpt E&m Estab Mod-hi 2 [facility] [place] [address], MD Bret, [id number], [place] tel:[phone] [place] Rheumatoid Arthritis (chief complaint) Rheumatoid ArthritisIron Defic Anemia NosIron Defic Anemia NosIron Defic Anemia Nos [address] [facility], [facility] 600, Shree Vernon MD, [id number], [place]. tel:[phone] Referring Provider: Jamir Lugo, [address] [facility] [address], [place], [address] . tel:[phone] [facility] [place] [address], MD [place], [id number], [place] tel:[phone] CHARLIE Rheumatoid Arthritis (chief complaint)Kwesi k Pain (chief complaint) Rheumatoid ArthritisFibr omyalgia Syn Myalgia MyositChronic PainLong Term High Risk Meds [address]. [address] [facility], [facility] 600, Shree Vernon [place], [id number], [place]. tel:[phone] Referring Provider: Jamir Lugo, [address] [facility] [address], [place], [address] . tel:[phone] Offic/outpt E&m Estab Mod-hi 2 [facility] , [address] [place] [address], MD [place], [id number], [place] tel:[phone] [place] Rheumatoid Arthritis (chief complaint)Fib romyalgia Syndrome (chief complaint) Rheumatoid ArthritisChro montse Pain [address] [facility], [facility] 600, Shree Vernon MD, [id number], [place]. tel:[phone] Referring Provider: Jamir Lugo, [address] [facility] 600, [place], [address] . tel:[phone] Offic/outpt E&m Estab Low-mod [facility] , [address] [place] [address], MD [place], [id number], [place] tel:[phone] [place] Rheumatoid Arthritis (chief complaint)Fib romyalgia Syndrome (chief complaint) Rheumatoid ArthritisFibr omyalia Syn Myalgia MyositJoint Hypermobility SyndromeChron ic PainLong Term High Risk Meds [address], [facility] 600, Shree Vernon [place], [id number], [place]. tel:[phone] Referring Provider: Jamir Lugo, [address] [facility] 600, [place], [address] . tel:[phone] Offic/outpt E&m Estab Mod-hi 2 [facility] , [address] [place] [address], MD Bret, [id number], [place] tel:[phone] [place] No Information [address] [facility], [facility] 600, Shree Vernon MD, [id number], [place]. tel:[phone] Referring Provider: Jamir Lugo, [address] [facility] 600, [place], [address] . tel:[phone] [facility] , [address] [place] [address], MD [place], [id number], [place] tel:[phone] [place] No Information [address] [facility], [facility] 600, Shree Vernon MD, [id number], [place]. tel:[phone] Referring Provider: Jamir Lugo, [address], [place], [address] . tel:[phone] Offic/outpt E&m Estab Mod-hi 2 [facility] , [address] [place] [address], [place] Bret, [id number], tel:[phone] [place] No Information [address], [address], Shree [place] MD, [id number], [place]. tel:[phone] Referring Provider: Jamir Lugo, [address], [place], [address] . tel:[phone] Offic/outpt E&m Estab Mod-hi 2 [facility] , [address] [place] [address], MD Bret, [id number], tel:[phone] [place] No Information [address] [facility], [address], Shree [place], [id number], [place]. tel:[phone] Referring Provider: Jamir Lugo, [address], [place], [address] . tel:[phone] Offic/outpt E&m Estab Mod-hi 2 [facility] , [address] [place] [address], MD Bret, [id number], [place] tel:[phone] [place] No Information [address], [address], Shree [place], [id number], [place]. tel:[phone] Referring Provider: Jamir Lugo, [address], [place], [address] . tel:[phone] Offic/outpt E&m Estab Mod-hi 2 [facility] , [address] [place] [address], MD Bret, [id number], tel:[phone] [place] No Information [address] [facility], [address], Shree Vernon MD, [id number], . tel:[phone] Referring Provider: Jamir Lugo, [address], [place], [address] . tel:[phone] Offic/outpt E&m Estab Mod-hi 2 [facility] , [address] [place] [address] Bret Peters [place], [id number], tel:[phone] [place] No Information [address] [facility], [address], Shree Vernon MD, [id number], [place]. tel:[phone] Referring Provider: Jamir Lugo, [address], [place], [address] . tel:[phone] Offic/outpt E&m Estab Mod-hi 2 [facility] , [address] [place] [address], MD Bret, [id number], tel:[phone] [place] No Information [address] [facility], [address], Shree [place], [id number], [place]. tel:[phone] Referring Provider: Jamir Lugo, [address] [facility] [address], [place], [address] . tel:[phone] Offic/outpt E&m Estab Mod-hi 2 [facility] , [address] [place] [address] Bret [place], , [place] tel:[phone] [place] No Information 6 No Information Offic/outpt E&m Estab Mod-hi 2 [facility] , [address] [place] [address] Bret Peters MD, , [place] tel:[phone] [place] No Information 6 No Information Offic/outpt E&m Estab Mod-hi 2 [facility] , [address] [place] [address] Bret Peters MD, , [place] tel:[phone] [place] No Information 2200 5 No Information Family History Family Member Type Diagnosis Age At Onset Mother Problem (finding) RA/ FM/ OA Immunizations Vaccine Date Status Comments FLUCELVAX QUAD 2021 administered S ource: New Immunization Record FLUCELVAX QUAD administered Tiny rce: New Immunization Record FLUCELVAX QUAD administered Tiny rce: New Immunization Record Influenza, injectable, trivalent, split virus, preservative free, 3 years and older Afluria [id number] administered Source: New Immu nization Record Influenza, split virus, injectable, 3 years and older Fluvirin [id number] administered Source: New Immuniza tion Record Flu, [...] Record Payers Payer name Insurance type Covered democrat ID Authoriza tion(s) [employer] BL [id number] [employer] BL [id number] [employer] BL [id number] [employer] BL [id number] [employer] Open Access CI [id number] [employer] PPO And POS BL [id number] Social History Type Description Quantity Date Captured [...] due Goal Hand X-ray. Due on due Referral Ordered: Marco A Pond MD -Otolaryngology (related to Cough) ordered Referral Referred To: Marco A Pond MD [facility] [address] [place], [id number] Ordered: Referrals: Otolaryngology. Marco A Pond MD. Evaluate and treat ordered Referral Ordered: Xray Elbow; Ap & Lat Views Left ordered Referral Ordered: Xray Knee; Three Views Left ordered Referral Referred To: Samm Cardona MD [facility] [address] [place], [place], [id number] Ordered: Referral: Samm Cardona MD. ordered Referral [...] Telehealth Physician Locati on: Shree VernonPatient Location: [address] [place] [address]Sigg of Visit: Virtual VisitOther participants: NoneInterpreter: NoneThis [...] legs and weakness. Telehealth Physician Locati on: Kirstythad VernonPatient Location: [address] [place], [place] [address]Axdp of Visit: Virtual VisitOther participants: NoneInterpreter: NoneThis [...] rash, SICCA symptoms, weakness and weight loss. Telehealth Physician Locati on: Billieluzthad VernonPatient Location: [address] [place], [place] [address]Qdck of Visit: Virtual VisitOther participants: NoneInterpreter: NoneThis [...] denies relieving factors. Rheumatoid arthritis Onset was g courtney. Severity level is moderate. Location of the [...] arms and weakness. Rheumatoid arthritis Onset was g [...] in the legs. Rheumatoid arthritis Onset was ling valdez. Severity [...]
[2024-10-03 10:32] LABS: MANUAL DIFF FLAG NO
[2024-10-03 11:06] LABS: Basophils Absolute Auto 0.1 X10*3/uL (0.0-0.2); Basophils Percent Auto 1.2 % (0-2); Eosinophils Absolute Auto 0.1 X10*3/uL (0.0-0.4); Eosinophils Percent Auto 2.6 % (0-4); Hematocrit 34.1 % (37.0-47.0); Hemoglobin 11.4 g/dl (12.0-16.0); Imm Gran Abs Auto 0.01 X10*3/uL (0.00-0.03); Imm Gran Pct Auto 0.2 % (0.0-0.4); Lymphocytes Absolute Auto 1.7 X10*3/uL (1.2-4.9); Lymphocytes Percent Auto 33.9 % (20-40); Mean Corpuscular HGB Conc 33.4 g/dl (31.0-35.0); Mean Corpuscular Hemoglobin 28.9 pg (27.0-33.0); Mean Corpuscular Volume 86.5 fL (80.0-98.0); Mean Platelet Volume 10.1 fL (9.4-12.3); Monocytes Absolute Auto 0.4 X10*3/uL (0.1-1.2); Monocytes Percent Auto 7.7 % (2-11); Neutrophils Absolute Auto 2.7 x10*3/uL (2.0-8.3); Neutrophils Percent Auto 54.4 % (45-73); Platelet Count 270 X10*3/uL (160-400); Red Blood Count 3.94 X10*6/uL (4.20-5.50); Red Cell Distribution Width 14.8 % (11.0-16.0); White Blood Count 4.9 X10*3/uL (4.8-10.8)
[2024-10-03 11:26] LABS: Appearance Urine Clear; Color Urine Yellow; Glucose Urine UA Negative (Negative); Leukocyte Esterase Urine Negative (Negative); Nitrite Urine Negative (Negative); PH 6.5 (5.0-9.0); Specific Gravity - Urine 1.015 (1.005-1.025); Urine Blood Negative (Negative); Urine Ketones Negative (Negative); Urine Protein Negative (Neg-Trace)
[2024-10-03 11:46] LABS: Erythrocyte Sedimentation Rate 18 MM/HR (0-20)
[2024-10-03 11:49] LABS: Creatinine Urine 101.67 mg/dL; Microalbum/Creatinine Ratio Ur 9.8 ug/mg cr (<30)
[2024-10-03 11:52] LABS: Alanine Aminotransferase 12 U/L (0-31); Alkaline Phosphatase 100 U/L (39-117); Anion Gap 14 (12-20); Aspartate Amino Transferase 20 U/L (5-31); Bilirubin Total 0.3 mg/dL (0.0-1.0); Blood Urea Nitrogen 14 mg/dL (9-16); C Reactive Protein 0.15 mg/dL (< or = 0.50); Calcium 8.9 mg/dL (8.4-10.2); Carbon Dioxide 25 mmol/L (22-29); Chloride 103 mmol/L (96-108); Cholesterol 180 mg/dL (<200); Estimated Glomerular Filt Rate > 60; Glucose Fasting 80 mg/dL (60-99); Glucose Random 80 mg/dL (60-115); HDL Cholesterol 46 mg/dL (>40); LDL Cholesterol Calculated 105 mg/dL (<100); Potassium 4.1 mmol/L (3.3-5.1); Sodium 138 mmol/L (135-145); Total Protein 7.1 g/dL (6.5-8.0); Triglycerides 147 mg/dL (<150)
[2024-10-03 12:12] LABS: HBS Num1 7.61 mIU/mL (0-7.99); HBc Num1 0.07 S/CO (0.00-0.79); HBsAGNum1 0.22 S/CO (0.00-0.99); Hepatitis A Antibody IgM 0.19 Index (0-0.79); Hepatitis B Core Antibody Nonreactive (Nonreactive); Hepatitis B Surface Antigen Negative (Negative); ~HepC Num1 0.18 S/CO (0.00-0.79); ~Hepatitis A Antibody IgM Nonreactive (Nonreactive); ~Hepatitis B Surface Antibody NONREACTIVE (Nonreactive); ~Hepatitis C Antibody Nonreactive (Nonreactive)
[2024-10-03 12:13] LABS: TSH reflex Free T4 2.78 uIU/mL (0.32-4.0)
[2024-10-03 12:23] LABS: Folate 16.2 ng/mL (> or = 4.0); Vitamin B12 601 pg/mL (200-900)
== END 2024-10-03 10:10 | disposition home or self-care (01) ==
LOC: HO.LAB 10:09
PROVIDERS: Absent Provider Student in an Organized Health Care Education/Training Program; PCP Nurse Practitioner Family; Visit Provider Nurse Practitioner Family
DX: Z00.00 Encounter for general adult medical examination without abnormal findings (principal); M06.9 Rheumatoid arthritis, unspecified; Z11.59 Encounter for screening for other viral diseases; Z13.6 Encounter for screening for cardiovascular disorders
CPT/HCPCS: 36415; 80053; 80061; 81003; 82043; 82570; 82607; 82746; 84443; 85025; 85652; 86140; 86704; 86706; 86709; 86803; 87340

== ENCOUNTER 2024-10-06 12:25 | Outpatient (AMB) | payer BC, SELFPAY ==
[2024-10-06 12:37] VITALS: BP 130/74; PULSE 100; O2SAT 96; BMI 31.0
--- NOTE | 2024-10-06 12:37 | MHC.OFFVIS ---
Vital Signs 10/06/24 12:37 Height 5 ft 3 in Weight 174 lb 13.225 oz BMI 31.0 BP 130/74 Blood Pressure Location Lt brachial Position Sitting Pulse 100 Pulse Source Pulse Oximeter Pulse Oximetry (%) 96 Oxygen Delivery Method Room Air Intake Visit Reasons: RA Intake Note: Patient last seen by Doctor Fan Rivero on 03/31/24. Patient presents today for RA follow up and test results.? Allergies ammonia Allergy (Severe, Verified 10/06/24 12:39) Anaphylaxis strawberry Allergy (Mild, Verified 10/06/24 12:39) Hives HPI Comments Details: Patient is a 48-year-old female with migraine headaches, hyperlipidemia, osteoporosis complicated by spinal cord fracture and compression, fibromyalgia and seronegative rheumatoid arthritis here today for follow up. Interval History: Patient last seen 03/31/[address] Rivero. At that time she was following up for her seronegative RA and fibromyalgia. She was on Enbrel 50 mg once a week and hydroxychloroquine 200 mg twice a day consistently. She had recently had a neck fusion C3-T1 and was recovering reasonably well. She was started on alendronate by endocrinology in [place] Today, Patient states she is doing reasonably well With the range she has had some aches in her joints especially her knees and her hips as well as her elbows. But otherwise no prolonged morning stiffness Rheumatologic History: 8 years old, SHER Hydroxychloroquine Sulfasalazine Enbrel Initial history: This is a 47-year-old female with rheumatoid arthritis and fibromyalgia who presents as a new patient. She recently relocated from [facility]. She states that she started having joint pains at age 8, initially it was thought to be growing pains. Six years after however she was eventually diagnosed as rheumatoid arthritis. She states that her case would be juvenile arthritis but she was labeled as rheumatoid arthritis as she was diagnosed around age 15. She states that she had been on hydroxychloroquine for many years. She does not recall ever being on methotrexate. She believes that she took sulfasalazine briefly. She was in the clinical trial for Enbrel more than 20 years ago and had been on Enbrel since then, she states that the Enbrel had been effective for her over the years. She has run out of her Enbrel over the last 6 months as she was transferring to [place]. She mentions that she was on steroids for years. At least 5 years. She states that she broke her left wrist after a fall a few years ago. She has plates and screws in the left wrist. She was being followed by Dr. Jamir Lugo for 30+ years She also states that she has had fibromyalgia for many years. She has been on duloxetine for years. She also takes acetaminophen with codeine, 6 tabs daily. 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 She denies any history of DVT/PE. Patient never attempted . She states that her mother has rheumatoid arthritis, Sjogren's and fibromyalgia. Current Rheumatology Medication(s): Enbrel 50 mg sc weekly Hydroxychloroquine 200 mg once a day [facility] Medical History (Updated 10/06/24 @ 13:28 by Susi Mahajan MD) Essential and other specified forms of tremor Spinal cord compression Spinal stenosis in cervical region Hypersomnia Snoring Degenerative cervical disc Benign essential tremor Fibromyalgia Rheumatoid arthritis Surgical History H/O spinal fusion History of surgery on left wrist History of uvulopalatopharyngoplasty History of surgical removal of ganglion cyst History of tonsillectomy H/O: knee surgery H/O removal of cyst History of appendectomy History of adenoidectomy Family History Mother COPD (chronic obstructive pulmonary disease) Type 2 diabetes mellitus Congestive heart failure Rheumatoid arthritis Fibromyalgia Sjogrens syndrome Father Congenital heart defect Colon cancer Paternal Grandmother Breast cancer Bone cancer Maternal Aunt Rheumatoid arthritis Social History Household Members: Significant Other Housing: House Alcohol intake: current Alcohol intake frequency: holidays/special occasions only Patient Tobacco Use Status: Never used Tobacco e-Cigarette/Vaping Use: Never Used service: No Current occupational status: employed 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 Cognitive needs: No Hearing needs: No Vision needs: No Review of Systems Const Details: Review of Systems Constitutional: Denies fever, chills, weight loss ENT: Denies vision changes, eye pain or eye redness, dental caries, dry mouth GI: Denies nausea, vomiting, diarrhea, abdominal pain, change in BM Pulm: Denies SOB, BROWN, hemoptysis, wheezing Cards: Denies chest pain, palpitations Skin: Denies Raynaud's, rash, nail changes, photosensitivity, GOLF PROFESSIONAL: Denies headaches, weakness, paresthesias, recurrent falls MSK: as per HPI All other systems reviewed and are unremarkable except noted above Physical Exam Vital Signs: Last Vital Signs Pulse 100 10/06/24 12:37 BP 130/74 10/06/24 12:37 Pulse Ox 96 10/06/24 12:37 Oxygen Delivery Method Room Air 10/06/24 12:37 BMI result Body Mass Index 31.0 Vital signs reviewed Physical Examination CONSTITUITIONAL Patient alert and cooperative. Well appearing and in no apparent painful distress HEENT Conjunctiva and sclera clear. ?Pupils equal round and reactive to light. ?No lymphadenopathy. ? CHEST/RESPIRATORY SYSTEM Normal respiratory effort and able to speak in complete sentences. ?Clear to auscultation bilaterally. ?No crackles, rales, rhonchi, wheezes heard. CARDIAC SYSTEM Regular rate and rhythm. ?S1 and S2 heard no murmurs. ?Radial pulses intact bilaterally MSK Hands: ?Able to make a fist. No synovitis noted to the MCPs, PIPs or DIPs. ?No tenderness to palpation of these joints. No deformities noted. ? Wrists: ?Full range of motion at the wrists without pain. ?No tenderness to palpation or synovitis noted to the wrists. Elbows: Full range of motion without pain. No tenderness, weakness, swelling, increased warmth or erythema. Shoulders: Full range of active range of motion without pain. No tenderness, weakness, swelling, increased warmth or erythema. Hips: Full range of motion without pain. Hip bursa: No tenderness to palpation Knees: ?Full range of motion. ?No tenderness, swelling, increased warmth or erythema.?No effusion. Crepitations felt Ankles: Full range of motion. ?No tenderness, swelling, increased warmth or erythema.? Feet: ?Negative squeeze test. ?No tenderness to palpation or swelling of the MTPs. Tender points:?No tenderness to palpation of the bilateral trapezius, supraspinatus, greater trochanters, anterior costochondral junctions, bilateral gluteal areas, bilateral suboccipital muscle insertions SKIN Skin intact without rashes. Results Reviewed Results Reviewed: Laboratory Tests 10/03/24 10:31 WBC 4.9 RBC 3.94 L Hgb 11.4 L Hct 34.1 L Plt Count 270 ESR 18 Sodium 138 Potassium 4.1 Chloride 103 Carbon Dioxide 25 BUN 14 Creatinine 0.85 AST 20 ALT 12 C-Reactive Protein 0.15 Laboratory Tests 05/03/23 10/03/24 09:03 10:31 Hepatitis A IgM Ab Nonreactive Hep Bs Antigen Negative Hep Bs Antibody NONREACTIVE Hep B Core Total Ab Nonreactive Hepatitis C Ab (EIA) Nonreactive TB Test (T-Spot) Com Negative Assessment & Plan Assessment & Plan (1) Rheumatoid arthritis: Comment: 8 years old, SHER Hydroxychloroquine Sulfasalazine Enbrel Code(s): M06.9 - Rheumatoid arthritis, unspecified Category: Medical Qualifiers: Rheumatoid arthritis location: multiple sites Rheumatoid factor presence: unspecified presence Qualified Code(s): M06.9 - Rheumatoid arthritis, unspecified Plan: #Seronegative RA Patient is a 48-year-old female with seronegative rheumatoid arthritis here today for follow up. She has a longstanding history of seronegative rheumatoid arthritis starting at the age of 8. Currently on Enbrel and Plaquenil with remission of her rheumatoid arthritis. Plan - Enbrel 50mg SC every week - Hydroxychloroquine 200mg daily - RTC 6 months - Labs before visit: CBC, CMP, ESR, CRP, T spot (2) Osteoporosis: Code(s): M81.0 - Age-related osteoporosis without current pathological fracture Category: Medical Qualifiers: Osteoporosis type: age-related Presence of current pathological fracture: without current pathological fracture Qualified Code(s): M81.0 - Age-related osteoporosis without current pathological fracture Plan: #Osteoporosis Patient with osteoporosis diagnosed with low bone density and fragility fracture of her left wrist. Currently on alendronate by endocrinology (3) Fibromyalgia: Code(s): M79.7 - Fibromyalgia Category: Medical Plan: #Fibromyalgia Patient fibromyalgia. Had a long discussion with patient about the diagnosis of fibromyalgia and also gave her a pamphlet. Discussed that the main treatment for fibromyalgia is stretches as well as a light exercise to reduce muscle tension and muscle spasm. 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 Plan: #Long-term Use of TNF Inhibitors: Etanercept Discussed with the patient the benefits and risks of TNF inhibitors for the management of the rheumatic condition Benefits include reduce pain, maintenance of remission and reduction of flares as well as ?progression of the disease Risks include injection sites/infusion reactions, serious infections (such as bacterial infections, opportunistic infections), malignancy, delaminating syndromes, autoimmune phenomena, CHF exacerbations, palmar plantar psoriasis and cytopenias Recommended rotating injection sites, and holding medication during and for up to 1 week after resolution of a febrile illness or open skin wound (5) Encounter for monitoring of hydroxychloroquine therapy: Code(s): Z51.81 - Encounter for therapeutic drug level monitoring; Z79.899 - Other 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 Due for visit Plan I spent 33 minutes reviewing the record and labs, taking a history, examining the patient, discussing the treatment plan, ordering diagnostic work up and documenting in the medical record Orders: Orders Complete Blood Count Auto Diff 6 Months M06.9 - Rheumatoid arthritis, unspecified, Z51.81 - Encounter for therapeutic drug level monitoring, Z79.620 - [facility] (current) use of immunosuppressive biologic Comprehensive Met. Panel 6 Months M06.9 - Rheumatoid arthritis, unspecified, Z51.81 - Encounter for therapeutic drug level monitoring, Z79.620 - [facility] (current) use of immunosuppressive biologic C Reactive Protein 6 Months M06.9 - Rheumatoid arthritis, unspecified, Z51.81 - Encounter for therapeutic drug level monitoring, Z79.620 - [facility] (current) use of immunosuppressive biologic Erythrocyte Sedimentation Rate 6 Months M06.9 - Rheumatoid arthritis, unspecified, Z51.81 - Encounter for therapeutic drug level monitoring, Z79.620 - [facility] (current) use of immunosuppressive biologic T Spot TB 6 Months M06.9 - Rheumatoid arthritis, unspecified, Z51.81 - Encounter for therapeutic drug level monitoring, 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.620 - household 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 (current) use of immunosuppressive biologic Coding Level of Care Code Est Pt Level 4 (13269) Complex EM visit Add On G2211 Diagnoses Rheumatoid arthritis involving multiple sites, unspecified whether rheumatoid factor present M06.9 Rheumatoid arthritis location: multiple sites Rheumatoid factor presence: unspecified presence Age-related osteoporosis without current pathological fracture M81.0 Osteoporosis type: age-related Presence of current pathological fracture: without current pathological fracture Fibromyalgia M79.7 Encounter for monitoring of etanercept therapy Z51.81; Z79.620 Encounter for monitoring of hydroxychloroquine therapy Z51.81; Z79.899
--- OUTSIDE RECORDS SUMMARY | 2024-10-06 13:31 | XMS_ITS | Continuity of Care Document ---
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 OFFICE VISIT- LEVEL 4 X-RAY WRIST - 3 VIEWS WRIST PRO 8 INCH Advance Directives Directive Yes / No Effective Date File Name No Information Encounters Encounter Description Practice Location Reason(s) For Visit Diagnoses Date Provider Providers Copied on Encounter [facility], [address], [place], [place], [id number], [place] tel:[phone] [facility] Post-Op (chief complaint) XRAY ORDERAftercar e following surgery of the musculoskelet al system, NEC 9 No Information [facility], [address], [place], [place], [address], [place] tel:[phone] [facility] Post-Op (chief complaint) XRAY ORDERClosed torus fracture of distal end of left radius, sequelaAfterc are following surgery of the musculoskelet al system, NEC 9 No Information [facility], [address], [place], [place], [address], [place] tel:[phone] [facility] Post-Op (chief complaint) XRAY ORDERClosed torus fracture of distal end of left radius, sequelaAfterc are following surgery of the musculoskelet al system, NEC 9 No Information [facility], [address], [place], [place], [address], [place] tel:[phone] [facility] No Information 9 No Information [facility], [address], [place], [place], [address], [place] tel:[phone] [facility] Post-Op (chief complaint) Closed torus fracture of distal end of left radius, sequelaAfterc are following surgery of the musculoskelet al system, NECXRAY ORDER 9 No Information [facility], [address], [place], [place], [address], [place] tel:[phone] [facility] Post-Op (chief complaint) Closed torus fracture of distal end of left radius, sequelaAfterc are following surgery of the musculoskelet al system, NECXRAY ORDER Feb-0 9 No Information [facility], [address], [place], [place], [address], [place] tel:[phone] [facility] OP No Information Jan- 9 EVARISTO FELIZ. [address], [address], [place], [place], [address], [place]. tel:[phone] Referring Provider: TRAY LOERA, [address], [place], [address] . tel:[phone] [facility], [address], [place], [place], [address], [place] tel:[phone] [facility] OP No Information Jan- 9 No Information Referring Provider: TRAY LOERA, [address], [place], [address] . tel:[phone] NEW PATIENT OFFICE VISIT- LEVEL 4 [facility], [address], [place], [place], [address], [place] tel:[phone] [facility] Fracture (chief complaint) DME (chief complaint) XRAY ORDERClosed Colles' fracture of left radius, initial encounterOthe r closed intra-articul ar fracture of distal end of left radius, initial encounterClos ed displaced fracture of styloid process of left radius, initial encounter Jan- 9 EVARISTO FELIZ. [address], [address], [place], [place], [address], [place]. tel:[phone] Referring Provider: TRAY LOERA [address], [place], [address] . tel:[phone] Family History Family Member Type Diagnosis Age [...] ) Payers Payer name Insurance type Covered green party ID Hitesh hubbard(s) [facility] [id number] Social History Type Description Quantity Date Captured [...] and tolerating the cock-up brace. 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 Patient Care Teams Name Effective Dates (start - stop) Status Members No Information
--- OUTSIDE RECORDS SUMMARY | 2024-10-06 13:32 | XMS_ITS | Continuity of Care Document ---
Author Organization [facility] Address [address], [address] [place] [address] Phone Care Team Providers Care Input Output Clerk Name Role Phone Unavailable Unavailable Unavailable Allergies, [...] Location Reason(s) For Visit Diagnoses Date Provider [facility] [place] [address], [address], [id number] , [place] tel: [phone] CLOSED [address] [facility] No Information 6 No Information [facility], [address] , [address] [place], [address] , [place] tel: [phone] CLOSED [address] [facility] No Information 6 No Information PREV VISIT, EST, AGE 40-64 [facility], [address] , [address] [place], [id number] , [place] tel: [phone] CLOSED [address] [facility] *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 (chief complaint) ROUTINE 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 EXAMINATION 5 No Information PREV VISIT, EST, AGE 18-39 [facility], [address] , [address], [place], [id number] , [place] tel: [phone] CLOSED [address] [facility] annual exam (chief complaint) SPECIAL SCREEN EXAM HPVMyalgia and myositis, unspecifiedGynecological Examination 4 No Information [facility], [address] , [address], [place], [address] , [place] tel: [phone] CLOSED [address] [facility] annual visit (chief complaint) Rheumatoid Arthritis 2 No Information [facility], [address] , [address] [place], [id number] , [place] tel: [phone] CLOSED [address] [facility] venereal warts (chief complaint) Viral warts, unspecified 1 No Information [facility], [address] [place], [address] , [place] tel: [phone] CLOSED [address] [facility] annual visit (chief complaint) Gynecological ExaminationViral warts, unspecifiedAbsence of menstruation 1 No Information [facility], [address] , [address], [place], [address] , [place] tel:[phone] CLOSED [address] [facility] Routine gynecological examination 0 No Information Family History Family Member Type Diagnosis Age At Onset Father Problem (finding) cancer of colon Payers Payer name Insurance type Covered democrat ID Authoriza tion(s) [id number] Social History Type Description Quantity Date Captured Comments Sex Female Smoking Status No Information Chief Complaint And Reason For Visit No Information History Of Present Illness Encounter Date Complaint History Of Prese nt Illness *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 Additional information: no pattern stamper changes, has never had a mammogramno periods on the Plll. annual exam Last LMP was . 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
--- OUTSIDE RECORDS SUMMARY | 2024-10-06 13:32 | XMS_ITS | Continuity of Care Document ---
Author Organization [facility] Address [address] [facility] [address] MD Bret Phone Care Team Providers Care Frame Bander Name Role Phone No Information Unavailable Unavailable [...] Active Procedures Procedure Date Offic/outpt E&m Estab [facility] Collection Of Venous Blood By Venipunctu re L, Comp Metabolic Panel L, C-reactive Protein L, Sed Rate, Erythrocyte L, CBC Auto Diff L, Handling Of Lab Specimens LC, Drug Screen, Single Drug Class Metho d Offic/outpt E&m Estab [facility] 2 Virtual Offic/outpt E&m [facility]-ct 2 D Collection Of Venous Blood By Venipunctu re L, Comp Metabolic Panel L, C-reactive Protein L, Sed Rate, Erythrocyte L, CBC Auto Diff L, Handling Of Lab Specimens LC, Drug Screen, Single Drug Class Metho d Offic/outpt E&m [facility]-ct 2 Immuniz Admin; 1/combo Vacc/to Flucelvax Quad [...] Estab Mod-hi 2 16 Offic/outpt E&m Estab Mod-ct 2 16 Collection Of Venous Blood By Venipunctu re L, Comp Metabolic Panel L, C-reactive Protein LC, Iron LC, Iron Binding Capacity L Sed Rate, Erythrocyte L, CBC Auto Diff L, Handling Of Lab Specimens Offic/outpt E&m Estab Mod-hi 2 15 Immuniz Admin; 1/combo Vacc/to 15 Flu Vir Vacc-split 3 Yr & > Im (Fluvirin ) Offic/outpt E&m Estab [facility] 2 15 Collection Of Venous Blood By Venipunctu re L, Comp Metabolic Panel L, C-reactive Protein L, Sed Rate, Erythrocyte; Automated L, CBC Auto Diff Offic/outpt E&m Estab Mod-ct 2 15 Collection Of Venous Blood By Venipunctu re L, Comp Metabolic Panel L, C-reactive Protein L, Sed Rate, Erythrocyte; Automated L, CBC Auto Diff Offic/outpt E&m [facility]-ct 2 15 Xray Foot; Complt Mini 3 Views 14 Xray Hand And Wrist Mini 3 Views 2013 Collection Of Venous Blood By Venipunctu re L, Comp Metabolic Panel L, C-reactive Protein L, Sed Rate, Erythrocyte; Automated L, CBC Auto Diff Offic/outpt E&m [facility]-ct 2 14 Collection Of Venous Blood By Venipunctu re L, Comp Metabolic Panel L, C-reactive Protein L, Sed Rate, Erythrocyte; Automated L, CBC Auto Diff Offic/outpt E&m [facility]-ct 2 14 Xray Elbow; Ap & Lat Views Collection Of Venous Blood By Venipunctu re L, Comp Metabolic Panel L, C-reactive Protein L, Iron Total L, Iron TIBC LC, Ferritin L, Sed Rate, Erythrocyte; Automated L, TSH L, CBC Auto Diff L, Handling Of Lab Specimens Offic/outpt E&m Estab Mod-ct 2 14 Collection Of Venous Blood By [...] Rate L, CBC Auto Diff Offic/outpt E&m [facility] Mod-hi 2 13 Depo-Medrol 40 Mg Inj [...] Mini 3 Views 011 Offic/outpt E&m Estab Mod-ct 2 11 Xray Hand And Wrist Mini [...] L, CBC Auto Diff Offic/outpt E&m Estab Mod-ct 2 11 Offic/outpt E&m Estab Mod-ct 2 11 Routine Venipunct/finger/heel 1 L, Comp Metabolic Panel L, C-reactive Protein L, Sed Rate L, CBC Auto Diff Offic/outpt E&m Estab Mod-ct 2 11 Offic/outpt E&m Estab Mod-ct 2 11 Routine Venipunct/finger/heel 0 L, Comp Metabolic Panel L, C-reactive Protein L, Iron Total L, Iron TIBC LC, Ferritin L, Sed Rate L, CBC Auto Diff L, Handling Of Lab Specimens Offic/outpt E&m Estab Mod-ct 2 10 Flu Vir Vacc-split 3 Yr & > Im 10 Immuniz Admin; 1/combo Vacc/to 10 Offic/outpt E&m Estab Mod-ct 2 10 Inj; 1/mx Trig Point 1/two [...] Estab Mod-hi 2 09 Offic/outpt E&m Estab Mod-ct 2 08 Offic/outpt E&m Estab Mod-ct 2 08 Flu Vir Vacc-split 3 Yr & > Im 08 Offic/outpt E&m Estab Mod-hi 2 08 Therapeutic Injection Sub Q Or IM Flu Vir Vacc-split 3 Yr & > Im 08 Ultra Sound Diagnostic L, Comp Metabolic Panel L, C-reactive Protein L, CBC Auto Diff L, Sed Rate Routine Venipunct/finger/heel 8 Offic/outpt E&m Estab Low-mod 7 Offic/outpt E&m Estab Mod-ct 2 07 L, Hepatic Panel Routine Venipunct/finger/heel 7 Offic/outpt E&m Estab Mod-ct 2 07 Rad Exam Chest 2 Views [...] Rate Routine Venipunct/finger/heel 6 Offic/outpt E&m Estab Mod-ct 2 06 Arthrocentesis/aspir/inj; Inte 06 Medication, Depo-Medrol 40 Mg 6 Rad Exam Elbow; Ap & Lat Views 06 L, Comp Metabolic Panel L, C-reactive Protein L, CBC Auto Diff L, Sed Rate Routine Venipunct/finger/heel 6 Offic/outpt E&m Estab Mod-ct 2 06 Rad Exam Hip; Complt Mini 2 Vi 06 L, Comp Metabolic Panel L, Sed Rate Routine Venipunct/finger/heel 6 L, C-reactive Protein L, CBC Auto Diff Offic/outpt E&m Estab Mod-ct 2 05 Arthrocentesis/aspir/inj; Ele 05 Arthrocentesis/aspir/inj; Ele [...] [address], [place], , [place] tel:[phone] No Information 4 No Information [facility] , [address] [place] [address], [place], , [place] tel:[phone] Shree Vernon No Information 3 [address]. [address] [facility], Shree [place], [id number], [place]. tel:[phone] [facility] , [address] [place] [address], [place], , [place] tel:[phone] Shree Vernon No Information 3 Rafael Enciso. [address] [place] [address] 310, [place], [id number], [place]. tel:[phone] [facility] , [address] [place], [place] [address]Bret [place], , [place] tel:[phone] Shree Vernon No Information 3 [address] [place]. [address] [facility] [address], Shree [place], [id number], [place]. tel:[phone] [facility] , [address] [place] [address], [place], [id number], [place] tel:[phone] Shree Vernon No Information 3 [address] [place]. [address] [facility] [address], Shree [place], [id number], [place]. tel:[phone] Offic/outpt E&m Estab Mod-hi 2 [facility] , [address] [place], [place] [address]Bret [place], [id number], [place] tel:[phone] Shree Vernon Other chronic painLong term (current) use of opiate analgesicHype rmobility syndromeSpina l stenosis of cervical regionRA w/o rheumatoid factor of multiple sitesOther watermaster (current) drug therapy 3 [place]. [address] [facility] 600, Shree Vernon [place], [id number], [place]. tel:[phone] Referring Provider: Jamir Lugo, [address] [facility] 600, [place], [address] . tel:[phone] [facility] , [address] [place] [address], [place], [id number], [place] tel: [phone] Shree Vernon No Information 3 [address]. [address], [facility] 600, Shree Vernon [place], [id number], [place]. tel:[phone] [facility] , [address] [place] [address], [place], [id number], [place] tel: [phone] Shree Vernon No Information 3 [address] [place]. [address] [facility], [facility] 600, Shree Vernon [place], [id number], [place]. tel:[phone] Offic/outpt E&m Estab Mod-hi 2 [facility] , [address] [place] [address], [place], [id number], [place] tel: [phone] Shree Vernon RA w/o rheumatoid factor of multiple sitesSpinal stenosis of cervical regionHypermo bility syndromeLong term (current) use of opiate analgesicOthe r chronic pain 3 [address] [place]. [address], [facility] 600, Shree Vernon [place], [id number], [place]. tel:[phone] Referring Provider: Jamir Lugo, [address] [facility] [address], [place], [address] . tel:[phone] Virtual Offic/outpt E&m Estab Mod-hi 2 [facility] , [address] [place] [address], [place], [id number], [place] tel:[phone] [place] Other chronic painOther watermaster (current) drug therapy 2 Jagdish Piedra. [address], [place], [id number], [place]. tel:[phone] Referring Provider: Jamir Lugo, [address] [facility] [address], [place], [address] . tel:[phone] Offic/outpt E&m Estab Mod-hi 2 [facility] , [address] [place] [address], MD [place], [id number], [place] tel:[phone] Shree Vernon RA w/o rheumatoid factor of multiple sitesFibromya lgiaOther chronic painLong term (current) use of opiate analgesicHype rtensionOther watermaster (current) drug therapy 2 [place]. [address] [facility], [address], Shree [place], [id number], [place]. tel:[phone] Referring Provider: Jamir Lugo, [address] [facility] [address] [facility] [address], [place], [address] . tel:[phone] Offic/outpt E&m Estab Mod-hi 2 [facility] , [address] [place] [address], [place], , [place] tel:[phone] Shree Vernon RA w/o rheumatoid factor of multiple sitesOpioid use, unspecified, uncomplicated Other watermaster (current) drug therapyFibrom yalgiaOther chronic painRadial styloid tenosynovitis [de Quervain]Anem ia 2 [place]. [address] [facility] [address], Shree [place], [id number], [place]. tel:[phone] Referring Provider: Jamir Lugo, [address] [facility] [address], [place], [address] . tel:[phone] Offic/outpt E&m Estab Mod-hi 2 [facility] , [address] [place] [address], [place], , [place] tel:[phone] Shree Vernon RA w/o rheumatoid factor of multiple sitesLong term (current) use of opiate analgesicOthe r snf (current) drug therapyFibrom yalgiaOther chronic pain 2 [place]. [address], [address], Shree [place], [id number], [place]. tel:[phone] Referring Provider: Jamir Lugo, [address] [facility] 600, [place], [address] . tel:[phone] Offic/outpt E&m Estab Low-mod [facility] , [address] [place] [address], [place], [id number], [place] tel:[phone] [place] FibromyalgiaO ther chronic pain Apr- 1 Jagdish Piedra. [address], [place], [id number], [place]. tel:[phone] Referring Provider: Jamir Lugo, [address] [facility] [facility] [address], [place], [address] . tel:[phone] Offic/outpt E&m Estab Mod-hi 2 [facility] , [address] [place] [address], [place], [id number], [place] tel:[phone] Shree Vernon RA w/o rheumatoid factor of multiple sitesLong term (current) use of opiate analgesicOthe r chronic painFibromyal giaOther snf (current) drug therapy 1 [place]. [address], [address], Shree [place], [id number], [place]. tel:[phone] Referring Provider: Jamir Lugo, [address] [facility] [address], [place], [address] . tel:[phone] Offic/outpt E&m Estab Mod-hi 2 [facility] , [address] [place] [address], [place], [id number], [place] tel:[phone] Shree Vernon FibromyalgiaR A w/o rheumatoid factor of multiple sitesOther chronic painLong term (current) use of opiate analgesicOpio id use, unspecified, uncomplicated Sep-0 1 [place]. [address], [facility] 600, Shree Vernon [place], [id number], [place]. tel:[phone] Referring Provider: Jamir Lugo, [address], [place], [address] . tel:[phone] Offic/outpt E&m Estab Mod-hi 2 [facility] , [address] [place] [address], [place], [id number], [place] tel:[phone] Shree Vernon RA w/o rheumatoid factor of multiple sitesFibromya lgiaLong term (current) use of opiate analgesicOthe r chronic painOther snf (current) drug therapyCough Jul-0 1 [place]. [address], [address], Shree [place], [id number], [place]. tel:[phone] Referring Provider: Jamir Lugo, [address], [place], [address] . tel:[phone] Virtual Offic/outpt E&m Estab Mod-hi 2 [facility] , [address] [place] [address]Bret [place], [id number], [place] tel:[phone] Shree Vernon Telehealth (chief complaint)Rhe umatoid arthritis (chief complaint) FibromyalgiaR A w/o rheumatoid factor of multiple sitesOpioid use, unspecified, uncomplicated Other chronic painOther snf (current) drug therapy 0 [place]. [address], [address], Shree [place], [id number], [place]. tel:[phone] Referring Provider: Jamir Lugo, [address], [place], [address] . tel:[phone] Virtual Offic/outpt E&m Estab Mod-hi 2 [facility] , [address] [place] [address]Bret [place], , [place] tel:[phone] Shree Vernon Telehealth (chief complaint) RA w/o rheumatoid factor of multiple sitesOther chronic painLong term (current) use of opiate analgesicFibr omyalgia Sep-0 0 [place]. [address], [address], Shree [place], [id number], [place]. tel:[phone] Referring Provider: Jamir Lugo, [address], [place], [address] . tel:[phone] Virtual Offic/outpt E&m Estab Mod-hi 2 [facility] , [address] [place] [address] Bret Peters [place], [id number], [place] tel:[phone] Shree Vernon Telehealth (chief complaint)Rhe umatoid arthritis (chief complaint) FibromyalgiaO ther chronic painRA w/o rheumatoid factor of multiple sitesOpioid use, unspecified, uncomplicated Abdoul-0 0 [place]. [address], [address], Shree [place], [id number], [place]. tel:[phone] Referring Provider: Jamir Lugo, [address], [place], [address] . tel:[phone] Offic/outpt E&m Estab Mod-hi 2 [facility] , [address] [place] [address]Bret MD, [id number], [place] tel:[phone] Shree Vernon Rheumatoid arthritis (chief complaint) RA w/o rheumatoid factor of multiple sitesFibromya lgiaOther chronic painOther watermaster (current) drug therapyLong term (current) use of opiate analgesic Jul-0 0 [place]. [address], [address]ree [place], [id number], [place]. tel:[phone] Referring Provider: Jamir Lugo, [address], [place], [address] . tel:[phone] Offic/outpt E&m Estab Mod-hi 2 [facility] , [address] [place] [address]Bret MD, [id number], [place] tel:[phone] Shree Vernon Fibromyalgia (chief complaint) RA w/o rheumatoid factor of multiple sitesFibromya lgiaOther chronic pain Dec-0 2-201 9 [place]. [address], [address], Shree [place], [id number], [place]. tel:[phone] Referring Provider: Jamir Lugo, [address] [facility] 600, [place], [address] . tel:[phone] Offic/outpt E&m Estab Mod-hi 2 [facility] , [address] [place] [address], [place], [id number], [place] tel:[phone] Shree Vernon Fibromyalgia (chief complaint) RA w/o rheumatoid factor of multiple sitesOther chronic painFibromyal giaInsomniaOt her watermaster (current) drug therapy Jan- 9 [place]. [address], [facility] 600, Shree Vernon MD, [id number], [place]. tel:[phone] Referring Provider: Jamir Lugo, [address], [place], [address] . tel:[phone] Offic/outpt E&m Estab Mod-hi 2 [facility] , [address] [place] [address], [place], [id number], [place] tel:[phone] Shree Vernon Fibromyalgia (chief complaint) FibromyalgiaO ther chronic painRA w/o rheumatoid factor of multiple sitesOther snf (current) drug therapyFatigu e 9 [place]. [address], [facility] 600, Shree [place], [id number], [place]. tel:[phone] Referring Provider: Jamir Lugo, [address], [place], [address] . tel:[phone] Offic/outpt E&m Estab Mod-hi 2 [facility] , [address] [place] [address], [place], [id number], [place] tel:[phone] Shree Vernon Fibromyalgia (chief complaint) RA w/o rheumatoid factor of multiple sitesFibromya lgiaOther chronic painOther snf (current) drug therapyInsomn ia 8 [place]. [address], [address], [place], , [place]. tel:[phone] Referring Provider: Jamir Lugo, [address] [facility] [address] [facility] [address], [place], [address] . tel:[phone] [facility] , [address] [place] [address], [place], [id number], [place] tel:[phone] Shree Vernon No Information 8 [place] [address]. [address], [facility] 600, Shree [place], , [place]. tel:[phone] Offic/outpt E&m Estab Mod-hi 2 [facility] , [address] [place] [address], [place], , [place] tel:[phone] Shree Vernon Fibromyalgia (chief complaint) RA w/o rheumatoid factor of multiple sitesOther chronic painMyofascia l pain syndromeFibro myalgiaOther watermaster (current) drug therapy 8 [place]. [address], [address], [place], , [place]. tel:[phone] Referring Provider: Jamir Lugo, [address] [facility] 600, [place], [address] . tel:[phone] Offic/outpt E&m Estab Mod-hi 2 [facility] , [address] [place] [address], [place], , [place] tel:[phone] Shree Vernon Back pain (chief complaint) Body mass index (BMI) 29.0-29.9, adultRA w/o rheumatoid factor of multiple sitesFibromya lgiaOther chronic painOther snf (current) drug therapyBack painMyofascia l pain syndrome 7 [place]. [address], [address], [id number], [place]. tel:[phone] Referring Provider: Jamir Lugo, [address], [place], [address] . tel:[phone] Offic/outpt E&m Estab Mod-hi 2 [facility] , [address] [place] [address], [place], [id number], [place] tel:[phone] Shree Vernon Rheumatoid arthritis (chief complaint) Body mass index (BMI) 27.0-27.9, adultRA w/o rheumatoid factor of multiple sitesOther snf (current) drug therapyOther chronic painFibromyal ivanna 7 [place]. [address], [address], Shree [place], [id number], [place]. tel:[phone] Referring Provider: Jamir Lugo, [address], [place], [address] . tel:[phone] Offic/outpt E&m [facility] Mod-hi 2 [facility] , [address] [place] [address], [place], , [place] tel:[phone] Shree Vernon Back pain (chief complaint) RA w/o rheumatoid factor of multiple sitesOther snf (current) drug therapyFibrom yalgiaOther chronic painDorsalgia 6 [place]. [address], [address], Shree [place], [id number], [place]. tel:[phone] Referring Provider: Jamir Lugo, [address], [place], [address] . tel:[phone] Offic/outpt E&m [facility] Mod-hi 2 [facility] , [address] [place] [address]Bret MD, [id number], [place] tel:[phone] Shree Vernon Rheumatoid arthritis (chief complaint) RA w/o rheumatoid factor of multiple sitesFibromya lgiaOther chronic painOther watermaster (current) drug therapy 6 [place]. [address], [address], Shree [place], [id number], [place]. tel:[phone] Referring Provider: Jamir Lugo, [address], [place], [address] . tel:[phone] Offic/outpt E&m Estab Mod-hi 2 [facility] , [address] [place] [address], [place], [id number], [place] tel:[phone] Shree Vernon Rheumatoid arthritis (chief complaint) RA w/o rheumatoid factor of multiple sitesFibromya lgiaOther chronic pain 6 [address] [place]. [address], [facility] 600, Shree Vernon MD, [id number], [place]. tel:[phone] Referring Provider: Jamir Lugo, [address] [facility] [address], [place], [address] . tel:[phone] Offic/outpt E&m Estab Mod-hi 2 [facility] , [address] [place] [address], [place], [id number], [place] tel:[phone] Shree Vernon Rheumatoid arthritis (chief complaint) RA w/o rheumatoid factor of multiple sitesFibromya lgiaOther chronic painOther snf (current) drug therapyIron deficiency 5 [address] [place]. [address] [facility], [facility] 600, Shree [place], [id number], [place]. tel:[phone] Referring Provider: Jamir Lugo, [address] [facility] [facility] [address], [place], [address] . tel:[phone] [facility] , [address] [place] [address], [place], [id number], [place] tel:[phone] Shree Vernon No Information 5 [address]. [address] [facility], [facility] 600, Shree [place] MD, [id number], [place]. tel:[phone] Offic/outpt E&m Estab Mod-hi 2 [facility] , [address] [place] [address], [place], [id number], [place] tel:[phone] Shree Vernon Rheumatoid arthritis (chief complaint) Fibromyalia Syn Myalgia MyositRheumat oid ArthritisInso mniaChronic Pain 5 [address]. [address], [address], Shree [place], [id number], [place]. tel:[phone] Referring Provider: Jamir Lugo, [address] [facility] [facility] [address], [place], [address] . tel:[phone] Offic/outpt E&m Estab Mod-hi 2 [facility] , [address] [place] [address], MD [place], [id number], [place] tel:[phone] Shree Vernon Fibromyalgia (chief complaint) Fibromyalia Syn Myalgia MyositRheumat oid ArthritisTher apeutic Drug Monitoring 5 [address]. [address], [address], Shree [place], [id number], [place]. tel:[phone] Referring Provider: Jamir Lugo, [address] [facility] [facility] [address], [place], [address] . tel:[phone] Offic/outpt E&m Estab Mod-hi 2 [facility] , [address] [place] [address], MD [place], [id number], [place] tel:[phone] Shree Vernon Rheumatoid arthritis (chief complaint) Rheumatoid ArthritisTher apeutic Drug MonitoringFib romyalia Syn Myalgia MyositChronic Pain 5 [address] [place]. [address], [address], Shree [place], [id number], [place]. tel:[phone] Referring Provider: Jamir Lugo, [address] [facility] [facility], [place], [address] . tel:[phone] Offic/outpt E&m Estab Mod-hi 2 [facility] , [address] [place] [address], MD [place], [id number], [place] tel:[phone] Shree Vernon Rheumatoid arthritis (chief complaint) Fibromyalia Syn Myalgia MyositRheumat oid ArthritisChro montse PainTherapeut ic Drug Monitoring 4 [address]. [address], [address], Shree [place], [id number], [place]. tel:[phone] Referring Provider: Jamir Lugo, [address] [facility] [address], [place], [address] . tel:[phone] [facility] , [address] [place] [address], MD [place], [id number], [place] tel:[phone] Ministerio [place] No Information 4 [address]. [address], [facility] [address], Shree [place] MD, [id number], [place]. tel:[phone] Referring Provider: Jamir Lugo, [address] [facility] [address], [place], [address] . tel:[phone] Offic/outpt E&m Estab Mod-hi 2 [facility] , [address] [place] [address], [place], [id number], [place] tel:[phone] Shree Vernon Rheumatoid arthritis (chief complaint)Fib romyalgia (chief complaint) Rheumatoid ArthritisMyal ivanna Fibromyalgia MyositisChron ic Pain 4 [address] [place]. [address], [facility] [address], Shree [place] MD, [id number], [place]. tel:[phone] Referring Provider: Jamir Lugo, [address] [facility] [address], [place], [address] . tel:[phone] Offic/outpt E&m Estab Mod-hi 2 [facility] , [address] [place] [address], [place], [id number], [place] tel:[phone] Shree Vernon musculoskelet al pain (chief complaint) Rheumatoid ArthritisMyal ivanna Fibromyalgia MyositisJoint Pain-up/armTh erapeutic Drug MonitoringFat igue / MalaiseChroni c Pain 4 [place]. [address], [address], [place]ree [place], [id number], [place]. tel:[phone] Referring Provider: Jamir Lugo, [address] [facility] [facility] [address], [place], [address] . tel:[phone] Offic/outpt E&m Estab Mod-hi 2 [facility] , [address] [place] [address], [place], , [place] tel:[phone] Shree Vernon Rheumatoid arthritis (chief complaint) Fatigue / MalaiseInflue nza VaccineRheuma toid ArthritisTher apeutic Drug MonitoringChr onic Pain [address], [address], Shree [place], [id number], [place]. tel:[phone] Referring Provider: Jamir Lugo, [address], [place], [address] . tel:[phone] Offic/outpt E&m Estab Mod-hi 2 [facility] , [address] [place] [address], [place], , [place] tel:[phone] Shree Vernon rheumatoid arthritis (chief complaint) Therapeutic Drug MonitoringChr onic PainMyalgia Fibromyalgia MyositisRheum atoid Arthritis [address]. [address], [address], Shree [place], [id number], [place]. tel:[phone] Referring Provider: Jamir Lugo, [address] [facility] [address], [place], [address] . tel:[phone] Offic/outpt E&m Estab Mod-hi 2 [facility] , [address] [place] [address], [place], , [place] tel:[phone] Shree Vernon Rheumatoid arthritis (chief complaint)Fib romyalgia (chief complaint)mus culoskeletal pain (chief complaint) Bursitis, Rotator CuffRheumatoi d ArthritisTher apeutic Drug MonitoringJoi nt Pain-l/legChr onic Pain [address], [address], Shree [place], [id number], [place]. tel:[phone] Referring Provider: Jamir Lugo, [address] [facility] [address], [place], [address] . tel:[phone] Offic/outpt E&m Estab Mod-hi 2 [facility] , [address] [place] [address], [place], [id number], [place] tel:[phone] Shree Vernon Fibromyalgia (chief complaint)Rhe umatoid arthritis (chief complaint)mus culoskeletal pain (chief complaint) Bursitis, Rotator CuffRheumatoi d ArthritisMyal ivanna Fibromyalgia MyositisSleep ApneaTherapeu tic Drug Monitoring [address] [facility], [facility] 600, Shree Vernon [place], [id number], [place]. tel:[phone] Referring Provider: Jamir Lugo, [address] [facility] [address], [place], [address] . tel:[phone] Offic/outpt E&m Estab Mod-hi 2 [facility] , [address] [place] [address]B[place], [id number], [place] tel:[phone] Shree Vernon Rheumatoid arthritis (chief complaint)Fib romyalgia (chief complaint) Myalgia Fibromyalgia MyositisRheum atoid ArthritisTher apeutic Drug MonitoringInf luenza Vaccine [address] [facility], [address], Shree [place], [id number], [place]. tel:[phone] Referring Provider: Jamir Lugo, [address] [facility] [address], [place], [address] . tel:[phone] Offic/outpt E&m Estab Mod-hi 2 [facility] , [address] [place] [address]B[place], [id number], [place] tel:[phone] CHARLIE Rheumatoid arthritis (chief complaint) Rheumatoid ArthritisTher apeutic Drug MonitoringBur sitis, Rotator CuffFatigue / Malaise [address] [facility], [address], Shree [place], [id number], [place]. tel:[phone] Referring Provider: Jamir Lugo, [address] [facility] [facility] [address], [place], [address] . tel:[phone] Offic/outpt E&m Estab Mod-hi 2 [facility] , [address] [place] [address], [place], [id number], [place] tel:[phone] Shree Vernon Rheumatoid arthritis (chief complaint)Fib romyalgia (chief complaint) Rheumatoid ArthritisTher apeutic Drug MonitoringChr onic PainHypertens ion, BenignHyperte nsion, Benign Mar-2 [address] [facility] [address] [facility] [facility], [address], Shree [place], [id number], [place]. tel:[phone] Referring Provider: Jamir Lugo, [address] [facility] [facility] [address], [place], [address] . tel:[phone] Offic/outpt E&m Estab Mod-hi 2 [facility] , [address] [place] [address], [place], [id number], [place] tel:[phone] [place] Rheumatoid Arthritis (chief complaint) Fibrositis/Rh eumatism NosInfluenza Vaccine [address] [facility], [address], Shree [place], [id number], [place]. tel:[phone] Referring Provider: Jamir Lugo, [address] [facility] [address], [place], [address] . tel:[phone] Offic/outpt E&m Estab Mod-hi 2 [facility] , [address] [place] [address], [place], [id number], [place] tel:[phone] [place] Rheumatoid Arthritis (chief complaint) No Information [address] [facility], [address], Shree [place], [id number], [place]. tel:[phone] Referring Provider: Jamir Lguo, [address] [facility] [address], [place], [address] . tel:[phone] Offic/outpt E&m Estab Mod-hi 2 [facility] , [address] [place] [address], [place], [id number], [place] tel:[phone] CHARLIE Rheumatoid Arthritis (chief complaint) No Information [address] [facility], [address], Shree [place], [id number], [place]. tel:[phone] Referring Provider: Jamir Lugo, [address] [facility] [facility] 600, [place], [address] . tel:[phone] Offic/outpt E&m Estab Mod-hi 2 [facility] , [address] [place] [address], [place], [id number], [place] tel:[phone] CHARLIE Rheumatoid Arthritis (chief complaint) No Information [address], [facility] 600, Shree Vernon MD, [id number], [place]. tel:[phone] Referring Provider: Jamir Lugo, [address] [facility] [facility] [address], [place], [address] . tel:[phone] Offic/outpt E&m Estab Mod-hi 2 [facility] , [address] [place] [address], [place], [id number], [place] tel:[phone] CHARLIE Rheumatoid Arthritis (chief complaint) No Information [address], [facility] 600, Shree Vernon [place], [id number], [place]. tel:[phone] Referring Provider: Jamir Lugo, [address] [facility] [address], [place], [address] . tel:[phone] Offic/outpt E&m Estab Mod-hi 2 [facility] , [address] [place] [address]Bret [place], [id number], [place] tel:[phone] CHARLIE Rheumatoid Arthritis (chief complaint) Ulcer, GastricBenign Hypertension [address], [facility] 600, Shree Vernon [place], [id number], [place]. tel:[phone] Referring Provider: Jamir Lugo, [address], [place], [address] . tel:[phone] Offic/outpt E&m Estab Mod-hi 2 [facility] , [address] [place] [address], [place], [id number], [place] tel:[phone] [place] Rheumatoid Arthritis (chief complaint) No Information [address], [address], Shree [place], [id number], [place]. tel:[phone] Referring Provider: Jamir Lugo, [address], [place], [address] . tel:[phone] Offic/outpt E&m Estab Mod-hi 2 [facility] , [address] [place] [address], [place], [id number], [place] tel:[phone] [place] Rheumatoid Arthritis (chief complaint) No Information [address], [address], Shree [place], [id number], [place]. tel:[phone] Referring Provider: Jamir Lugo, [address], [place], [address] . tel:[phone] Offic/outpt E&m Estab Mod-hi 2 [facility] , [address] [place] [address], [place], [id number], [place] tel:[phone] [place] Rheumatoid Arthritis (chief complaint) No Information [address], [address], Shree [place], [id number], [place]. tel:[phone] Referring Provider: Jamir Lugo, [address], [place], [address] . tel:[phone] Offic/outpt E&m Estab Low-mod [facility] , [address] [place] [address], [place], , [place] tel:[phone] [place] Rheumatoid Arthritis (chief complaint) No Information [address] [facility] 600, Shree Vernon [place], [id number], [place]. tel:[phone] Referring Provider: Jamir Lugo, [address] [place], [place] [address]e [facility] 600, [place], [address] . tel:[phone] [facility] , [address] [place] [address], [place], , [place] tel:[phone] PT [place] Back Pain (chief complaint) No Information 0 No Information Referring Provider: Jamir Lugo, [address] [place] [address], [place], [address] . tel:[phone] [facility], [address] [place] [address], [place], , [place] tel: [phone] PT [place] Back Pain (chief complaint) No Information 0 No Information Referring Provider: Jamir Lugo, [address] [place] [address], [place], [address] . tel:[phone] [facility] , [address] [place] [address], [place], , [place] tel:[phone] PT [place] Back Pain (chief complaint) No Information 0 No Information Referring Provider: Jamir Lugo, [address] [place] [address], [place], [address] . tel:[phone] [facility] , [address] [place] [address], [place], , [place] tel:[phone] PT DC Back Pain (chief complaint) No Information 0 No Information Referring Provider: Jamir Lugo, [address] [place] [address], [place], [address] . tel:[phone] Offic/outpt E&m Estab Mod-hi 2 [facility] , [address] [place] [address], [place], [id number], [place] tel:[phone] [place] Rheumatoid Arthritis (chief complaint) No Information [address], [address], Shree Vernon [place], [id number], [place]. tel:[phone] Referring Provider: Jamir Lugo, [address] [facility] [address] [facility] [address], [place], [address] . tel:[phone] [facility] , [address] [place] [address], [place], [id number], [place] tel:[phone] [place] No Information [address], [facility] 600, Shree Vernon MD, [id number], [place]. tel:[phone] Referring Provider: Jamir Lugo, [address] [place] [address] [address], [place], [address] . tel:[phone] Offic/outpt E&m Estab Mod-hi 2 [facility] , [address] [place] [address], [place], [id number], [place] tel:[phone] [place] Rheumatoid Arthritis (chief complaint) No Information [address], [address], Shree [place], [id number], [place]. tel:[phone] Referring Provider: Jamir Lugo, [address] [facility] [address] [facility] [address], [place], [address] . tel:[phone] Offic/outpt E&m Estab Mod-hi 2 [facility] , [address] [place] [address], [place], [id number], [place] tel:[phone] [place] Rheumatoid Arthritis (chief complaint) No Information [address], [address], Shree [place], [id number], [place]. tel:[phone] Referring Provider: Jamir Lugo, [address] [facility] [address] [facility] [address], [place], [address] . tel:[phone] Offic/outpt E&m Estab Mod-hi 2 [facility] , [address] [place] [address], MD [place], [id number], [place] tel:[phone] [place] Rheumatoid Arthritis (chief complaint) No Information [address], [address], Shree [place], [id number], [place]. tel:[phone] Referring Provider: Jamir Lugo, [address] [facility] [facility] [address], [place], [address] . tel:[phone] Offic/outpt E&m Estab Low-mod [facility] , [address] [place] [address], [place], [id number], [place] tel:[phone] CHARLIE Rheumatoid Arthritis (chief complaint) No Information [address], [address], Shree Vernon [place], [id number], [place]. tel:[phone] Referring Provider: Jamir Lugo, [address], [place], [address] . tel:[phone] Offic/outpt E&m Estab Mod-hi 2 [facility] , [address] [place] [address], [place], [id number], [place] tel:[phone] CHARLIE Rheumatoid Arthritis (chief complaint) No Information [address], [address], Shree [place], [id number], [place]. tel:[phone] Referring Provider: Jamir Lugo, [address] [facility] [facility] [address], [place], [address] . tel:[phone] Offic/outpt E&m Estab Mod-hi 2 [facility] , [address] [place] [address]Bret [place], [id number], [place] tel:[phone] CHARLIE Rheumatoid Arthritis (chief complaint) No Information [address], [address], Shree [place] MD, [id number], [place]. tel:[phone] Referring Provider: Jamir Lugo, [address] [facility] [address], [place], [address] . tel:[phone] Offic/outpt E&m Estab Mod-hi 2 [facility] , [address] [place] [address], [place], [id number], [place] tel:[phone] CHARLIE Rheumatoid Arthritis (chief complaint) No Information [address] [facility], [facility] 600, Shree Vernon [place], [id number], [place]. tel:[phone] Referring Provider: Jamir Lugo, [address] [place] [address], [place], [address] . tel:[phone] Offic/outpt E&m Estab Mod-hi 2 [facility] [place] [address], [place], [id number], [place] tel:[phone] [place] Rheumatoid Arthritis (chief complaint) Rheumatoid ArthritisIron Defic Anemia NosIron Defic Anemia NosIron Defic Anemia Nos [address] [facility], [facility] 600, Shree Vernon [place], [id number], [place]. tel:[phone] Referring Provider: Jamir Lugo, [address] [facility] [address] [facility] [address], [place], [address] . tel:[phone] [facility] [place] [address], [place], [id number], [place] tel:[phone] CHARLIE Rheumatoid Arthritis (chief complaint)Kwesi k Pain (chief complaint) Rheumatoid ArthritisFibr omyalgia Syn Myalgia MyositChronic PainLong Term High Risk Meds [address] [facility] [address] [facility], [facility] 600, Shree Vernon [place], [id number], [place]. tel:[phone] Referring Provider: Jamir Lugo, [address] [facility] [address], [place], [address] . tel:[phone] Offic/outpt E&m Estab Mod-hi 2 [facility] , [address] [place] [address], [place], [id number], [place] tel:[phone] [place] Rheumatoid Arthritis (chief complaint)Fib romyalgia Syndrome (chief complaint) Rheumatoid ArthritisChro montse Pain [address] [facility], [facility] 600, Shree Vernon [place], [id number], [place]. tel:[phone] Referring Provider: Jamir Lugo, [address] [facility] 600, [place], [address] . tel:[phone] Offic/outpt E&m Estab Low-mod [facility] , [address] [place] [address], [place], [id number], [place] tel:[phone] [place] Rheumatoid Arthritis (chief complaint)Fib romyalgia Syndrome (chief complaint) Rheumatoid ArthritisFibr omyalia Syn Myalgia MyositJoint Hypermobility SyndromeChron ic PainLong Term High Risk Meds [address], [facility] 600, Shree Vernon MD, [id number], [place]. tel:[phone] Referring Provider: Jamir Lugo, [address] [facility] 600, [place], [address] . tel:[phone] Offic/outpt E&m Estab Mod-hi 2 [facility] , [address] [place] [address], [place], [id number], [place] tel:[phone] [place] No Information [address] [facility], [facility] 600, Shree Vernon [place], [id number], [place]. tel:[phone] Referring Provider: Jamir Lugo, [address] [facility] [address] [facility] 600, [place], [address] . tel:[phone] [facility] , [address] [place] [address], [place], [id number], [place] tel:[phone] [place] No Information [address] [facility] [address] [facility] [facility], [facility] 600, Shree Vernon MD, [id number], [place]. tel:[phone] Referring Provider: Jamir Lugo, [address], [place], [address] . tel:[phone] Offic/outpt E&m Estab Mod-hi 2 [facility] , [address] [place] [address], [place], [id number], tel:[phone] [place] No Information [address], [address], Shree [place]no [place], [id number], [place]. tel:[phone] Referring Provider: Jamir Lugo, [address], [place], [address] . tel:[phone] Offic/outpt E&m Estab Mod-hi 2 [facility] , [address] [place] [address], [place], [id number], tel:[phone] [place] No Information [address] [facility], [address], Shree [place], [id number], [place]. tel:[phone] Referring Provider: Jamir Lugo, [address], [place], [address] . tel:[phone] Offic/outpt E&m Estab Mod-hi 2 [facility] , [address] [place] [address], [place], [id number], [place] tel:[phone] [place] No Information [address], [address], Shree Vernon MD, [id number], [place]. tel:[phone] Referring Provider: Jamir Lugo, [address], [place], [address] . tel:[phone] Offic/outpt E&m Estab Mod-hi 2 [facility] , [address] [place] [address], MD [place], [id number], tel:[phone] [place] No Information [address] [facility], [address], Shree [place] MD, [id number], . tel:[phone] Referring Provider: Jamir Lugo, [address], [place], [address] . tel:[phone] Offic/outpt E&m Estab Mod-hi 2 [facility] , [address] [place] [address] Bret [place], [id number], tel:[phone] [place] No Information [address] [facility], [address], Shree [place], [id number], [place]. tel:[phone] Referring Provider: Jamir Lugo, [address], [place], [address] . tel:[phone] Offic/outpt E&m Estab Mod-hi 2 [facility] , [address] [place] [address], [place], [id number], tel:[phone] [place] No Information [address] [facility], [address], Shree [place] MD, [id number], [place]. tel:[phone] Referring Provider: Jamir Lugo, [address] [facility] [facility] [address], [place], [address] . tel:[phone] Offic/outpt E&m Estab Mod-hi 2 [facility] , [address] [place] [address] Bret [place], , [place] tel:[phone] [place] No Information 6 No Information Offic/outpt E&m Estab Mod-hi 2 [facility] , [address] [place] [address] Bret [place], , [place] tel:[phone] [place] No Information 6 No Information Offic/outpt E&m Estab Mod-hi 2 [facility] , [address] [place] [address] Bret [place], , [place] tel:[phone] [place] No Information 2200 5 No Information [...] preservative free, 3 years and older Afluria 2340-9320 administered Source: New Immu nization Record Influenza, split virus, injectable, 3 years and older Fluvirin [id number] administered Source: New Immuniza tion Record Flu, [...] Authoriza tion(s) [employer] BL [id number] [employer] BL [id number] [employer] BL [id number] [employer] BL [id number] [employer] CI [id number] [employer] PPO And POS BL [id number] Social History Type Description Quantity Date Captured Comments Sex Female Smoking Status No Information Sexual Orientation Straight or heterosexual Gender Identity Female Chief Complaint And Reason For Visit No Information Reason For Referral Reason For Referral No Information Plan Of Treatment Date Type Action Status Goal Foot X-ray. Due on due Goal [...] Goal Foot X-ray. Due on due Goal Dietary manageme nt education, guidance, and counseling completed Goal Hand X-ray. Due on due Goal Foot X-ray. Due on due Goal Dietary manageme [...] due Goal Foot X-ray. Due on due Referral Ordered: Marco A Pond MD -Otolaryngology (related to Cough) ordered Referral Referred To: Marco A Pond MD [facility] [address] [place], [id number] Ordered: Referrals: Otolaryngology. Marco A Pond MD. Evaluate and treat ordered Referral Ordered: Xray Elbow; Ap & Lat Views Left ordered Referral Ordered: Xray Knee; Three Views Left ordered Referral Referred To: Samm Cardona MD [facility] [address] [place], [place], [id number] Ordered: Referral: Samm Cardona MD. ordered Referral [...] Telehealth Physician Locati on: Shree VernonPatient Location: [address] [place] [address]Omje of Visit: Virtual VisitOther participants: NoneInterpreter: NoneThis [...] Telehealth Physician Locati on: Kirstythad VernonPatient Location: [address] [place], [place] [address]Qhrd of Visit: Virtual VisitOther participants: NoneInterpreter: NoneThis [...] Telehealth Physician Locati on: Billieluzthad VernonPatient Location: [address] [place], [place] [address]Apye of Visit: Virtual VisitOther participants: NoneInterpreter: NoneThis [...]
--- OUTSIDE RECORDS SUMMARY | 2024-10-06 13:32 | XMS_ITS | Continuity of Care Document ---
Author Organization [facility] [address] [facility] [address] [place] [address] Phone [phone] Care Team Providers Care Director Systems Name Role Phone Cyndi Chavira CNP Care Team Information Receive r [phone] Problems Active Problems Provider Date Essential tremor [...] Qnty Indications Order ing Provider Date Alendronate Ayuvoz08mm Tablets take 1 tablet by mouth weekly 30 minutes before the first food, beverage or medicine of the day with plain water for osteoporosis 30tabs Yamila Rodriguez M.D. 08/30/2023 Zolpidem Gmocdfsl29ox Tablets Take 1 Tablet By Mouth AT Bedtime Cyndi Chavira CNP Doxycycline Nogjjeu86ej Tablets Take 1 Tablet By Mouth Twice A Day Unknown Sumatriptan Ermhziahk488ob Tablets Please See Attached For Detailed Directions Unknown Tizanidine HCL2mg Tablets Take 1 Tablet By Mouth 3 Times A Day Cyndi Chavira CNP Duloxetine XPL84jx Caps DR Part Take 1 Capsule By Mouth Every Day For 90 Days Cyndi Chavira CNP Rgkazdlakefsby26hn Tablets Take 1 Tablet By Mouth Twice A Day Unknown Hydroxychloroquine Oeovlbt465ht Tablets Take 2 Tablets By Mouth Every Day Cyndi Chavira CNP Acetaminophen/Codeine Bdhsnhfnx617-88pk Tablets Take 2 Tablets By Mouth Twice [...] D deficiency has been defined by the [place] of [employer] and an Endocrine Society practice guideline as a level of serum 25-OH vitamin D less than 20 ng/mL (1,2). The Endocrine Society went on to further define vitamin D insufficiency as a level between 21 and 29 ng/mL (2). 1. IOM ([place] of [employer]). 2010. Dietary reference intakes for calcium and D. [place]: The National Academies Press. 2. Esteban Rodrigez, Cirilo SAEED, et al. Evaluation, treatment, and prevention of vitamin D deficiency: an Endocrine Society clinical practice guideline. JCEM. 2010; 96(7):1911-30. 2 Vitamin D deficiency has been defined by the [place] [employer] [place] and an Endocrine Society practice guideline as a level of serum 25-OH vitamin D less than 20 ng/mL (1,2). The Endocrine Society went on to further define vitamin D insufficiency as a level between 21 and 29 ng/mL (2). 1. IOM ([place] of [employer]). 2010. Dietary reference intakes for calcium and D. [place]: The National Academies Press. 2. Esteban Rodrigze, Cirilo SAEED, et al. Evaluation, treatment, and [...]
== END 2024-10-06 13:22 | disposition home or self-care (01) ==
LOC: HO.RHE 12:26
PROVIDERS: PCP Nurse Practitioner Family; Visit Provider Student in an Organized Health Care Education/Training Program
DX: M06.9 Rheumatoid arthritis, unspecified (principal); M81.0 Age-related osteoporosis without current pathological fracture; M79.7 Fibromyalgia; Z51.81 Encounter for therapeutic drug level monitoring; Z79.620 Long term (current) use of immunosuppressive biologic; Z79.899 Other long term (current) drug therapy
CPT/HCPCS: 99214

== ENCOUNTER → 2024-10-06 12:25 | Outpatient (BNVA) | payer BC, SELFPAY | PROVIDERS: PCP Nurse Practitioner Family; Visit Provider Student in an Organized Health Care Education/Training Program ==

== ENCOUNTER 2024-10-09 08:49 | Outpatient (REF) | payer BC, SELFPAY ==
--- NOTE | ~2024-10-09 | US_ITS ---
EXAMINATION: MM DIAGNOSTIC DIGITAL BREAST TOMOSYNTHESIS, RIGHT Limited right breast ultrasound. CLINICAL INFORMATION: Call back from screening for asymmetry in the lateral right breast anterior depth on CC view. COMPARISON: Mammography: Priors on PACS. TECHNIQUE: Digital breast tomosynthesis is performed in both the craniocaudal and mediolateral oblique views along with computer-aided detection (CAD). Synthesized 2D images are generated from the tomosynthesis. FINDINGS: There are scattered areas of fibroglandular density (ACR BI-RADS breast composition Category b). The previously seen asymmetry in the lateral right breast anterior depth on CC view does not persist on additional imaging projections and is similar-appearing dating back to 2014 and likely represented overlapping breast tissue. There are no significant masses, abnormal calcifications, or other abnormalities. Targeted color Doppler ultrasound scanning from 7-11 o'clock in the lateral right breast demonstrates normal fibroglandular breast tissue. No other is no sonographic abnormal D. US/US breast RT limited mamm only IMPRESSION: No mammographic or sonographic abnormality. ASSESSMENT: BI-RADS BI-RADS 1 - Negative RECOMMENDATION: 1 year F/U Results were provided to the patient at time of visit by the technologist. This patient's information was entered into a reminder system with a target due date for their next mammogram. Electronically signed by: Kenzie Ortiz DO 10/09/2024 09:50 AM EDT
--- OUTSIDE RECORDS SUMMARY | 2024-10-09 09:01 | XMS_ITS | Continuity of Care Document ---
Author Organization [facility] Address [address] [place] [address] Phone Care Team Providers Care Managed Services Sales Consultant Name Role Phone Unavailable Unavailable Unavailable Allergies, Adverse Reactions, Alerts Substance Reaction Status Criticality NSAIDS (Non-Steroidal Anti-Inflammatory Drug) Active No Information Medications Medication Instructions Dosage Effective Dates (start - stop) Status Comments MORPHINE SULFATE ER (unknown strength) take 1 capsule by oral route every day Not Available - Active TIZANIDINE HCL (unknown strength) take 1 capsule by oral route every 6 - 8 hours as needed not to exceed 3 doses in 24 hours Not Available - Active AMBIEN (unknown strength) take 1 tablet by oral route every day at bedtime Not Available - Active CYMBALTA (unknown strength) take 1 capsule by oral route every day Not Available - Active PLAQUENIL (unknown strength) take 1 tablet by oral route every day Not Available - Active SPIRONOLACTONE (unknown strength) take 1 tablet by [...] FRAG TREAT FX RADIAL 3+ FRAG - EMS DIRECTOR NEW PATIENT OFFICE VISIT- LEVEL 4 X-RAY WRIST - 3 VIEWS WRIST PRO 8 INCH Advance Directives Directive Yes / No Effective Date File Name No Information Encounters Encounter Description Practice Location Reason(s) For Visit Diagnoses Date Provider Providers Copied on Encounter [facility], [address], [place], [place], [id number], [place] tel:[phone] [facility] Post-Op (chief complaint) XRAY ORDERAftercar e following surgery of the musculoskelet al system, NEC 9 No Information [facility], [address], [place], [place], [address], [place] tel:[phone] [facility] Post-Op (chief complaint) XRAY ORDERClosed torus fracture of distal end of left radius, sequelaAfterc are following surgery of the musculoskelet al system, NEC 9 No Information [facility], [address], [place], [place], [address], [place] tel:[phone] [facility] Post-Op (chief complaint) XRAY ORDERClosed torus fracture of distal end of left radius, sequelaAfterc are following surgery of the musculoskelet al system, NEC 9 No Information [facility], [address], [place], [address], [place] tel:[phone] [facility] No Information 9 No Information [facility], [address], [place], [place], [address], [place] tel:[phone] [facility] Post-Op (chief complaint) Closed torus fracture of distal end of left radius, sequelaAfterc are following surgery of the musculoskelet al system, NECXRAY ORDER 9 No Information [facility], [address], [place], [place], [address], [place] tel:[phone] [facility] Post-Op (chief complaint) Closed torus fracture of distal end of left radius, sequelaAfterc are following surgery of the musculoskelet al system, NECXRAY ORDER Feb-0 9 No Information [facility], [address], [place], [place], [address], [place] tel:[phone] [facility] OP No Information Jan- 9 EVARISTO FELIZ. [address], [address], [place], [place], [address], [place]. tel:[phone] Referring Provider: TRAY LOERA, [address], [place], [address] . tel:[phone] [facility], [address], [place], [place], [address], [place] tel:[phone] [facility] OP No Information Jan- 9 No Information Referring Provider: TRAY LOERA, [address], [place], [address] . tel:[phone] NEW PATIENT OFFICE VISIT- LEVEL 4 [facility], [address], [place], [place], [address], [place] tel:[phone] [facility] Fracture (chief complaint) DME (chief complaint) XRAY ORDERClosed Colles' fracture of left radius, initial encounterOthe r closed intra-articul ar fracture of distal end of left radius, initial encounterClos ed displaced fracture of styloid process of left radius, initial encounter Jan- 9 EVARISTO FELIZ. [address], [address], [place], [place], [address], [place]. tel:[phone] Referring Provider: TRAY LOERA [address], [place], [address] . tel:[phone] Family History Family Member Type Diagnosis Age [...] type Covered green party ID Hitesh hubbard(s) [facility] [employer] [id number] Social History Type Description Quantity Date Captured [...] and tolerating the cock-up brace. Post-Op (comments) Manager Order on [employer] computer, no issues with typing Post-Op The [...] Mental Status Date Cognitive Assessment Orientation - Graham ed to time, place, person, situation. Patient Care Teams Name Effective Dates (start - stop) Status Members No Information
--- OUTSIDE RECORDS SUMMARY | 2024-10-09 09:01 | XMS_ITS | Continuity of Care Document ---
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 08/30/2023 Zolpidem Vwwkcwjy61rw Tablets Take 1 Tablet By Mouth AT Bedtime Cyndi Chavira CNP Doxycycline Bdltety08dd Tablets Take 1 Tablet By Mouth Twice A Day Unknown Sumatriptan Uchwradqg386es Tablets Please See Attached For Detailed Directions Unknown Tizanidine HCL2mg Tablets Take 1 Tablet By Mouth 3 Times A Day Cyndi Chavira CNP Duloxetine XLC28ao Caps DR Part Take 1 Capsule By Mouth Every Day For 90 Days Cyndi Chavira CNP Pyfghndecevkwh63kd Tablets Take 1 Tablet By Mouth Twice A Day Unknown Hydroxychloroquine Rlddstg078kp Tablets Take 2 Tablets By Mouth Every Day Cyndi Chavira CNP Acetaminophen/Codeine Hedjwutil707-68mu Tablets Take 2 Tablets By Mouth Twice [...] D deficiency has been defined by the [place] of [employer] and an Endocrine Society practice guideline as a level of serum 25-OH vitamin D less than 20 ng/mL (1,2). The Endocrine Society went on to further define vitamin D insufficiency as a level between 21 and 29 ng/mL (2). 1. IOM ([place] [employer]). 2010. Dietary reference intakes for calcium and D. [place]: The National Academies Press. 2. Esteban Rodrigez, Cirilo SAEED, et al. Evaluation, treatment, and prevention of vitamin D deficiency: an Endocrine Society clinical practice guideline. JCEM. 2010; 96(7):1911-30. 2 Vitamin D deficiency has been defined by the [place] of [employer] and an Endocrine Society practice guideline as a level of serum 25-OH vitamin D less than 20 ng/mL (1,2). The Endocrine Society went on to further define vitamin D insufficiency as a level between 21 and 29 ng/mL (2). 1. IOM ([place] [employer]). 2010. Dietary reference intakes for [...]
--- OUTSIDE RECORDS SUMMARY | 2024-10-09 09:01 | XMS_ITS | Continuity of Care Document ---
Author Organization [facility] Address [address] [facility] [address] MD Bret Phone Care Team Providers Care Classified Advertising Clerk Name Role Phone No Information Unavailable Unavailable [...] Active Procedures Procedure Date Offic/outpt E&m Estab [facility] 2 Collection Of Venous Blood By Venipunctu re L, Comp Metabolic Panel L, C-reactive Protein L, Sed Rate, Erythrocyte L, CBC Auto Diff L, Handling Of Lab Specimens LC, Drug Screen, Single Drug Class Metho d Offic/outpt E&m Estab [facility]-nh 2 Virtual Offic/outpt E&m [facility]-nh 2 D Collection Of Venous Blood By Venipunctu re L, Comp Metabolic Panel L, C-reactive Protein L, Sed Rate, Erythrocyte L, CBC Auto Diff L, Handling Of Lab Specimens LC, Drug Screen, Single Drug Class Metho d Offic/outpt E&m [facility]-nh 2 Immuniz Admin; 1/combo Vacc/to Flucelvax Quad [...] Estab Mod-hi 2 16 Offic/outpt E&m Estab Mod-nh 2 16 Collection Of Venous Blood By Venipunctu re L, Comp Metabolic Panel L, C-reactive Protein LC, Iron LC, Iron Binding Capacity L Sed Rate, Erythrocyte L, CBC Auto Diff L, Handling Of Lab Specimens Offic/outpt E&m Estab Mod-hi 2 15 Immuniz Admin; 1/combo Vacc/to 15 Flu Vir Vacc-split 3 Yr & > Im (Fluvirin ) Offic/outpt E&m Estab [facility]-nh 2 15 Collection Of Venous Blood By Venipunctu re L, Comp Metabolic Panel L, C-reactive Protein L, Sed Rate, Erythrocyte; Automated L, CBC Auto Diff Offic/outpt E&m Estab Mod-nh 2 15 Collection Of Venous Blood By Venipunctu re L, Comp Metabolic Panel L, C-reactive Protein L, Sed Rate, Erythrocyte; Automated L, CBC Auto Diff Offic/outpt E&m [facility]-nh 2 15 Xray Foot; Complt Mini 3 Views 14 Xray Hand And Wrist Mini 3 Views 2013 Collection Of Venous Blood By Venipunctu re L, Comp Metabolic Panel L, C-reactive Protein L, Sed Rate, Erythrocyte; Automated L, CBC Auto Diff Offic/outpt E&m [facility]-nh 2 14 Collection Of Venous Blood By Venipunctu re L, Comp Metabolic Panel L, C-reactive Protein L, Sed Rate, Erythrocyte; Automated L, CBC Auto Diff Offic/outpt E&m [facility]-nh 2 14 Xray Elbow; Ap & Lat Views Collection Of Venous Blood By Venipunctu re L, Comp Metabolic Panel L, C-reactive Protein L, Iron Total L, Iron TIBC LC, Ferritin L, Sed Rate, Erythrocyte; Automated L, TSH L, CBC Auto Diff L, Handling Of Lab Specimens Offic/outpt E&m Estab Mod-nh 2 14 Collection Of Venous Blood By [...] Rate L, CBC Auto Diff Offic/outpt E&m [facility] Mod-hi 2 13 Depo-Medrol 40 Mg [...] Mini 3 Views 011 Offic/outpt E&m Estab Mod-nh 2 11 Xray Hand And Wrist Mini [...] L, CBC Auto Diff Offic/outpt E&m Estab Mod-nh 2 11 Offic/outpt E&m Estab Mod-nh 2 11 Routine Venipunct/finger/heel 1 L, Comp Metabolic Panel L, C-reactive Protein L, Sed Rate L, CBC Auto Diff Offic/outpt E&m Estab Mod-nh 2 11 Offic/outpt E&m Estab Mod-nh 2 11 Routine Venipunct/finger/heel 0 L, Comp Metabolic Panel L, C-reactive Protein L, Iron Total L, Iron TIBC LC, Ferritin L, Sed Rate L, CBC Auto Diff L, Handling Of Lab Specimens Offic/outpt E&m Estab Mod-nh 2 10 Flu Vir Vacc-split 3 Yr & > Im 10 Immuniz Admin; 1/combo Vacc/to 10 Offic/outpt E&m Estab Mod-nh 2 10 Inj; 1/mx Trig Point 1/two [...] Estab Mod-hi 2 09 Offic/outpt E&m Estab Mod-nh 2 08 Offic/outpt E&m Estab Mod-nh 2 08 Flu Vir Vacc-split 3 Yr & > Im 08 Offic/outpt E&m Estab Mod-hi 2 08 Therapeutic Injection Sub Q Or IM Flu Vir Vacc-split 3 Yr & > Im 08 Ultra Sound Diagnostic L, Comp Metabolic Panel L, C-reactive Protein L, CBC Auto Diff L, Sed Rate Routine Venipunct/finger/heel 8 Offic/outpt E&m Estab Low-mod 7 Offic/outpt E&m Estab Mod-nh 2 07 L, Hepatic Panel Routine Venipunct/finger/heel 7 Offic/outpt E&m Estab Mod-nh 2 07 Rad Exam Chest 2 Views [...] Rate Routine Venipunct/finger/heel 6 Offic/outpt E&m Estab Mod-nh 2 06 Arthrocentesis/aspir/inj; Inte 06 Medication, Depo-Medrol 40 Mg 6 Rad Exam Elbow; Ap & Lat Views 06 L, Comp Metabolic Panel L, C-reactive Protein L, CBC Auto Diff L, Sed Rate Routine Venipunct/finger/heel 6 Offic/outpt E&m Estab Mod-nh 2 06 Rad Exam Hip; Complt Mini 2 Vi 06 L, Comp Metabolic Panel L, Sed Rate Routine Venipunct/finger/heel 6 L, C-reactive Protein L, CBC Auto Diff Offic/outpt E&m Estab Mod-nh 2 05 Arthrocentesis/aspir/inj; Ele 05 Arthrocentesis/aspir/inj; Ele [...] [address], [place], , [place] tel:[phone] No Information 4 No Information [facility] , [address] [place] [address], [place], , [place] tel:[phone] Shree Vernon No Information 3 [place]. [address] [facility], Shree [place], [id number], [place]. tel:[phone] [facility] , [address] [place] [address], [place], , [place] tel:[phone] Shree Vernon No Information 3 Rafael Enciso. [address] [place] [address] 310, [place], [id number], [place]. tel:[phone] [facility] , [address] [place], [place] [address]Bret [place], , [place] tel:[phone] Shree Vernon No Information 3 [place]. [address] [facility] [address], Shree [place], [id number], [place]. tel:[phone] [facility] , [address] [place] [address], [place], [id number], [place] tel:[phone] Shree Vernon No Information 3 [place]. [address] [facility] [address], Shree [place], [id number], [place]. tel:[phone] Offic/outpt E&m Estab Mod-hi 2 [facility] , [address] [place], [place] [address]Bret [place], [id number], [place] tel:[phone] Shree Vernon Other chronic painLong term (current) use of opiate analgesicHype rmobility syndromeSpina l stenosis of cervical regionRA w/o rheumatoid factor of multiple sitesOther middle or intermediate school principal (current) drug therapy 3 [place]. [address] [facility] 600, Shree Vernon [place], [id number], [place]. tel:[phone] Referring Provider: Jamir Lugo, [address] [facility] 600, [place], [address] . tel:[phone] [facility] , [address] [place] [address], [place], [id number], [place] tel: [phone] Shree Vernon No Information 3 [place]. [address], [facility] 600, Shree Vernon MD, [id number], [place]. tel:[phone] [facility] , [address] [place] [address], [place], [id number], [place] tel: [phone] Shree Vernon No Information 3 [place]. [address] [facility], [facility] 600, Shree Vernon MD, [id number], [place]. tel:[phone] Offic/outpt E&m Estab Mod-hi 2 [facility] , [address] [place] [address], [place], [id number], [place] tel: [phone] Shree Vernon RA w/o rheumatoid factor of multiple sitesSpinal stenosis of cervical regionHypermo bility syndromeLong term (current) use of opiate analgesicOthe r chronic pain 3 [place]. [address], [facility] 600, Shree Vernon [place], [id number], [place]. tel:[phone] Referring Provider: Jamir Lugo, [address] [facility] [address], [place], [address] . tel:[phone] Virtual Offic/outpt E&m Estab Mod-hi 2 [facility] , [address] [place] [address], [place], [id number], [place] tel:[phone] [place] Other chronic painOther middle or intermediate school principal (current) drug therapy 2 Jagdish Piedra. [address], [place], [id number], [place]. tel:[phone] Referring Provider: Jamir Lugo, [address] [facility] [address], [place], [address] . tel:[phone] Offic/outpt E&m Estab Mod-hi 2 [facility] , [address] [place] [address], [place], [id number], [place] tel:[phone] Shree Vernon RA w/o rheumatoid factor of multiple sitesFibromya lgiaOther chronic painLong term (current) use of opiate analgesicHype rtensionOther middle or intermediate school principal (current) drug therapy 2 [place]. [address] [facility], [address], Shree Vernon [place], [id number], [place]. tel:[phone] Referring Provider: Jamir Lugo, [address] [facility] [address], [place], [address] . tel:[phone] Offic/outpt E&m Estab Mod-hi 2 [facility] , [address] [place] [address], [place], , [place] tel:[phone] Shree Vernon RA w/o rheumatoid factor of multiple sitesOpioid use, unspecified, uncomplicated Other middle or intermediate school principal (current) drug therapyFibrom yalgiaOther chronic painRadial styloid tenosynovitis [de Quervain]Anem ia 2 [place]. [address] [facility], [address], Shree [place], [id number], [place]. tel:[phone] Referring Provider: Jamir Lugo, [address] [facility] [address], [place], [address] . tel:[phone] Offic/outpt E&m Estab Mod-hi 2 [facility] , [address] [place] [address], [place], , [place] tel:[phone] Shree Vernon RA w/o rheumatoid factor of multiple sitesLong term (current) use of opiate analgesicOthe r senior care (current) drug therapyFibrom yalgiaOther chronic pain 2 [place]. [address], [address], Shree Vernon [place], [id number], [place]. tel:[phone] Referring Provider: Jamir Lugo, [address] [facility] 600, [place], [address] . tel:[phone] Offic/outpt E&m Estab Low-mod [facility] , [address] [place] [address], [place], [id number], [place] tel:[phone] [place] FibromyalgiaO ther chronic pain Apr- 1 Jagdish Piedra. [address], [place], [id number], [place]. tel:[phone] Referring Provider: Jamir Lugo, [address] [facility] [address], [place], [address] . tel:[phone] Offic/outpt E&m Estab Mod-hi 2 [facility] , [address] [place] [address], [place], [id number], [place] tel:[phone] Shree Vernon RA w/o rheumatoid factor of multiple sitesLong term (current) use of opiate analgesicOthe r chronic painFibromyal giaOther senior care (current) drug therapy 1 [place]. [address], [address], Shree Vernon [place], [id number], [place]. tel:[phone] Referring Provider: Jamir Lugo, [address] [facility] [address], [place], [address] . tel:[phone] Offic/outpt E&m Estab Mod-hi 2 [facility] , [address] [place] [address], [place], [id number], [place] tel:[phone] Shree Vernon FibromyalgiaR A w/o rheumatoid factor of multiple sitesOther chronic painLong term (current) use of opiate analgesicOpio id use, unspecified, uncomplicated Sep-0 1 [place]. [address], [facility] 600, Shree Vernon MD, [id number], [place]. tel:[phone] Referring Provider: Jamir Lugo, [address], [place], [address] . tel:[phone] Offic/outpt E&m Estab Mod-hi 2 [facility] , [address] [place] [address], [place], [id number], [place] tel:[phone] Shree Vernon RA w/o rheumatoid factor of multiple sitesFibromya lgiaLong term (current) use of opiate analgesicOthe r chronic painOther senior care (current) drug therapyCough Jul-0 1 [place]. [address], [address], Shree Vernon [place], [id number], [place]. tel:[phone] Referring Provider: Jamir Lugo, [address], [place], [address] . tel:[phone] Virtual Offic/outpt E&m Estab Mod-hi 2 [facility] , [address] [place] [address]Bret [place], [id number], [place] tel:[phone] Shree Vernon Telehealth (chief complaint)Rhe umatoid arthritis (chief complaint) FibromyalgiaR A w/o rheumatoid factor of multiple sitesOpioid use, unspecified, uncomplicated Other chronic painOther senior care (current) drug therapy 0 [place]. [address], [address], Shree Vernon MD, [id number], [place]. tel:[phone] Referring Provider: Jamir Lugo, [address], [place], [address] . tel:[phone] Virtual Offic/outpt E&m Estab Mod-hi 2 [facility] , [address] [place] [address]Bret [place], , [place] tel:[phone] Shree Vernon Telehealth (chief complaint) RA w/o rheumatoid factor of multiple sitesOther chronic painLong term (current) use of opiate analgesicFibr omyalgia Sep-0 0 [place]. [address], [address], Shree [place], [id number], [place]. tel:[phone] Referring Provider: Jamir Lugo, [address], [place], [address] . tel:[phone] Virtual Offic/outpt E&m Estab Mod-hi 2 [facility] , [address] [place] [address] Bret Peters [place], [id number], [place] tel:[phone] Shree Vernon Telehealth (chief complaint)Rhe umatoid arthritis (chief complaint) FibromyalgiaO ther chronic painRA w/o rheumatoid factor of multiple sitesOpioid use, unspecified, uncomplicated Abdoul-0 0 [place]. [address], [address], Shree [place], [id number], [place]. tel:[phone] Referring Provider: Jamir Lugo, [address], [place], [address] . tel:[phone] Offic/outpt E&m Estab Mod-hi 2 [facility] , [address] [place] [address] 310Bret [place], [id number], [place] tel:[phone] Shree Vernon Rheumatoid arthritis (chief complaint) RA w/o rheumatoid factor of multiple sitesFibromya lgiaOther chronic painOther middle or intermediate school principal (current) drug therapyLong term (current) use of opiate analgesic Jul-0 0 [place]. [address], [address]Shree [place], [id number], [place]. tel:[phone] Referring Provider: Jamir Lugo, [address], [place], [address] . tel:[phone] Offic/outpt E&m Estab Mod-hi 2 [facility] , [address] [place] [address] 310Bret [place], [id number], [place] tel:[phone] Shree Vernon Fibromyalgia (chief complaint) RA w/o rheumatoid factor of multiple sitesFibromya lgiaOther chronic pain Dec-0 2-201 9 [place]. [address], [address], Shree [place] MD, [id number], [place]. tel:[phone] Referring Provider: Jamir Lugo, [address] [facility] 600, [place], [address] . tel:[phone] Offic/outpt E&m Estab Mod-hi 2 [facility] , [address] [place] [address], [place], [id number], [place] tel:[phone] Shree Vernon Fibromyalgia (chief complaint) RA w/o rheumatoid factor of multiple sitesOther chronic painFibromyal giaInsomniaOt her middle or intermediate school principal (current) drug therapy Jan- 9 [place]. [address], [facility] 600, Shree Vernon [place], [id number], [place]. tel:[phone] Referring Provider: Jamir Lugo, [address], [place], [address] . tel:[phone] Offic/outpt E&m Estab Mod-hi 2 [facility] , [address] [place] [address], [place], [id number], [place] tel:[phone] Shree Vernon Fibromyalgia (chief complaint) FibromyalgiaO ther chronic painRA w/o rheumatoid factor of multiple sitesOther senior care (current) drug therapyFatigu e 9 [place]. [address], [facility] 600, Shree Vernon MD, [id number], [place]. tel:[phone] Referring Provider: Jamir Lugo, [address], [place], [address] . tel:[phone] Offic/outpt E&m Estab Mod-hi 2 [facility] , [address] [place] [address], [place], [id number], [place] tel:[phone] Shree Vernon Fibromyalgia (chief complaint) RA w/o rheumatoid factor of multiple sitesFibromya lgiaOther chronic painOther senior care (current) drug therapyInsomn ia 8 [place]. [address], [address], [place]ree [place], , [place]. tel:[phone] Referring Provider: Jamir Lugo, [address] [facility] [address], [place], [address] . tel:[phone] [facility] , [address] [place] [address], [place], [id number], [place] tel:[phone] Shree Vernon No Information 8 [place]. [address], [facility] 600, Shree [place], , [place]. tel:[phone] Offic/outpt E&m Estab Mod-hi 2 [facility] , [address] [place] [address], [place], , [place] tel:[phone] Shree Vernon Fibromyalgia (chief complaint) RA w/o rheumatoid factor of multiple sitesOther chronic painMyofascia l pain syndromeFibro myalgiaOther middle or intermediate school principal (current) drug therapy 8 [place]. [address], [address], [place]ree [place], , [place]. tel:[phone] Referring Provider: Jamir Lugo, [address] [facility] [address], [place], [address] . tel:[phone] Offic/outpt E&m Estab Mod-hi 2 [facility] , [address] [place] [address], [place], , [place] tel:[phone] Shree Vernon Back pain (chief complaint) Body mass index (BMI) 29.0-29.9, adultRA w/o rheumatoid factor of multiple sitesFibromya lgiaOther chronic painOther senior care (current) drug therapyBack painMyofascia l pain syndrome 7 [place]. [address], [address]Shree [place], [id number], [place]. tel:[phone] Referring Provider: Jamir Lugo, [address], [place], [address] . tel:[phone] Offic/outpt E&m Estab Mod-hi 2 [facility] , [address] [place] [address], [place], [id number], [place] tel:[phone] Shree Vernon Rheumatoid arthritis (chief complaint) Body mass index (BMI) 27.0-27.9, adultRA w/o rheumatoid factor of multiple sitesOther senior care (current) drug therapyOther chronic painFibromyal ivanna 7 [place]. [address], [address], Shree Vernon [place], [id number], [place]. tel:[phone] Referring Provider: Jamir Lugo, [address], [place], [address] . tel:[phone] Offic/outpt E&m [facility] Mod-hi 2 [facility] , [address] [place] [address], [place], , [place] tel:[phone] Shree Vernon Back pain (chief complaint) RA w/o rheumatoid factor of multiple sitesOther senior care (current) drug therapyFibrom yalgiaOther chronic painDorsalgia 6 [place]. [address], [address], Shree [place], [id number], [place]. tel:[phone] Referring Provider: Jamir Lugo, [address], [place], [address] . tel:[phone] Offic/outpt E&m [facility] Mod-hi 2 [facility] , [address] [place] [address]Bret [place], [id number], [place] tel:[phone] Shree Vernon Rheumatoid arthritis (chief complaint) RA w/o rheumatoid factor of multiple sitesFibromya lgiaOther chronic painOther middle or intermediate school principal (current) drug therapy 6 [place]. [address], [address], Shree [place] MD, [id number], [place]. tel:[phone] Referring Provider: Jamir Lugo, [address], [place], [address] . tel:[phone] Offic/outpt E&m Estab Mod-hi 2 [facility] , [address] [place] [address], [place], [id number], [place] tel:[phone] Shree Vernon Rheumatoid arthritis (chief complaint) RA w/o rheumatoid factor of multiple sitesFibromya lgiaOther chronic pain 6 [place]. [address], [facility] [address], Shree Vernon MD, [id number], [place]. tel:[phone] Referring Provider: Jamir Lugo, [address] [facility] [address], [place], [address] . tel:[phone] Offic/outpt E&m Estab Mod-hi 2 [facility] , [address] [place] [address], [place], [id number], [place] tel:[phone] Shree Vernon Rheumatoid arthritis (chief complaint) RA w/o rheumatoid factor of multiple sitesFibromya lgiaOther chronic painOther senior care (current) drug therapyIron deficiency 5 [place]. [address] [facility], [facility] 600, Shree [place], [id number], [place]. tel:[phone] Referring Provider: Jamir Lugo, [address] [facility] [address], [place], [address] . tel:[phone] [facility] , [address] [place] [address], [place], [id number], [place] tel:[phone] Shree Vernon No Information 5 [place]. [address] [facility], [facility] 600, Shree Vernon MD, [id number], [place]. tel:[phone] Offic/outpt E&m Estab Mod-hi 2 [facility] , [address] [place] [address], [place], [id number], [place] tel:[phone] Shree Vernon Rheumatoid arthritis (chief complaint) Fibromyalia Syn Myalgia MyositRheumat oid ArthritisInso mniaChronic Pain 5 [place]. [address], [address], Shree [place] MD, [id number], [place]. tel:[phone] Referring Provider: Jamir Lugo, [address] [facility] [address], [place], [address] . tel:[phone] Offic/outpt E&m Estab Mod-hi 2 [facility] , [address] [place] [address], [place], [id number], [place] tel:[phone] Shree Vernon Fibromyalgia (chief complaint) Fibromyalia Syn Myalgia MyositRheumat oid ArthritisTher apeutic Drug Monitoring 5 [place]. [address], [address], Shree [place], [id number], [place]. tel:[phone] Referring Provider: Jamir Lugo, [address] [facility] [address], [place], [address] . tel:[phone] Offic/outpt E&m Estab Mod-hi 2 [facility] , [address] [place] [address], MD [place], [id number], [place] tel:[phone] Shree Vernon Rheumatoid arthritis (chief complaint) Rheumatoid ArthritisTher apeutic Drug MonitoringFib romyalia Syn Myalgia MyositChronic Pain 5 [place]. [address], [address], Shree [place], [id number], [place]. tel:[phone] Referring Provider: Jamir Lugo, [address] [facility] [address], [place], [address] . tel:[phone] Offic/outpt E&m Estab Mod-hi 2 [facility] , [address] [place] [address], MD [place], [id number], [place] tel:[phone] Shree Vernon Rheumatoid arthritis (chief complaint) Fibromyalia Syn Myalgia MyositRheumat oid ArthritisChro montse PainTherapeut ic Drug Monitoring 4 [place]. [address], [address], Shree [place], [id number], [place]. tel:[phone] Referring Provider: Jamir Lugo, [address] [facility] [address], [place], [address] . tel:[phone] [facility] , [address] [place] [address], [place], [id number], [place] tel:[phone] Ministerio [place] No Information 4 [place]. [address], [facility] [address], Shree Vernon MD, [id number], [place]. tel:[phone] Referring Provider: Jamir Lugo, [address] [facility] [address], [place], [address] . tel:[phone] Offic/outpt E&m Estab Mod-hi 2 [facility] , [address] [place] [address], [place], [id number], [place] tel:[phone] Shree Vernon Rheumatoid arthritis (chief complaint)Fib romyalgia (chief complaint) Rheumatoid ArthritisMyal ivanna Fibromyalgia MyositisChron ic Pain 4 [place]. [address], [facility] [address], Shree [place], [id number], [place]. tel:[phone] Referring Provider: Jamir Lugo, [address] [facility] [address], [place], [address] . tel:[phone] Offic/outpt E&m Estab Mod-hi 2 [facility] , [address] [place] [address], [place], [id number], [place] tel:[phone] Shree Vernon musculoskelet al pain (chief complaint) Rheumatoid ArthritisMyal ivanna Fibromyalgia MyositisJoint Pain-up/armTh erapeutic Drug MonitoringFat igue / MalaiseChroni c Pain [address], [address], [place], [id number], [place]. tel:[phone] Referring Provider: Jamir Lugo, [address] [facility] [address], [place], [address] . tel:[phone] Offic/outpt E&m Estab Mod-hi 2 [facility] , [address] [place] [address], [place], , [place] tel:[phone] Shree [place] Rheumatoid arthritis (chief complaint) Fatigue / MalaiseInflue nza VaccineRheuma toid ArthritisTher apeutic Drug MonitoringChr onic Pain [address]. [address], [address], [place], [id number], [place]. tel:[phone] Referring Provider: Jamir Lugo, [address], [place], [address] . tel:[phone] Offic/outpt E&m Estab Mod-hi 2 [facility] , [address] [place] [address], MD [place], , [place] tel:[phone] Shree [place] rheumatoid arthritis (chief complaint) Therapeutic Drug MonitoringChr onic PainMyalgia Fibromyalgia MyositisRheum atoid Arthritis [address], [address], [place], [id number], [place]. tel:[phone] Referring Provider: Jamir Lugo, [address] [facility] [address], [place], [address] . tel:[phone] Offic/outpt E&m Estab Mod-hi 2 [facility] , [address] [place] [address], [place], , [place] tel:[phone] Shree Vernon Rheumatoid arthritis (chief complaint)Fib romyalgia (chief complaint)mus culoskeletal pain (chief complaint) Bursitis, Rotator CuffRheumatoi d ArthritisTher apeutic Drug MonitoringJoi nt Pain-l/legChr onic Pain [address], [address], [place], [id number], [place]. tel:[phone] Referring Provider: Jamir Lugo, [address] [facility] [address], [place], [address] . tel:[phone] Offic/outpt E&m Estab Mod-hi 2 [facility] , [address] [place] [address], [place], [id number], [place] tel:[phone] Shree [place] Fibromyalgia (chief complaint)Rhe umatoid arthritis (chief complaint)mus culoskeletal pain (chief complaint) Bursitis, Rotator CuffRheumatoi d ArthritisMyal ivanna Fibromyalgia MyositisSleep ApneaTherapeu tic Drug Monitoring [address] [facility], [facility] 600, Shree [place], [id number], [place]. tel:[phone] Referring Provider: Jamir Lugo, [address] [facility] [address], [place], [address] . tel:[phone] Offic/outpt E&m Estab Mod-hi 2 [facility] , [address] [place] [address]Bret [place], [id number], [place] tel:[phone] Shree [place] Rheumatoid arthritis (chief complaint)Fib romyalgia (chief complaint) Myalgia Fibromyalgia MyositisRheum atoid ArthritisTher apeutic Drug MonitoringInf luenza Vaccine [address] [facility], [address], [place], [id number], [place]. tel:[phone] Referring Provider: Jamir Lugo, [address] [facility] [address], [place], [address] . tel:[phone] Offic/outpt E&m Estab Mod-hi 2 [facility] , [address] [place] [address]B[place], [id number], [place] tel:[phone] CHARLIE Rheumatoid arthritis (chief complaint) Rheumatoid ArthritisTher apeutic Drug MonitoringBur sitis, Rotator CuffFatigue / Malaise [address] [facility], [address], [place], [id number], [place]. tel:[phone] Referring Provider: Jamir Lugo, [address] [facility] [address], [place], [address] . tel:[phone] Offic/outpt E&m Estab Mod-hi 2 [facility] , [address] [place] [address], MD [place], [id number], [place] tel:[phone] Shree [place] Rheumatoid arthritis (chief complaint)Fib romyalgia (chief complaint) Rheumatoid ArthritisTher apeutic Drug MonitoringChr onic PainHypertens ion, BenignHyperte nsion, Benign Mar-2 [address] [facility], [address], [place], [id number], [place]. tel:[phone] Referring Provider: Jamir Lugo, [address] [facility] [address], [place], [address] . tel:[phone] Offic/outpt E&m Estab Mod-hi 2 [facility] , [address] [place] [address], [place], [id number], [place] tel:[phone] [place] Rheumatoid Arthritis (chief complaint) Fibrositis/Rh eumatism NosInfluenza Vaccine [address]. [address] [facility], [address], [place], [id number], [place]. tel:[phone] Referring Provider: Jamir Lugo, [address] [facility] [address], [place], [address] . tel:[phone] Offic/outpt E&m Estab Mod-hi 2 [facility] , [address] [place] [address], [place], [id number], [place] tel:[phone] [place] Rheumatoid Arthritis (chief complaint) No Information [address] [facility], [address], [place], [id number], [place]. tel:[phone] Referring Provider: Jamir Lugo, [address] [facility] [address], [place], [address] . tel:[phone] Offic/outpt E&m Estab Mod-hi 2 [facility] , [address] [place] [address], [place], [id number], [place] tel:[phone] CHARLIE Rheumatoid Arthritis (chief complaint) No Information [address] [facility], [address], [place], [id number], [place]. tel:[phone] Referring Provider: Jamir Lugo, [address] [facility] [address], [place], [address] . tel:[phone] Offic/outpt E&m Estab Mod-hi 2 [facility] , [address] [place] [address], [place], [id number], [place] tel:[phone] CHARLIE Rheumatoid Arthritis (chief complaint) No Information [address], [facility] 600, [place], [id number], [place]. tel:[phone] Referring Provider: Jamir Lugo, [address] [facility] [address], [place], [address] . tel:[phone] Offic/outpt E&m Estab Mod-hi 2 [facility] , [address] [place] [address], MD [place], [id number], [place] tel:[phone] CHARLIE Rheumatoid Arthritis (chief complaint) No Information [address], [facility] 600, Shree [place], [id number], [place]. tel:[phone] Referring Provider: Jamir Lugo, [address] [facility] [address], [place], [address] . tel:[phone] Offic/outpt E&m Estab Mod-hi 2 [facility] , [address] [place] [address]B[place], [id number], [place] tel:[phone] CHARLIE Rheumatoid Arthritis (chief complaint) Ulcer, GastricBenign Hypertension [address], [facility] 600, [place]ree [place], [id number], [place]. tel:[phone] Referring Provider: Jamir Lugo, [address], [place], [address] . tel:[phone] Offic/outpt E&m Estab Mod-hi 2 [facility] , [address] [place] [address], [place], [id number], [place] tel:[phone] [place] Rheumatoid Arthritis (chief complaint) No Information [address], [address], [place]ree [place], [id number], [place]. tel:[phone] Referring Provider: Jamir Lugo, [address], [place], [address] . tel:[phone] Offic/outpt E&m Estab Mod-hi 2 [facility] , [address] [place] [address], [place], [id number], [place] tel:[phone] [place] Rheumatoid Arthritis (chief complaint) No Information [address], [address], [place], [id number], [place]. tel:[phone] Referring Provider: Jamir Lugo, [address], [place], [address] . tel:[phone] Offic/outpt E&m Estab Mod-hi 2 [facility] , [address] [place] [address], [place], [id number], [place] tel:[phone] [place] Rheumatoid Arthritis (chief complaint) No Information [address], [address], [place], [id number], [place]. tel:[phone] Referring Provider: Jamir Lugo, [address], [place], [address] . tel:[phone] Offic/outpt E&m Estab Low-mod [facility] , [address] [place] [address], [place], , [place] tel:[phone] [place] Rheumatoid Arthritis (chief complaint) No Information [address] [facility] 600, [place], [id number], [place]. tel:[phone] Referring Provider: Jamir Lugo, [address] [place], [place] [address]e [facility] 600, [place], [address] . tel:[phone] [facility] , [address] [place] [address], MD [place], , [place] tel:[phone] PT DC Back Pain (chief complaint) No Information 0 No Information Referring Provider: Jamir Lugo, [address] [place] [address] 600, [place], [address] . tel:[phone] [facility], [address] [place] [address], [place], , [place] tel: [phone] PT DC Back Pain (chief complaint) No Information 0 No Information Referring Provider: Jamir Lugo, [address] [place] [address] 600, [place], [address] . tel:[phone] [facility] , [address] [place] [address], [place], , [place] tel:[phone] PT DC Back Pain (chief complaint) No Information 0 No Information Referring Provider: Jamir Lugo, [address] [place] [address] 600, [place], [address] . tel:[phone] [facility] , [address] [place] [address], [place], , [place] tel:[phone] PT DC Back Pain (chief complaint) No Information 0 No Information Referring Provider: Jamir Lugo, [address] [place] [address], [place], [address] . tel:[phone] Offic/outpt E&m Estab Mod-hi 2 [facility] , [address] [place] [address], [place], [id number], [place] tel:[phone] [place] Rheumatoid Arthritis (chief complaint) No Information [address], [address], [place], [id number], [place]. tel:[phone] Referring Provider: Jamir Lugo, [address] [facility] [address], [place], [address] . tel:[phone] [facility] , [address] [place] [address], MD [place], [id number], [place] tel:[phone] [place] No Information [address], [facility] 600, Shree [place], [id number], [place]. tel:[phone] Referring Provider: Jamir Lugo, [address] [place] [address] [address], [place], [address] . tel:[phone] Offic/outpt E&m Estab Mod-hi 2 [facility] , [address] [place] [address], MD [place], [id number], [place] tel:[phone] [place] Rheumatoid Arthritis (chief complaint) No Information [address], [address], [place], [id number], [place]. tel:[phone] Referring Provider: Jamir Lugo, [address] [facility] [address], [place], [address] . tel:[phone] Offic/outpt E&m Estab Mod-hi 2 [facility] , [address] [place] [address], MD [place], [id number], [place] tel:[phone] [place] Rheumatoid Arthritis (chief complaint) No Information [address], [address], [place], [id number], [place]. tel:[phone] Referring Provider: Jamir Lugo, [address] [facility] [address], [place], [address] . tel:[phone] Offic/outpt E&m Estab Mod-hi 2 [facility] , [address] [place] [address], MD [place], [id number], [place] tel:[phone] [place] Rheumatoid Arthritis (chief complaint) No Information [address], [address], [place], [id number], [place]. tel:[phone] Referring Provider: Jamir Lugo, [address] [facility] [address], [place], [address] . tel:[phone] Offic/outpt E&m Estab Low-mod [facility] , [address] [place] [address], MD [place], [id number], [place] tel:[phone] CHARLIE Rheumatoid Arthritis (chief complaint) No Information [address], [address], [place], [id number], [place]. tel:[phone] Referring Provider: Jamir Lugo, [address], [place], [address] . tel:[phone] Offic/outpt E&m Estab Mod-hi 2 [facility] , [address] [place] [address], MD [place], [id number], [place] tel:[phone] CHARLIE Rheumatoid Arthritis (chief complaint) No Information [address], [address], [place], [id number], [place]. tel:[phone] Referring Provider: Jamir Lugo, [address] [facility] [address], [place], [address] . tel:[phone] Offic/outpt E&m Estab Mod-hi 2 [facility] , [address] [place] [address]Bret [place], [id number], [place] tel:[phone] CHARLIE Rheumatoid Arthritis (chief complaint) No Information [address], [address], [place], [id number], [place]. tel:[phone] Referring Provider: Jamir Lugo, [address] [facility] [address], [place], [address] . tel:[phone] Offic/outpt E&m Estab Mod-hi 2 [facility] , [address] [place] [address], [place], [id number], [place] tel:[phone] CHARLIE Rheumatoid Arthritis (chief complaint) No Information [address] [facility], [facility] 600, [place], [id number], [place]. tel:[phone] Referring Provider: Jamir Lugo, [address] [place] [address] 600, [place], [address] . tel:[phone] Offic/outpt E&m Estab Mod-hi 2 [facility] [place] [address], [place], [id number], [place] tel:[phone] [place] Rheumatoid Arthritis (chief complaint) Rheumatoid ArthritisIron Defic Anemia NosIron Defic Anemia NosIron Defic Anemia Nos [address] [facility], [facility] 600, [place]ree [place], [id number], [place]. tel:[phone] Referring Provider: Jamir Lugo, [address] [facility] [address], [place], [address] . tel:[phone] [facility] [place] [address], [place], [id number], [place] tel:[phone] CHARLIE Rheumatoid Arthritis (chief complaint)Kwesi k Pain (chief complaint) Rheumatoid ArthritisFibr omyalgia Syn Myalgia MyositChronic PainLong Term High Risk Meds [address] [facility], [facility] 600, [place]ree [place], [id number], [place]. tel:[phone] Referring Provider: Jamir Lugo, [address] [facility] [address], [place], [address] . tel:[phone] Offic/outpt E&m Estab Mod-hi 2 [facility] , [address] [place] [address], [place], [id number], [place] tel:[phone] [place] Rheumatoid Arthritis (chief complaint)Fib romyalgia Syndrome (chief complaint) Rheumatoid ArthritisChro montse Pain [address] [facility], [facility] 600, Shree [place], [id number], [place]. tel:[phone] Referring Provider: Jamir Lugo, [address] [facility] 600, [place], [address] . tel:[phone] Offic/outpt E&m Estab Low-mod [facility] , [address] [place] [address], [place], [id number], [place] tel:[phone] [place] Rheumatoid Arthritis (chief complaint)Fib romyalgia Syndrome (chief complaint) Rheumatoid ArthritisFibr omyalia Syn Myalgia MyositJoint Hypermobility SyndromeChron ic PainLong Term High Risk Meds [address], [facility] [address], [place]ree [place], [id number], [place]. tel:[phone] Referring Provider: Jamir Lugo, [address] [facility] [address], [place], [address] . tel:[phone] Offic/outpt E&m Estab Mod-hi 2 [facility] , [address] [place] [address], MD [place], [id number], [place] tel:[phone] [place] No Information [address] [facility], [facility] 600, [place], [id number], [place]. tel:[phone] Referring Provider: Jamir Lugo, [address] [facility] [address], [place], [address] . tel:[phone] [facility] , [address] [place] [address], MD [place], [id number], [place] tel:[phone] [place] No Information [address] [facility], [facility] [address], Shree [place], [id number], [place]. tel:[phone] Referring Provider: Jamir Lugo, [address], [place], [address] . tel:[phone] Offic/outpt E&m Estab Mod-hi 2 [facility] , [address] [place] [address], [place], [id number], tel:[phone] [place] No Information [address], [address], [place], [id number], [place]. tel:[phone] Referring Provider: Jamir Lugo, [address], [place], [address] . tel:[phone] Offic/outpt E&m Estab Mod-hi 2 [facility] , [address] [place] [address], [place], [id number], tel:[phone] [place] No Information [address] [facility], [address], [place], [id number], [place]. tel:[phone] Referring Provider: Jamir Lugo, [address], [place], [address] . tel:[phone] Offic/outpt E&m Estab Mod-hi 2 [facility] , [address] [place] [address], MD [place], [id number], [place] tel:[phone] [place] No Information [address], [address], [place], [id number], [place]. tel:[phone] Referring Provider: Jamir Lugo, [address], [place], [address] . tel:[phone] Offic/outpt E&m Estab Mod-hi 2 [facility] , [address] [place] [address], MD [place], [id number], tel:[phone] [place] No Information [address] [facility], [address], [place], [id number], . tel:[phone] Referring Provider: Jamir Lugo, [address], [place], [address] . tel:[phone] Offic/outpt E&m Estab Mod-hi 2 [facility] , [address] [place] [address] Bret [place], [id number], tel:[phone] [place] No Information [address] [facility], [address], [place], [id number], [place]. tel:[phone] Referring Provider: Jamir Lugo, [address], [place], [address] . tel:[phone] Offic/outpt E&m Estab Mod-hi 2 [facility] , [address] [place] [address], [place], [id number], tel:[phone] [place] No Information [address] [facility], [address], [place]ree [place], [id number], [place]. tel:[phone] Referring Provider: Jamir Lugo, [address] [facility] [address], [place], [address] . tel:[phone] Offic/outpt E&m Estab Mod-hi 2 [facility] , [address] [place] [address] Bret [place], , [place] tel:[phone] [place] No Information 6 No Information Offic/outpt E&m Estab Mod-hi 2 [facility] , [address] [place] [address] Bret Peters [place], , [place] tel:[phone] [place] No Information 6 No Information Offic/outpt E&m Estab Mod-hi 2 [facility] , [address] [place] [address] Bret Peters [place], , [place] tel:[phone] [place] No Information 2200 5 No Information [...] preservative free, 3 years and older Afluria [id number] administered Source: New Immu nization Record Influenza, split virus, injectable, 3 years and older Fluvirin [id number] administered Source: New Immuniza tion Record Flu, [...] Record Payers Payer name Insurance type Covered alliance party ID Authoriza tion(s) [employer] BL [id number] [employer] BL [id number] [employer] BL [id number] [employer] BL [id number] [employer] Man[employer] Open Access CI [id number] [employer] NCA PPO And POS BL [id number] Social History Type Description Quantity Date Captured [...] Referral Referred To: Marco A Pond MD [facility] [address] [place], [id number] Ordered: Referrals: Otolaryngology. Marco A Pond MD. Evaluate and treat ordered Referral Ordered: Xray Elbow; Ap & Lat Views Left ordered Referral Ordered: Xray Knee; Three Views Left ordered Referral Referred To: Samm Card[facility] [address] [place], [place], [id number] Ordered: Referral: Samm Cardona MD. ordered Referral [...] Telehealth Physician Locati on: Shree VernonPatient Location: [address] [place] [address]Zpvd of Visit: Virtual VisitOther participants: NoneInterpreter: NoneThis [...] Telehealth Physician Locati on: Kirstythad VernonPatient Location: [address] [place], [place] [address]Fvkg of Visit: Virtual VisitOther participants: NoneInterpreter: NoneThis [...] Telehealth Physician Locati on: Billieluzthad VernonPatient Location: [address] [place], [place] [address]Coqc of Visit: Virtual VisitOther participants: NoneInterpreter: NoneThis [...]
== END 2024-10-09 08:50 | disposition home or self-care (01) ==
LOC: HO.MAMMO 08:49
PROVIDERS: PCP Nurse Practitioner Family; Visit Provider Nurse Practitioner Family
DX: N64.89 Other specified disorders of breast (principal)
CPT/HCPCS: 76642; 77061; 77065

== ENCOUNTER → 2024-10-09 09:00 | Outpatient (BNV) | payer BC, SELFPAY | PROVIDERS: PCP Nurse Practitioner Family; Visit Provider Internal Medicine | DX: R92.2 Inconclusive mammogram (principal); R92.321 Mammographic fibroglandular density, right breast | CPT/HCPCS: 76642; 77061; 77065 ==

== ENCOUNTER 2024-11-06 10:50 | Outpatient (AMB) | payer BC, SELFPAY ==
--- NOTE | 2024-11-06 10:54 | A.OFFVIS_ITS ---
Vital Signs 11/06/24 10:56 Height 5 ft 3 in Weight 173 lb BMI 30.6 BP 112/84 Blood Pressure Location Rt brachial Position Sitting Intake Visit Reasons: Urgent follow up Intake Note: Patient asked for urgent appointment after a bad fall on October 14 Allergies ammonia Allergy (Severe, Verified 11/06/24 10:58) Anaphylaxis strawberry Allergy (Mild, Verified 11/06/24 10:58) Hives Medication List - Last Reconciled 11/06/24 by Dea Sewell MD acetaminophen-codeine 300-30 mg 1 tab PO BID PRN alendronate 70 mg PO QWEEK benzonatate 200 mg PO TID PRN dextromethorphan HBr 20 mg (15 mL) PO TID PRN 5 days duloxetine 60 mg PO DAILY 90 days Enbrel SureClick (etanercept) 50 mg subcut QWEEK NS folic acid 0.4 mg PO DAILY hydroxychloroquine (Plaquenil) 200 mg PO DAILY isotretinoin 40 mg PO BID primidone 200 mg (4 x 50 mg) PO BID spironolactone 50 mg PO BID 30 days sumatriptan succinate 100 mg orally; at the onset of headaches, may take one more tablet with in 2 hours of the first dose not to exceed 200mg w/in 24hour period. MDD 200mg tizanidine 2 mg PO TID 90 days tretinoin 0.025% 1 appl topical BEDTIME zolpidem 10 mg PO BEDTIME 30 days HPI Comments Details: 48y/o right handed female with a complex medical issues - Rheumatoid arthritis , fibromyalgia comes for urgent follow up.she had a fall on October 142024 - at 6am when she was trying to get on the [employer] [place] . she had been awake for 2 hrs prior to that . Normally she wakes up at 9 am she is on Zolpidem 10 mg 9pm and she had taken it the previous night .she has been on the zolpidem since her 20s. she peña snot remember how she fell - she was trying to step over a curb.No loss of consciousness but peña snot remember how she fell. she remembers sitting up and bleeding from her forehead. CT c spine - did not show any fractures. - HST was inconclusive . PSG was normal. Tremors are stable MRI shows spinal stenosis - with ventral cord impingement. she had surgery 2 months ago ( Mar 02 2024) C3-T1 fusion .gait has improved since then Tremors are stable.she is seeing rheumatology, ENT, Pulmonary, GI and has a Neurosurgeon in [place] and endocrine. History-She started noticing tremors in her 20s and was diagnosed with essential tremors.Her father had essential tremors. Her tremors were mostly in her left UE mostly with posture and action . she is on primidone and helps to decrease the tremors Handwriting is good especially if she uses a fountain pen Eating - using utensils - good Drinking fluids - good Mild difficulty in fine motor coordination She was always prone to falls but about 2-3 years ago she noticed increase in falls, balance issues and gait issues. she has stress incontinence. SHe was living [facility] and was seen by a neurologist who evaluated with MRI C spine and brain . 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 she was seen by Neurosurgery but due to her move back to [place] she did not have surgery. she also reports chronic cough for over 2 years. she snores and has frequent arousals. [facility] Medical History (Updated 11/06/24 @ 11:24 by Dea Sewell MD) Fall Essential and other specified forms of tremor Spinal cord compression Spinal stenosis in cervical region Hypersomnia Snoring Degenerative cervical disc Benign essential tremor Fibromyalgia Rheumatoid arthritis Surgical History H/O spinal fusion History of surgery on left wrist History of uvulopalatopharyngoplasty History of surgical removal of ganglion cyst History of tonsillectomy H/O: knee surgery H/O removal of cyst History of appendectomy History of adenoidectomy Family History Mother COPD (chronic obstructive pulmonary disease) Type 2 diabetes mellitus Congestive heart failure Rheumatoid arthritis Fibromyalgia Sjogrens syndrome Father Congenital heart defect Colon cancer Paternal Grandmother Breast cancer Bone cancer Maternal Aunt Rheumatoid arthritis Social History Household Members: Significant Other Housing: House Alcohol intake: current Alcohol intake frequency: holidays/special occasions only Patient Tobacco Use Status: Never used Tobacco e-Cigarette/Vaping Use: Never Used service: No Current occupational status: employed 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 Cognitive needs: No Hearing needs: No Vision needs: No Physical Exam Vital Signs: Last Vital Signs BP 112/84 11/06/24 10:56 BMI result Body Mass Index 30.6 Const General: cooperative and comfortable Nutritional Appearance: average body habitus Orientation/consciousness: patient oriented x3 Eyes Pupils: Equal, round and reactive pupils present Neuro Other: Malalmpatti grade 4 retrognathia Mild postural tremors Left UE gait stable General: patient oriented x3, tone normal, moves all extremities and no focal motor deficits Cranial nerves: Yes Equal, round and reactive pupils present, Yes Bilaterally intact EOM present, Yes Nystagmus not present, Yes Normal facial strength present and Yes Midline tongue present Cognition (Neuro): normal cognition Gait exam (Neuro): Normal gait present Motor exam (neuro): 5/5 motor strength present throughout and Normal motor muscle tone present throughout Coordination: [id number] test normal Assessment & Plan Assessment & Plan (1) Essential and other specified forms of tremor: Code(s): G25.0 - Essential tremor; G25.2 - Other specified forms of tremor Category: Medical (2) Spinal cord compression: Code(s): G95.20 - Unspecified cord compression Category: Medical (3) Spinal stenosis in cervical region: Code(s): M48.02 - Spinal stenosis, cervical region Category: Medical (4) Fall: Code(s): W19.XXXA - Unspecified fall, initial encounter Category: Medical Qualifiers: Encounter type: subsequent encounter Qualified Code(s): W19.XXXD - Unspecified fall, subsequent encounter Plan Her amnesia was likley related to closed head injury - fall was likely accidental - tripped ? But she had taken zolpidem the previous night and woke up 3 hrs prior to her normal waking time so unsure if that contributed as well. I am concerned about her chronic zolpidem use tremors are well controlled Primidone 200mg bid In lab sleep study was normal Neurosurgery at [place]- had surgery in Feb 2024- Fusion C3-T1 Coding Level of Care Code Est Pt Level 4 (00652) Complex EM visit Add On G2211 Diagnoses Essential and other specified forms of tremor G25.0; G25.2 Spinal cord compression G95.20 Spinal stenosis in cervical region M48.02 Fall, subsequent encounter W19.XXXD Encounter type: subsequent encounter
[2024-11-06 10:56] VITALS: BP 112/84; BMI 30.6
--- OUTSIDE RECORDS SUMMARY | 2024-11-06 11:54 | XMS_ITS | Continuity of Care Document ---
Author Organization [facility] Address [address] [facility] [address] MD [place] Phone Care Team Providers Care Customer Service Officer Name Role Phone No Information Unavailable Unavailable [...] Active Procedures Procedure Date Offic/outpt E&m Estab [facility]-de 2 Collection Of Venous Blood By Venipunctu re L, Comp Metabolic Panel L, C-reactive Protein L, Sed Rate, Erythrocyte L, CBC Auto Diff L, Handling Of Lab Specimens LC, Drug Screen, Single Drug Class Metho d Offic/outpt E&m Estab [facility]-de 2 Virtual Offic/outpt E&m [facility]-de 2 D Collection Of Venous Blood By Venipunctu re L, Comp Metabolic Panel L, C-reactive Protein L, Sed Rate, Erythrocyte L, CBC Auto Diff L, Handling Of Lab Specimens LC, Drug Screen, Single Drug Class Metho d Offic/outpt E&m [facility]-de 2 Immuniz Admin; 1/combo Vacc/to Flucelvax Quad [...] Estab Mod-hi 2 16 Offic/outpt E&m Estab Mod-de 2 16 Collection Of Venous Blood By Venipunctu re L, Comp Metabolic Panel L, C-reactive Protein LC, Iron LC, Iron Binding Capacity L Sed Rate, Erythrocyte L, CBC Auto Diff L, Handling Of Lab Specimens Offic/outpt E&m Estab Mod-hi 2 15 Immuniz Admin; 1/combo Vacc/to 15 Flu Vir Vacc-split 3 Yr & > Im (Fluvirin ) Offic/outpt E&m Estab [facility]-de 2 15 Collection Of Venous Blood By Venipunctu re L, Comp Metabolic Panel L, C-reactive Protein L, Sed Rate, Erythrocyte; Automated L, CBC Auto Diff Offic/outpt E&m Estab Mod-de 2 15 Collection Of Venous Blood By Venipunctu re L, Comp Metabolic Panel L, C-reactive Protein L, Sed Rate, Erythrocyte; Automated L, CBC Auto Diff Offic/outpt E&m [facility]-de 2 15 Xray Foot; Complt Mini 3 Views 14 Xray Hand And Wrist Mini 3 Views 2013 Collection Of Venous Blood By Venipunctu re L, Comp Metabolic Panel L, C-reactive Protein L, Sed Rate, Erythrocyte; Automated L, CBC Auto Diff Offic/outpt E&m [facility]-de 2 14 Collection Of Venous Blood By Venipunctu re L, Comp Metabolic Panel L, C-reactive Protein L, Sed Rate, Erythrocyte; Automated L, CBC Auto Diff Offic/outpt E&m [facility]-de 2 14 Xray Elbow; Ap & Lat Views Collection Of Venous Blood By Venipunctu re L, Comp Metabolic Panel L, C-reactive Protein L, Iron Total L, Iron TIBC LC, Ferritin L, Sed Rate, Erythrocyte; Automated L, TSH L, CBC Auto Diff L, Handling Of Lab Specimens Offic/outpt E&m Estab Mod-de 2 14 Collection Of Venous Blood By [...] Rate L, CBC Auto Diff Offic/outpt E&m [facility] Mod-hi 2 13 Depo-Medrol 40 Mg [...] Mini 3 Views 011 Offic/outpt E&m Estab Mod-de 2 11 Xray Hand And Wrist Mini [...] L, CBC Auto Diff Offic/outpt E&m Estab Mod-de 2 11 Offic/outpt E&m Estab Mod-de 2 11 Routine Venipunct/finger/heel 1 L, Comp Metabolic Panel L, C-reactive Protein L, Sed Rate L, CBC Auto Diff Offic/outpt E&m Estab Mod-de 2 11 Offic/outpt E&m Estab Mod-de 2 11 Routine Venipunct/finger/heel 0 L, Comp Metabolic Panel L, C-reactive Protein L, Iron Total L, Iron TIBC LC, Ferritin L, Sed Rate L, CBC Auto Diff L, Handling Of Lab Specimens Offic/outpt E&m Estab Mod-de 2 10 Flu Vir Vacc-split 3 Yr & > Im 10 Immuniz Admin; 1/combo Vacc/to 10 Offic/outpt E&m Estab Mod-de 2 10 Inj; 1/mx Trig Point 1/two [...] Estab Mod-hi 2 09 Offic/outpt E&m Estab Mod-de 2 08 Offic/outpt E&m Estab Mod-de 2 08 Flu Vir Vacc-split 3 Yr & > Im 08 Offic/outpt E&m Estab Mod-hi 2 08 Therapeutic Injection Sub Q Or IM Flu Vir Vacc-split 3 Yr & > Im 08 Ultra Sound Diagnostic L, Comp Metabolic Panel L, C-reactive Protein L, CBC Auto Diff L, Sed Rate Routine Venipunct/finger/heel 8 Offic/outpt E&m Estab Low-mod 7 Offic/outpt E&m Estab Mod-de 2 07 L, Hepatic Panel Routine Venipunct/finger/heel 7 Offic/outpt E&m Estab Mod-de 2 07 Rad Exam Chest 2 Views [...] Rate Routine Venipunct/finger/heel 6 Offic/outpt E&m Estab Mod-de 2 06 Arthrocentesis/aspir/inj; Inte 06 Medication, Depo-Medrol 40 Mg 6 Rad Exam Elbow; Ap & Lat Views 06 L, Comp Metabolic Panel L, C-reactive Protein L, CBC Auto Diff L, Sed Rate Routine Venipunct/finger/heel 6 Offic/outpt E&m Estab Mod-de 2 06 Rad Exam Hip; Complt Mini 2 Vi 06 L, Comp Metabolic Panel L, Sed Rate Routine Venipunct/finger/heel 6 L, C-reactive Protein L, CBC Auto Diff Offic/outpt E&m Estab Mod-de 2 05 Arthrocentesis/aspir/inj; Ele 05 Arthrocentesis/aspir/inj; Lee 05 Medication, Depo-Medrol 80 Mg 5 L, [...] [address], [place], , [place] tel:[phone] No Information 4 No Information [facility] , [address] [place] [address], [place], , [place] tel:[phone] Shree [place] No Information 3 [address] [place]. [address] [facility] [address], Shree [place], [id number], [place]. tel:[phone] [facility] , [address] [place] [address], [place], , [place] tel:[phone] Shree Vernon No Information 3 Rafael Enciso. [address] [place] [address] 310, [place], [id number], [place]. tel:[phone] [facility] , [address] [place], [place] [address]Bret [place], , [place] tel:[phone] Shree Vernon No Information 3 [place]. [address] [facility] [address], Shree [place], [id number], [place]. tel:[phone] [facility] , [address] [place] [address], [place], [id number], [place] tel:[phone] Shree Vernon No Information 3 [place]. [address] [facility] [address], Shree [place], [id number], [place]. tel:[phone] Offic/outpt E&m Estab Mod-hi 2 [facility] , [address] [place], [place] [address]Bret [place], [id number], [place] tel:[phone] Shree Vernon Other chronic painLong term (current) use of opiate analgesicHype rmobility syndromeSpina l stenosis of cervical regionRA w/o rheumatoid factor of multiple sitesOther extermination inspector (current) drug therapy 3 [place]. [address] [facility] [address], Shree Vernon [place], [id number], [place]. tel:[phone] Referring Provider: Jamir Lugo, [address] [facility] [address], [place], [address] . tel:[phone] [facility] , [address] [place] [address], [place], [id number], [place] tel: [phone] Shree Vernon No Information [address]. [address], [facility] 600, Shree Vernon [place], [id number], [place]. tel:[phone] [facility] , [address] [place] [address], [place], [id number], [place] tel: [phone] Shree Vernon No Information 3 [place]. [address] [facility], [facility] 600, Shree Vernon [place], [id number], [place]. tel:[phone] Offic/outpt E&m Estab Mod-hi 2 [facility] , [address] [place] [address], [place], [id number], [place] tel: [phone] Shree Vernon RA w/o rheumatoid factor of multiple sitesSpinal stenosis of cervical regionHypermo bility syndromeLong term (current) use of opiate analgesicOthe r chronic pain 3 [place]. [address], [facility] [address], Shree Vernon [place], [id number], [place]. tel:[phone] Referring Provider: Jamir Lugo, [address] [facility] [address], [place], [address] . tel:[phone] Virtual Offic/outpt E&m Estab Mod-hi 2 [facility] , [address] [place] [address], [place], [id number], [place] tel:[phone] [place] Other chronic painOther extermination inspector (current) drug therapy 2 Jagdish [address]ra. [address], [place], [id number], [place]. tel:[phone] Referring Provider: Jamir Lugo, [address] [facility] [address], [place], [address] . tel:[phone] Offic/outpt E&m Estab Mod-hi 2 [facility] , [address] [place] [address], [place], [id number], [place] tel:[phone] Shree Vernon RA w/o rheumatoid factor of multiple sitesFibromya lgiaOther chronic painLong term (current) use of opiate analgesicHype rtensionOther shelter (current) drug therapy 2 [place]. [address] [facility], [address], Shree [place], [id number], [place]. tel:[phone] Referring Provider: Jamir Lugo, [address] [facility] [address], [place], [address] . tel:[phone] Offic/outpt E&m Estab Mod-hi 2 [facility] , [address] [place] [address], [place], , [place] tel:[phone] Shree Vernon RA w/o rheumatoid factor of multiple sitesOpioid use, unspecified, uncomplicated Other extermination inspector (current) drug therapyFibrom yalgiaOther chronic painRadial styloid tenosynovitis [de Quervain]Anem ia 2 [place]. [address] [facility], [address], Shree [place], [id number], [place]. tel:[phone] Referring Provider: Jamir Lugo, [address] [facility] [address], [place], [address] . tel:[phone] Offic/outpt E&m Estab Mod-hi 2 [facility] , [address] [place] [address], [place], , [place] tel:[phone] Shree Vernon RA w/o rheumatoid factor of multiple sitesLong term (current) use of opiate analgesicOthe r extermination inspector (current) drug therapyFibrom yalgiaOther chronic pain 2 [place]. [address], [address], Shree [place], [id number], [place]. tel:[phone] Referring Provider: Jamir Lugo, [address] [facility] [address], [place], [address] . tel:[phone] Offic/outpt E&m Estab Low-mod [facility] , [address] [place] [address], [place], [id number], [place] tel:[phone] [place] FibromyalgiaO ther chronic pain Apr- 1 Jagdish Piedra. [address], [place], [id number], [place]. tel:[phone] Referring Provider: Jamir Lugo, [address] [facility] [address], [place], [address] . tel:[phone] Offic/outpt E&m Estab Mod-hi 2 [facility] , [address] [place] [address], [place], [id number], [place] tel:[phone] Shree Vernon RA w/o rheumatoid factor of multiple sitesLong term (current) use of opiate analgesicOthe r chronic painFibromyal giaOther shelter (current) drug therapy 1 [place]. [address], [address], Shree [place], [id number], [place]. tel:[phone] Referring Provider: Jamir Lugo, [address] [facility] [address], [place], [address] . tel:[phone] Offic/outpt E&m Estab Mod-hi 2 [facility] , [address] [place] [address], [place], [id number], [place] tel:[phone] Shree Vernon FibromyalgiaR A w/o rheumatoid factor of multiple sitesOther chronic painLong term (current) use of opiate analgesicOpio id use, unspecified, uncomplicated Sep-0 1 [place]. [address] [place] [address], [facility] 600, Shree [place], [id number], [place]. tel:[phone] Referring Provider: Jamir Lugo, [address], [place], [address] . tel:[phone] Offic/outpt E&m Estab Mod-hi 2 [facility] , [address] [place] [address], [place], [id number], [place] tel:[phone] Shree Vernon RA w/o rheumatoid factor of multiple sitesFibromya lgiaLong term (current) use of opiate analgesicOthe r chronic painOther shelter (current) drug therapyCough Jul-0 1 [place]. [address], [address], Shree [place], [id number], [place]. tel:[phone] Referring Provider: Jamir Lugo, [address], [place], [address] . tel:[phone] Virtual Offic/outpt E&m Estab Mod-hi 2 [facility] , [address] [place] [address] 310Bret [place], [id number], [place] tel:[phone] Shree Vernon Telehealth (chief complaint)Rhe umatoid arthritis (chief complaint) FibromyalgiaR A w/o rheumatoid factor of multiple sitesOpioid use, unspecified, uncomplicated Other chronic painOther shelter (current) drug therapy 0 [place]. [address], [address], Shree [place], [id number], [place]. tel:[phone] Referring Provider: Jamir Lugo, [address], [place], [address] . tel:[phone] Virtual Offic/outpt E&m Estab Mod-hi 2 [facility] , [address] [place] [address]Bret [place], , [place] tel:[phone] Shree Vernon Telehealth (chief complaint) RA w/o rheumatoid factor of multiple sitesOther chronic painLong term (current) use of opiate analgesicFibr omyalgia Sep-0 0 [place]. [address], [address], Shree [place], [id number], [place]. tel:[phone] Referring Provider: Jamir Lugo, [address], [place], [address] . tel:[phone] Virtual Offic/outpt E&m Estab Mod-hi 2 [facility] , [address] [place] [address] Bret Peters [place], [id number], [place] tel:[phone] Shree Vernon Telehealth (chief complaint)Rhe umatoid arthritis (chief complaint) FibromyalgiaO ther chronic painRA w/o rheumatoid factor of multiple sitesOpioid use, unspecified, uncomplicated Abdoul-0 0 [place]. [address], [address], Shree [place], [id number], [place]. tel:[phone] Referring Provider: Jaimr Lugo, [address], [place], [address] . tel:[phone] Offic/outpt E&m Estab Mod-hi 2 [facility] , [address] [place] [address]Bret [place], [id number], [place] tel:[phone] Shree Vernon Rheumatoid arthritis (chief complaint) RA w/o rheumatoid factor of multiple sitesFibromya lgiaOther chronic painOther extermination inspector (current) drug therapyLong term (current) use of opiate analgesic Jul-0 0 [place]. [address], [address]Sh[address] [place], [id number], [place]. tel:[phone] Referring Provider: Jamir Lugo, [address], [place], [address] . tel:[phone] Offic/outpt E&m Estab Mod-hi 2 [facility] , [address] [place] [address] 310Bret [place], [id number], [place] tel:[phone] Shree Vernon Fibromyalgia (chief complaint) RA w/o rheumatoid factor of multiple sitesFibromya lgiaOther chronic pain Dec-0 2-201 9 [place]. [address], [address], Shree [place] MD, [id number], [place]. tel:[phone] Referring Provider: Jamir Lugo, [address] [facility] [address], [place], [address] . tel:[phone] Offic/outpt E&m Estab Mod-hi 2 [facility] , [address] [place] [address], [place], [id number], [place] tel:[phone] Shree Vernon Fibromyalgia (chief complaint) RA w/o rheumatoid factor of multiple sitesOther chronic painFibromyal giaInsomniaOt her shelter (current) drug therapy Jan- 9 [place]. [address], [facility] 600, Shree [place], [id number], [place]. tel:[phone] Referring Provider: Jamir Lugo, [address], [place], [address] . tel:[phone] Offic/outpt E&m Estab Mod-hi 2 [facility] , [address] [place] [address], [place], [id number], [place] tel:[phone] Shree Vernon Fibromyalgia (chief complaint) FibromyalgiaO ther chronic painRA w/o rheumatoid factor of multiple sitesOther extermination inspector (current) drug therapyFatigu e 9 [place]. [address], [facility] 600, Shree [place] MD, [id number], [place]. tel:[phone] Referring Provider: Jamir Lugo, [address], [place], [address] . tel:[phone] Offic/outpt E&m Estab Mod-hi 2 [facility] , [address] [place] [address], [place], [id number], [place] tel:[phone] Shree Vernon Fibromyalgia (chief complaint) RA w/o rheumatoid factor of multiple sitesFibromya lgiaOther chronic painOther shelter (current) drug therapyInsomn ia 8 [place]. [address], [address], [place], , [place]. tel:[phone] Referring Provider: Jamir Lugo, [address] [facility] [address], [place], [address] . tel:[phone] [facility] , [address] [place] [address], [place], [id number], [place] tel:[phone] Shree [place] No Information 8 [place]. [address] [place] [address], [facility] [address], [place]ree [place], , [place]. tel:[phone] Offic/outpt E&m Estab Mod-hi 2 [facility] , [address] [place] [address], [place], , [place] tel:[phone] Shree Vernon Fibromyalgia (chief complaint) RA w/o rheumatoid factor of multiple sitesOther chronic painMyofascia l pain syndromeFibro myalgiaOther extermination inspector (current) drug therapy 8 [place]. [address], [address], [place], , [place]. tel:[phone] Referring Provider: Jamir Lugo, [address] [facility] [address], [place], [address] . tel:[phone] Offic/outpt E&m Estab Mod-hi 2 [facility] , [address] [place] [address], [place], , [place] tel:[phone] Shree Vernon Back pain (chief complaint) Body mass index (BMI) 29.0-29.9, adultRA w/o rheumatoid factor of multiple sitesFibromya lgiaOther chronic painOther shelter (current) drug therapyBack painMyofascia l pain syndrome 7 [place]. [address], [address], [id number], [place]. tel:[phone] Referring Provider: Jamir Lugo, [address], [place], [address] . tel:[phone] Offic/outpt E&m Estab Mod-hi 2 [facility] , [address] [place] [address], [place], [id number], [place] tel:[phone] Shree Vernon Rheumatoid arthritis (chief complaint) Body mass index (BMI) 27.0-27.9, adultRA w/o rheumatoid factor of multiple sitesOther extermination inspector (current) drug therapyOther chronic painFibromyal ivanna 7 [place]. [address], [address], Shree [place], [id number], [place]. tel:[phone] Referring Provider: Jamir Lugo, [address], [place], [address] . tel:[phone] Offic/outpt E&m [facility] Mod-hi 2 [facility] , [address] [place] [address], [place], , [place] tel:[phone] Shree Vernon Back pain (chief complaint) RA w/o rheumatoid factor of multiple sitesOther extermination inspector (current) drug therapyFibrom yalgiaOther chronic painDorsalgia 6 [place]. [address], [address], Shree [place], [id number], [place]. tel:[phone] Referring Provider: Jamir Lugo, [address], [place], [address] . tel:[phone] Offic/outpt E&m [facility] Mod-hi 2 [facility] , [address] [place] [address]Bret [place], [id number], [place] tel:[phone] Shree Vernon Rheumatoid arthritis (chief complaint) RA w/o rheumatoid factor of multiple sitesFibromya lgiaOther chronic painOther shelter (current) drug therapy 6 [place]. [address], [address], Shree [place], [id number], [place]. tel:[phone] Referring Provider: Jamir Lugo, [address], [place], [address] . tel:[phone] Offic/outpt E&m Estab Mod-hi 2 [facility] , [address] [place] [address], [place], [id number], [place] tel:[phone] Shree Vernon Rheumatoid arthritis (chief complaint) RA w/o rheumatoid factor of multiple sitesFibromya lgiaOther chronic pain 6 [place]. [address], [facility] [address], Shree [place], [id number], [place]. tel:[phone] Referring Provider: Jamir Lugo, [address] [facility] [address], [place], [address] . tel:[phone] Offic/outpt E&m Estab Mod-hi 2 [facility] , [address] [place] [address], [place], [id number], [place] tel:[phone] Shree [place] Rheumatoid arthritis (chief complaint) RA w/o rheumatoid factor of multiple sitesFibromya lgiaOther chronic painOther shelter (current) drug therapyIron deficiency 5 [place]. [address] [facility], [facility] [address], Shree [place], [id number], [place]. tel:[phone] Referring Provider: Jamir Lugo, [address] [facility] [address], [place], [address] . tel:[phone] [facility] , [address] [place] [address], [place], [id number], [place] tel:[phone] Shree [place] No Information 5 [place]. [address] [facility], [facility] [address], Shree [place] MD, [id number], [place]. tel:[phone] Offic/outpt E&m Estab Mod-hi 2 [facility] , [address] [place] [address], [place], [id number], [place] tel:[phone] Shree Vernon Rheumatoid arthritis (chief complaint) Fibromyalia Syn Myalgia MyositRheumat oid ArthritisInso mniaChronic Pain 5 [place]. [address], [address], [place], [id number], [place]. tel:[phone] Referring Provider: Jamir Lugo, [address] [facility] [address], [place], [address] . tel:[phone] Offic/outpt E&m Estab Mod-hi 2 [facility] , [address] [place] [address], [place], [id number], [place] tel:[phone] Shree Vernon Fibromyalgia (chief complaint) Fibromyalia Syn Myalgia MyositRheumat oid ArthritisTher apeutic Drug Monitoring 5 [address]. [address], [address], [place], [id number], [place]. tel:[phone] Referring Provider: Jamir Lugo, [address] [facility] [address], [place], [address] . tel:[phone] Offic/outpt E&m Estab Mod-hi 2 [facility] , [address] [place] [address], [place], [id number], [place] tel:[phone] Shree Vernon Rheumatoid arthritis (chief complaint) Rheumatoid ArthritisTher apeutic Drug MonitoringFib romyalia Syn Myalgia MyositChronic Pain 5 [place]. [address], [address], [place], [id number], [place]. tel:[phone] Referring Provider: Jamir Lugo, [address] [facility] [address], [place], [address] . tel:[phone] Offic/outpt E&m Estab Mod-hi 2 [facility] , [address] [place] [address], [place], [id number], [place] tel:[phone] Shree Vernon Rheumatoid arthritis (chief complaint) Fibromyalia Syn Myalgia MyositRheumat oid ArthritisChro montse PainTherapeut ic Drug Monitoring 4 [address]. [address], [address], [place]ree [place], [id number], [place]. tel:[phone] Referring Provider: Jamir Lugo, [address] [facility] [address], [place], [address] . tel:[phone] [facility] , [address] [place] [address], [place], [id number], [place] tel:[phone] Ministerio [place] No Information 4 [address]. [address], [facility] [address], Shree [place], [id number], [place]. tel:[phone] Referring Provider: Jamir Lugo, [address] [facility] [address], [place], [address] . tel:[phone] Offic/outpt E&m Estab Mod-hi 2 [facility] , [address] [place] [address], [place], [id number], [place] tel:[phone] Shree Vernon Rheumatoid arthritis (chief complaint)Fib romyalgia (chief complaint) Rheumatoid ArthritisMyal ivanna Fibromyalgia MyositisChron ic Pain 4 [address] [place]. [address], [facility] [address], Shree [place], [id number], [place]. tel:[phone] Referring Provider: Jamir Lugo, [address] [facility] [address], [place], [address] . tel:[phone] Offic/outpt E&m Estab Mod-hi 2 [facility] , [address] [place] [address], [place], [id number], [place] tel:[phone] Shree Vernon musculoskelet al pain (chief complaint) Rheumatoid ArthritisMyal ivanna Fibromyalgia MyositisJoint Pain-up/armTh erapeutic Drug MonitoringFat igue / MalaiseChroni c Pain [address], [address], [place], [id number], [place]. tel:[phone] Referring Provider: Jamir Lugo, [address] [facility] [address], [place], [address] . tel:[phone] Offic/outpt E&m Estab Mod-hi 2 [facility] , [address] [place] [address], [place], , [place] tel:[phone] Shree [place] Rheumatoid arthritis (chief complaint) Fatigue / MalaiseInflue nza VaccineRheuma toid ArthritisTher apeutic Drug MonitoringChr onic Pain [address], [address], [place], [id number], [place]. tel:[phone] Referring Provider: Jamir Lugo, [address], [place], [address] . tel:[phone] Offic/outpt E&m Estab Mod-hi 2 [facility] , [address] [place] [address], [place], , [place] tel:[phone] [place]ree [place] rheumatoid arthritis (chief complaint) Therapeutic Drug MonitoringChr onic PainMyalgia Fibromyalgia MyositisRheum atoid Arthritis [address], [address], [place], [id number], [place]. tel:[phone] Referring Provider: Jamir Lugo, [address] [facility] [address], [place], [address] . tel:[phone] Offic/outpt E&m Estab Mod-hi 2 [facility] , [address] [place] [address], [place], , [place] tel:[phone] Shree [place] Rheumatoid arthritis (chief complaint)Fib romyalgia (chief complaint)mus culoskeletal pain (chief complaint) Bursitis, Rotator CuffRheumatoi d ArthritisTher apeutic Drug MonitoringJoi nt Pain-l/legChr onic Pain [address], [address], [place], [id number], [place]. tel:[phone] Referring Provider: Jamir Lugo, [address] [facility] [address], [place], [address] . tel:[phone] Offic/outpt E&m Estab Mod-hi 2 [facility] , [address] [place] [address], [place], [id number], [place] tel:[phone] Shree [place] Fibromyalgia (chief complaint)Rhe umatoid arthritis (chief complaint)mus culoskeletal pain (chief complaint) Bursitis, Rotator CuffRheumatoi d ArthritisMyal ivanna Fibromyalgia MyositisSleep ApneaTherapeu tic Drug Monitoring [address] [facility], [facility] 600, [place], [id number], [place]. tel:[phone] Referring Provider: Jamir Lugo, [address] [facility] [address], [place], [address] . tel:[phone] Offic/outpt E&m Estab Mod-hi 2 [facility] , [address] [place] [address]B[place], [id number], [place] tel:[phone] Shree [place] Rheumatoid arthritis (chief complaint)Fib romyalgia (chief complaint) Myalgia Fibromyalgia MyositisRheum atoid ArthritisTher apeutic Drug MonitoringInf luenza Vaccine [address] [facility], [address], [place], [id number], [place]. tel:[phone] Referring Provider: Jamir Lugo, [address] [facility] [address], [place], [address] . tel:[phone] Offic/outpt E&m Estab Mod-hi 2 [facility] , [address] [place] [address]B[place], [id number], [place] tel:[phone] CHARLIE Rheumatoid arthritis (chief complaint) Rheumatoid ArthritisTher apeutic Drug MonitoringBur sitis, Rotator CuffFatigue / Malaise [address] [facility], [address], [place], [id number], [place]. tel:[phone] Referring Provider: Jamir Lugo, [address] [facility] [address], [place], [address] . tel:[phone] Offic/outpt E&m Estab Mod-hi 2 [facility] , [address] [place] [address], [place], [id number], [place] tel:[phone] Shree [place] Rheumatoid arthritis (chief complaint)Fib romyalgia (chief complaint) Rheumatoid ArthritisTher apeutic Drug MonitoringChr onic PainHypertens ion, BenignHyperte nsion, Benign Mar-2 [address] [facility], [address], [place], [id number], [place]. tel:[phone] Referring Provider: Jamir Lugo, [address] [facility] [address], [place], [address] . tel:[phone] Offic/outpt E&m Estab Mod-hi 2 [facility] , [address] [place] [address], [place], [id number], [place] tel:[phone] [place] Rheumatoid Arthritis (chief complaint) Fibrositis/Rh eumatism NosInfluenza Vaccine [address] [facility], [address], [place], [id number], [place]. tel:[phone] Referring Provider: Jamir Lugo, [address] [facility] [address], [place], [address] . tel:[phone] Offic/outpt E&m Estab Mod-hi 2 [facility] , [address] [place] [address], [place], [id number], [place] tel:[phone] [place] Rheumatoid Arthritis (chief complaint) No Information [address] [facility], [address], [place], [id number], [place]. tel:[phone] Referring Provider: Jamir Lugo, [address] [facility] [address], [place], [address] . tel:[phone] Offic/outpt E&m Estab Mod-hi 2 [facility] , [address] [place] [address], [place], [id number], [place] tel:[phone] CHARLIE Rheumatoid Arthritis (chief complaint) No Information [address] [facility], [address], [place], [id number], [place]. tel:[phone] Referring Provider: Jamir Lugo, [address] [facility] 600, [place], [address] . tel:[phone] Offic/outpt E&m Estab Mod-hi 2 [facility] , [address] [place] [address], [place], [id number], [place] tel:[phone] CHARLIE Rheumatoid Arthritis (chief complaint) No Information [address], [facility] 600, [place], [id number], [place]. tel:[phone] Referring Provider: Jamir Lugo, [address] [facility] [address], [place], [address] . tel:[phone] Offic/outpt E&m Estab Mod-hi 2 [facility] , [address] [place] [address], [place], [id number], [place] tel:[phone] CHARLIE Rheumatoid Arthritis (chief complaint) No Information [address], [facility] 600, [place], [id number], [place]. tel:[phone] Referring Provider: Jamir Lugo, [address] [facility] [address], [place], [address] . tel:[phone] Offic/outpt E&m Estab Mod-hi 2 [facility] , [address] [place] [address], [id number], [place] tel:[phone] CHARLIE Rheumatoid Arthritis (chief complaint) Ulcer, GastricBenign Hypertension [address], [facility] 600, [place], [id number], [place]. tel:[phone] Referring Provider: Jamir Lugo, [address], [place], [address] . tel:[phone] Offic/outpt E&m Estab Mod-hi 2 [facility] , [address] [place] [address], [place], [id number], [place] tel:[phone] [place] Rheumatoid Arthritis (chief complaint) No Information [address], [address], [place], [id number], [place]. tel:[phone] Referring Provider: Jamir Lugo, [address], [place], [address] . tel:[phone] Offic/outpt E&m Estab Mod-hi 2 [facility] , [address] [place] [address], [place], [id number], [place] tel:[phone] [place] Rheumatoid Arthritis (chief complaint) No Information [address], [address], [place], [id number], [place]. tel:[phone] Referring Provider: Jamir Lugo, [address], [place], [address] . tel:[phone] Offic/outpt E&m Estab Mod-hi 2 [facility] , [address] [place] [address], [place], [id number], [place] tel:[phone] [place] Rheumatoid Arthritis (chief complaint) No Information [address], [address], [place], [id number], [place]. tel:[phone] Referring Provider: Jamir Lugo, [address], [place], [address] . tel:[phone] Offic/outpt E&m Estab Low-mod [facility] , [address] [place] [address], [place], , [place] tel:[phone] [place] Rheumatoid Arthritis (chief complaint) No Information [address] [facility] 600, [place], [id number], [place]. tel:[phone] Referring Provider: Jamir uLgo, [address] [place], [place] [address]e [facility] 600, [place], [address] . tel:[phone] [facility] , [address] [place] [address], [place], , [place] tel:[phone] PT [place] Back Pain (chief complaint) No Information 0 No Information Referring Provider: Jamir Lugo, [address] [place] [address], [place], [address] . tel:[phone] [facility], [address] [place] [address], [place], , [place] tel: [phone] PT [place] Back Pain (chief complaint) No Information 0 No Information Referring Provider: Jamir Lugo, [address] [place] [address], [place], [address] . tel:[phone] [facility] , [address] [place] [address], [place], , [place] tel:[phone] PT [place] Back Pain (chief complaint) No Information 0 No Information Referring Provider: Jamir Lugo, [address] [place] [address], [place], [address] . tel:[phone] [facility] , [address] [place] [address], [place], , [place] tel:[phone] PT [place] Back Pain (chief complaint) No Information 0 No Information Referring Provider: Jamir Lugo, [address] [place] [address], [place], [address] . tel:[phone] Offic/outpt E&m Estab Mod-hi 2 [facility] , [address] [place] [address], [place], [id number], [place] tel:[phone] [place] Rheumatoid Arthritis (chief complaint) No Information [address], [address], [place], [id number], [place]. tel:[phone] Referring Provider: Jamir Lugo, [address] [facility] [address], [place], [address] . tel:[phone] [facility] , [address] [place] [address], [place], [id number], [place] tel:[phone] [place] No Information [address], [facility] 600, [place], [id number], [place]. tel:[phone] Referring Provider: Jamir Lugo, [address] [place] [address] [address], [place], [address] . tel:[phone] Offic/outpt E&m Estab Mod-hi 2 [facility] , [address] [place] [address], [place], [id number], [place] tel:[phone] [place] Rheumatoid Arthritis (chief complaint) No Information [address], [address], [place], [id number], [place]. tel:[phone] Referring Provider: Jamir Lugo, [address] [facility] [address], [place], [address] . tel:[phone] Offic/outpt E&m Estab Mod-hi 2 [facility] , [address] [place] [address], [place], [id number], [place] tel:[phone] [place] Rheumatoid Arthritis (chief complaint) No Information [address], [address], [place], [id number], [place]. tel:[phone] Referring Provider: Jamir Lugo, [address] [facility] [address], [place], [address] . tel:[phone] Offic/outpt E&m Estab Mod-hi 2 [facility] , [address] [place] [address], [place], [id number], [place] tel:[phone] [place] Rheumatoid Arthritis (chief complaint) No Information [address], [address], [place], [id number], [place]. tel:[phone] Referring Provider: Jamir Lugo, [address] [facility] [address], [place], [address] . tel:[phone] Offic/outpt E&m Estab Low-mod [facility] , [address] [place] [address], [place], [id number], [place] tel:[phone] CHARLIE Rheumatoid Arthritis (chief complaint) No Information [address], [address], [place], [id number], [place]. tel:[phone] Referring Provider: Jamir Lugo, [address], [place], [address] . tel:[phone] Offic/outpt E&m Estab Mod-hi 2 [facility] , [address] [place] [address], [place], [id number], [place] tel:[phone] CHARLIE Rheumatoid Arthritis (chief complaint) No Information [address], [address], [place], [id number], [place]. tel:[phone] Referring Provider: Jamir Lugo, [address] [facility] [address], [place], [address] . tel:[phone] Offic/outpt E&m Estab Mod-hi 2 [facility] , [address] [place] [address] [place], [id number], [place] tel:[phone] CHARLIE Rheumatoid Arthritis (chief complaint) No Information [address], [address], [place], [id number], [place]. tel:[phone] Referring Provider: Jamir Lugo, [address] [facility] [address], [place], [address] . tel:[phone] Offic/outpt E&m Estab Mod-hi 2 [facility] , [address] [place] [address], [place], [id number], [place] tel:[phone] CHARLIE Rheumatoid Arthritis (chief complaint) No Information [address] [facility], [facility] 600, [place], [id number], [place]. tel:[phone] Referring Provider: Jamir Lugo, [address] [place] [address], [place], [address] . tel:[phone] Offic/outpt E&m Estab Mod-hi 2 [facility] [place] [address], [place], [id number], [place] tel:[phone] [place] Rheumatoid Arthritis (chief complaint) Rheumatoid ArthritisIron Defic Anemia NosIron Defic Anemia NosIron Defic Anemia Nos [address] [facility], [facility] 600, [place], [id number], [place]. tel:[phone] Referring Provider: Jamir Lugo, [address] [facility] [address], [place], [address] . tel:[phone] [facility] [place] [address], [place], [id number], [place] tel:[phone] CHARLIE Rheumatoid Arthritis (chief complaint)Kwesi k Pain (chief complaint) Rheumatoid ArthritisFibr omyalgia Syn Myalgia MyositChronic PainLong Term High Risk Meds [address] [facility], [facility] 600, [place], [id number], [place]. tel:[phone] Referring Provider: Jamir Lugo, [address] [facility] [address], [place], [address] . tel:[phone] Offic/outpt E&m Estab Mod-hi 2 [facility] , [address] [place] [address], [place], [id number], [place] tel:[phone] [place] Rheumatoid Arthritis (chief complaint)Fib romyalgia Syndrome (chief complaint) Rheumatoid ArthritisChro montse Pain [address] [facility], [facility] 600, [place], [id number], [place]. tel:[phone] Referring Provider: Jamir Lugo, [address] [facility] 600, [place], [address] . tel:[phone] Offic/outpt E&m Estab Low-mod [facility] , [address] [place] [address], [place], [id number], [place] tel:[phone] [place] Rheumatoid Arthritis (chief complaint)Fib romyalgia Syndrome (chief complaint) Rheumatoid ArthritisFibr omyalia Syn Myalgia MyositJoint Hypermobility SyndromeChron ic PainLong Term High Risk Meds [address], [facility] 600, [place], [id number], [place]. tel:[phone] Referring Provider: Jamir Lugo, [address] [facility] 600, [place], [address] . tel:[phone] Offic/outpt E&m Estab Mod-hi 2 [facility] , [address] [place] [address], [place], [id number], [place] tel:[phone] [place] No Information [address] [facility], [facility] 600, [place], [id number], [place]. tel:[phone] Referring Provider: Jamir Lugo, [address] [facility] 600, [place], [address] . tel:[phone] [facility] , [address] [place] [address], [place], [id number], [place] tel:[phone] [place] No Information [address] [facility], [facility] 600, [place], [id number], [place]. tel:[phone] Referring Provider: Jamir Lugo, [address], [place], [address] . tel:[phone] Offic/outpt E&m Estab Mod-hi 2 [facility] , [address] [place] [address], [place], [id number], tel:[phone] [place] No Information [address], [place], [id number], [place]. tel:[phone] Referring Provider: Jamir Lugo, [address], [place], [address] . tel:[phone] Offic/outpt E&m Estab Mod-hi 2 [facility] , [address] [place] [address], [place], [id number], tel:[phone] [place] No Information [address] [facility], [address], [place], [id number], [place]. tel:[phone] Referring Provider: Jamir Lugo, [address], [place], [address] . tel:[phone] Offic/outpt E&m Estab Mod-hi 2 [facility] , [address] [place] [address], [place], [id number], [place] tel:[phone] [place] No Information [address], [address], [place], [id number], [place]. tel:[phone] Referring Provider: Jamir Lugo, [address], [place], [address] . tel:[phone] Offic/outpt E&m Estab Mod-hi 2 [facility] , [address] [place] [address], [place], [id number], tel:[phone] [place] No Information [address] [facility], [address], [place], [id number], . tel:[phone] Referring Provider: Jamir Lugo, [address], [place], [address] . tel:[phone] Offic/outpt E&m Estab Mod-hi 2 [facility] , [address] [place] [address] Bret [place], [id number], tel:[phone] [place] No Information [address] [facility], [address], [place], [id number], [place]. tel:[phone] Referring Provider: Jamir Lugo, [address], [place], [address] . tel:[phone] Offic/outpt E&m Estab Mod-hi 2 [facility] , [address] [place] [address], [place], [id number], tel:[phone] [place] No Information [address] [facility], [address], [place], [id number], [place]. tel:[phone] Referring Provider: Jamir Lugo, [address] [facility] [address], [place], [address] . tel:[phone] Offic/outpt E&m Estab Mod-hi 2 [facility] , [address] [place] [address] [place], , [place] tel:[phone] [place] No Information 6 No Information Offic/outpt E&m Estab Mod-hi 2 [facility] , [address] [place] [address] Bret Peters [place], , [place] tel:[phone] [place] No Information 6 No Information Offic/outpt E&m Estab Mod-hi 2 [facility] , [address] [place] [address] Bret Peters [place], , [place] tel:[phone] [place] No Information 2200 5 No Information [...] preservative free, 3 years and older Afluria [id number] administered Source: New Immu nization Record Influenza, split virus, injectable, 3 years and older Fluvirin [id number] administered Source: New Immuniza tion Record Flu, [...] Authoriza tion(s) [employer] BL [id number] [employer] BL [id number] [employer] BL [id number] [employer] BL [id number] [employer] Open Access CI [id number] 47 [employer] PPO And POS BL [id number] Social History Type Description Quantity Date Captured [...] Referral Referred To: Marco A Pond MD [facility] [address] [place], [id number] Ordered: Referrals: Otolaryngology. Marco A Pond MD. Evaluate and treat ordered Referral Ordered: Xray Elbow; Ap & Lat Views Left ordered Referral Ordered: Xray Knee; Three Views Left ordered Referral Referred To: Samm Cardona MD [facility] [address] [place], [place], [id number] Ordered: Referral: Samm Cardona MD. ordered Referral [...] Prese nt Illness Telehealth Physician Locati on: hSree VernonPatient Location: [address] [place] [address]Ecyt of Visit: Virtual VisitOther participants: NoneInterpreter: NoneThis [...] Telehealth Physician Locati on: Kirstythad VernonPatient Location: [address] [place], [place] [address]Uhai of Visit: Virtual VisitOther participants: NoneInterpreter: NoneThis [...] Telehealth Physician Locati on: Billieluzthad VernonPatient Location: [address] [place], [place] [address]Rwhs of Visit: Virtual VisitOther participants: NoneInterpreter: NoneThis [...]
== END 2024-11-06 11:32 | disposition home or self-care (01) ==
LOC: HO.HSMS 10:50
PROVIDERS: PCP Nurse Practitioner Family; Visit Provider Psychiatry & Neurology Neurology
DX: G25.0 Essential tremor (principal); G25.2 Other specified forms of tremor; G95.20 Unspecified cord compression; M48.02 Spinal stenosis, cervical region; W19.XXXD Unspecified fall, subsequent encounter
CPT/HCPCS: 99214

== ENCOUNTER → 2024-11-06 10:50 | Outpatient (BNVA) | payer BC, SELFPAY | PROVIDERS: PCP Nurse Practitioner Family; Visit Provider Psychiatry & Neurology Neurology ==

== ENCOUNTER 2024-12-21 09:16 | Outpatient (AMB) | payer BC, SELFPAY ==
--- NOTE | 2024-12-21 09:12 | A.OFFPC_ITS ---
Intake Visit Reasons: hypercholesterolemia Intake Note: patient here for Hypercholesterolemia follow up Wharf Attendant Required: No Is last menstrual period known: No Post menopausal: No Patient : No Allergies ammonia Allergy (Severe, Verified 12/21/24 09:26) Anaphylaxis strawberry Allergy (Mild, Verified 12/21/24 09:26) Hives Medication List - Last Reconciled 12/21/24 by Fan Hanna CNP acetaminophen-codeine 300-30 mg 1 tab PO BID PRN alendronate 70 mg PO QWEEK benzonatate 200 mg PO TID PRN duloxetine 60 mg PO DAILY 90 days Enbrel SureClick (etanercept) 50 mg subcut QWEEK NS folic acid 0.4 mg PO DAILY hydroxychloroquine (Plaquenil) 200 mg PO DAILY isotretinoin 40 mg PO BID primidone 200 mg (4 x 50 mg) PO BID spironolactone 50 mg PO BID 30 days sumatriptan succinate 100 mg orally; at the onset of headaches, may take one more tablet with in 2 hours of the first dose not to exceed 200mg w/in 24hour period. MDD 200mg tizanidine 2 mg PO TID 90 days tretinoin 0.025% 1 appl topical BEDTIME zolpidem 10 mg PO BEDTIME 30 days Tobacco use date assessed: 12/21/24 Dental Screening Dental Screen Date: 12/21/24 Did you have a dental visit in the last 12 months?: Yes Did you have a dental problem in the last 6 months where you did not have access to dental care?: No Was dental information given to patient?: Patient has dentist HPI HPI Comments History of Present Illness Details 49-year-old female presents for review o f recent lab results. She admits to taking her medications as prescribed without adverse reactions. She notes that she has been making healthy lifestyle changes. She offers no complaints and denies acute symptoms at this time. [facility] Medical History (Updated 11/06/24 @ 11:24 by Dea eSwell MD) Fall Essential and other specified forms of tremor Spinal cord compression Spinal stenosis in cervical region Hypersomnia Snoring Degenerative cervical disc Benign essential tremor Fibromyalgia Rheumatoid arthritis Surgical History H/O spinal fusion History of surgery on left wrist History of uvulopalatopharyngoplasty History of surgical removal of ganglion cyst History of tonsillectomy H/O: knee surgery H/O removal of cyst History of appendectomy History of adenoidectomy Family History Mother COPD (chronic obstructive pulmonary disease) Type 2 diabetes mellitus Congestive heart failure Rheumatoid arthritis Fibromyalgia Sjogrens syndrome Father Congenital heart defect Colon cancer Paternal Grandmother Breast cancer Bone cancer Maternal Aunt Rheumatoid arthritis Social History Household Members: Significant Other Housing: House Alcohol intake: current Alcohol intake frequency: holidays/special occasions only Patient Tobacco Use Status: Never used Tobacco e-Cigarette/Vaping Use: Never Used Second Hand Smoke Exposure: No Patient : No service: No Current occupational status: employed 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 Giovany Orellana, Cathryn Hunter, Duke Cervantes and colleagues, with an educational nakia from [employer]. Review of Systems Const Details: Denies chills, Denies fatigue, Denies fever(s), Denies headache(s) and Denies weakness Cardiac Denies chest pain, Denies claudication, Denies leg edema, Denies lightheadedness, Denies palpitations, Denies dyspnea, Denies dyspnea on exertion, Denies orthopnea and Denies other (Loss of consciousness) Resp Denies cough, Denies excessive phlegm production, Denies dyspnea, Denies dyspnea on exertion, Denies snoring and Denies wheezing Physical exam (Primary Care) Tobacco/Smoking Status: Tobacco use Status Tobacco use date assessed 12/21/24 12/21/24 09:16 Patient Tobacco Use Status Never used Tobacco 12/21/24 09:16 e-Cigarette/Vaping Use Never Used 12/21/24 09:16 Thrive Assessment: Date of Thrive Assessment Date Thrive assessed 04/07/24 12/21/24 09:16 Const Other: Patient is alert and oriented x 3 Telehealth Telehealth Telehealth Platform: Telephone Location of provider rendering services: practice address Location of patient: address on file Patient Identification confirmed using: Name, : Yes Telehealth method: voice only Patient verbally consented to treatment: Yes Patient verbally consented to billing insurance company: Yes Patient informed of any privacy concerns related to visit: Yes Coding Level of Care Code Tele New Pt Level 3 (70349) Diagnoses Hypercholesterolemia E78.00 Normocytic anemia D64.9 Time Spent (min) 15 Assessment & Plan Assessment & Plan (1) Hypercholesterolemia: Code(s): E78.00 - Pure hypercholesterolemia, unspecified Category: Medical Plan: Recent total cholesterol of his normal, 180; LDL level is slightly elevated, 105; HDL level is normal, 46. Advised to limit foods high in saturated fat and avoid foods high in trans fat. Routine exercise encouraged. Will monitor lipid panel levels every 6-12 months or as needed. Advised to schedule her next physical exam no sooner than 07/22/2025. Return sooner with symptoms or concerns. Verbalized understanding and agreed with the plan. (2) Normocytic anemia: Code(s): D64.9 - Anemia, unspecified Category: Medical Plan: Recent RBC and H&H levels were slightly elevated; iron studies, vitamin B12, and folate levels are normal. Continue current treatment regimen. Will monitor CBC every 12 months or as needed. Verbalized understanding and agreed with the plan.
--- OUTSIDE RECORDS SUMMARY | 2024-12-21 09:59 | XMS_ITS | Encounter Summary ---
Author Organization [facility] Address [address] [place] [address] Phone Care Team Providers Care Inside Plant Supervisor Name Role Phone Fan Hanna ANIMAL PATHOLOGY TEACHER Primary Care Provider Cristiana vailable Encounter Details Date Type Department Care Team (Late st Contact Info) Description 12/18/2023 Procedure Pass [facility] Endoscopy Admitting Dept Virtual Department [address] [place], [place] [id number] Social History Tobacco Use Types Packs/Day Years Used Date Smoking Tobacco: Never Alcohol Use Standard Drinks/Week Comments Yes 0 (1 standard drink = 0.6 oz pur e alcohol) occasionally Education Answer Date Recorded Are you interested in more education? Not on jackson e 10/11/2023 Are you concerned about learning? Not on file 10/11/2023 No 10/11/2023 No 10/11/2023 Digital Access Answer Date Recorded No 10/11/2023 No 10/11/2023 Reliable internet access at home? Not on file 10/11/2023 Device with a working camera? Not on file Intimate Partner Violence Answer Date R ecorded Are you denied basic needs s uch as food, clothing, or medical care? No 12/16/2023 In the past 12 months have y ou been in a relationship with a person who hurts, threatens, or tries to control you? No 12/16/2023 Are you denied basic needs s uch as food, clothing, or medical care? No 12/16/2023 In the past 12 months have y ou been in a relationship with a person who hurts, threatens, or tries to control you? No 12/16/2023 Comments Unknown Sex and Gender Information Value Date Recorded Sex Assigned at Not on file Legal Sex Female 9:41 AM EDT Gender Identity Not on file Sexual Orientation Not on file documented as of this encounter Plan of Treatment Not on file documented as of this encounter Visit Diagnoses Not on filedocumented in this encounter Care Teams Inside Plant Supervisor Relationship Specialty Start Date End Date Fan Hanna NP PCP - General Nurse Practitioner 12/16/23 documented as of this encounter Additional Source Comments The information contained in this document represents components of the legal health record. It is not the complete legal health record.[facility]
--- OUTSIDE RECORDS SUMMARY | 2024-12-21 09:59 | XMS_ITS | Continuity of Care Document ---
Author Organization [facility] [address] [place] [address] Phone [phone] Care Team Providers Care Finishing Technician Name Role Phone Cyndi Chavira CNP Care Team Information Receive r [phone] Problems Active Problems Provider Date Essential tremor DEANNA Esquivel Onset: 06/24 Fibromyalgia DEANNA Esquivel Onset: 2023 Rheumatoid arthritis DEANNA Esquivel Onset: 0 06/24/2023 Osteoporosis DEANNA Esquivel Onset: 2023 Social History Type Date Description Comments Sex Female Sex Unknown Tobacco Use Start: Unknown Never Smoked Cigarettes ETOH Use Occasionally consumes alcoho l Allergies and adverse reactions Active Allergies Criticality Reaction Severity Comments Date Ammonia Unable to assess criticality 08/26/2023 Strawberries Unable to assess criticality 08/26/2023 Medications Active Medications SIG Qnty Indications Order ing Provider Date Alendronate Mgwnqa98vw Tablets Take 1 Tablet By Mouth Weekly 30 Minutes Before The First Food, Beverage Or Medicine Of The Day With Plain Water For Osteoporosis 12tabs Yamila Rodriguez M.D. 08/30/2023 Zolpidem Qxsxmuro83bh Tablets Take 1 Tablet By Mouth AT Bedtime Cyndi Chavira CNP Doxycycline Nyaekzd32iu Tablets Take 1 Tablet By Mouth Twice A Day Unknown Sumatriptan Cjbvexwmu497kh Tablets Please See Attached For Detailed Directions Unknown Tizanidine HCL2mg Tablets Take 1 Tablet By Mouth 3 Times A Day Cyndi Chavira CNP Duloxetine LWT42lh Caps DR Part Take 1 Capsule By Mouth Every Day For 90 Days Cyndi Chavira CNP Qsfdqeshyesfmo66kw Tablets Take 1 Tablet By Mouth Twice A Day Unknown Hydroxychloroquine Lftkruh628az Tablets Take 2 Tablets By Mouth Every Day Cyndi Chavira CNP Acetaminophen/Codeine Pkfornmkv876-94pr Tablets Take 2 Tablets By Mouth Twice A Day as Needed For Pain Unknown Vital Signs Date Vital Result Comment 04/14/2024 3:23pm BP Systolic 118 mmHg BP Diastolic 86 mmHg Heart Rate 96 /min Height 63 inches 5'3 Weight 169.12 lb BMI (Body Mass Index) 30.0 kg/m2 Results Test Acquired Date Facility Test Result H/L Range N ote Calcium 12/16/2024 [facility] Calcium 9.7 mg/dL 8.7-10.2 Albumin 12/16/2024 [facility] Albumin 4.6 g/dL 3.8-4.9 Vitamin D, 25-Hydroxy 12/16/2024 [facility] Vitamin D, 25-Hydroxy 35.9 ng/mL 30.0-100.0 1 Alkaline Phosphatase 12/16/2024 [facility] Alkaline Phosphatase <pending> Phosphorus 12/16/2024 [facility] Phosphorus <pending> Glomerular Filtration Rate Estimated 12/16/2024 [facility] Glomerular Filtration Rate Estimated <pending> PTH, Intact 12/16/2024 [facility] PTH, Intact 56 pg/mL 15-65 PTH, Intact 04/14/2024 [facility] PTH, Intact 35 pg/mL 15-65 Albumin 04/14/2024 [facility] Albumin 4.6 g/dL 3.9-4.9 Calcium 04/14/2024 [facility] Calcium 10.0 mg/dL 8.7-10.2 Vitamin D, 25-Hydroxy 04/14/2024 [facility] Vitamin D, 25-Hydroxy 49.7 ng/mL 30.0-100.0 2 Comp. Metabolic Panel (14) 08/28/2023 [facility] Glucose [...] Vitamin D, 25-Hydroxy 28.8 ng/mL Low 30.0-100.0 3 Phosphorus 08/28/2023 [facility] Phosphorus 3.0 mg/dL 3.0-4.3 PTH, Intact 08/28/2023 [facility] PTH, Intact 114 pg/mL High 15-65 Calcium, 24HR Urine 08/28/2023 [facility] Calcium, Urine 2.7 mg/dL Not Estab. Calcium, Urine 24hr 46 mg/24hr 0-320 Creatinine, 24-Hour Urine 08/28/2023 [facility] Creatinine, Urine 57.6 mg/dL Not Estab. Creatinine, Ur 24hr 979 mg/24hr 800-1800 1 Vitamin D deficiency has been defined by the [place] [employer] and an Endocrine Society practice guideline as a level of serum 25-OH vitamin D less than 20 ng/mL (1,2). The Endocrine Society went on to further define vitamin D insufficiency as a level between 21 and 29 ng/mL (2). 1. IOM ([place] [employer]). 2010. Dietary reference intakes for calcium and D. [place]: The National Academies Press. 2. Ranjith MF, Esteban NC, Cirilo SAEED, et al. Evaluation, treatment, and prevention of vitamin D deficiency: an Endocrine Society clinical practice guideline. JCEM. 2010; 96(7):1911-30. 2 Vitamin D deficiency has been defined by the [place] [employer] and an Endocrine Society practice guideline as a level of serum 25-OH vitamin D less than 20 ng/mL (1,2). The Endocrine Society went on to further define vitamin D insufficiency as a level between 21 and 29 ng/mL (2). 1. IOM ([place] [employer]). 2010. Dietary reference intakes for calcium and D. [place]: The National Academies Press. 2. Esteban Rodrigez, Cirilo SAEED, et al. Evaluation, treatment, and prevention of vitamin D deficiency: an Endocrine Society clinical practice guideline. JCEM. 2010; 96(7):1911-30. 3 Vitamin D deficiency has been defined by the [place] [employer] and an Endocrine Society practice guideline as a level of serum 25-OH vitamin D less than 20 ng/mL (1,2). The Endocrine Society went on to further define vitamin D insufficiency as a level between 21 and 29 ng/mL (2). 1. IOM ([place] [employer]). 2010. Dietary reference intakes for calcium and D. [place]: The National Academies Press. 2. Esteban Rodrigez, Cirilo SAEED, et al. Evaluation, treatment, and prevention of vitamin D deficiency: an Endocrine Society clinical practice guideline. JCEM. 2010; 96(7):1911-30. Procedures Date Code Description Status 11/09/2024 NSHOWOFF No Show Office Visit Complet ed 06/24/2023 NSHOWOFF No Show Office Visit Complet ed Medical Devices Description No Information Available Encounters Type Date Location Provider Dx Diagnosis Office Visit 04/14/2024 2:45p Main Office DEANNA Esquivel E21.3 Hyperparathyr oidism, unspecified M81.0 Age-related osteopor osis w/o current pathological fracture Assessments Date Code Description Provider 04/14/2024 E21.3 Hyperparathyroidism, unspeci fied DEANNA Esquivel 04/14/2024 M81.0 Osteoporosis NOS DEANNA Jeff Plan of Treatment No Information Available Functional Status Description No Information Available Mental Status Description No Information Available Referrals Description No Information Available
== END 2024-12-21 09:36 | disposition home or self-care (01) ==
LOC: HO.HMCFM 09:16
PROVIDERS: PCP Nurse Practitioner Family; Visit Provider Nurse Practitioner Family
DX: E78.00 Pure hypercholesterolemia, unspecified (principal); D64.9 Anemia, unspecified

== ENCOUNTER → 2024-12-21 09:16 | Outpatient (BNVA) | payer BC, SELFPAY | PROVIDERS: PCP Nurse Practitioner Family; Visit Provider Nurse Practitioner Family | DX: E78.00 Pure hypercholesterolemia, unspecified (principal); D64.9 Anemia, unspecified | CPT/HCPCS: 98967 ==

== ENCOUNTER 2025-04-05 11:59 | Outpatient (REF) | payer BC, SELFPAY ==
--- OUTSIDE RECORDS SUMMARY | 2025-04-05 14:27 | XMS_ITS | Continuity of Care Document ---
Author Organization [facility] [address] [place] [address] Phone [phone] Care Team Providers Care Tarper Name Role Phone Cyndi Chavira CNP Care Team Information Receive r [phone] Problems Active Problems Provider Date Essential tremor DEANNA Esquivel Onset: 06/24 Fibromyalgia DEANNA Esquivel Onset: 2023 Rheumatoid arthritis DEANAN Esquivel Onset: 0 06/24/2023 Osteoporosis DEANNA Esquivel [...] Qnty Indications Order ing Provider Date Alendronate Azbpry12ta Tablets Take 1 Tablet By Mouth Weekly 30 Minutes Before The First Food, Beverage Or Medicine Of The Day With Plain Water For Osteoporosis 12tabs Yamila Rodriguez M.D. 08/30/2023 Zolpidem Iorfbdgl97vh Tablets Take 1 Tablet By Mouth AT Bedtime Cyndi Chavira CNP Doxycycline Mrlwhpu34rn Tablets Take 1 Tablet By Mouth Twice A Day Unknown Sumatriptan Oeummvddf494jh Tablets Please See Attached For Detailed Directions Unknown Tizanidine HCL2mg Tablets Take 1 Tablet By Mouth 3 Times A Day Cyndi Chavira CNP Duloxetine MEB49qn Caps DR Part Take 1 Capsule By Mouth Every Day For 90 Days Cyndi Chavira CNP Xxbrogduxouocy58sj Tablets Take 1 Tablet By Mouth Twice A Day Unknown Hydroxychloroquine Nrowukl616jd Tablets Take 2 Tablets By Mouth Every Day Cyndi Chavira CNP Acetaminophen/Codeine Pwaceujex172-16sq Tablets Take 2 Tablets By Mouth Twice A Day as Needed For Pain Unknown Vital Signs Date Vital Result Comment 04/14/2024 3:23pm BP Systolic 118 mmHg BP Diastolic 86 mmHg Heart Rate 96 /min Height 63 inches 5'3 Weight 169.12 lb BMI (Body Mass Index) 30.0 kg/m2 Results Test Acquired Date Facility Test Result H/L Range N ote PTH, Intact 12/16/2024 [facility] PTH, Intact 56 pg/mL 15-65 Calcium 12/16/2024 [facility] Calcium 9.7 mg/dL 8.7-10.2 Albumin 12/16/2024 [facility] Albumin 4.6 g/dL 3.8-4.9 Vitamin D, 25-Hydroxy 12/16/2024 [facility] Vitamin D, 25-Hydroxy 35.9 ng/mL 30.0-100.0 1 Vitamin D, 25-Hydroxy 04/14/2024 [facility] Vitamin D, 25-Hydroxy 49.7 ng/mL 30.0-100.0 2 PTH, Intact 04/14/2024 [facility] PTH, Intact 35 [...] D deficiency has been defined by the [place] of [employer] and an Endocrine Society practice guideline as a level of serum 25-OH vitamin D less than 20 ng/mL (1,2). The Endocrine Society went on to further define vitamin D insufficiency as a level between 21 and 29 ng/mL (2). 1. IOM ([place] of [employer]). 2010. Dietary reference intakes for calcium and D. [place]: The National Academies Press. 2. Esteban Rodrigez, Cirilo SAEED, et al. Evaluation, treatment, and prevention of vitamin D deficiency: an Endocrine Society clinical practice guideline. JCEM. 2010; 96(7):1911-30. 2 Vitamin D deficiency has been defined by the [place] of [employer] and an Endocrine Society practice guideline as a level of serum 25-OH vitamin D less than 20 ng/mL (1,2). The Endocrine Society went on to further define vitamin D insufficiency as a level between 21 and 29 ng/mL (2). 1. IOM ([place] [employer]). 2010. Dietary reference intakes for calcium and D. [place]: The National Academies Press. 2. Esteban Rodrigez, Cirilo SAEED, et al. Evaluation, treatment, and prevention of vitamin D deficiency: an Endocrine Society clinical practice guideline. JCEM. 2010; 96(7):1911-30. 3 Vitamin D deficiency has been defined by the [place] of [employer] and an Endocrine Society practice guideline as a level of serum 25-OH vitamin D less than 20 ng/mL (1,2). The Endocrine Society went on to further define vitamin D insufficiency as a level between 21 and 29 ng/mL (2). 1. IOM ([place] of [employer]). 2010. Dietary reference intakes for calcium and D. [place]: The National AcademAeropostale Press. 2. Ranjith PAREKH, Esteban OTTO, Cirilo SAEED, et al. Evaluation, treatment, and [...] DEANNA Jeff Plan of Treatment Future Appointment(s):* 04/08/2025 1:00 pm - Kyree Carver NP at Main Office 04/14/2024 - DEANNA Esquivel* E21.3 Hyperparathyroidism, unspecified * M81.0 Osteoporosis NOS Functional Status Description No Information Available Mental Status Description No Information Available Referrals Description No Information Available
--- OUTSIDE RECORDS SUMMARY | 2025-04-05 14:27 | XMS_ITS | Clinical Summary ---
Author Organization [facility] Address [address] [place] [phone] Phone Care Team Providers Care Vet Tech Name Role Phone Fan Hanna BAND TIER Primary Care Provider [phone] Allergies Active Allergy Reactions Criticality Noted Date Comments Ammonia Solution, Strong Anaphylaxis High 12/16/2023 [place] Hives 12/16/2023 Medications hydroxychloroqui ne (PLAQUENIL) 200 mg tablet Take 400 mg by mouth daily. Active cyclobenzaprine (FLEXERIL) 10 MG tablet Take 10 mg by mouth 2 (two) times a day. Active doxycycline monohydrate (ADOXA) 50 MG tablet Take 50 mg by mouth daily. Active primidone (MYSOLINE) 50 MG tablet Take 125 mg by mouth 2 (two) times a day. Active zolpidem (AMBIEN) 10 mg tablet Take 10 mg by mouth nightly at bedtime. Active tiZANidine (ZANAFLEX) 2 MG tablet Take 6 mg by mouth daily. Active spironolactone (ALDACTONE) 50 MG tablet Take 50 mg by mouth daily. Active acetaminophen-co deine (TYLENOL #2) 300-15 mg per tablet Take 1 tablet by mouth every 4 (four) hours as needed for pain (specific location in comments). Active DULoxetine (CYMBALTA) 60 MG capsule Take 60 mg by mouth daily. Active alendronate (FOSAMAX) 70 MG tablet Take 70 mg by mouth every 7 days. Take in the morning with a full glass of water, on an empty stomach, and do not take anything else by mouth or lie down for the next 30 min. Active folic acid (FOLVITE) 400 MCG tablet Take 400 mcg by mouth daily. Active Social History Tobacco Use Types Packs/Day Years Used Date Smoking Tobacco: Never Tobacco Cessation:Counseling Given: Not Answered Alcohol Use Standard Drinks/Week Comments Yes 0 [...] on file Sexual Orientation Not on file Last Filed Vital Signs Vital Sign Reading Time Taken Comments Blood Pressure 132/81 12/16/2023 11:48 AM EDT Pulse 93 12/16/2023 11:48 AM EDT Temperature 36.2 C (97.2 F) 12/16/2023 11:40 AM EDT Respiratory Rate 17 12/16/2023 11:48 AM EDT Oxygen Saturation 99% 12/16/2023 11:48 AM EDT Inhaled Oxygen Concentration - - Weight 79.4 kg (175 lb) 12/16/2023 9:57 AM EDT Height 160 cm (5' 3 ) 12/16/2023 9:57 AM EDT Body Mass Index 31 12/16/2023 9:57 AM EDT Plan of Treatment Health Maintenance Due Date Last Done Comments Adult Td,Tdap Booster 1973 LIPID PANEL 1973 POTASSIUM LEVEL 1973 DEPRESSION SCREENING 1985 HEPATITIS C SCREENING 11/11/1991 HIV ONE-TIME SCREENING (18-6 5 YEARS) 11/11/1991 PAP SMEAR 1994 SMOKING STATUS SCREENING (On ce After 26 Yrs) 11/11/1999 SCREENING FOR DIABETES 2008 MAMMOGRAM 2013 COLOGUARD 2018 COLONOSCOPY 2018 COLORECTAL CANCER SCREENING 2018 FIT TEST 2018 FOBT 2018 SIGMOIDOSCOPY 2018 VIRTUAL COLONOSCOPY 2018 PNEUMOCOCCAL VACCINES (50+ y ears) (1 of 1 - PCV) 11/11/2023 ZOSTER VACCINES (1 of 2) 11/11/2023 INFLUENZA VACCINE (#1) 2024 COVID-19 VACCINE (1 - 2024-2 6 season) 2025 RSV VACCINE (1 - 1-dose 75+ series) 2048 HEPATITIS A VACCINES Aged Out No long er eligible based on patient's age to complete this topic HIB VACCINES Aged Out No longer eligi ble based on patient's age to complete this topic IPV VACCINES Aged Out No longer eligi ble based on patient's age to complete this topic MENINGOCOCCAL VACCINES (ACWY) Aged Out No longer eligible based on patient's age to complete this topic MENINGOCOCCAL VACCINES (B) Aged Out N o longer eligible based on patient's age to complete this topic Medical Devices Not on [place] [address] [place] [address] PPO [facility] OUT OF STATE PPO BLUE [employer]OSS OUT OF STATE PPO BLUE CROSS OUT OF COUNTS INCLUDE 234 BEDS AT THE [facility] PPO BLUE CROSS OUT OF STATE PPO OUT OF STATE PPO Care Teams Vet Tech Relationship Specialty Start Date End Date Fan Hanna NP [address] [place] [phone] PCP - General Nurse Practitioner 12/16/23 Additional Source Comments The information contained in this document represents components of the legal health record. It is not the complete legal health record.[facility]
--- OUTSIDE RECORDS SUMMARY | 2025-04-05 14:27 | XMS_ITS | Encounter Summary ---
Author Organization [facility] Address [address] [place] [address] Phone Care Team Providers Care Gallery Or Museum Technician Name Role Phone Fan Hanna AIRCRAFT PILOT Primary Care Provider [phone] Encounter Details Date Type Department Care Team (Late st Contact Info) Description 12/18/2023 Procedure Pass [facility] Endoscopy Admitting Dept Virtual Department [address] [place] [address] Social History Tobacco Use Types Packs/Day Years [...] on filedocumented in this encounter Care Teams Gallery Or Museum Technician Relationship Specialty Start Date End Date Fan Hanna NP [address] [place] [address] PCP - General Nurse Practitioner 12/16/23 documented as of this encounter Additional Source Comments The information contained in this document represents components of the legal health record. It is not the complete legal health record.[facility]
--- OUTSIDE RECORDS SUMMARY | 2025-04-05 14:27 | XMS_ITS | Encounter Summary ---
Author Organization [facility] Address [address] [place] [phone] Phone Care Team Providers Care Marketing Underwriter Name Role Phone Fan Hanna ENAMEL APPLIER Primary Care Provider [phone]- [phone] Encounter Details Date Type Department Care Team (Late st Contact Info) Description 12/16/2023 Procedure Pass [facility] Endoscopy Admitting Dept Virtual Department [address] [place] [address] Social History Tobacco Use Types [...] on filedocumented in this encounter Care Teams Marketing Underwriter Relationship Specialty Start Date End Date Fan Hanna NP [address] [place] [address] PCP - General Nurse Practitioner 12/16/23 documented as of this encounter Additional Source Comments The information contained in this document represents components of the legal health record. It is not the complete legal health record.[facility]
[2025-04-05 18:13] LABS: MANUAL DIFF FLAG NO
[2025-04-05 18:36] LABS: Alanine Aminotransferase 16 U/L (0-31); Albumin Level 4.2 g/dL (3.5-5.0); Alkaline Phosphatase 113 U/L (39-117); Anion Gap 11 (12-20); Aspartate Amino Transferase 26 U/L (5-31); Blood Urea Nitrogen 20 mg/dL (9-16); Calcium 8.8 mg/dL (8.4-10.2); Carbon Dioxide 26 mmol/L (22-29); Chloride 102 mmol/L (96-108); Estimated Glomerular Filt Rate > 60; Potassium 3.9 mmol/L (3.3-5.1); Sodium 135 mmol/L (135-145); Total Protein 7.1 g/dL (6.5-8.0)
[2025-04-05 18:40] LABS: Hematocrit 37.1 % (37.0-47.0); Hemoglobin 12.1 g/dl (12.0-16.0); Imm Gran Abs Auto 0.01 X10*3/uL (0.00-0.03); Imm Gran Pct Auto 0.2 % (0.0-0.4); Lymphocytes Absolute Auto 1.8 X10*3/uL (1.2-4.9); Mean Corpuscular HGB Conc 32.6 g/dl (31.0-35.0); Mean Corpuscular Hemoglobin 30.2 pg (27.0-33.0); Mean Corpuscular Volume 92.5 fL (80.0-98.0); NRBC Abs Auto 0.000 X10*3/uL (0.0-0.012); NRBC Pct Auto 0.0 /100WBC (0.0-0.2); Platelet Count 253 X10*3/uL (160-400); Red Blood Count 4.01 X10*6/uL (4.20-5.50); White Blood Count 5.2 X10*3/uL (4.8-10.8)
[2025-04-08 11:44] LABS: TS Negative Control Passed; TS Panel A 0; TS Panel B 0; TS Positive Control Passed; TSpotTB Negative (Negative)
== END 2025-04-05 12:00 | disposition home or self-care (01) ==
LOC: HO.HKASLDS 11:59
PROVIDERS: PCP Nurse Practitioner Family; Visit Provider Student in an Organized Health Care Education/Training Program
DX: Z51.81 Encounter for therapeutic drug level monitoring (principal); M06.9 Rheumatoid arthritis, unspecified; Z79.620 Long term (current) use of immunosuppressive biologic
CPT/HCPCS: 36415; 80053; 85025; 85652; 86140; 86481

== ENCOUNTER 2025-04-09 09:38 | Outpatient (AMB) | payer BC, SELFPAY ==
--- NOTE | 2025-04-09 10:04 | MHC.OFFVIS ---
Vital Signs 04/09/25 10:09 Height 5 ft 3 in Weight 164 lb 14.492 oz BMI 29.2 BP 134/82 Blood Pressure Location Lt brachial Position Sitting Pulse 79 Pulse Source Pulse Oximeter Pulse Oximetry (%) 98 Oxygen Delivery Method Room Air Intake Visit Reasons: RA Intake Note: Patient presents for RA follow up. Allergies ammonia Allergy (Severe, Verified 04/09/25 10:09) Anaphylaxis strawberry Allergy (Mild, Verified 04/09/25 10:09) Hives Medication List - Last Reconciled 04/09/25 by Susi Mahajan MD acetaminophen-codeine 300-30 mg 1 tab PO BID PRN alendronate 70 mg PO QWEEK benzonatate 200 mg PO TID PRN duloxetine 60 mg PO DAILY 90 days Enbrel SureClick (etanercept) 50 mg subcut QWEEK NS folic acid 0.4 mg PO DAILY hydroxychloroquine (Plaquenil) 200 mg PO DAILY isotretinoin 40 mg PO BID primidone 200 mg (4 x 50 mg) PO BID spironolactone 50 mg PO BID 30 days sumatriptan succinate 100 mg orally; at the onset of headaches, may take one more tablet with in 2 hours of the first dose not to exceed 200mg w/in 24hour period. MDD 200mg tizanidine 2 mg PO TID 90 days tretinoin 0.025% 1 appl topical BEDTIME zolpidem 10 mg PO BEDTIME 30 days HPI Comments Details: Patient is a 49-year-old female with migraine headaches, hyperlipidemia, osteoporosis complicated by spinal cord fracture and compression, fibromyalgia and seronegative rheumatoid arthritis here today for follow up. Interval History: Patient last seen 10/06/24 with me - On Enbrel 50mg Sc every week and Hydroxychloroquine 200mg daily - Patient states she is doing reasonably well - With the range she has had some aches in her joints especially her knees and her hips as well as her elbows. But otherwise no prolonged morning stiffness Today - On Enbrel 50mg SC every week and Hydroxychloroquine 200mg daily - Hips hurting more, finds it difficult to get a comfortable position at night - Also noting 3rd PIP pain and stiffness which is new - Has not followed up with ophthal as yet - Fell and broke her nose - Concerned about the policy about not using opioids for the treatment of RA Rheumatologic History: 8 years old, SHER Hydroxychloroquine Sulfasalazine Enbrel Initial history: This is a 47-year-old female with rheumatoid arthritis and fibromyalgia who presents as a new patient. She recently relocated from [facility]. She states that she started having joint pains at age 8, initially it was thought to be growing pains. Six years after however she was eventually diagnosed as rheumatoid arthritis. She states that her case would be juvenile arthritis but she was labeled as rheumatoid arthritis as she was diagnosed around age 15. She states that she had been on hydroxychloroquine for many years. She does not recall ever being on methotrexate. She believes that she took sulfasalazine briefly. She was in the clinical trial for Enbrel more than 20 years ago and had been on Enbrel since then, she states that the Enbrel had been effective for her over the years. She has run out of her Enbrel over the last 6 months as she was transferring to [place]. She mentions that she was on steroids for years. At least 5 years. She states that she broke her left wrist after a fall a few years ago. She has plates and screws in the left wrist. She was being followed by Dr. Jamir Lugo for 30+ years She also states that she has had fibromyalgia for many years. She has been on duloxetine for years. She also takes acetaminophen with codeine, 6 tabs daily. She states that there was a suggestion to try to switch her over to medical marijuana by her previous filter tank tender helper but she transferred to [place]. She denies any history of DVT/PE. Patient never attempted . She states that her mother has rheumatoid arthritis, Sjogren's and fibromyalgia. Current Rheumatology Medication(s): Enbrel 50 mg sc weekly Hydroxychloroquine 200 mg once a day [facility] Medical History (Updated 04/09/25 @ 16:03 by Susi Mahajan MD) Fall Essential and other specified forms of tremor Spinal cord compression Spinal stenosis in cervical region Hypersomnia Snoring Degenerative cervical disc Benign essential tremor Fibromyalgia Rheumatoid arthritis Surgical History H/O spinal fusion History of surgery on left wrist History of uvulopalatopharyngoplasty History of surgical removal of ganglion cyst History of tonsillectomy H/O: knee surgery H/O removal of cyst History of appendectomy History of adenoidectomy Family History Mother COPD (chronic obstructive pulmonary disease) Type 2 diabetes mellitus Congestive heart failure Rheumatoid arthritis Fibromyalgia Sjogrens syndrome Father Congenital heart defect Colon cancer Paternal Grandmother Breast cancer Bone cancer Maternal Aunt Rheumatoid arthritis Social History Household Members: Significant Other Housing: House Alcohol intake: current Alcohol intake frequency: holidays/special occasions only Patient Tobacco Use Status: Never used Tobacco e-Cigarette/Vaping Use: Never Used Second Hand Smoke Exposure: No service: No Current occupational status: employed 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 Cognitive needs: No Hearing needs: No Vision needs: No Review of Systems Narrative Review of Systems Constitutional: Denies fever, chills, weight loss ENT: Denies vision changes, eye pain or eye redness, dental caries, dry mouth GI: Denies nausea, vomiting, diarrhea, abdominal pain, change in BM Pulm: Denies SOB, BROWN, hemoptysis, wheezing Cards: Denies chest pain, palpitations Skin: Denies Raynaud's, rash, nail changes, photosensitivity, MATTING PRESS TENDER: Denies headaches, weakness, paresthesias, recurrent falls MSK: as per HPI All other systems reviewed and are unremarkable except noted above Physical Exam Exam Exam: Vital signs reviewed Physical Examination CONSTITUITIONAL Patient alert and cooperative. Well appearing and in no apparent painful distress MSK Hands Right Hand: Able to make a fist. No swelling or tenderness to palpation of the MCPs, PIPs or DIPs. TTP of the 3rd PIP Left Hand: Able to make a fist. No swelling or tenderness to palpation of the MCPs, PIPs or DIPs. TTP of the 5th PIP and 3rd PIP Wrists Right Wrist: Full ROM to flexion and extension. No swelling Left Wrist: Full ROM to flexion and extension. No swelling Mild TTP bilaterally Elbows Right Elbow: Full ROM. No swelling or TTP. No TTP of the medial epicondyle. No TTP of the lateral epicondyle Left Elbow: Full ROM. No swelling or TTP. No TTP of the medial epicondyle. No TTP of the lateral epicondyle Shoulders Right shoulder: Full ROM. No swelling noted. TTP of the AC joint. No TTP of the subacromial bursa. No TTP of the posterior shoulder Left shoulder: Full ROM. No swelling noted. TTP of the AC joint. No TTP of the subacromial bursa. No TTP of the posterior shoulder Hips Right hip: Good ROM. No pain elicited with hip flexion/internal rotation. Pain with external rotation localized to the groin Left hip: Good ROM. No pain elicited with hip flexion/internal rotation/external rotation Hip bursa: Mild TTP R>L Knees Right knee: Full ROM. No swelling noted. TTP of the knee joint line. No TTP of pes anserine bursa Left knee: Full ROM. No swelling noted. TTP of the knee joint line. No TTP of pes anserine bursa. Ankles Right ankle: Good ankle dorsiflexion and plantar flexion. No swelling. No TTP of the ankle joint Left ankle: Good ankle dorsiflexion and plantar flexion. No swelling. No TTP of the ankle joint Feet Right foot: Negative squeeze test Left foot: Negative squeeze test Tender points? No tenderness to palpation of the bilateral trapezius, supraspinatus, anterior costochondral junctions, bilateral suboccipital muscle insertions SKIN No rashes Vital Signs: Last Vital Signs Pulse 79 04/09/25 10:09 BP 134/82 04/09/25 10:09 Pulse Ox 98 04/09/25 10:09 Oxygen Delivery Method Room Air 04/09/25 10:09 BMI result Body Mass Index 29.2 Results Reviewed Results Reviewed: Laboratory Tests 04/05/25 12:03 WBC 5.2 RBC 4.01 L Hgb 12.1 Hct 37.1 Plt Count 253 ESR 16 Sodium 135 Potassium 3.9 Chloride 102 Carbon Dioxide 26 BUN 20 H Creatinine 0.79 AST 26 ALT 16 C-Reactive Protein 0.17 Laboratory Tests 10/03/24 04/05/25 10:31 12:03 Hepatitis A IgM Ab Nonreactive Hep Bs Antigen Negative Hep Bs Antibody NONREACTIVE Hep B Core Total Ab Nonreactive Hepatitis C Ab (EIA) Nonreactive TB Test (T-Spot) Com Negative DEXA 04/2023 FINDINGS: LEFT FEMUR, NECK: BMD 0.629 g/cm2, Z-score -2.4, T-score -2.9, osteoporosis. LEFT FEMUR, TOTAL: BMD 0.707 g/cm2, Z-score -2.2, T-score -2.4, osteopenia. AP SPINE L1-L4: BMD 1.187 g/cm2, Z-score 0.0, T-score 0.1, normal. Assessment & Plan Assessment & Plan (1) Rheumatoid arthritis: Comment: 8 years old, SHER Hydroxychloroquine Sulfasalazine Enbrel Code(s): M06.9 - Rheumatoid arthritis, unspecified Category: Medical Qualifiers: Rheumatoid arthritis location: multiple sites Rheumatoid factor presence: unspecified presence Qualified Code(s): M06.9 - Rheumatoid arthritis, unspecified Plan: #Seronegative RA Patient is a 49-year-old female with longstanding history of seronegative rheumatoid arthritis here today for follow up. Currently on Enbrel monotherapy and hydroxychloroquine once a day Has been having increase in the amount of flares recently Had a very long discussion with patient about options moving forward - changing Enbrel to Humira and continuing hydroxychloroquine - Continue Enbrel and increase Hydroxychloroquine 200mg bid - continuing Enbrel and changing hydroxychloroquine to conventional synthetic DMARD such as methotrexate Patient and has been opted to continue Enbrel and change the DMARD to methotrexate Explained the risks and side effects related to methotrexate Of note had a very long discussion with patient about the prescription of opioids in patients with rheumatoid arthritis. Patient has had a very long history of rheumatoid arthritis and has been previously prescribed opioids by other filter tank tender helper. I discussed with the patient that I am not comfortable prescribing Miguelangel for rheumatoid arthritis as the current guidelines from the [employer] do not recommend opioids for the chronic management of rheumatoid arthritis pain with the focus being on disease control with RA specific medications. Patient's concern is that she uses opioids intermittently especially when she travels for her work and the long days of travel and long working hours cause an exacerbation of her pain and opiates have been the only thing that has been helpful. I discussed with the patient that we can do a trial of tramadol for her pain however I will not be prescribing codeine further. I referred her to pain management for further assistance in her chronic pain management. All questions answered. I also let the patient know that she is more than welcome to find another rheumatology provider that would be more comfortable with prescribing opiate such as codeine or oxycodone. Patient voiced understanding and is willing to try tramadol Plan - Enbrel 50mg SC every week - Stop Hydroxychloroquine 200mg daily - Methotrexate 15mg PO weekly - Folic acid 1-2mg daily - Tramadol 50mg bid prn for pain - RTC 3 months - Labs before visit: (2) Osteoporosis: Comment: DEXA 04/2023: AP Spine 0.1, Left femur neck -2.9, Left femur total -2.4 Alendronate Code(s): M81.0 - Age-related osteoporosis without current pathological fracture Category: Medical Qualifiers: Osteoporosis type: age-related Presence of current pathological fracture: without current pathological fracture Qualified Code(s): M81.0 - Age-related osteoporosis without current pathological fracture Plan: #Osteoporosis Patient with osteoporosis likely secondary to her longstanding history of rheumatoid arthritis and glucocorticoid use Due for bone density Plan - Order DEXA - Continue alendronate - Vit D supplementation Plan I spent 48 minutes reviewing the record and labs, taking a history, examining the patient, discussing the treatment plan, discussing the role of opioids in the management of rheumatoid arthritis, answering questions, ordering diagnostic work up and documenting in the medical record Medications: New tramadol 50 mg PO BID PRN 60 tabs 2RF pain M19.90 - Unspecified osteoarthritis, unspecified site methotrexate sodium 15 mg (6 x 2.5 mg) PO QWEEK 78 tabs 1RF 90 days M06.9 - Rheumatoid arthritis, unspecified Changed From folic acid 0.4 mg PO DAILY 90 tabs 1RF To folic acid 2 mg (2 x 1 mg) PO DAILY 180 tabs 1RF 90 days Refilled Enbrel SureClick (etanercept) 50 mg subcut QWEEK 4 mL 5RF NS Discontinued hydroxychloroquine (Plaquenil) Discontinued Reason: Doctor's Order 200 mg PO DAILY 90 tabs 1RF acetaminophen-codeine 300-30 mg Discontinued Reason: Doctor's Order 1 tab PO BID PRN 60 tabs 0RF pain Coding Level of Care Code Est Pt Level 5 (76495) Complex EM visit Add On G2211 Diagnoses Rheumatoid arthritis involving multiple sites, unspecified whether rheumatoid factor present M06.9 Rheumatoid arthritis location: multiple sites Rheumatoid factor presence: unspecified presence Age-related osteoporosis without current pathological fracture M81.0 Osteoporosis type: age-related Presence of current pathological fracture: without current pathological fracture
[2025-04-09 10:09] VITALS: BP 134/82; PULSE 79; O2SAT 98; BMI 29.2
--- OUTSIDE RECORDS SUMMARY | 2025-04-09 10:44 | XMS_ITS | Continuity of Care Document ---
Author Organization [facility] [address] [place] [address] Phone [phone] Care Team Providers Care Hvac R Instructor Name Role Phone Cyndi Chavira CNP Care Team Information Receive r [phone] Problems Active Problems Provider Date Essential tremor [...] Qnty Indications Order ing Provider Date Alendronate [id number] Tablets Take 1 Tablet By Mouth Weekly 30 Minutes Before The First Food, Beverage Or Medicine Of The Day With Plain Water For Osteoporosis 12tabs Yamila Rodriguez M.D. 08/30/2023 Zolpidem Ydnriewz29in Tablets Take 1 Tablet By Mouth AT Bedtime Cnydi Chavira CNP Doxycycline Qknxoxg20ir Tablets Take 1 Tablet By Mouth In The Morning, 2 Tablets In The Evening Unknown Sumatriptan [id number] Tablets Please See Attached For Detailed Directions Unknown Tizanidine HCL2mg Tablets Take 3 Tablet By Mouth 1 Time A Day Cyndi Chavira CNP Duloxetine [id number] Caps DR Part Take 1 Capsule By Mouth Every Day For 90 Days Cyndi Chavira CNP Cmhbvaqfgjrsft84sj Tablets Take 1 Tablet By Mouth Twice A Day Unknown Hydroxychloroquine [id number] Tablets Take 1 Tablets By Mouth Every Day Cyndi Chavira CNP Acetaminophen/Codeine Hehwdvenu082-25gh Tablets Take 2 Tablets By Mouth Twice A Day as Needed For Pain Unknown Enbrel Mqmlpsgkk83uw/ml Solution Auto-Inject Unknown 000 Wilonttmqsqc58nh Capsules Take One Capsule Twice A Day With Fatty Food ([facility] [id number]) Unknown Vital Signs Date Vital Result Comment 04/08/2025 3:16pm BP Systolic 130 mmHg BP Diastolic 90 mmHg Heart Rate 97 /min Height 63 inches 5'3 Weight 159.38 lb BMI (Body Mass Index) 28.2 kg/m2 Results Test Acquired Date Facility Test Result H/L Range N ote PTH, Intact 12/16/2024 [facility] PTH, Intact 56 pg/mL -65 Calcium 12/16/2024 [facility] Calcium 9.7 mg/dL 8.7-10.2 Albumin 12/16/2024 [facility] Albumin 4.6 g/dL 3.8-4.9 Vitamin D, 25-Hydroxy 12/16/2024 [facility] Vitamin D, 25-Hydroxy 35.9 ng/mL 30.0-100.0 1 Vitamin D, 25-Hydroxy 04/14/2024 [facility] Vitamin D, 25-Hydroxy 49.7 ng/mL 30.0-100.0 2 PTH, Intact 04/14/2024 [facility] PTH, Intact 35 pg/mL -65 Calcium 04/14/2024 [facility] Calcium 10.0 mg/dL 8.7-10.2 [...] D deficiency has been defined by the Wall of Medicine and an Endocrine Society practice guideline as a level of serum 25-OH vitamin D less than 20 ng/mL (1,2). The Endocrine Society went on to further define vitamin D insufficiency as a level between 21 and 29 ng/mL (2). 1. IOM (Wall of Medicine). 2010. Dietary reference intakes for calcium and D. [place]: The National Academies Press. 2. Ranjith MF, Esteban NC, Cirilo SAEED, et al. Evaluation, treatment, and prevention of vitamin D deficiency: an Endocrine Society clinical practice guideline. JCEM. 2010; 96(7):1911-30. 2 Vitamin D deficiency has been defined by the Wall of Medicine and an Endocrine Society practice guideline as a level of serum 25-OH vitamin D less than 20 ng/mL (1,2). The Endocrine Society went on to further define vitamin D insufficiency as a level between 21 and 29 ng/mL (2). 1. IOM (Wall of Medicine). 2010. Dietary reference intakes for calcium and D. [place]: The National Academies Press. 2. Esteban Rodrigez, Cirilo SAEED, et al. Evaluation, treatment, and prevention of vitamin D deficiency: an Endocrine Society clinical practice guideline. JCEM. 2010; 96(7):1911-30. 3 Vitamin D deficiency has been defined by the Wall of Medicine and an Endocrine Society practice guideline as a level of serum 25-OH vitamin D less than 20 ng/mL (1,2). The Endocrine Society went on to further define vitamin D insufficiency as a level between 21 and 29 ng/mL (2). 1. IOM (Wall of Medicine). 2010. Dietary reference intakes for [...] DEANNA Jeff Plan of Treatment Future Appointment(s):* 10/04/2025 1:00 pm - Kyree Carver NP at Main Office 04/08/2025 - Kyree Carver NP* * New Xrays:* Dexa Bone Density Study Axial Skeleton, Ordered: 04/08/25 Functional Status Description No Information Available Mental Status Description No Information Available Referrals Description No Information Available
--- OUTSIDE RECORDS SUMMARY | 2025-04-09 10:44 | XMS_ITS | Encounter Summary ---
Author Organization [facility] Address [address] [place] [id number] Phone Care Team Providers Care Metal Worker Name Role Phone Fan Hanna HEAD GROWER Primary Care Provider [phone] Encounter Details Date Type Department Care Team (Late st Contact Info) Description 12/16/2023 Procedure Pass [facility] Endoscopy Admitting Dept Virtual Department [address] [place] [address] Social History Tobacco Use Types [...] on filedocumented in this encounter Care Teams Metal Worker Relationship Specialty Start Date End Date Fan Hanna NP [address] [place] [address] PCP - General Nurse Practitioner 12/16/23 documented as of this encounter Additional Source Comments The information contained in this document represents components of the legal health record. It is not the complete legal health record.[facility]
--- OUTSIDE RECORDS SUMMARY | 2025-04-09 10:44 | XMS_ITS | Clinical Summary ---
Author Organization [facility] Address [address] [place] [address] Phone Care Team Providers Care Enrollment Specialist Name Role Phone Fan Hanna RECORDS ASSOCIATE Primary Care Provider [phone] Allergies Active Allergy Reactions Criticality Noted Date Comments Ammonia Solution, Strong Anaphylaxis High 12/16/2023 [place] Hives 12/16/2023 Medications hydroxychloroqui ne (PLAQUENIL) 200 [...] topic Medical Devices Not on file Insurance [place] [address] PPO [facility] OUT OF STATE PPO [employer] OUT OF STATE PPO [employer] OUT OF [facility] PPO [employer] OUT OF STATE PPO OUT OF STATE PPO Care Teams Enrollment Specialist Relationship Specialty Start Date End Date Fan Hanna NP [address] [place] [id number] PCP - General Nurse Practitioner 12/16/23 Additional Source Comments The information contained in this document represents components of the legal health record. It is not the complete legal health record.[facility]
--- OUTSIDE RECORDS SUMMARY | 2025-04-09 10:44 | XMS_ITS | Encounter Summary ---
Author Organization [facility] Address [address] [place] [phone] Phone Care Team Providers Care Guest Services Attendant Name Role Phone Fan Hanna HOME HEALTH RN Primary Care Provider [phone]- [phone] Encounter Details Date Type Department Care Team (Late st Contact Info) Description 12/18/2023 Procedure Pass [facility] Endoscopy Admitting Dept Virtual Department [address] [place] [address] Social History Tobacco Use Types [...] on filedocumented in this encounter Care Teams Guest Services Attendant Relationship Specialty Start Date End Date Fan Hanna NP [address] [place] [address] PCP - General Nurse Practitioner 12/16/23 documented as of this encounter Additional Source Comments The information contained in this document represents components of the legal health record. It is not the complete legal health record.[facility]
== END 2025-04-09 11:29 | disposition home or self-care (01) ==
LOC: HO.RHES 09:39
PROVIDERS: PCP Nurse Practitioner Family; Visit Provider Student in an Organized Health Care Education/Training Program
DX: M06.9 Rheumatoid arthritis, unspecified (principal); M81.0 Age-related osteoporosis without current pathological fracture
CPT/HCPCS: 99215

== ENCOUNTER 2025-04-15 15:03 | Outpatient (AMB) | payer BC, SELFPAY ==
--- NOTE | 2025-04-15 15:04 | MHC.OFFVIS ---
Vital Signs 04/15/25 15:08 Height 5 ft 3 in Weight 159 lb 2 oz BMI 28.2 BP 165/98 H Blood Pressure Location Lt brachial Position Sitting Pulse 97 Pulse Source Pulse Oximeter Pulse Oximetry (%) 100 Oxygen Delivery Method Room Air Intake Visit Reasons: Spinal stenosis, cervical region Allergies ammonia Allergy (Severe, Verified 04/15/25 15:08) Anaphylaxis strawberry Allergy (Mild, Verified 04/15/25 15:08) Hives HPI Comments Details: The patient is a 49-year-old individual presenting for an initial evaluation for chronic pain, referred by a Residential Carpet Installer for evaluation of neck pain with cervical spinal stenosis and degenerative disc disease. The patient reports that the primary issue is pain in other joints, particularly the knees and hips, and clarifies there is no current neck pain, though some muscle pain remains following a cervical spinal fusion in February of 2024. The patient's past medical history is significant for osteoporosis, fibromyalgia, migraine headaches, a history of spinal cord fracture and compression, and seronegative Rheumatoid arthritis, which was diagnosed at age 8. For the knee pain, there is a history of a lateral release of the right knee at age 14 and a fall in September of this year. Past knee x-rays have reportedly shown arthritis, but the patient has not had them done recently. The patient has a history of opioid use for pain management and was previously in an opioid program in [place]. Current medications include tramadol. The patient has a history of ulcers with NSAID use. The patient denies any history of smoking or cannabis use. The patient's work requires travel across the country and standing for 15-16 hours a day, which exacerbates the arthritis pain. - Location: The patient reports pain in multiple joints, including the knees, hips, and elbows, with the primary current complaint being bilateral knee pain. - Character: The patient describes the sensation in the knees as grinding, aching, throbbing - Exacerbating factors: Pain is worsened by prolonged standing (15-16 hours a day for work), climbing stairs, and changes in weather, such as cold and rain. - Interfering factors: The pain significantly interferes with the patient's ability to work. - Associated symptoms: The patient denies current neck pain but reports some residual muscle pain after the cervical fusion. - Analgesia: The patient uses tramadol to manage pain, which helps the patient to continue working. - Activities of Daily Living: The patient's work, which requires standing for 15-16 hours a day, is limited by arthritis pain. - Adverse Effects: The patient reports a history of ulcers with NSAID use. - Aberrant Drug-Related Behaviors: The patient reports a history of being in an opioid program and is familiar with the requirements of an opioid contract, including urine testing and pill counts. - Affect: The patient expressed concern about being able to keep working due to the pain. [facility] Medical History (Updated 04/17/25 @ 23:29 by DEAN Alexandre) Fall Essential and other specified forms of tremor Spinal cord compression Spinal stenosis in cervical region Hypersomnia Snoring Degenerative cervical disc Benign essential tremor Fibromyalgia Rheumatoid arthritis Surgical History H/O spinal fusion History of surgery on left wrist History of uvulopalatopharyngoplasty History of surgical removal of ganglion cyst History of tonsillectomy H/O: knee surgery H/O removal of cyst History of appendectomy History of adenoidectomy Family History Mother COPD (chronic obstructive pulmonary disease) Type 2 diabetes mellitus Congestive heart failure Rheumatoid arthritis Fibromyalgia Sjogrens syndrome Father Congenital heart defect Colon cancer Paternal Grandmother Breast cancer Bone cancer Maternal Aunt Rheumatoid arthritis Social History Household Members: Significant Other Housing: House Alcohol intake: current Alcohol intake frequency: holidays/special occasions only Patient Tobacco Use Status: Never used Tobacco e-Cigarette/Vaping Use: Never Used Second Hand Smoke Exposure: No service: No Current occupational status: employed 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 - Neurological: Reports a history of migraine headaches. - Neck: Denies neck pain but reports some residual muscle pain after surgery. - Gastrointestinal: Reports a history of ulcers from NSAID use. All systems reviewed & are unremarkable except as noted in HPI and below Physical Exam Vital Signs: Last Vital Signs Pulse 97 04/15/25 15:08 BP 165/98 H 04/15/25 15:08 Pulse Ox 100 04/15/25 15:08 Oxygen Delivery Method Room Air 04/15/25 15:08 BMI result Body Mass Index 28.2 General: Appears afebrile. Alert and oriented. Mood and affect appropriate. Follows and participates in conversation appropriately. Respiratory effort is unlabored. No cough. Able to transition from sit to stand unassisted. Ambulates with bilaterally normal heel strike and toe off. Multiple widespread TTPs bilaterally, including upper and lower extremities. General: Yes no CVA tenderness Back/Spine/Pelvis Back: no CVA tenderness Cervical Spine: cervical ROM normal, cervical muscular tenderness, No pain with cervical ROM, Cervical spine scars present, No Cervical spine tenderness and No step off deformity Thoracic/Lumbar Spine: thoracic and lumbar spine normal to inspection, No Thoracic/lumbar spine scar(s), Lasegue's sign negative, straight leg raise negative bilaterally, pain with thoraco-lumbar ROM, thoraco-lumbar ROM limited, No thoracic spinal tenderness and No lumbar spinal tenderness Sacroiliac joints: bilaterally (+Aly's, +Stinchfield, +Pelvic compression) tender to palpation Extrem General: Yes capillary refill normal, Yes no clubbing, cyanosis or edema and Yes no calf tenderness Right lower extremity: knee Details: normal to inspection, tenderness Location: of the patella, normal ROM and crepitus; no swelling, no ecchymosis, no deformity and no unusual warmth Left lower extremity: knee Details: normal to inspection, tenderness Location: of the patella and crepitus; no swelling, no ecchymosis, no deformity and no unusual warmth Results Reviewed Results Reviewed: XR bilateral knees 04/15/25 CLINICAL INFORMATION: Pain FINDINGS: Right knee: No acute fracture or dislocation. No significant joint space narrowing. No effusion. No abnormal soft tissue calcification. Left knee: No fracture. No significant joint space narrowing. No marginal osteophytes. No osseous erosion. No joint effusion. No abnormal soft tissue calcification. IMPRESSION: No acute findings XR BILATERAL HIPS WITH AP PELVIS 04/15/25 CLINICAL INFORMATION: M25.551 - Pain in right hip COMPARISON: None available. TECHNIQUE: AP view of the pelvis and 2 views of each hip were obtained. FINDINGS: Right hip: No acute fracture or dislocation. Joint space is maintained. Left hip: No acute fracture or dislocation. Hip joint space is maintained. Mild SI joint arthritis. Symphysis pubis intact. No suspicious lytic or blastic lesions. SI joints are intact. No abnormal soft tissue calcification. IMPRESSION: No acute osseous findings Assessment & Plan Assessment & Plan (1) Fibromyalgia: Code(s): M79.7 - Fibromyalgia Category: Medical (2) Bilateral hip pain: Code(s): M25.551 - Pain in right hip; M25.552 - Pain in left hip Category: Medical (3) Bilateral knee pain: Code(s): M25.561 - Pain in right knee; M25.562 - Pain in left knee Category: Medical (4) Chronic pain syndrome: Code(s): G89.4 - Chronic pain syndrome Category: Medical (5) Polyarthralgia: Code(s): M25.50 - Pain in unspecified joint Category: Medical Plan The patient presented for chronic pain management, initially referred for neck pain, but the primary concern is bilateral knee pain. Patient was informed that our office does not currently offer a chronic opioid program, and opioid management will be deferred to the patient's primary care provider. For the management of bilateral knee arthritis, given the patient's history of osteoporosis, a plan for a diagnostic genicular nerve block was proposed for potential genicular nerve radiofrequency ablation (RFA) for long-term pain control. The logistics of scheduling a diagnostic block were discussed, acknowledging the patient's travel schedule, and it was clarified that the block itself is not a long-term solution but a prerequisite for RFA. Educational materials regarding genicular nerve blocks and RFA and Sprint PNS trial were provided to the patient to aid in decision-making. All questions and concerns have been answered and patient agreed with the treatment plan. Follow up as needed. Patient was informed and verbally consented to the use of an ambient scribe for clinic note documentation during this visit. Orders: Orders XR hip BI w PEL1V 04/15/25 M25.551 - Pain in right hip, M25.552 - Pain in left hip XR Knee Preston 1or 2V 04/15/25 M25.561 - Pain in right knee, M25.562 - Pain in left knee Coding Level of Care Code New Pt Level 4 (57722) Diagnoses Fibromyalgia M79.7 Bilateral hip pain M25.551; M25.552 Bilateral knee pain M25.561; M25.562 Chronic pain syndrome G89.4 Polyarthralgia M25.50
[2025-04-15 15:08] VITALS: BP 165/98; PULSE 97; O2SAT 100; BMI 28.2
--- OUTSIDE RECORDS SUMMARY | 2025-04-15 20:26 | XMS_ITS | Encounter Summary ---
Author Organization [facility] Address [address] [place] [address] Phone Care Team Providers Care Substance Abuse Nurse Name Role Phone Fan Hanna TRANSITION TEACHER Primary Care Provider [phone] Encounter Details Date Type Department Care Team (Late st Contact Info) Description 12/18/2023 Procedure Pass [facility] Endoscopy Admitting Dept Virtual Department [address] [place] [address] Social History Tobacco Use Types [...] on filedocumented in this encounter Care Teams Substance Abuse Nurse Relationship Specialty Start Date End Date Fan Hanna NP [address] [place] [address] PCP - General Nurse Practitioner 12/16/23 documented as of this encounter Additional Source Comments The information contained in this document represents components of the legal health record. It is not the complete legal health record.[facility]
--- OUTSIDE RECORDS SUMMARY | 2025-04-15 20:26 | XMS_ITS | Patient Health Record ---
Author Organization [facility] Address [facility] [place] [address] Care Team Providers Care Telephone Engineer Name Role Phone DR. Urbano Gómez Unavailable [phone] Allergies No Known Allergies Reason For Referral No Information Medications Medication SIG (Take, Route, Frequency, Duration) Notes Start Date End Date Status Spironolactone Activ e Hydroxychloroquine Sulfate Active Doxycycline Active tiZANidine HCl Activ e Xhance 93 MCG/ACT Exhaler Suspension 1 spray in each nostril Nasally Twice a day; Duration: 90 days 10/05/2020 Active Ipratropium [place] 0.06 % Solution 1 - 2 sprays in each nostril Nasally Three times a day; Duration: 90 days Active Ipratropium [place] 0.06 % Solution 2 sprays in each nostril Nasally Twice a day; Duration: 30 days 10/02/2022 Active Zolpidem Tartrate Ac tive Acetaminophen-Codeine #3 prn Active Morphine Sulfate prn Act erika predniSONE 10 MG Tablet 3 qd x 5 days, 2 qd x 5 days, 1 qd x 5 days, 1/2 qd x 5 days Orally Once a day; Duration: 20 days 08/17/2020 Not-Taking Social History Tobacco Use: Social History Observation Description Date Details (start date - stop date) Never Smoker NA - NA Social History General Social Info Question Answer Notes Tobacco: Cigarettes/Cigars Smoking Status: never s moker Second hand smoke exposure? No Household and Family: Marital Status: Patient under 18 (pediatric): No Employment/Education: Status: Employed full-time. Pediatric: No Problems Problem Type SNOMED Code ICD Code Onset Dates Problem Status W/U Status Risk Notes Problem Chronic pansinusitis (16897205) Chronic pansinusitis (J32.4) Active confirmed Problem Chronic cough (02483070) Chronic cough (R05) Active confirmed Problem Posterior rhinorrhea (61331499) Post-nasal drainage (R09.82) Active confirmed Plan Of Treatment Pending Test Test Name Order Date Throat: Laryngoscopy - Flex 08/08/2020 CT SINUS SURGICAL NAVIGATION WITHOUT CON TRAST 10/04/2020 Laryngoscopy flex 10/02/2022 Insurance Providers Payer Name Payer Address Payer Phone Subscriber Number Group Number Insured Name Patient Relationship to Insured Coverage Start Date Coverage End Date [employer] XIC and XIK only [address] [address] [place], [place] [phone] [id number] Amelia Thomas Self - patient is the insured Medical (General) History Medical History History ICD Code Problems with General Anesthesia: No Malignant Hyperthermia: No On Blood Thinners: No allergies, seasonal environmental: Yes Autoimmune Disorder: Yes migraine headaches: Yes fever: No Other (Specify): Benign Essential Tremor s Surgical History Surgery Date(Month/Year)
--- OUTSIDE RECORDS SUMMARY | 2025-04-15 20:26 | XMS_ITS | Continuity of Care Document ---
Author Organization [facility] [address] [place] [address] Phone [phone] Care Team Providers Care Certified Coding Specialist Name Role Phone Cyndi Chavira CNP Care Team Information Receive r [phone] Problems Active Problems Provider Date Essential tremor [...] Qnty Indications Order ing Provider Date Alendronate Umlwvy40tt Tablets Take 1 Tablet By Mouth Weekly 30 Minutes Before The First Food, Beverage Or Medicine Of The Day With Plain Water For Osteoporosis 12tabs Yamila Rodriguez M.D. 08/30/2023 Zolpidem Ivfedqjy66tu Tablets Take 1 Tablet By Mouth AT Bedtime Cyndi Chavira CNP Doxycycline Idxctmd83ie Tablets Take 1 Tablet By Mouth In The Morning, 2 Tablets In The Evening Unknown Sumatriptan Jikleatjd166gi Tablets Please See Attached For Detailed Directions Unknown Tizanidine HCL2mg Tablets Take 3 Tablet By Mouth 1 Time A Day Cyndi Chavira CNP Duloxetine TPI95os Caps DR Part Take 1 Capsule By Mouth Every Day For 90 Days Cyndi Chavira CNP Hzskqduodurpuc44px Tablets Take 1 Tablet By Mouth Twice A Day Unknown Hydroxychloroquine Xthcgpw284jd Tablets Take 1 Tablets By Mouth Every Day Cyndi Chavira CNP Acetaminophen/Codeine Rqzwvwfvv060-30bo Tablets Take 2 Tablets By Mouth Twice A Day as Needed For Pain Unknown Enbrel Gkdwsweeb94lv/ml Solution Auto-Inject Unknown 000 Efvmrhnynfsl16kd Capsules Take One Capsule Twice A Day With Fatty Food ([facility] [phone]) Unknown Vital Signs Date Vital Result Comment [...] D deficiency has been defined by the [place] of Medicine and an Endocrine Society practice guideline as a level of serum 25-OH vitamin D less than 20 ng/mL (1,2). The Endocrine Society went on to further define vitamin D insufficiency as a level between 21 and 29 ng/mL (2). 1. IOM ([place] of Medicine). 2010. Dietary reference intakes for calcium and D. [place]: The National Academies Press. 2. Ranjith MF, Esteban NC, Cirilo SAEED, et al. Evaluation, treatment, and prevention of vitamin D deficiency: an Endocrine Society clinical practice guideline. JCEM. 2010; 96(7):1911-30. 2 Vitamin D deficiency has been defined by the [place] of Medicine and an Endocrine Society practice guideline as a level of serum 25-OH vitamin D less than 20 ng/mL (1,2). The Endocrine Society went on to further define vitamin D insufficiency as a level between 21 and 29 ng/mL (2). 1. IOM ([place] of Medicine). 2010. Dietary reference intakes for calcium and D. [place]: The National Academies Press. 2. Esteban Rodrigez, Cirilo SAEED, et al. Evaluation, treatment, and prevention of vitamin D deficiency: an Endocrine Society clinical practice guideline. JCEM. 2010; 96(7):1911-30. 3 Vitamin D deficiency has been defined by the [place] of Medicine and an Endocrine Society practice guideline as a level of serum 25-OH vitamin D less than 20 ng/mL (1,2). The Endocrine Society went on to further define vitamin D insufficiency as a level between 21 and 29 ng/mL (2). 1. IOM ([place] of Medicine). 2010. Dietary reference intakes for [...] Date Location Provider Dx Diagnosis Office Visit 04/08/2025 3:30p Main Office Kyree Carver NP M81.0 Age-related osteoporosis w/o current pathological fracture E21.1 Secondary hyperparat hyroidism, not elsewhere classified Assessments Date Code Description Provider 04/08/2025 M81.0 Osteoporosis NOS Kyree coffey NP 04/08/2025 E21.1 Secondary hyperp arathyroidism, not elsewhere classified Kyree Carver NP Plan of Treatment Future Appointment(s):* 10/04/2025 1:00 pm - Kyree Carver NP at Main Office 04/08/2025 - Kyree Carver NP* M81.0 Osteoporosis NOS * E21.1 Secondary hyperparathyroidism, not elsewhere classified* New Xrays:* Dexa Bone Density Study Axial Skeleton, Ordered: 04/08/25 Functional Status Description No Information Available Mental Status Description No Information Available Referrals Description No Information Available
--- OUTSIDE RECORDS SUMMARY | 2025-04-15 20:26 | XMS_ITS | Encounter Summary ---
Author Organization [facility] Address [address] [place] [address] Phone Care Team Providers Care Pe Electrical Engineer Name Role Phone Fan Hanna CLOTH BOLT BANDER Primary Care Provider [phone] Encounter Details Date Type Department Care Team (Late st Contact Info) Description 12/16/2023 Procedure Pass [facility] Endoscopy Admitting Dept Virtual Department [address] [place] [address] Social History Tobacco Use Types [...] on filedocumented in this encounter Care Teams Pe Electrical Engineer Relationship Specialty Start Date End Date Fan Hanna NP [address] [place] [address] PCP - General Nurse Practitioner 12/16/23 documented as of this encounter Additional Source Comments The information contained in this document represents components of the legal health record. It is not the complete legal health record.[facility]
--- OUTSIDE RECORDS SUMMARY | 2025-04-15 20:26 | XMS_ITS | Clinical Summary ---
Author Organization [facility] Address [address] [place] [address] Phone Care Team Providers Care Dry Cleaner Helper Name Role Phone Fan Hanna JUSTOWRITER OPERATOR Primary Care Provider [phone] Allergies Active Allergy Reactions Criticality Noted Date Comments Ammonia Solution, Strong Anaphylaxis High 12/16/2023 Imogene Hives 12/16/2023 Medications hydroxychloroqui ne (PLAQUENIL) 200 [...] topic Medical Devices Not on file [place] [address] [place] [address] PPO [facility] OUT OF STATE PPO [employer] OUT OF STATE PPO BL[employer]OSS OUT OF [facility] PPO BL[employer] OUT OF STATE PPO OUT OF STATE PPO Care Teams Dry Cleaner Helper Relationship Specialty Start Date End Date Fan Hanna NP [address] [place] [address] PCP - General Nurse Practitioner 12/16/23 Additional Source Comments The information contained in this document represents components of the legal health record. It is not the complete legal health record.[facility]
== END 2025-04-15 16:03 | disposition home or self-care (01) ==
LOC: HO.PMC 15:03
PROVIDERS: PCP Nurse Practitioner Family; Visit Provider Nurse Practitioner Family
DX: M79.7 Fibromyalgia (principal); M25.551 Pain in right hip; M25.552 Pain in left hip; M25.561 Pain in right knee; M25.562 Pain in left knee; G89.4 Chronic pain syndrome; M25.50 Pain in unspecified joint
CPT/HCPCS: 99204

== ENCOUNTER 2025-04-15 15:03 | Outpatient (REF) | payer BC, SELFPAY ==
--- NOTE | ~2025-04-15 | XR_ITS ---
EXAMINATION: X-ray bilateral knees CLINICAL INFORMATION: Pain COMPARISON: None TECHNIQUE: Right knee 2 views. Left knee 2 views. FINDINGS: Right knee: No acute fracture or dislocation. No significant joint space narrowing. No effusion. No abnormal soft tissue calcification. Left knee: No fracture. No significant joint space narrowing. No marginal osteophytes. No osseous erosion. No joint effusion. No abnormal soft tissue calcification. XR/XR Knee Preston 1or 2V IMPRESSION: No acute findings Electronically signed by: Steve Eisenberg MD 04/16/2025 02:56 PM EST
--- NOTE | ~2025-04-15 | XR_ITS ---
EXAMINATION: XR BILATERAL HIPS WITH AP PELVIS CLINICAL INFORMATION: M25.551 - Pain in right hip COMPARISON: None available. TECHNIQUE: AP view of the pelvis and 2 views of each hip were obtained. FINDINGS: Right hip: No acute fracture or dislocation. Joint space is maintained. Left hip: No acute fracture or dislocation. Hip joint space is maintained. Mild SI joint arthritis. Symphysis pubis intact. No suspicious lytic or blastic lesions. SI joints are intact. No abnormal soft tissue calcification. XR/XR hip BI w PEL1V IMPRESSION: No acute osseous findings Electronically signed by: Steve Eisenberg MD 04/15/2025 04:45 PM [facility] [place] [place]
== END 2025-04-15 15:04 | disposition home or self-care (01) ==
LOC: HO.XRAY 15:03
PROVIDERS: PCP Nurse Practitioner Family; Visit Provider Nurse Practitioner Family
DX: M79.7 Fibromyalgia (principal); M25.551 Pain in right hip; M25.552 Pain in left hip; M25.561 Pain in right knee; M25.562 Pain in left knee; G89.4 Chronic pain syndrome; M25.50 Pain in unspecified joint; Z87.310 Personal history of (healed) osteoporosis fracture
CPT/HCPCS: 73521; 73560

== ENCOUNTER → 2025-04-15 15:47 | Outpatient (BNV) | payer BC, SELFPAY | PROVIDERS: PCP Nurse Practitioner Family; Visit Provider Radiology Diagnostic Ultrasound | DX: M25.551 Pain in right hip (principal) | CPT/HCPCS: 73521 ==

== ENCOUNTER 2025-04-19 09:35 | Outpatient (AMB) | payer BC, SELFPAY ==
--- NOTE | 2025-04-19 09:39 | MHC.OFFVIS ---
Vital Signs 04/19/25 09:40 Height 5 ft 3 in Weight 157 lb BMI 27.8 BP 116/78 Intake Visit Reasons: WHEEL BLOCKER annual exam/Internal Referral/DO NOT RS Rn Circulating Required: No Allergies ammonia Allergy (Severe, Verified 04/15/25 15:08) Anaphylaxis strawberry Allergy (Mild, Verified 04/15/25 15:08) Hives Post menopausal: Yes HPI Comments Details: Presenting for annual exam. No complaints. Last Pap/HPV was 10 years ago Last Mammogram in 10/18 was BI-RADS 1 Last Colonoscopy was last year, no records available according to the patient the recommendation was to repeat in 3 years from the date of last colonoscopy [facility] Medical History Fall Essential and other specified forms of tremor Spinal cord compression Spinal stenosis in cervical region Hypersomnia Snoring Degenerative cervical disc Benign essential tremor Fibromyalgia Rheumatoid arthritis Surgical History H/O spinal fusion History of surgery on left wrist History of uvulopalatopharyngoplasty History of surgical removal of ganglion cyst History of tonsillectomy H/O: knee surgery H/O removal of cyst History of appendectomy History of adenoidectomy Family History Mother COPD (chronic obstructive pulmonary disease) Type 2 diabetes mellitus Congestive heart failure Rheumatoid arthritis Fibromyalgia Sjogrens syndrome Father Congenital heart defect Colon cancer Paternal Grandmother Breast cancer Bone cancer Maternal Aunt Rheumatoid arthritis Social History Household Members: Spouse and Significant Other Housing: House Alcohol intake: current Alcohol intake frequency: holidays/special occasions only Patient Tobacco Use Status: Never used Tobacco e-Cigarette/Vaping Use: Never Used Second Hand Smoke Exposure: No service: No Current occupational status: employed 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 Sexually active: Yes Sexual orientation: Straight/Heterosexual Gender identity: Female Cognitive needs: No Hearing needs: No Vision needs: No Female Reproductive History Menstrual Total pregnancies: 0 Date of Mammogram: 09/02/24 Review of Systems Const All systems reviewed & are unremarkable except as noted in HPI and below Card Reports as per HPI Resp Reports as per HPI GI Reports as per HPI and Reports no additional complaints Reports as per HPI Physical Exam Vital Signs: Last Vital Signs BP 116/78 04/19/25 09:40 BMI result Body Mass Index 27.8 Const General: cooperative, healthy appearing and comfortable Chest Chest palpation & inspection: normal inspection of the chest and normal palpation of entire chest wall Breast/axilla inspection: normal inspection of the breasts and normal inspection of the axillae Breast/axilla palpation: normal palpation of the breasts, normal palpation of the axillae and no axillary lymphadenopathy Resp Effort & Inspection: normal respiratory effort Auscultation: clear to auscultation bilaterally Percussion: percussion normal Cardio Palpation: normal PMI Rate: regular rate Rhythm: regular rhythm Heart sounds: no murmurs and no rubs Peripheral pulses: Peripheral pulses 2+ throughout GI Inspection: Yes normal to inspection Palpation (GI): Soft to palpation, nontender, no guarding, not rigid and No hepatosplenomegaly present Percussion: Yes normal to percussion Auscultation: normal bowel sounds Rectal Exam - Female: deferred General: Yes bladder normal to palpation External Female Exam: No lesion Speculum Exam - Vagina: normal appearance of the vagina, normal palpation, normal vaginal discharge and not erythematous Speculum Exam - Cervix: normal appearance of the cervix and normal palpation Bimanual exam- vagina & uterus: normal bimanual exam, normal palpation, uterine size normal, bladder normal to palpation, consistency normal and normal palpation Bimanual Exam- Adnexa, other: normal adnexae, no masses and no tenderness Assessment & Plan Assessment & Plan (1) Well woman exam: Code(s): Z01.419 - Encounter for gynecological examination (general) (routine) without abnormal findings Category: Medical Plan: Co testing done. Counseled the patient about the recommended dietary allowance of 1200 mg of Calcium & 600 IU of vitamin D. Instructions given the patient to schedule next screening Mammogram in 10/19. The patient was instructed to perform monthly self-breast exams and schedule annual exam in a year. All questions answered and the patient verbalized understanding. Coding Level of Care Code New Pt Prev Care 40-64y(50928) Diagnoses Well woman exam Z01.419
[2025-04-19 09:40] VITALS: BP 116/78; BMI 27.8
--- OUTSIDE RECORDS SUMMARY | 2025-04-19 11:03 | XMS_ITS | Encounter Summary ---
Author Organization [facility] Address [address] [place] [address] Phone Care Team Providers Care Head Bone Grinder Name Role Phone Fan Hanna STEAM HOIST OPERATOR Primary Care Provider [phone] Encounter Details Date Type Department Care Team (Late st Contact Info) Description 12/18/2023 Procedure Pass [facility] Endoscopy Admitting Dept Virtual Department [address] [place] [address] Social History Tobacco Use Types [...] on filedocumented in this encounter Care Teams Head Bone Grinder Relationship Specialty Start Date End Date Fan Hanna NP [address] [place] [address] PCP - General Nurse Practitioner 12/16/23 documented as of this encounter Additional Source Comments The information contained in this document represents components of the legal health record. It is not the complete legal health record.[facility]
--- OUTSIDE RECORDS SUMMARY | 2025-04-19 11:03 | XMS_ITS | Clinical Summary ---
Author Organization [facility] Address [address] [place] [address] Phone Care Team Providers Care Banquet Lead Name Role Phone Fan Hanna GROUT MACHINE TENDER Primary Care Provider [phone] Allergies Active Allergy Reactions Criticality Noted Date Comments Ammonia Solution, Strong Anaphylaxis High 12/16/2023 [place] Hives 12/16/2023 Medications hydroxychloroqui ne (PLAQUENIL) 200 [...] topic Medical Devices Not on file Insurance PPO [facility] OUT [facility] P[facility] OUT [facility] PPO [facility] PPO BLUE CROSS OUT OF STATE PPO Care Teams Banquet Lead Relationship Specialty Start Date End Date Fan Hanna NP [address] [place] [address] PCP - General Nurse Practitioner 12/16/23 Additional Source Comments The information contained in this document represents components of the legal health record. It is not the complete legal health record.[facility]
--- OUTSIDE RECORDS SUMMARY | 2025-04-19 11:03 | XMS_ITS | Encounter Summary ---
Author Organization [facility] Address [address] [place] [address] Phone Care Team Providers Care Doggy Daycare Activities Director Name Role Phone Fan Hanna ELIGIBILITY SUPERVISOR Primary Care Provider [phone] Encounter Details Date Type Department Care Team (Late st Contact Info) Description 12/16/2023 Procedure Pass [facility] Endoscopy Admitting Dept Virtual Department [address] [place] [address] Social History Tobacco Use Types [...] on filedocumented in this encounter Care Teams Doggy Daycare Activities Director Relationship Specialty Start Date End Date Fan Hanna NP [address] [place] [address] PCP - General Nurse Practitioner 12/16/23 documented as of this encounter Additional Source Comments The information contained in this document represents components of the legal health record. It is not the complete legal health record.[facility]
--- OUTSIDE RECORDS SUMMARY | 2025-04-19 11:04 | XMS_ITS | Continuity of Care Document ---
Author Organization [facility] [address] [place] [address] Phone [phone] Care Team Providers Care Cnmt Name Role Phone Cyndi Chavira CNP Care Team Information Receive r [phone] Problems Active Problems Provider Date Essential tremor [...] Qnty Indications Order ing Provider Date Alendronate Hctnvj90zh Tablets Take 1 Tablet By Mouth Weekly 30 Minutes Before The First Food, Beverage Or Medicine Of The Day With Plain Water For Osteoporosis 12tabs Yamila Rodriguez M.D. 08/30/2023 Zolpidem Kcylkbnu04jh Tablets Take 1 Tablet By Mouth AT Bedtime Cyndi Chavira CNP Doxycycline Dwggmsx09qn Tablets Take 1 Tablet By Mouth In The Morning, 2 Tablets In The Evening Unknown Sumatriptan Wxhzbkoha118md Tablets Please See Attached For Detailed Directions Unknown Tizanidine HCL2mg Tablets Take 3 Tablet By Mouth 1 Time A Day Cyndi Chavira CNP Duloxetine WEI09li Caps DR Part Take 1 Capsule By Mouth Every Day For 90 Days Cyndi Chavira CNP Yeiptavrdoxxub43kw Tablets Take 1 Tablet By Mouth Twice A Day Unknown Hydroxychloroquine Vausrci901xe Tablets Take 1 Tablets By Mouth Every Day Cyndi Chavira CNP Acetaminophen/Codeine Eyyjembyu332-76ox Tablets Take 2 Tablets By Mouth Twice A Day as Needed For Pain Unknown Enbrel Tbryzdqii63gi/ml Solution Auto-Inject Unknown 000 Jgtxexsdumbv71hk Capsules Take One Capsule Twice A Day With Fatty Food ([facility] [id number]) Unknown Vital Signs Date Vital Result Comment [...] D deficiency has been defined by the [place] of [employer] and an Endocrine Society practice guideline as a level of serum 25-OH vitamin D less than 20 ng/mL (1,2). The Endocrine Society went on to further define vitamin D insufficiency as a level between 21 and 29 ng/mL (2). 1. IOM ([place] of Medicine). 2010. Dietary reference intakes for calcium and D. [place]: The National Academies Press. 2. Ranjith MF, Esteban NC, Cirilo SAEED, et al. Evaluation, treatment, and prevention of vitamin D deficiency: an Endocrine Society clinical practice guideline. JCEM. 2010; 96(7):1911-30. 2 Vitamin D deficiency has been defined by the [place] of [employer] and an Endocrine Society practice guideline as a level of serum 25-OH vitamin D less than 20 ng/mL (1,2). The Endocrine Society went on to further define vitamin D insufficiency as a level between 21 and 29 ng/mL (2). 1. IOM ([place] of [employer]). 2010. Dietary reference intakes for calcium and D. [place]: The National Academies Press. 2. Esteban Rodrigez, Cirilo SAEED, et al. Evaluation, treatment, and prevention of vitamin D deficiency: an Endocrine Society clinical practice guideline. JCEM. 2010; 96(7):1911-30. 3 Vitamin D deficiency has been defined by the [place] of [employer] and an Endocrine Society practice guideline as a level of serum 25-OH vitamin D less than 20 ng/mL (1,2). The Endocrine Society went on to further define vitamin D insufficiency as a level between 21 and 29 ng/mL (2). 1. IOM ([place] of Medicine). 2010. Dietary reference intakes for [...]
--- OUTSIDE RECORDS SUMMARY | 2025-04-19 11:04 | XMS_ITS | Patient Health Record ---
Author Organization [facility] Address [facility] [facility] [address] [place] [address] Care Team Providers Care Dairy Farmer Name Role Phone DR. Urabno Gómez Unavailable [phone] Allergies No Known Allergies Reason For Referral No Information Medications Medication SIG (Take, Route, Frequency, Duration) Notes Start Date End Date Status Spironolactone Activ e Hydroxychloroquine Sulfate Active Doxycycline Active tiZANidine HCl Activ e Xhance 93 MCG/ACT Exhaler Suspension 1 spray in each nostril Nasally Twice a day; Duration: 90 days 10/05/2020 Active Ipratropium Cotter 0.06 % Solution 1 - 2 sprays in each nostril Nasally Three times a day; Duration: 90 days Active Ipratropium [place] 0.06 % Solution 2 sprays in each [...] W/U Status Risk Notes Problem Chronic pansinusitis (65200494) Chronic pansinusitis (J32.4) Active confirmed Problem Chronic cough (13128400) Chronic cough (R05) Active confirmed Problem Posterior rhinorrhea (73853400) Post-nasal drainage (R09.82) Active confirmed Plan Of Treatment Pending Test Test Name Order Date Throat: Laryngoscopy - Flex 08/08/2020 CT SINUS SURGICAL NAVIGATION WITHOUT CON TRAST 10/04/2020 Laryngoscopy flex 10/02/2022 Insurance Providers Payer Name Payer Address Payer Phone Subscriber Number Group Number Insured Name Patient Relationship to Insured Coverage Start Date Coverage End Date [employer] XIC and XIK only [address] [address] [place], [place] [id number] [phone] [id number] Amelia Thomas Self - patient is the insured Medical (General) History Medical History History ICD Code Problems with General Anesthesia: No Malignant Hyperthermia: No On Blood Thinners: No allergies, seasonal environmental: Yes Autoimmune Disorder: Yes migraine headaches: Yes fever: No Other (Specify): Benign Essential Tremor s Surgical History Surgery Date(Month/Year)
== END 2025-04-19 10:23 | disposition home or self-care (01) ==
PROVIDERS: PCP Nurse Practitioner Family; Visit Provider Obstetrics & Gynecology
DX: Z01.419 Encounter for gynecological examination (general) (routine) without abnormal findings (principal)
CPT/HCPCS: 99386; 99459

== ENCOUNTER 2025-04-19 09:35 | Outpatient (REF) | payer BC, SELFPAY | END 2025-04-19 09:36 | disposition home or self-care (01) | LOC: HO.LNP 09:35 | PROVIDERS: PCP Nurse Practitioner Family; Visit Provider Obstetrics & Gynecology | DX: Z01.419 Encounter for gynecological examination (general) (routine) without abnormal findings (principal) | CPT/HCPCS: 87626; 88175 ==

== ENCOUNTER 2025-04-29 11:34 | Outpatient (AMB) | payer BC, SELFPAY ==
[2025-04-29 11:35] VITALS: BP 132/94; PULSE 84; O2SAT 98; BMI 28.7
--- NOTE | 2025-04-29 11:35 | A.OFFVIS_ITS ---
Vital Signs 04/29/25 11:35 Height 5 ft 3 in Weight 162 lb BMI 28.7 BP 132/94 H Blood Pressure Location Rt brachial Position Sitting Pulse 84 Pulse Source Pulse Oximeter Pulse Oximetry (%) 98 Oxygen Delivery Method Room Air Intake Visit Reasons: Follow up Intake Note: Follow up Essential and other specified forms of tremor, h/o spinal cord compression, Spinal stenosis - cervical region and fall Picture Painter Required: No Accompanied by: Self / Same As Patient Allergies ammonia Allergy (Severe, Verified 04/29/25 11:35) Anaphylaxis strawberry Allergy (Mild, Verified 04/29/25 11:35) Hives Medication List - Last Reconciled 04/29/25 by Dea Sewell MD acetaminophen-codeine 300-30 mg 1 tab PO BID PRN alendronate 70 mg PO QWEEK calcium acetate 668 mg PO DAILY cholecalciferol (vitamin D3) 25 mcg PO DAILY duloxetine 60 mg PO DAILY 90 days Enbrel SureClick (etanercept) 50 mg subcut QWEEK NS folic acid 2 mg (2 x 1 mg) PO DAILY 90 days isotretinoin 40 mg PO BID methotrexate sodium 15 mg (6 x 2.5 mg) PO QWEEK 90 days primidone 200 mg (4 x 50 mg) PO BID spironolactone 50 mg PO BID 30 days sumatriptan succinate 100 mg orally; at the onset of headaches, may take one more tablet with in 2 hours of the first dose not to exceed 200mg w/in 24hour period. MDD 200mg tizanidine 2 mg PO TID 90 days tramadol 50 mg PO BID PRN tretinoin 0.025% 1 appl topical BEDTIME zolpidem 10 mg PO BEDTIME 30 days HPI Comments Details: 49y/o right handed female with a complex medical issues - Rheumatoid arthritis , fibromyalgia comes for follow up of essential tremors. she had another fall from the stair - when she leaned forward she fell . she feels her left hand is weak and has numbness in the thumb . she reports tremors in her hands worse in the left. she is still on zolpidem 10mg qhs - she tried tapering but was unable to do so History form last visit 11/18-she had a fall on October 142024 - at 6am when she was trying to get on the [employer] shuttle . she had been awake for 2 hrs prior to that . Normally she wakes up at 9 am she is on Zolpidem 10 mg 9pm and she had taken it the previous night .she has been on the zolpidem since her 20s. she peña snot remember how she fell - she was trying to step over a curb.No loss of consciousness but peña snot remember how she fell. she remembers sitting up and bleeding from her forehead. CT c spine - did not show any fractures. - HST was inconclusive . PSG was normal. Tremors are stable MRI shows spinal stenosis - with ventral cord impingement. she had surgery ( Mar 02 2024) C3-T1 fusion .gait has improved since then Tremors are stable.she is seeing rheumatology, ENT, Pulmonary, GI and has a Neurosurgeon in [place] and endocrine. History-She started noticing tremors in her 20s and was diagnosed with essential tremors.Her father had essential tremors. Her tremors were mostly in her left UE mostly with posture and action . she is on primidone and helps to decrease the tremors Handwriting is good especially if she uses a fountain pen Eating - using utensils - good Drinking fluids - good Mild difficulty in fine motor coordination She was always prone to falls but about 2-3 years ago she noticed increase in falls, balance issues and gait issues. she has stress incontinence. SHe was living [facility] and was seen by a neurologist who evaluated with MRI C spine and brain . 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 she was seen by Neurosurgery but due to her move back to [place] she did not have surgery. she also reports chronic cough for over 2 years. she snores and has frequent arousals. [facility] Medical History Fall Essential and other specified forms of tremor Spinal cord compression Spinal stenosis in cervical region Hypersomnia Snoring Degenerative cervical disc Benign essential tremor Fibromyalgia Rheumatoid arthritis Surgical History H/O spinal fusion History of surgery on left wrist History of uvulopalatopharyngoplasty History of surgical removal of ganglion cyst History of tonsillectomy H/O: knee surgery H/O removal of cyst History of appendectomy History of adenoidectomy Family History Mother COPD (chronic obstructive pulmonary disease) Type 2 diabetes mellitus Congestive heart failure Rheumatoid arthritis Fibromyalgia Sjogrens syndrome Father Congenital heart defect Colon cancer Paternal Grandmother Breast cancer Bone cancer Maternal Aunt Rheumatoid arthritis Social History Household Members: Spouse and Significant Other Housing: House Alcohol intake: current Alcohol intake frequency: holidays/special occasions only Patient Tobacco Use Status: Never used Tobacco e-Cigarette/Vaping Use: Never Used Second Hand Smoke Exposure: No service: No Current occupational status: employed 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 Sexual orientation: Straight/Heterosexual Gender identity: Female Cognitive needs: No Hearing needs: No Vision needs: No Physical Exam Vital Signs: Last Vital Signs Pulse 84 04/29/25 11:35 BP 132/94 H 04/29/25 11:35 Pulse Ox 98 04/29/25 11:35 Oxygen Delivery Method Room Air 04/29/25 11:35 BMI result Body Mass Index 28.7 Const General: cooperative and comfortable Nutritional Appearance: average body habitus Orientation/consciousness: patient oriented x3 Eyes Pupils: Equal, round and reactive pupils present Neuro Other: Malalmpatti grade 4 retrognathia Mild postural tremors Left UE gait stable General: patient oriented x3, tone normal, moves all extremities and no focal motor deficits Cranial nerves: Yes Equal, round and reactive pupils present, Yes Bilaterally intact EOM present, Yes Nystagmus not present, Yes Normal facial strength present and Yes Midline tongue present Cognition (Neuro): normal cognition Gait exam (Neuro): Normal gait present Motor exam (neuro): 5/5 motor strength present throughout and Normal motor muscle tone present throughout Coordination: ywmcrd-en-csfb test normal Assessment & Plan Assessment & Plan (1) Essential and other specified forms of tremor: Code(s): G25.0 - Essential tremor; G25.2 - Other specified forms of tremor Category: Medical (2) Spinal cord compression: Code(s): G95.20 - Unspecified cord compression Category: Medical (3) Spinal stenosis in cervical region: Code(s): M48.02 - Spinal stenosis, cervical region Category: Medical (4) Fall: Code(s): W19.XXXA - Unspecified fall, initial encounter Category: Medical Qualifiers: Encounter type: subsequent encounter Qualified Code(s): W19.XXXD - Unspecified fall, subsequent encounter Plan I am concerned about her chronic zolpidem use suggested to take 1/2 tab on weekends tremors are fairly controlled will add propranolo 10mg bidfor better control Primidone 200mg bid F/u Neurosurgery at [place]- had surgery in Feb 2024- Fusion C3-T1 Medications: New propranolol 10 mg PO BID 60 tabs 6RF Coding Level of Care Code Est Pt Level 4 (91740) Diagnoses Essential and other specified forms of tremor G25.0; G25.2 Spinal cord compression G95.20 Spinal stenosis in cervical region M48.02 Fall, subsequent encounter W19.XXXD Encounter type: subsequent encounter
== END 2025-04-29 12:05 | disposition home or self-care (01) ==
PROVIDERS: PCP Nurse Practitioner Family; Visit Provider Psychiatry & Neurology Neurology
DX: G25.0 Essential tremor (principal); G25.2 Other specified forms of tremor; G95.20 Unspecified cord compression; M48.02 Spinal stenosis, cervical region; W19.XXXD Unspecified fall, subsequent encounter
CPT/HCPCS: 99214

== ENCOUNTER 2025-05-17 10:05 | Outpatient (REF) | payer BC, SELFPAY ==
--- NOTE | ~2025-05-17 | MM_ITS ---
EXAMINATION: DXA BONE DENSITY AXIAL HISTORY: M81.0 AGE RELATED OSTEOPOROSIS TECHNIQUE: Litigain Dual energy absorptiometry (DEXA) of the lumbar spine, total left hip, and femoral neck was performed. COMPARISON: Comparison is made with the prior examination dated 05/03/2023. FINDINGS: The bone mineral density of the lumbar spine is 1.215 g/cm2, corresponding to a T-score of 0.3, and a Z-score of 0.6. This is indicative of normal bone mineral density. This represents a BMD change of 2.4% compared to the prior exam. This is statistically significant. The bone mineral density of the left total hip is 0.954 g/cm2, corresponding to a T-score of -0.4, and a Z-score of -0.1. This is indicative of normal bone mineral density. This represents a BMD change of 34.9% compared to the prior exam. This is statistically significant. The bone mineral density of the left femoral neck is 0.840 g/cm2, corresponding to a T-score of -1.4, and a Z-score of -0.7. This is indicative of osteopenia. This represents a BMD change of 33.5% compared to the prior exam. FRACTURE RISK: The FRAX index suggests a ten year probability of major osteoporotic fracture of 18.8%, and of hip fracture 2.1%. MM/XR DEXA axial skeleton IMPRESSION: Based on bone mineral density, and according to World Health Organization (WHO) criteria, the diagnosis is consistent with osteopenia. Statistically, 68% of repeat scans fall within 1 SD (+/- 0.010 g/cm2 for AP spine L1-L4) and 1 SD (+/- 0.012 g/cm2 for femur total) FRAX is a trademark of the [employer]'s [place] [employer] Metabolic Bone Disease, a World Health Organization (WHO) Collaborating Center. Electronically signed by: Giovany Boone MD 05/17/2025 10:31 AM [facility]
--- OUTSIDE RECORDS SUMMARY | 2025-05-17 12:07 | XMS_ITS | Continuity of Care Document ---
Author Organization [facility] [address] [facility] [address] [place] [address] Phone [phone] Care Team Providers Care Edi Architect Name Role Phone Cyndi Chavira CNP Care Team Information Receive r [phone] Problems Active Problems Provider Date Essential tremor [...] Qnty Indications Order ing Provider Date Alendronate Gvakru35pb Tablets Take 1 Tablet By Mouth Weekly 30 Minutes Before The First Food, Beverage Or Medicine Of The Day With Plain Water For Osteoporosis 12tabs Yamila Rodriguez M.D. 08/30/2023 Zolpidem Uvwdmaxq94jp Tablets Take 1 Tablet By Mouth AT Bedtime Cyndi Chavira CNP Doxycycline Oesoxhs08dh Tablets Take 1 Tablet By Mouth In The Morning, 2 Tablets In The Evening Unknown Sumatriptan Jtdniyyqu729eq Tablets Please See Attached For Detailed Directions Unknown Tizanidine HCL2mg Tablets Take 3 Tablet By Mouth 1 Time A Day Cyndi Chavira CNP Duloxetine EMD60qv Caps DR Part Take 1 Capsule By Mouth Every Day For 90 Days Cyndi Chavira CNP Hoekmhwmaypaub05os Tablets Take 1 Tablet By Mouth Twice A Day Unknown Hydroxychloroquine Aluldbb922vl Tablets Take 1 Tablets By Mouth Every Day Cyndi Chavira CNP Acetaminophen/Codeine Eigvxqrsy324-01jy Tablets Take 2 Tablets By Mouth Twice A Day as Needed For Pain Unknown Enbrel Ipldlfwkg95dq/ml Solution Auto-Inject Unknown 000 Pfxxozcibqry15ju Capsules Take One Capsule Twice A Day With Fatty Food ([facility] [id number]) Unknown Vital Signs Date Vital Result Comment [...] D deficiency has been defined by the [place] of Medicine and an Endocrine Society practice guideline as a level of serum 25-OH vitamin D less than 20 ng/mL (1,2). The Endocrine Society went on to further define vitamin D insufficiency as a level between 21 and 29 ng/mL (2). 1. IOM ([place] [employer]). 2010. Dietary reference intakes for calcium and D. [place]: The National Academies Press. 2. Ranjith MF, Esteban NC, Cirilo SAEED, et al. Evaluation, treatment, and prevention of vitamin D deficiency: an Endocrine Society clinical practice guideline. JCEM. 2010; 96(7):1911-30. 2 Vitamin D deficiency has been defined by the [place] and an Endocrine Society practice guideline as a level of serum 25-OH vitamin D less than 20 ng/mL (1,2). The Endocrine Society went on to further define vitamin D insufficiency as a level between 21 and 29 ng/mL (2). 1. IOM ([place]). 2010. Dietary reference intakes for calcium and D. [place]: The National Academies Press. 2. Esteban Rodrigez, Cirilo SAEED, et al. Evaluation, treatment, and prevention of vitamin D deficiency: an Endocrine Society clinical practice guideline. JCEM. 2010; 96(7):1911-30. 3 Vitamin D deficiency has been defined by the [place] and an Endocrine Society practice guideline as a level of serum 25-OH vitamin D less than 20 ng/mL (1,2). The Endocrine Society went on to further define vitamin D insufficiency as a level between 21 and 29 ng/mL (2). 1. IOM ([place]). 2010. Dietary reference intakes for [...]
--- OUTSIDE RECORDS SUMMARY | 2025-05-17 12:07 | XMS_ITS | Encounter Summary ---
Author Organization [facility] Address [address] [place] [id number] Phone Care Team Providers Care Plastic Parts Designer Name Role Phone Fan Hanna ICT MANAGERS Primary Care Provider [phone]- [phone] Encounter Details Date Type Department Care Team (Late st Contact Info) Description 12/16/2023 Procedure Pass [facility] Endoscopy Admitting Dept Virtual Department [address] [place] [address] Social History Tobacco Use Types [...] on filedocumented in this encounter Care Teams Plastic Parts Designer Relationship Specialty Start Date End Date Fan Hanna NP [address] [place] [address] PCP - General Nurse Practitioner 12/16/23 documented as of this encounter Additional Source Comments The information contained in this document represents components of the legal health record. It is not the complete legal health record.[facility]
--- OUTSIDE RECORDS SUMMARY | 2025-05-17 12:07 | XMS_ITS | Clinical Summary ---
Author Organization [facility] Address [address] [place] [address] Phone Care Team Providers Care Gas Meter Installer Helper Name Role Phone Fan Hanna PLACE CHANGE ROOF BOLTER Primary Care Provider [phone]- [phone] Allergies Active Allergy Reactions Criticality Noted Date Comments Ammonia Solution, Strong Anaphylaxis High 12/16/2023 [place] Hives 12/16/2023 Medications hydroxychloroqui ne (PLAQUENIL) 200 [...] Devices Not on file Insurance PPO [facility] OUT OF [facility] P[facility] OUT OF [facility] PPO [employer] OUT OF STATE PPO Care Teams Gas Meter Installer Helper Relationship Specialty Start Date End Date Fan Hanna NP [address] [place] [address] PCP - General Nurse Practitioner 12/16/23 Additional Source Comments The information contained in this document represents components of the legal health record. It is not the complete legal health record.[facility]
--- OUTSIDE RECORDS SUMMARY | 2025-05-17 12:07 | XMS_ITS | Patient Health Record ---
Author Organization [facility] Address [facility] [facility] [place] [address] Care Team Providers Care Flight/Transport Nurse Name Role Phone DR. Urbano Gómez Unavailable [phone] Allergies No Known Allergies Reason For Referral No Information Medications Medication SIG (Take, Route, Frequency, Duration) Notes Start Date End Date Status Spironolactone Activ e Hydroxychloroquine Sulfate Active Doxycycline Active tiZANidine HCl Activ e Xhance 93 MCG/ACT Exhaler Suspension 1 spray in each nostril Nasally Twice a day; Duration: 90 days 10/05/2020 Active Ipratropium [place] 0.06 % Solution 1 - 2 sprays in each nostril Nasally Three times a day; Duration: 90 days Active Ipratropium [place] 0.06 % Solution 2 sprays in each [...] W/U Status Risk Notes Problem Chronic pansinusitis (95265143) Chronic pansinusitis (J32.4) Active confirmed Problem Chronic cough (60584605) Chronic cough (R05) Active confirmed Problem Posterior rhinorrhea (28955202) Post-nasal drainage (R09.82) Active confirmed Plan Of Treatment Pending Test Test Name Order Date Throat: Laryngoscopy - Flex 08/08/2020 CT SINUS SURGICAL NAVIGATION WITHOUT CON TRAST 10/04/2020 Laryngoscopy flex 10/02/2022 Insurance Providers Payer Name Payer Address Payer Phone Subscriber Number Group Number Insured Name Patient Relationship to Insured Coverage Start Date Coverage End Date [employer] XIC and XIK only [address] [address] [place], [place] [phone] [id number] Amelia Thomas Self - patient is the insured Medical (General) History Medical History History ICD Code Problems with General Anesthesia: No Malignant Hyperthermia: No On Blood Thinners: No allergies, seasonal environmental: Yes Autoimmune Disorder: Yes migraine headaches: Yes fever: No Other (Specify): Benign Essential Tremor s Surgical History Surgery Date(Month/Year)
--- OUTSIDE RECORDS SUMMARY | 2025-05-17 12:07 | XMS_ITS | Clinical Summary ---
Author Organization [facility] Address [address] [place] [address] Care Team Providers Care Sales Center Associate Name Role Phone None, Pcp MD Primary Care Provider Unavailabl e Allergies Active Allergy Reactions Criticality Noted Date Comments Ammonia Anaphylaxis High 02/17/2024 [place] Hives,Rash High 05/27/1979 Medications tiZANidine (ZANAFLEX) 2 MG tablet 4 Active zolpidem (AMBIEN) 10 mg tablet 4 Active hydroxychloroqu ine (PLAQUENIL) 200 mg tablet 4 Active alendronate (FOSAMAX) 70 MG tablet Take by mouth. 4 Active SUMAtriptan (IMITREX) 100 MG tablet Active primidone (MYSOLINE) 50 MG tablet TAKE 4 TABLETS BY MOUTH IN THE MORNING AND 4 TABLETS AT NIGHT. Active spironolactone (ALDACTONE) 50 MG tablet 4 Active doxycycline hyclate (PERIOSTAT) 20 MG tablet 4 Active folic acid (FOLVITE) 400 MCG tablet Take 1 tablet (400 mcg total) by mouth daily. Active DULoxetine (CYMBALTA) [address] capsule 4 Active ipratropium (ATROVENT) 42 mcg (0.06 %) nasal spray 2 sprays into each nostril every morning & every evening. Active docusate sodium (COLACE) 100 MG capsule Take 2 capsules (200 mg total) by mouth every morning & every evening. 4 Active acetaminophen (TYLENOL) 325 MG tablet Take 2 tablets (650 mg total) by mouth every 6 hours. 4 Active polyethylene glycol (MIRALAX) 17 gram packet Take 1 packet (17 g total) by mouth daily. 4 Active sennosides (SENOKOT) 8.6 mg tablet Take 2 tablets (17.2 mg total) by mouth every morning & every evening. 4 Active etanercept (EnbreL) 50 mg/mL (1 mL) Syrg injectionIndica tions:Cervical myelopathy (CMS-HCC) Inject 1 mL (50 mg total) under the skin every 7 days. Hold until cleared by neurosurgery to restart 4 Active methocarbamoL (ROBAXIN) 500 MG tablet TAKE 1 TABLET (500 MG TOTAL) BY MOUTH 4 TIMES A DAY NEEDED (SPASM). 60 tablet 5 Active Active Problems Problem Noted Date Diagnosed Date Obesity (BMI 30-39.9) 03/01/2024 Class 1 obesity 02/17/2024 Uncomplicated opioid use 02/17/2024 Cervical myelopathy 12/31/2023 Osteoporosis 08/26/2023 Essential tremor 06/24/2023 Chronic pain 06/24/2023 Rheumatoid arthritis 06/24/2023 Tremor 03/06/2021 Migraine without aura 10/21/2012 Overview (02/17/2024): (G43.009)MIGR W/O A W/O INTR 346.10 Immunizations Immunization Administration Dates Next Due Influenza Vaccine - STANDARD - PF (FLUZONE/FLUARIX/FLULAVAL/AFLURIA) 03/05/2024 Social History Tobacco Use Types Packs/Day Years Used Date Smoking Tobacco: Never Smokeless Tobacco: Never Tobacco Cessation:Counseling Given: Not Answered Alcohol Use Standard Drinks/Week Comments Yes 0 (1 standard drink = 0.6 oz pur e alcohol) [facility] Utilities Answer Date Recorded In the past 12 months has [facility] [employer], gas, oil, or water [employer] threatened to shut off services in your home? No 03/03/2024 Humiliation, Afraid, Rape, and Kick questionnair e Answer Date Recorded Within the last year, have y ou been afraid of your partner or ex-partner? No 03/03/2024 Emotionally Abused Not on file 03/03/2024 Physically Abused Not on file 03/03/2024 Sexually Abused Not on file 03/03/2024 Overall Financial Resource Strain (CARDIA) Answe r Date Recorded How hard is it for you to pa y for the very basics like food, housing, medical care, and heating? Not very hard 03/03/2024 Hunger Vital Sign Answer Date Recorded Within the past 12 months, y ou worried that your food would run out before you got the money to buy more. Never true 03/03/20 24 Ran Out of Food in the Last Year Not on file 03/03/2024 PRAPARE - Transportation Answer Date Re corded In the past 12 months, has l ack of transportation kept you from medical appointments or from getting medications? No 12/2023 In the past 12 months, has l ack of transportation kept you from meetings, work, or from getting things needed for daily living? No 03/03/2024 Housing Stability Vital Sign Answer Heraclio e Recorded In the last 12 months, was t here a time when you were not able to pay the mortgage or rent on time? No 03/03/2024 Number of Times Moved in the Last Year Not on fi le 03/03/2024 At any time in the past 12 m [facility], were you homeless or living in a halfway (including now)? No 03/03/2024 Food Insecurity Answer Date Recorded Within the past 12 months, y ou worried that your food would run out before you got the money to buy more. Never true 03/03/20 24 Ran Out of Food in the Last Year Not on file 03/03/2024 Intimate Partner Violence Answer Date R ecorded Emotionally Abused Not on file 03/03/2024 Within the last year, have y ou been afraid of your partner or ex-partner? No 03/03/2024 Physically Abused Not on file 03/03/2024 Sexually Abused Not on file 03/03/2024 Housing Stability Answer Date Recorded Unstable Housing in the Last Year Not on file 03/03/2024 In the last 12 months, was t here a time when you were not able to pay the mortgage or rent on time? No 03/03/2024 [address] Lived in the Last Year Not on f ile 03/03/2024 AUDIT C Answer Date Recorded How often have you had a dri nk containing alcohol, in the past year? 2 03/03/2024 How many standard drinks con taining alcohol have you had on a typical day when you are drinking, in the past year? 1 1 How often have you had six o r more drinks on one occasion, in the past year? 1 03/03/2024 Comments No Sex and Gender Information Value Date Recorded Sex Assigned at Female 08/19/2023 3:34 PM EDT Legal Sex Female 3:31 PM EDT Gender Identity Female 08/19/2023 3:34 PM EDT Sexual Orientation Not on file Last Filed Vital Signs Vital Sign Reading Time Taken Comments Blood Pressure 127/87 04/21/2024 10:12 AM EST Pulse 83 04/21/2024 10:12 AM EST Temperature 36.7 C (98.1 F) 03/16/2024 11:29 AM EDT Respiratory Rate 18 03/05/2024 11:46 AM EDT Oxygen Saturation 98% 04/21/2024 10:12 AM EST Inhaled Oxygen Concentration - - Weight 79.4 kg (175 lb) 03/16/2024 11:29 AM EDT Height 160 cm (5' 3 ) 02/27/2024 1:48 PM EDT Body Mass Index 31 02/27/2024 1:48 PM EDT Plan of Treatment Health Maintenance Due Date Last Done Comments Lipid Panel 1973 Depression Screening 1985 Hepatitis C Screening 11/11/1991 DTaP,Tdap,and Td Vaccines (1 - Tdap) 1992 Pap Smear 1994 Cervical Cancer Screening 11/11/2003 HPV/Cotest 11/11/2003 Breast Cancer Screening 2013 CT Colonography 2018 Colonoscopy 2018 Colorectal Cancer Screening 2018 FIT 2018 FOBT 2018 Multitarget Stool DNA (Cologuard) 2018 Sigmoidoscopy 2018 Pneumococcal Vaccine: 50+ Years (1 of 1 - PCV) 11/11/2023 Zoster Vaccine (2 of 2) 11/11/2023 03/14/2023 COVID-19 Vaccine (1 - season) 2025 Influenza Vaccine (#1) 2025 , 03/14/2023, 06/08/2020, Additional history exists Blood Pressure 04/21/2025 04/21/2024 Meningococcal B Vaccines Aged Out No longer eligible based on patient's age to complete this topic Meningococcal Vaccines Aged Out No lo nger eligible based on patient's age to complete this topic Medical Devices Implanted Type Area Beveling And Edging Machine Operator Device Identifier Shelf Expiration Date Model / Serial / Lot Screw 4.0mm 4.0x24 Poly Symphony ([id number]) - [id number] Implanted:Q ty: 2 on 03/02/2024 by Maryann Christensen MD at [facility] Bone screws or pegs N/A: Spine Cervical [employer] - A [employer] () 03/02/2025 [id number] / / NONE Graft Bn Vivigen Frmbl Cllr Bn Mtrx Med Algrf ([id number]) - [id number] Implanted:Q ty: 1 on 03/02/2024 by Maryann Christensen MD at [facility] Human tissue implants N/A: Spine Cervical [employer] () [id number] 02/11/2025 BL-1600-00 2 / [id number] / NONE Rigo 4.0x70mm Ti Mary Symphony ([id number]) - [id number] Implanted:Q ty: 2 on 03/02/2024 by Maryann Christensen MD at [facility] Spinal rods N/A: Spine Cervical [employer] - [employer] () 03/02/2025 [id number] / / NONE Screw 4.0mm 3.0x18mm Ply Symphony ([id number]) - [id number] Implanted:Q ty: 2 on 03/02/2024 by Maryann Christensen MD at [facility] Spinal screws or screw extensions N/A: Spine Cervical [employer] - [employer] () 03/02/2025 [id number] / / NONE Screw 4.0mm 3.0x12mm Ply Symphony ([id number]) - [id number] Implanted:Q ty: 8 on 03/02/2024 by Maryann Christensen MD at [facility] Spinal screws or screw extensions N/A: Spine Cervical [employer] - [employer] () 03/02/2025 [id number] / / NONE [employer] Synthes 1020-00-000 ([id number]) - [id number] Implanted:Q ty: 12 on 03/02/2024 by Maryann Christensen MD at [facility] Spinal set screw or plug N/A: Spine Cervical [employer] - [employer] () 03/02/2025 1020.00.00 0 / / NONE Insurance [facility] Member Subscriber Plan / Payer ( fective 2018-Present) Name:Amelia Thomas Relation to Subscriber:Self Name:Amelia Thomas Payer ID:[id number] (NAIC) Group ID:[id number] Type:Preferred Provider Organization (PPO) Address: [address] [facility] Advance Directives Documents on File Type Date Recorded Patient Supervisor Production Expl jose Health Care Proxy 02/18/2024 7:57 AM Healt h Care Proxy * Full Code (Latest Code Status on File) Date Activated Date Inactivated Comments 03/02/2024 7:34 PM Question Answer Comments Discussed with/per: Patient * Full Code Date Activated Date Inactivated Comments 03/02/2024 11:20 AM 03/02/2024 7:34 PM Question Answer Comments Discussed with/per: Patient Healthcare Agents on File Name Relationship Healthcare Agent Relationship Communication Cruz Davidson Life Partner/Signif Oth Health Care Agent Care Teams Sales Center Associate Relationship Specialty Start Date End Date None, Pcp, PCP - General 03/16/24 [facility] [address] [facility] [address] Nurse Practitioner Internal Medicine 12/30/23
--- OUTSIDE RECORDS SUMMARY | 2025-05-17 12:07 | XMS_ITS | Encounter Summary ---
Author Organization [facility] Address [address] [place] [address] Phone Care Team Providers Care Change Coordinator Name Role Phone Fan Hanna CHARGING MACHINE OPERATOR Primary Care Provider +1- [phone] Encounter Details Date Type Department Care Team (Late st Contact Info) Description 12/18/2023 Procedure Pass [facility] Endoscopy Admitting Dept Virtual Department [address] [place] [address] Social History Tobacco Use Types [...] on filedocumented in this encounter Care Teams Change Coordinator Relationship Specialty Start Date End Date Fan Hanna NP [address] [place] [address] PCP - General Nurse Practitioner 12/16/23 documented as of this encounter Additional Source Comments The information contained in this document represents components of the legal health record. It is not the complete legal health record.[facility]
== END 2025-05-17 10:06 | disposition home or self-care (01) ==
LOC: HO.MAMMO 10:05
PROVIDERS: Absent Provider Nurse Practitioner Family; PCP Nurse Practitioner Family; Visit Provider Student in an Organized Health Care Education/Training Program
DX: M81.0 Age-related osteoporosis without current pathological fracture (principal)
CPT/HCPCS: 77080

== ENCOUNTER → 2025-05-17 10:15 | Outpatient (BNV) | payer BC, SELFPAY | PROVIDERS: Absent Provider Nurse Practitioner Family; PCP Nurse Practitioner Family; Visit Provider Radiology Diagnostic Radiology | DX: E28.39 Other primary ovarian failure (principal) | CPT/HCPCS: 77080 ==